=== PATIENT | male | born 1950 | race Caucasian/White ===

== ENCOUNTER 2020-09-09 21:34 | Emergency (ER) | payer MEDICARE, SELFPAY ==
[2020-09-09 21:37] VITALS: BP 144/74; BP 146/86; PULSE 88; PULSE 90; RESP 18; TEMP 36.4; O2SAT 95; O2SAT 96; BMI 39.5
[2020-09-09 22:00] VITALS: PULSE 88; RESP 18; O2SAT 95
--- NOTE | 2020-09-09 22:31 | XR_ITS ---
EXAMINATION: XR HIP, RIGHT. AP pelvis. CLINICAL INFORMATION: Right hip pain COMPARISON: None TECHNIQUE: Two views of the right hip. AP pelvis. FINDINGS: Mild bilateral hip osteoarthritis with osteophytes along the acetabular rim. Normal alignment with no fracture. Pelvic enthesopathy. No focal osseous lesion. XR/XR hip RT w PEL1V IMPRESSION: Mild osteoarthritis with no fracture.
[2020-09-09] MEDS: Lidocaine 4 % Patch ADH..PATCH 1 PATCH TRANSDERMA (23:12)
[2020-09-09] MEDS: Acetaminophen 325 MG TABLET 975 MG PO (23:14)
[2020-09-09] MEDS: Ketorolac Tromethamine 15 MG/ML VIAL IM (23:16)
[2020-09-10] VITALS: RESP 18
--- NOTE | 2020-09-10 00:39 | PC.NURSE ---
pt was able to amabulate with a steady gait to the bathroom.
--- NOTE | 2020-09-10 01:09 | ED.LOWEXIN ---
HPI - Extremity Injury (Lower) General Chief Complaint: Extremity Injury, Lower Stated Complaint: R LEG PAIN/WEAKNESS Time Seen by Provider: 09/09/20 22:31 Source: patient Mode of arrival: EMS Limitations: no limitations History of Present Illness HPI Narrative: This is a 69-year-old male who presents via EMS after he states his right leg gave out on him . He states he has known chronic back pain and denies any history of a sciatica. He states that when he his leg gave out he did not hit his head, did not lose consciousness, and did not fall injuring his knee. He denies any associated fevers, chills, nausea, vomiting, abdominal discomfort, diarrhea, urinary pain /burning / frequency, shortness of breath, chest pain or palpitations or dizziness. He denies any numbness in the genital area and denies any numbness or tingling to the right lower extremity. Related Data Home Medications Medication Instructions Recorded Confirmed allopurinol 1 tab PO DAILY 09/09/20 09/09/20 atorvastatin 1 tab PO DAILY 09/09/20 09/09/20 fludrocortisone 1 tab PO DAILY 09/09/20 09/09/20 gabapentin 1 cap PO TID 09/09/20 09/09/20 lisinopril 1 tab PO DAILY 09/09/20 09/09/20 metformin 1 tab PO BID 09/09/20 09/09/20 potassium citrate 1 tab PO BID 09/09/20 09/09/20 terazosin 1 cap PO BEDTIME 09/09/20 09/09/20 timolol maleate 1 drp 09/09/20 Allergies Allergy/AdvReac Type Severity Reaction Status Date / Time No Known Allergies Allergy Unverified 06/28/20 15:15 Review of Systems Review of Systems: Pertinent positives and negatives as stated in HPI 10 point review systems is otherwise negative. [facility] Past Medical History Source: nursing notes reviewed Medical History Diabetes mellitus, type 2 HTN (hypertension) Hypercholesteremia Social History Social History Smoking Status: Former smoker Use of substances other than those prescribed or required for medical reasons: No Advance Directives: No Advance Directives Information Provided: Yes Physical Exam Vital Signs: Vital Signs: Last Vital Signs Temp 97.6 F 09/09/20 21:37 Pulse 88 09/09/20 22:00 Resp 18 09/10/20 00:00 BP 144/74 H 09/09/20 21:37 Pulse Ox 95 09/09/20 22:00 Body Mass Index 39.5 VITAL SIGNS: Reviewed. GENERAL: Well developed, well nourished, in no acute distress. HEAD: Normocephalic/atraumatic, EYES: PERRLA, EOMI intact without pain, no nystagmus/pallor/icterus noted EARS: Ext canals without abnormality, TMs non-bulging and non-erythematous NOSE: Nares patent bilateral OROPHARYNX: no oral lesions noted, posterior pharynx clear and non-erythematous without noted tonsillar enlargement/erythema/exudates NECK: Supple, no adenopathy LUNGS: Normal breath sounds. No adventitious sounds or accessory muscle use. SpO2<95> CARDIOVASCULAR: Regular rate and rhythm without noted murmurs, no JVD or lower extremity edema. ABDOMEN: Soft, non-tender, non-distended with bowel sounds. No rigidity. No guarding. No palpable masses or hernias noted MUSCULOSKELETAL: No tenderness, deformities, or effusions noted on gross inspection. EXTREMITIES: No cyanosis, clubbing or edema. SKIN: Inspection of the skin reveals no rashes, ulcerations, jaundice, pallor, or petechiae. NEUROLOGIC: Alert and oriented x 4. Strength and sensation to light touch were grossly intact x 4. Course Course Course Narrative: This is a 69-year-old male with history and clinical exam most consistent with sciatica as there are no focal deficits noted, no saddle anesthesia. On review of imaging there are no acute pelvic or hip findings other than chronic osteoarthritis. Patient received a combination of analgesics as well as a lidocaine patch with improvement in symptoms and the ability to walk to the bathroom. All results and findings were discussed with the patient bedside he will be discharged to home with analgesia recommendations and instructed to follow-up with primary care provider 1st thing in the morning. Discharge Plan Discharge Clinical Impression: Sciatic leg pain Patient Disposition: Home, Self-Care Instructions: Sciatica (ED), Lower Back Exercises (ED) Additional Instructions: 1. Tylenol 1000 mg, orally, every 6 hours as needed for pain control. Do not exceed 4000 mg within 24 hours. 2. Ibuprofen 400 mg, orally with milk or food, every 6 hours as needed for pain control. 3. lidocaine patch, these are available [id number] at every [facility], you should apply this to the area of maximal tenderness on the right buttock as per directions on the outside packaging. 4. you should call the office of your primary care provider 1st thing in the morning for re-evaluation and possible management with a referral to physical therapy. The patient and/or family acknowledge understanding of results (as applicable), diagnosis, treatment plan, need for follow up, and symptoms that should prompt a return to the emergency room. Prescriptions: No Action terazosin 5 mg capsule 1 cap PO BEDTIME RF: 0 atorvastatin 10 mg tablet 1 tab PO DAILY RF: 0 allopurinol 100 mg tablet 1 tab PO DAILY RF: 0 potassium citrate 10 mEq (1,080 mg) tablet extended release 1 tab PO BID RF: 0 lisinopril 5 mg tablet 1 tab PO DAILY RF: 0 gabapentin 100 mg capsule 1 cap PO TID RF: 0 timolol maleate 0.5 % drops 1 drp RF: 0 metformin 500 mg tablet extended release 24 hr 1 tab PO BID RF: 0 fludrocortisone 0.1 mg tablet 1 tab PO DAILY RF: 0 Referrals: Dave Palacio MD [Primary Care Provider] - 2 days ( Please re-evaluate for diagnosis of sciatica. No evidence for cauda equina / hip/pelvis pathologies.)
== END 2020-09-10 01:34 | disposition home or self-care (01) ==
PROVIDERS: Emergency Provider Student in an Organized Health Care Education/Training Program; PCP Internal Medicine
DX: M79.604 Pain in right leg (principal); M54.41 Lumbago with sciatica, right side; R10.2 Pelvic and perineal pain; I10 Essential (primary) hypertension; Z79.899 Other long term (current) drug therapy; Z87.891 Personal history of nicotine dependence
CPT/HCPCS: 73502; 96372; 99284; J1885

== ENCOUNTER 2020-09-12 13:48 | Outpatient (REF) | payer MEDICARE, SELFPAY ==
--- NOTE | 2020-09-12 14:15 | XR_ITS ---
EXAMINATION: XR LUMBOSACRAL SPINE CLINICAL INFORMATION: Right leg pain. COMPARISON: None TECHNIQUE: Three views of the lumbosacral spine. FINDINGS: There is normal lumbar lordosis. There is loss of disc height virtually at every disc levels with mild ventral spondylosis lower dorsal and upper lumbar spine. No lytic or sclerotic process. There is bilateral L4-L5 facet joint arthropathy. The paravertebral soft tissues are normal. XR/XR lumbar spine 2-3V IMPRESSION: Degenerative disc changes. No visible acute fracture, dislocation or lytic process seen.
[2020-09-12 15:11] LABS: MANUAL DIFF FLAG NO
[2020-09-12 15:14] LABS: Basophils Absolute Auto 0.1 X10*3/uL (0.0-0.2); Eosinophils Absolute Auto 0.2 X10*3/uL (0.0-0.4); Eosinophils Percent Auto 2.4 % (0-4); Hemoglobin 13.9 g/dl (14.0-18.0); Imm Gran Abs Auto 0.02 X10*3/uL (0.00-0.03); Imm Gran Pct Auto 0.3 % (0.0-0.4); Lymphocytes Absolute Auto 1.2 X10*3/uL (1.2-4.9); Lymphocytes Percent Auto 16.7 % (20-40); Mean Corpuscular HGB Conc 33.1 g/dl (31.0-36.0); Mean Corpuscular Hemoglobin 31.2 pg (27.0-33.0); Mean Corpuscular Volume 94.2 fL (80-98); Mean Platelet Volume 9.6 fL (9.4-12.4); Monocytes Absolute Auto 0.6 X10*3/uL (0.1-1.2); Monocytes Percent Auto 8.9 % (2-11); Neutrophils Absolute Auto 5.1 X10*3/uL (2.0-8.3); Neutrophils Percent Auto 70.7 % (45-73); Platelet Count 272 X10*3/uL (160-400); Red Blood Count 4.46 X10*6/uL (4.60-5.80); Red Cell Distribution Width 13.3 % (11.0-16.0); White Blood Count 7.2 X10*3/uL (4.8-10.8)
[2020-09-12 15:17] LABS: Estimated Average Glucose 131 mg/dL; Hemoglobin A1c % 6.2 %
[2020-09-12 15:48] LABS: Alanine Aminotransferase 22 U/L (0-40); Albumin Level 4.3 g/dL (3.5-5.0); Alkaline Phosphatase 90 U/L (39-117); Anion Gap 15 (12-20); Aspartate Amino Transferase 25 U/L (5-37); Bilirubin Total 0.5 mg/dL (0.0-1.0); Blood Urea Nitrogen 22 mg/dL (9-16); C Reactive Protein 0.16 mg/dL (< or = 0.50); Carbon Dioxide 26 mmol/L (22-29); Chloride 106 mmol/L (96-108); Estimated Glomerular Filt Rate > 60; Glucose Random 80 mg/dL (60-115); Potassium 4.9 mmol/l (3.3-5.1); Sodium 142 mmol/L (135-145)
[2020-09-12 16:34] LABS: Glucose Urine UA 100 MG/DL (NEG); Leukocyte Esterase Urine NEG (NEG); Nitrite Urine NEG (NEG); PH 5.5 (5.0-8.0); Specific Gravity - Urine 1.025 (1.005-1.025); Urine Blood NEG (NEG); Urine Ketones NEG (NEG); Urine Protein NEG (NEG-TRACE)
[2020-09-12 16:35] LABS: Appearance Urine CLEAR; Color Urine YELLOW
== END 2020-09-12 13:49 | disposition home or self-care (01) ==
LOC: HO.LAB 13:48
PROVIDERS: PCP Internal Medicine; Visit Provider Internal Medicine
DX: M79.604 Pain in right leg (principal); E11.9 Type 2 diabetes mellitus without complications; I10 Essential (primary) hypertension; N20.0 Calculus of kidney; M54.9 Dorsalgia, unspecified
CPT/HCPCS: 36415; 72100; 80053; 81003; 82550; 83036; 85025; 86140

== ENCOUNTER 2020-09-19 11:27 | Outpatient (REF) | payer MEDICARE, SELFPAY ==
--- NOTE | 2020-09-19 11:30 | US_ITS ---
EXAMINATION: US ABDOMEN COMPLETE CLINICAL INFORMATION: Right lower quadrant pain. COMPARISON: Renal ultrasound dated 05/22/2020 and 11/23/2019. TECHNIQUE: Real-time imaging of the abdominal viscera. FINDINGS: PANCREAS: Normal. ABDOMINAL AORTA: The mid and distal abdominal aorta are normal caliber. The proximal abdominal aorta was not seen. INFERIOR VENA CAVA: Visualized portions are normal. LIVER: The liver is normal in size. The liver contour is normal. There is diffuse increased liver echogenicity. No focal hepatic lesion. There is no intrahepatic biliary duct dilatation seen. GALLBLADDER: Normal. The gallbladder is physiologically distended without evidence of stones, sludge, polyps, wall thickening or pericholecystic fluid. COMMON BILE DUCT: Normal in caliber measuring 0.35 cm in diameter. RIGHT KIDNEY: Normal. No hydronephrosis. No renal calculi or focal parenchymal lesions. The kidney measures 10.6 cm in maximum dimension. LEFT KIDNEY: Normal. No hydronephrosis. No renal calculi or focal parenchymal lesions. The kidney measures 10.8 cm in maximum dimension. SPLEEN: Normal. The spleen measures 10.4 cm in maximum dimension. FREE FLUID: None. US/US abdomen complete IMPRESSION: Mild hepatic steatosis without focal lesion. The rest of the abdominal ultrasound is unremarkable.
== END 2020-09-19 11:28 | disposition home or self-care (01) ==
LOC: HO.HMGCX 11:27
PROVIDERS: PCP Internal Medicine; Visit Provider Internal Medicine
DX: R10.31 Right lower quadrant pain (principal)
CPT/HCPCS: 76700

== ENCOUNTER 2021-01-23 10:46 | Outpatient (REF) | payer MEDICARE, SELFPAY ==
--- NOTE | ~2021-01-23 | XR_ITS ---
EXAMINATION: XR ANKLE, RIGHT CLINICAL INFORMATION: Right ankle pain. COMPARISON: None. TECHNIQUE: AP, lateral, and mortise views of the right ankle. FINDINGS: There is no soft tissue swelling. No visible fracture or dislocation or ankle capsular effusion. The malleoli are intact and the ankle mortise is symmetric. Talar dome shows no osteochondral lesion. Subtalar joint is unremarkable. There is some minor spurring from the distal dorsal talus. There are bulky posterior and plantar calcaneal spurs. The retrocalcaneal recess is preserved. XR/XR ankle RT 2V IMPRESSION: 1. No visible fracture, dislocation, or ankle capsular effusion. 2. Bulky posterior and plantar calcaneal spurs.
== END 2021-01-23 10:47 | disposition home or self-care (01) ==
LOC: HO.XRAY 10:46
PROVIDERS: PCP Internal Medicine; Visit Provider Internal Medicine
DX: M25.571 Pain in right ankle and joints of right foot (principal)
CPT/HCPCS: 73600

== ENCOUNTER 2021-02-27 11:40 | Day surgery (SDC) | payer MEDICARE, SELFPAY ==
[2021-02-21 11:17] VITALS: BMI 38.1
--- NOTE | 2021-02-25 13:11 | P.CONAN_ITS ---
Documented by User: Natasha Johnson 02/25/21 13:19 HPI - Anesthesia Eval Consult details Narrative: 70yo M for Colonoscopy h/o orthostatic hypotension PMFSH Past Medical History Medical History (Updated 02/27/21 @ 12:39 by Mimi Lees) Arthritis COVID-19 vaccine administered Diabetes mellitus, type 2 HTN (hypertension) Hx of glaucoma Hx of orthostatic hypotension Hx of renal calculi Hypercholesteremia Hyperuricemia Nocturia Surgical History Surgical History H/O colonoscopy Hx of lithotripsy Social History Social History Are you a primary professional healthcare representative to a significant other at home: No Do you presently have visiting nurse or other home services: No Smoking Status: Never smoker Use of substances other than those prescribed or required for medical reasons: No Have you been hit, kicked, punched, or otherwise hurt by someone within the past year? If so, by whom?: No Are you DNR?: No Advance Directives Information Provided: No Recently lost weight without trying: No Eating poorly because of decreased appetite: No Nutrition Risks: No Nutritional Risk Meds Allergies Allergy/AdvReac Type Severity Reaction Status Date / Time No Known Allergies Allergy Unverified 06/28/20 15:15 Home Medications Medication Instructions Recorded Confirmed Last Taken Type allopurinol 1 tab PO DAILY 09/09/20 02/21/21 Unknown History atorvastatin 1 tab PO DAILY 09/09/20 02/21/21 Unknown History gabapentin 1 cap PO TID 09/09/20 02/21/21 Unknown History lisinopril 5 mg PO DAILY 09/09/20 02/21/21 Unknown History metformin 500 mg PO BID 09/09/20 02/21/21 Unknown History potassium citrate 1 tab PO BID 09/09/20 02/21/21 Unknown History terazosin 1 cap PO BEDTIME 09/09/20 02/21/21 Unknown History timolol maleate 1 drp OPHTHALMIC (EYE) DAILY 09/09/20 02/21/21 Unknown History aspirin [Aspirin Low Dose] 81 mg PO DAILY 02/21/21 02/21/21 Unknown History Exam Exam Date and Time: February 25, 2021 1311 Height,Weight and Vital Signs: Height 5 ft 9.5 in Weight 118.841 kg Assessment and Plan Assessment Anesthesia Assessment: Chart Reviewed Documented by User: Mimi Lees 02/27/21 12:47 PMFSH Past Medical History Medical History (Updated 02/27/21 @ 12:39 by Mimi Lees) Arthritis COVID-19 vaccine administered Diabetes mellitus, type 2 HTN (hypertension) Hx of glaucoma Hx of orthostatic hypotension Hx of renal calculi Hypercholesteremia Hyperuricemia Nocturia Family History Family history of problems with anesthesia: No (Unknown) Surgical History Surgical History H/O colonoscopy Hx of lithotripsy History of Problems with Anesthesia: No Social History Social History Are you a primary professional healthcare representative to a significant other at home: No Do you presently have visiting nurse or other home services: No Smoking Status: Never smoker Use of substances other than those prescribed or required for medical reasons: No Have you been hit, kicked, punched, or otherwise hurt by someone within the past year? If so, by whom?: No Are you DNR?: No Advance Directives Information Provided: No Recently lost weight without trying: No Eating poorly because of decreased appetite: No Nutrition Risks: No Nutritional Risk Meds Allergies Allergy/AdvReac Type Severity Reaction Status Date / Time No Known Allergies Allergy Unverified 06/28/20 15:15 Home Medications Medication Instructions Recorded Confirmed Last Taken Type allopurinol 1 tab PO DAILY 09/09/20 02/21/21 Unknown History atorvastatin 1 tab PO DAILY 09/09/20 02/21/21 Unknown History gabapentin 1 cap PO TID 09/09/20 02/21/21 Unknown History lisinopril 5 mg PO DAILY 09/09/20 02/21/21 Unknown History metformin 500 mg PO BID 09/09/20 02/21/21 Unknown History potassium citrate 1 tab PO BID 09/09/20 02/21/21 Unknown History terazosin 1 cap PO BEDTIME 09/09/20 02/21/21 Unknown History timolol maleate 1 drp OPHTHALMIC (EYE) DAILY 09/09/20 02/21/21 Unknown History aspirin [Aspirin Low Dose] 81 mg PO DAILY 02/21/21 02/21/21 Unknown History Exam Height,Weight and Vital Signs: Vital Signs Temp Pulse Resp BP Pulse Ox 02/27/21 12:18 98.6 F 80 18 142/80 H 96 Pertinent Lab Results Pertinent Lab Results: Lab Results 02/27/21 Range/Units 12:06 POC Glucose 119 H (60-115) mg/dL Narrative Narrative: Patient does not know why he is here and not clear about his medical history. Patient denies any memory problems and no documented history of memory issues. States 'I just go for the appointments when they tell me to' Airway Mallampati Class: II TM Dist: >3cm Neck ROM: Full Heart: RRR Lungs: CTAB Assessment and Plan Assessment Anesthesia Assessment: Anesthesia Plan Discussed and Chart Reviewed Final Anesthetic Review NPO: Yes ASA Class: II Final Preanesthetic Review: No Changes in Pt Med Stat, Meds/Allgs Chart Reviewed, Consent Obtained/Reviewed and Anes Risks/Benef Reviewed Patient Risk: Low Procedure Risk: Low Assessment/Block/Sedation in SS: Assess/Block/Sedation-SS Anesthetic Plan Anesthetic Plan: MAC: Disposition: Standard PACU
[2021-02-27 12:13] LABS: Glucose, Whole Blood 119 mg/dL (60-115)
[2021-02-27 12:18] VITALS: BP 142/80; PULSE 80; RESP 18; TEMP 37; O2SAT 96
[2021-02-27] MEDS: Lactated Ringers 1,000 ML 100 ML IVCONT (12:23)
--- NOTE | 2021-02-27 13:04 | MHC.SHP ---
Pre-Procedural Eval Section B Chief Complaint: screening Details of Present Illness: screening Relevant Family History (Specify if Yes): No Relevant Social History: None Present Medications: see Short Stay Collaborative assessment Medical History: No relevant PMH History of Previous Operations: No relevant previous surgery Allergies: Allergies Allergy/AdvReac Type Severity Reaction Status Date / Time No Known Allergies Allergy Unverified 06/28/20 15:15 Review of Systems Sugical H&P ROS: Negative: Constitution, Cardiovascular, Respiratory, Neurological, Psychiatric, Hem-Onc, Allergic/Immunologic, Gastrointestinal, Genitourinary, Musculoskeletal, Integumentary, Endocrine and Eyes/Ears/Nose/Throat Exam Surgical H&P Exam: Normal: HEENT, Normal: Heart, Normal: Lungs, Normal: Extremities, Normal: Abdomen, Normal: Skin and Normal: Neurological Plan Diagnosis/Plan: Unchanged I have reviewed the history and physical and performed a pertinent physical examination on my patient. No changes have occurred unless specified.
--- NOTE | 2021-02-27 13:52 | P.BOP_ITS ---
Brief Operative Note Date of Service: 02/27/21 Pre-op diagnosis: screening Post-op diagnosis: same (diverticulosis) Procedure: colonoscopy Surgeon: Emigdio Mas Anesthesia: MAC Was an [employer] Consultant used for this Procedure?: No Estimated blood loss (mL): 0 Pathology: other (bxs icv) Condition: stable Disposition: PACU
[2021-02-27 13:56] VITALS: BP 109/62; PULSE 86; RESP 14; TEMP 36.4; O2SAT 94
[2021-02-27 14:12] VITALS: BP 114/69; PULSE 69; RESP 16; O2SAT 94
--- NOTE | 2021-02-27 22:13 | OP_ITS ---
SURGEON: Emigdio Mas MD INDICATIONS: Colon cancer screening. PREOPERATIVE DIAGNOSIS: POSTOPERATIVE DIAGNOSIS: PROCEDURE PERFORMED: Colonoscopy to the terminal ileum. ESTIMATED BLOOD LOSS: COMPLICATIONS: ANESTHESIA: ASSISTANTS: SPECIMENS: MEDICATIONS: Monitored anesthesia care. DESCRIPTION OF PROCEDURE: The history and physical was performed. The risks and benefits of the procedure were explained to the patient. Informed consent was obtained. The patient was placed in the left lateral decubitus position. A digital rectal exam was performed and was found to be normal. The Olympus pediatric video colonoscope was introduced into the rectum and advanced to the cecum. The cecum was identified by transillumination, palpation, and identification of ileocecal valve, examination was performed. Scope was removed. He tolerated the procedure well and was taken to recovery area in stable condition. FINDINGS: The terminal ileum was briefly examined and it appeared normal. The procedure was extended and difficult as the sigmoid contained liquid and formed stool which limited the sensitivity of the examination through this area as well as extensive diverticulosis, which also limited the examination. The visualized colonic mucosa showed no polyps. The liquid stool was washed and suctioned. Extensive sigmoid diverticulosis was noted with tortuous sigmoid. No polyps were identified. Retroflexed examination showed small internal hemorrhoids. There appeared to be lipomatous transformation of the ileocecal valve. Two biopsies were obtained from the mucosa. IMPRESSION: Diverticulosis. RECOMMENDATION: 1. Follow up with the biopsy results. 2. Repeat colonoscopy could be considered in 5 years, but will be optional based on the patient's age. MD MAGGI Man/DARBYL / [id number]
== END 2021-02-27 15:08 | disposition home or self-care (01) ==
PROVIDERS: PCP Internal Medicine; Visit Provider Internal Medicine Gastroenterology
PROC: 0DJD8ZZ Inspection of Lower Intestinal Tract, Via Natural or Artificial Opening Endoscopic (ICD-10-PCS; CPT 45378; principal; 2021-02-27 13:00)
DX: Z12.11 Encounter for screening for malignant neoplasm of colon (principal); Z86.010 Personal history of colon polyps; K57.30 Diverticulosis of large intestine without perforation or abscess without bleeding; K64.8 Other hemorrhoids; I10 Essential (primary) hypertension; E11.9 Type 2 diabetes mellitus without complications; Z79.82 Long term (current) use of aspirin; Z79.899 Other long term (current) drug therapy; Z79.84 Long term (current) use of oral hypoglycemic drugs
CPT/HCPCS: 45380; 82947; 88305

== ENCOUNTER 2021-03-07 13:17 | Outpatient (REF) | payer MEDICARE, SELFPAY ==
--- NOTE | ~2021-03-07 | XR_ITS ---
EXAMINATION: XR THORACIC SPINE XR CERVICAL SPINE CLINICAL INFORMATION: Spondylosis with myelopathy or radiculopathy. COMPARISON: None. TECHNIQUE: 2 views thoracic spine, 5 view cervical spine. FINDINGS: Thoracic Spine: There is normal thoracic kyphosis with minimal dextroscoliosis of the upper dorsal spine. There is calcification of the anterior longitudinal ligament. No visible acute fracture, dislocation or lytic process seen. The paravertebral soft tissues are normal. Cervical Spine: There is mild straightening of cervical lordosis. There is loss of C3-C4, C5-C6 disc heights with moderate bridging osteophyte at the C5-C6 disc level. There is moderate narrowing of bilateral C4-C5 and C5-C6 neural foramina from uncovertebral hypertrophic changes. The prevertebral and paravertebral soft tissues are normal. XR/XR cervical spine min 6V IMPRESSION: Anterior longitudinal calcification throughout the mid and lower dorsal spine suggestive of DISH. There is no visible acute fracture, dislocation or lytic process seen. Degenerative disc changes C3-C4 and C5-C6 disc levels with moderate ventral spondylosis. Bilateral neural foraminal narrowing at C5 and C5-C6 disc levels from uncovertebral hypertrophic changes.
--- NOTE | ~2021-03-07 | XR_ITS ---
EXAMINATION: XR THORACIC SPINE XR CERVICAL SPINE CLINICAL INFORMATION: Spondylosis with myelopathy or radiculopathy. COMPARISON: None. TECHNIQUE: 2 views thoracic spine, 5 view cervical spine. FINDINGS: Thoracic Spine: There is normal thoracic kyphosis with minimal dextroscoliosis of the upper dorsal spine. There is calcification of the anterior longitudinal ligament. No visible acute fracture, dislocation or lytic process seen. The paravertebral soft tissues are normal. Cervical Spine: There is mild straightening of cervical lordosis. There is loss of C3-C4, C5-C6 disc heights with moderate bridging osteophyte at the C5-C6 disc level. There is moderate narrowing of bilateral C4-C5 and C5-C6 neural foramina from uncovertebral hypertrophic changes. The prevertebral and paravertebral soft tissues are normal. XR/XR thoracic spine 3V IMPRESSION: Anterior longitudinal calcification throughout the mid and lower dorsal spine suggestive of DISH. There is no visible acute fracture, dislocation or lytic process seen. Degenerative disc changes C3-C4 and C5-C6 disc levels with moderate ventral spondylosis. Bilateral neural foraminal narrowing at C5 and C5-C6 disc levels from uncovertebral hypertrophic changes.
== END 2021-03-07 13:18 | disposition home or self-care (01) ==
LOC: HO.XRAY 13:17
PROVIDERS: Absent Provider Internal Medicine; PCP Internal Medicine; Visit Provider Nurse Practitioner Women's Health
DX: M47.814 Spondylosis without myelopathy or radiculopathy, thoracic region (principal); M47.812 Spondylosis without myelopathy or radiculopathy, cervical region
CPT/HCPCS: 72052; 72072

== ENCOUNTER 2021-03-18 14:15 | Outpatient (REF) | payer MEDICARE, SELFPAY ==
[2021-03-18 15:12] LABS: MANUAL DIFF FLAG NO
[2021-03-18 15:15] LABS: Basophils Absolute Auto 0.1 X10*3/uL (0.0-0.2); Basophils Percent Auto 0.8 % (0-2); Eosinophils Absolute Auto 0.2 X10*3/uL (0.0-0.4); Eosinophils Percent Auto 2.3 % (0-4); Hematocrit 41.6 % (42-52); Hemoglobin 13.6 g/dl (14.0-18.0); Imm Gran Abs Auto 0.04 X10*3/uL (0.00-0.03); Imm Gran Pct Auto 0.5 % (0.0-0.4); Lymphocytes Absolute Auto 1.3 X10*3/uL (1.2-4.9); Lymphocytes Percent Auto 16.1 % (20-40); Mean Corpuscular HGB Conc 32.7 g/dl (31.0-36.0); Mean Corpuscular Hemoglobin 30.9 pg (27.0-33.0); Mean Corpuscular Volume 94.5 fL (80-98); Mean Platelet Volume 9.5 fL (9.4-12.4); Monocytes Absolute Auto 0.6 X10*3/uL (0.1-1.2); Monocytes Percent Auto 7.6 % (2-11); Neutrophils Percent Auto 72.7 % (45-73); Platelet Count 252 X10*3/uL (160-400); Red Cell Distribution Width 13.7 % (11.0-16.0); White Blood Count 8.3 X10*3/uL (4.8-10.8)
[2021-03-18 15:22] LABS: Estimated Average Glucose 134 mg/dL; Hemoglobin A1c % 6.3 %
[2021-03-18 15:36] LABS: Anion Gap 12 (12-20); Blood Urea Nitrogen 21 mg/dL (9-16); Calcium 9.2 mg/dL (8.4-10.2); Carbon Dioxide 27 mmol/L (22-29); Chloride 110 mmol/L (96-108); Estimated Glomerular Filt Rate 53; Glucose Random 128 mg/dL (60-115); Potassium 4.7 mmol/L (3.3-5.1); Sodium 144 mmol/L (135-145)
== END 2021-03-18 14:16 | disposition home or self-care (01) ==
LOC: HO.LAB 14:15
PROVIDERS: PCP Internal Medicine; Visit Provider Internal Medicine
DX: E11.9 Type 2 diabetes mellitus without complications (principal); E78.00 Pure hypercholesterolemia, unspecified; D64.9 Anemia, unspecified
CPT/HCPCS: 36415; 80048; 83036; 85025

== ENCOUNTER 2021-05-29 00:22 | Emergency (ER) | payer MEDICARE, SELFPAY ==
--- NOTE | 2021-05-29 | ECG_ITS ---
Test Reason : CP Blood Pressure : / mmHG Vent. Rate : 070 BPM Atrial Rate : 070 BPM P-R Int : 188 ms QRS Dur : 084 ms QT Int : 384 ms P-R-T Axes : 039 002 023 degrees QTc Int : 414 ms Normal sinus rhythm Normal ECG When compared with ECG of 02-JUL-2019 16:03, No significant change was found Referred By: Ana Laura Yu Electronically Signed By:OBDULIO FULLER
[2021-05-29 00:32] VITALS: BP 122/64; BP 149/76; PULSE 71; RESP 20; TEMP 36.8; O2SAT 94; O2SAT 98; BMI 35.2
--- NOTE | 2021-05-29 01:03 | ED_ITS ---
HPI - Chest Pain General Chief Complaint: Chest Pain <MARY ANN Franco Last Filed: 05/29/21 02:32> Stated Complaint: chest pain <MARY ANN Franco Last Filed: 05/29/21 02:32> Time Seen by Provider: 05/29/21 01:02 <MARY ANN Franco Last Filed: 05/29/21 02:32> Source: patient <MARY ANN Franco Last Filed: 05/29/21 02:32> Mode of arrival: ambulatory <MARY ANN Franco Last Filed: 05/29/21 02:32> Limitations: no limitations <MARY ANN Franco Last Filed: 05/29/21 02:32> History of Present Illness HPI narrative: 70 y/o male with history of DM2, HTN, HLD, chronic back pain, obesity, who presents to the ER from home via EMS with c/o chest pain that started 2 hours prior. He the pain started before he went to bed and was across his lower chest, it was mild. He laid down to go to sleep and the pain moved to his central chest and got worse. He cannot describe the nature of the pain and states, it just hurts. It is constant and does not radiate from his central chest now. He has no SOB, diaphoresis, nausea, vomiting, abdominal pain, shoulder pain or jaw pain. He has no history of cardiac issues. No history of GERD. He called EMS and he was given aspirin en route. <MARY ANN Franco Last Filed: 05/29/21 02:32> MD complaint: chest pain <MARY ANN Franco Last Filed: 05/29/21 02:32> Onset (ago): hour(s) (2) <MARY ANN Franco Last Filed: 05/29/21 02:32> Prior episodes: No <MARY ANN Franco Last Filed: 05/29/21 02:32> Onset: during rest <MARY ANN Franco Last Filed: 05/29/21 02:32> Pain location: substernal <MARY ANN Franco Last Filed: 05/29/21 02:32> Pain radiation: none <MARY ANN Franco - Last Filed: 05/29/21 02:32> Severity: moderate <MARY ANN Franco - Last Filed: 05/29/21 02:32> Pain scale (0-10): 5 <MARY ANN Franco - Last Filed: 05/29/21 02:32> Relieving factors: nothing <MARY ANN Franco - Last Filed: 05/29/21 02:32> Exacerbating factors: nothing <MAR YANN Franco - Last Filed: 05/29/21 02:32> Treatment prior to arrival: aspirin <MARY ANN Franco - Last Filed: 05/29/21 02:32> Risk Factors Coronary artery disease risk factors: diabetes, hyperlipidemia and hypertension <MARY ANN Franco - Last Filed: 05/29/21 02:32> Thoracic aortic dissection risk factors: none <MARY ANN Franco - Last Filed: 05/29/21 02:32> Related Data Home Medications: Home Medications Medication Instructions Recorded Confirmed atorvastatin 10 mg tablet 1 tab PO DAILY 09/09/20 02/21/21 gabapentin 100 mg capsule 1 cap PO TID 09/09/20 02/21/21 lisinopril 5 mg tablet 5 mg PO DAILY 09/09/20 02/21/21 metformin 500 mg tablet,extended 500 mg PO BID 09/09/20 02/21/21 release 24 hr potassium citrate 10 mEq (1,080 1 tab PO BID 09/09/20 02/21/21 mg) tablet,extended release terazosin 5 mg capsule 1 cap PO BEDTIME 09/09/20 02/21/21 timolol maleate 0.5 % eye drops 1 drp OPHTHALMIC (EYE) DAILY 09/09/20 02/21/21 aspirin 81 mg tablet,delayed 81 mg PO DAILY 02/21/21 02/27/21 release (Aspirin Low Dose) Previous Rx's Medication Instructions Recorded fludrocortisone 0.1 mg tablet 0.1 mg PO DAILY #30 cap 11/27/20 allopurinol 100 mg tablet 100 mg PO DAILY 90 Days #90 tab 04/08/21 omeprazole 40 mg capsule,delayed 40 mg PO DAILY 30 Days #30 cap 05/29/21 release <MARY ANN Franco - Last Filed: 05/29/21 02:32> Allergies/Adverse Reactions: Allergies Allergy/AdvReac Type Severity Reaction Status Date / Time No Known Allergies Allergy Unverified 06/28/20 15:15 <MARY ANN Franco Last Filed: 05/29/21 02:32> Review of Systems Constitutional: Constitutional: Denies chills, Denies fever(s) and Denies headache(s) <MARY ANN Franco Last Filed: 05/29/21 02:32> Eyes: Eyes: Reports no additional eye complaints <MARY ANN Franco Last Filed: 05/29/21 02:32> ENT: Reports Normal hearing present, Denies dizziness, Denies headache(s) and Denies sore throat <MARY ANN Franco Last Filed: 05/29/21 02:32> Cardiovascular: Cardiovascular: Reports chest pain, Reports chest pain at rest, Denies Epigastric Pain, Denies syncope, Denies leg edema, Denies radiating jaw, neck or arm pain, Denies palpitations, Denies dyspnea, Denies orthopnea and Denies paroxysmal nocturnal dyspnea <MARY ANN Franco Last Filed: 05/29/21 02:32> Respiratory: Respiratory: Denies chest congestion, Denies cough, Denies dyspne a and Denies wheezing <MARY ANN Franco Last Filed: 05/29/21 02:32> Gastrointestinal: Gastrointestinal: Denies abdominal pain, Denies belching, Denies diarrhea, Denies nausea and Denies vomiting <MARY ANN Franco Last Filed: 05/29/21 02:32> Musculoskeletal: Musculoskeletal: Denies back pain <MARY ANN Franco Last Filed: 05/29/21 02:32> Integumentary/Breasts: Skin/Breast: Denies rash <MARY ANN Franco Last Filed: 05/29/21 02:32> Neurologic: Reports Normal hearing present, Denies dizziness, Denies syncope and Denies headache(s) <MARY ANN Franco Last Filed: 05/29/21 02:32> Endocrine: Endocrine: Denies palpitations <MARY ANN Franco Last Filed: 05/29/21 02:32> Allergic/Immunologic: Allergic/Immunologic: Denies wheezing <MARY ANN Franco - Last Filed: 05/29/21 02:32> [facility] Past Medical History Medical History: Medical History Arthritis COVID-19 vaccine administered Diabetes mellitus, type 2 HTN (hypertension) Hx of glaucoma Hx of orthostatic hypotension Hx of renal calculi Hypercholesteremia Hyperuricemia Nocturia <MARY ANN Franco - Last Filed: 05/29/21 02:32> Surgical History: Surgical History H/O colonoscopy Hx of lithotripsy <MARY ANN Franco - Last Filed: 05/29/21 02:32> Social History Social History: Social History Are you a primary director medicare sales to a significant other at home: No Do you presently have visiting nurse or other home services: No Alcohol intake: never Patient Tobacco Use Status: Never used Tobacco Use of substances other than those prescribed or required for medical reasons: No Advance Directives: No Advance Directives Information Provided: No <MARY ANN Franco - Last Filed: 05/29/21 02:32> Physical Exam Vital Signs: Vital Signs: Last Vital Signs Temp 98.3 F 05/29/21 00:32 Pulse 82 05/29/21 02:00 Resp 05/29/21 02:00 BP 130/70 05/29/21 02:00 Pulse Ox 97 05/29/21 02:00 Body Mass Index 35.2 <MARY ANN Franco - Last Filed: 05/29/21 02:32> Vital Signs: Last Vital Signs Temp 98.3 F 05/29/21 00:32 Pulse 82 05/29/21 02:00 Resp 05/29/21 02:00 BP 130/70 05/29/21 02:00 Pulse Ox 97 05/29/21 02:00 Body Mass Index 35.2 <Cayla Scherer MD - Last Filed: 05/29/21 04:34> Const: General: cooperative, comfortable, no acute distress, alert and awake <MARY ANN Franco Last Filed: 05/29/21 02:32> Nutritional Appearance: overweight <MARY ANN Franco Last Filed: 05/29/21 02:32> Orientation/consciousness: patient oriented x3 <MARY ANN Franco Last Filed: 05/29/21 02:32> Limitations: no limitations <MARY ANN Franco Last Filed: 05/29/21 02:32> HENMT: Head: Yes normal to inspection <MARY ANN Franco Last Filed: 05/29/21 02:32> Ears: hearing grossly normal bilaterally and external ears normal <MARY ANN Franco Last Filed: 05/29/21 02:32> General nose exam: Normal external nose present and Normal nares present <MARY ANN Franco Last Filed: 05/29/21 02:32> Face and sinus: Yes normal facial exam and Yes face symmetric <MARY ANN Franco Last Filed: 05/29/21 02:32> Mouth: Normal oral and palatal mucosa present, lip normal, tongue normal and moist mucous membranes <MARY ANN Franco Last Filed: 05/29/21 02:32> Teeth and gingiva: dentition normal and gingiva normal <MARY ANN Franco Last Filed: 05/29/21 02:32> Throat: Yes posterior oropharynx normal, Yes tonsils normal and Yes uvula midline <MARY ANN Franco Last Filed: 05/29/21 02:32> Eyes: General: appearance normal, both eyes and all related structures <MARY ANN Franco Last Filed: 05/29/21 02:32> Neck: Neck: Yes normal visual inspection and Yes supple <MARY ANN Franco Last Filed: 05/29/21 02:32> Chest: Chest palpation & inspection: normal inspection of the chest and normal palpation of entire chest wall <MARY ANN Franco Last Filed: 05/29/21 02:32> Resp: Effort & Inspection: normal respiratory effort and able to speak in complete sentences <MARY ANN Franco Last Filed: 05/29/21 02:32> Auscultation: clear to auscultation bilaterally <MARY ANN Franco Last Filed: 05/29/21 02:32> Cardio: Jugular venous distension: no JVD <MARY ANN Franco - Last Filed: 05/29/21 02:32> Rate: regular rate <MARY ANN Franco Last Filed: 05/29/21 02:32> Rhythm: regular rhythm <MARY ANN Franco Last Filed: 05/29/21 02:32> Heart sounds: S1 normal heart sound present and S2 normal heart sound present <MARY ANN Franco Last Filed: 05/29/21 02:32> GI: Inspection: Yes obesity <MARY ANN Franco Last Filed: 05/29/21 02:32> Palpation (GI): Soft to palpation, nontender and no guarding <MARY ANN Franco Last Filed: 05/29/21 02:32> Percussion: Yes normal to percussion <MARY ANN Franco Last Filed: 05/29/21 02:32> Auscultation: normal bowel sounds <MARY ANN Franco Last Filed: 05/29/21 02:32> Rectal Exam - Male: Yes deferred <MARY ANN Franco Last Filed: 05/29/21 02:32> Skin: General skin exam: no rashes or lesions noted <MARY ANN Franco Last Filed: 05/29/21 02:32> Neuro: General: patient oriented x3, tone normal and moves all extremities <MARY ANN Franco Last Filed: 05/29/21 02:32> Cranial nerves: Yes Normal hearing present <MARY ANN Franco Last Filed: 05/29/21 02:32> Cognition (Neuro): normal cognition <MARY ANN Franco Last Filed: 05/29/21 02:32> Extrem: General: Yes normal to inspection <MARY ANN Franco Last Filed: 05/29/21 02:32> Psych: Appearance: grossly normal and well kempt <MARY ANN Franco L ast Filed: 05/29/21 02:32> Mental Status: mental status grossly normal <MAYR ANN Franco - Last Filed: 05/29/21 02:32> Speech and movement: Normal speech and movement present <MARY ANN Franco - Last Filed: 05/29/21 02:32> Course Course Course Narrative: 70 y/o male with history of DM, HTN, HLD presenting with acute onset of chest pain that started 2 hours ago. Initial pain along lower chest and migrated to central chest after he laid down to go to sleep. Suspect gastric reflux however given his comorbidities will need to r/o ACS. He was given ASA by EMS. Vitals are stable and he appears well. EKG without STEMI. Will treat with PPI and Maalox. Will need troponin x2 to r/o ACS and basic labs. Will monitor closely and reassess after GI meds. <MARY ANN Franco - Last Filed: 05/29/21 02:32> Reevaluation(s) Reevaluation #1: Signed out to Dr. Scherer who will f/u labs and trop x2. <MARY ANN Franco - Last Filed: 05/29/21 02:32> Reevaluation #2: On review of all investigations serial troponins are lateral without changes on EKG and on re-evaluation patient reports complete resolution of initial symptoms. On review of all documentation and review of investigations this is likely attributable to GERD. Patient will be sent home with a prescription for PPI and instructed to follow-up with his primary care provider. <Cayla Scherer MD - Last Filed: 05/29/21 04:34> Time: 04:29 <Cayla Scherer MD - Last Filed: 05/29/21 04:34> MDM - Chest Pain Medical Records Data Attestation: I reviewed the patient's medical records. <MARY ANN Franco - Last Filed: 05/29/21 02:32> Lab Data Result diagrams: : 05/29/21 03:22 05/29/21 01:27 <MARY ANN Franco - Last Filed: 05/29/21 02:32> Labs: Lab Results 05/29/21 05/29/21 05/29/21 Range/Units 01:27 01:27 01:29 WBC (4.8-10.8) X10*3/uL RBC (4.60-5.80) X10*6/uL Hgb (14.0-18.0) g/dl Hct (42-52) % MCV (80-98) fL MCH (27.0-33.0) pg MCHC (31.0-36.0) g/dl RDW (11.0-16.0) % Plt Count (160-400) X10*3/uL MPV (9.4-12.4) fL Immature Gran % (Auto) (0.0-0.4) % Neut % (Auto) (45-73) % Lymph % (Auto) (20-40) % [place] % (Auto) (2-11) % Eos % (Auto) (0-4) % Baso % (Auto) (0-2) % Lymph # (Auto) (1.2-4.9) X10*3/uL [place] # (Auto) (0.1-1.2) X10*3/uL Eos # (Auto) (0.0-0.4) X10*3/uL Baso # (Auto) (0.0-0.2) X10*3/uL Abs Immat Gran (auto) (0.00-0.03) X10*3/uL Absolute Neuts (auto) (2.0-8.3) X10*3/uL Absolute Nucleated RBC (0.0-0.012) X10*3/uL Nucleated RBC % (auto) (0.0-0.2) /100WBC PT (9.9-13.0) SEC INR (0.9-1.1) APTT (24.1-38.0) SEC Sodium 141 (135-145) mmol/L Potassium 4.2 (3.3-5.1) mmol/L Chloride 108 (96-108) mmol/L Carbon Dioxide 24 (22-29) mmol/L Anion Gap 13 (12-20) BUN 17 H (9-16) mg/dL Creatinine 0.99 (0.5-1.4) mg/dL Estim Creat Clear Calc 86.6 Estimated GFR > 60 Random Glucose 123 H (60-115) mg/dL Calcium 8.5 D (8.4-10.2) mg/dL Magnesium 2.1 (1.6-2.6) mg/dL Total Bilirubin < 0.2 (0.0-1.0) mg/dL Direct Bilirubin < 0.2 (0.0-0.5) mg/dL AST 18 (5-37) U/L ALT 19 (0-40) U/L Alkaline Phosphatase 80 (39-117) U/L Troponin I High Sens 9.0 (<3.5-35.0) ng/L Total Protein 6.1 L (6.5-8.0) g/dL Albumin 3.7 (3.5-5.0) g/dL COVID-19 ([facility]) Negative (Negative) COVID-19 Clin Com See Note 05/29/21 05/29/21 05/29/21 Range/Units 03:22 03:22 03:22 WBC 6.5 (4.8-10.8) X10*3/uL RBC 4.05 L (4.60-5.80) X10*6/uL Hgb 12.7 L (14.0-18.0) g/dl Hct 38.1 L (42-52) % MCV 94.1 (80-98) fL MCH 31.4 (27.0-33.0) pg MCHC 33.3 (31.0-36.0) g/dl RDW 13.3 (11.0-16.0) % Plt Count 196 (160-400) X10*3/uL MPV 8.8 L (9.4-12.4) fL Immature Gran % (Auto) 0.5 H (0.0-0.4) % Neut % (Auto) 60.5 (45-73) % Lymph % (Auto) 25.0 (20-40) % [place] % (Auto) 9.4 (2-11) % Eos % (Auto) 3.7 (0-4) % Baso % (Auto) 0.9 (0-2) % Lymph # (Auto) 1.6 (1.2-4.9) X10*3/uL [place] # (Auto) 0.6 (0.1-1.2) X10*3/uL Eos # (Auto) 0.2 (0.0-0.4) X10*3/uL Baso # (Auto) 0.1 (0.0-0.2) X10*3/uL Abs Immat Gran (auto) 0.03 (0.00-0.03) X10*3/uL Absolute Neuts (auto) 4.0 (2.0-8.3) X10*3/uL Absolute Nucleated RBC 0.000 (0.0-0.012) X10*3/uL Nucleated RBC % (auto) 0.0 (0.0-0.2) /100WBC PT 11.1 (9.9-13.0) SEC INR 1.0 (0.9-1.1) APTT 39.2 H (24.1-38.0) SEC Sodium (135-145) mmol/L Potassium (3.3-5.1) mmol/L Chloride (96-108) mmol/L Carbon Dioxide (22-29) mmol/L Anion Gap (12-20) BUN (9-16) mg/dL Creatinine (0.5-1.4) mg/dL Estim Creat Clear Calc Estimated GFR Random Glucose (60-115) mg/dL Calcium (8.4-10.2) mg/dL Magnesium (1.6-2.6) mg/dL Total Bilirubin (0.0-1.0) mg/dL Direct Bilirubin (0.0-0.5) mg/dL AST (5-37) U/L ALT (0-40) U/L Alkaline Phosphatase (39-117) U/L Troponin I High Sens 9.1 (<3.5-35.0) ng/L Total Protein (6.5-8.0) g/dL Albumin (3.5-5.0) g/dL COVID-19 ([facility]) (Negative) COVID-19 Clin Com <MARY ANN Franco - Last Filed: 05/29/21 02:32> Lab Results 05/29/21 05/29/21 05/29/21 Range/Units 01:27 01:27 01:29 WBC (4.8-10.8) X10*3/uL RBC (4.60-5.80) X10*6/uL Hgb (14.0-18.0) g/dl Hct (42-52) % MCV (80-98) fL MCH (27.0-33.0) pg MCHC (31.0-36.0) g/dl RDW (11.0-16.0) % Plt Count (160-400) X10*3/uL MPV (9.4-12.4) fL Immature Gran % (Auto) (0.0-0.4) % Neut % (Auto) (45-73) % Lymph % (Auto) (20-40) % [place] % (Auto) (2-11) % Eos % (Auto) (0-4) % Baso % (Auto) (0-2) % Lymph # (Auto) (1.2-4.9) X10*3/uL [place] # (Auto) (0.1-1.2) X10*3/uL Eos # (Auto) (0.0-0.4) X10*3/uL Baso # (Auto) (0.0-0.2) X10*3/uL Abs Immat Gran (auto) (0.00-0.03) X10*3/uL Absolute Neuts (auto) (2.0-8.3) X10*3/uL Absolute Nucleated RBC (0.0-0.012) X10*3/uL Nucleated RBC % (auto) (0.0-0.2) /100WBC PT (9.9-13.0) SEC INR (0.9-1.1) APTT (24.1-38.0) SEC Sodium 141 (135-145) mmol/L Potassium 4.2 (3.3-5.1) mmol/L Chloride 108 (96-108) mmol/L Carbon Dioxide 24 (22-29) mmol/L Anion Gap 13 (12-20) BUN 17 H (9-16) mg/dL Creatinine 0.99 (0.5-1.4) mg/dL Estim Creat Clear Calc 86.6 Estimated GFR > 60 Random Glucose 123 H (60-115) mg/dL Calcium 8.5 D (8.4-10.2) mg/dL Magnesium 2.1 (1.6-2.6) mg/dL Total Bilirubin < 0.2 (0.0-1.0) mg/dL Direct Bilirubin < 0.2 (0.0-0.5) mg/dL AST 18 (5-37) U/L ALT 19 (0-40) U/L Alkaline Phosphatase 80 (39-117) U/L Troponin I High Sens 9.0 (<3.5-35.0) ng/L Total Protein 6.1 L (6.5-8.0) g/dL Albumin 3.7 (3.5-5.0) g/dL COVID-19 ([facility]ESSA) Negative (Negative) COVID-19 Clin Com See Note 05/29/21 05/29/21 05/29/21 Range/Units 03:22 03:22 03:22 WBC 6.5 (4.8-10.8) X10*3/uL RBC 4.05 L (4.60-5.80) X10*6/uL Hgb 12.7 L (14.0-18.0) g/dl Hct 38.1 L (42-52) % MCV 94.1 (80-98) fL MCH 31.4 (27.0-33.0) pg MCHC 33.3 (31.0-36.0) g/dl RDW 13.3 (11.0-16.0) % Plt Count 196 (160-400) X10*3/uL MPV 8.8 L (9.4-12.4) fL Immature Gran % (Auto) 0.5 H (0.0-0.4) % Neut % (Auto) 60.5 (45-73) % Lymph % (Auto) 25.0 (20-40) % [place] % (Auto) 9.4 (2-11) % Eos % (Auto) 3.7 (0-4) % Baso % (Auto) 0.9 (0-2) % Lymph # (Auto) 1.6 (1.2-4.9) X10*3/uL [place] # (Auto) 0.6 (0.1-1.2) X10*3/uL Eos # (Auto) 0.2 (0.0-0.4) X10*3/uL Baso # (Auto) 0.1 (0.0-0.2) X10*3/uL Abs Immat Gran (auto) 0.03 (0.00-0.03) X10*3/uL Absolute Neuts (auto) 4.0 (2.0-8.3) X10*3/uL Absolute Nucleated RBC 0.000 (0.0-0.012) X10*3/uL Nucleated RBC % (auto) 0.0 (0.0-0.2) /100WBC PT 11.1 (9.9-13.0) SEC INR 1.0 (0.9-1.1) APTT 39.2 H (24.1-38.0) SEC Sodium (135-145) mmol/L Potassium (3.3-5.1) mmol/L Chloride (96-108) mmol/L Carbon Dioxide (22-29) mmol/L Anion Gap (12-20) BUN (9-16) mg/dL Creatinine (0.5-1.4) mg/dL Estim Creat Clear Calc Estimated GFR Random Glucose (60-115) mg/dL Calcium (8.4-10.2) mg/dL Magnesium (1.6-2.6) mg/dL Total Bilirubin (0.0-1.0) mg/dL Direct Bilirubin (0.0-0.5) mg/dL AST (5-37) U/L ALT (0-40) U/L Alkaline Phosphatase (39-117) U/L Troponin I High Sens 9.1 (<3.5-35.0) ng/L Total Protein (6.5-8.0) g/dL Albumin (3.5-5.0) g/dL COVID-19 ([facility]) (Negative) COVID-19 Clin Com <Cayla Scherer MD - Last Filed: 05/29/21 04:34> ECG Data ECG #1: Attestation: I personally reviewed and interpreted this ECG as follows: <MARY ANN Franco - Last Filed: 05/29/21 02:32> ECG interpretation date: 05/29/21 <MARY ANN Franco - Last Filed: 05/29/21 02:32> ECG interpretation time: 01:13 <MARY ANN Franco - Last Filed: 05/29/21 02:32> Interpretation: normal sinus rhythm, HR 70 bpm, normal AL interval, isolated t-wave inversion in lead III, NO ST segment elevations or depressions. <MARY ANN Franco - Last Filed: 05/29/21 02:32> Discharge Plan Discharge Clinical Impression: Atypical chest pain, Gastroesophageal reflux disease <MARY ANN Franco - Last Filed: 05/29/21 02:32> Patient Disposition: Home, Self-Care <MARY ANN Franco - Last Filed: 05/29/21 02:32> Instructions: Chest Pain (ED), Diet for Stomach Ulcers and Gastritis (ED), Gastroesophageal Reflux Disease (ED) <MARY ANN Franco - Last Filed: 05/29/21 02:32> Additional Instructions: 1. Please resume all home medications as prescribed. 2. Please follow-up with your primary care provider in the next 2-3 days for re- evaluation. Return to the ER for acute worsening of symptoms. <MARY ANN Franco - Last Filed: 05/29/21 02:32> Prescriptions: New omeprazole 40 mg capsule,delayed release(DR/EC) 40 mg PO DAILY 30 Days Qty: 30 RF: 0 No Action fludrocortisone 0.1 mg tablet 0.1 mg PO DAILY Qty: 30 RF: 5 allopurinol 100 mg tablet 100 mg PO DAILY 90 Days Qty: 90 RF: 2 terazosin 5 mg capsule 1 cap PO BEDTIME RF: 0 atorvastatin 10 mg tablet 1 tab PO DAILY RF: 0 potassium citrate 10 mEq (1,080 mg) tablet extended release 1 tab PO BID RF: 0 lisinopril 5 mg tablet 5 mg PO DAILY RF: 0 gabapentin 100 mg capsule 1 cap PO TID RF: 0 timolol maleate 0.5 % drops 1 drp ophthalmic (eye) DAILY RF: 0 metformin 500 mg tablet extended release 24 hr 500 mg PO BID RF: 0 aspirin [Aspirin Low Dose] 81 mg Tablet,Delayed Release (Dr/Ec) 81 mg PO DAILY RF: 0 <MARY ANN Franco - Last Filed: 05/29/21 02:32> Referrals: Dave Palacio MD [Primary Care Provider] - 2 days <MARY ANN Franco - Last Filed: 05/29/21 02:32>
[2021-05-29] MEDS: Omeprazole 40 MG CAPSULE.DR PO (01:58)
[2021-05-29] MEDS: Magnesium Hydrox/Alum Hydrox 30 ML ORAL.SUSP PO (01:58)
[2021-05-29 01:59] VITALS: BP 134/74; PULSE 81; RESP 16; O2SAT 96
[2021-05-29 02:00] VITALS: BP 130/70; PULSE 82; RESP 17; O2SAT 97
[2021-05-29 02:11] LABS: Alanine Aminotransferase 19 U/L (0-40); Albumin Level 3.7 g/dL (3.5-5.0); Alkaline Phosphatase 80 U/L (39-117); Anion Gap 13 (12-20); Aspartate Amino Transferase 18 U/L (5-37); Bilirubin Direct < 0.2 mg/dL (0.0-0.5); Bilirubin Total < 0.2 mg/dL (0.0-1.0); Blood Urea Nitrogen 17 mg/dL (9-16); Calcium 8.5 mg/dL (8.4-10.2); Carbon Dioxide 24 mmol/L (22-29); Chloride 108 mmol/L (96-108); Creatinine Clr Calc Pharmacy 86.6; Estimated Glomerular Filt Rate > 60; Glucose Random 123 mg/dL (60-115); Magnesium 2.1 mg/dL (1.6-2.6); Potassium 4.2 mmol/L (3.3-5.1); Sodium 141 mmol/L (135-145); Total Protein 6.1 g/dL (6.5-8.0)
[2021-05-29 02:12] LABS: COVID-19 Test Negative (Negative)
[2021-05-29 03:29] LABS: Basophils Absolute Auto 0.1 X10*3/uL (0.0-0.2); Basophils Percent Auto 0.9 % (0-2); Eosinophils Absolute Auto 0.2 X10*3/uL (0.0-0.4); Eosinophils Percent Auto 3.7 % (0-4); Hematocrit 38.1 % (42-52); Hemoglobin 12.7 g/dl (14.0-18.0); Imm Gran Abs Auto 0.03 X10*3/uL (0.00-0.03); Imm Gran Pct Auto 0.5 % (0.0-0.4); Lymphocytes Absolute Auto 1.6 X10*3/uL (1.2-4.9); Mean Corpuscular HGB Conc 33.3 g/dl (31.0-36.0); Mean Corpuscular Hemoglobin 31.4 pg (27.0-33.0); Mean Corpuscular Volume 94.1 fL (80-98); Mean Platelet Volume 8.8 fL (9.4-12.4); Monocytes Absolute Auto 0.6 X10*3/uL (0.1-1.2); Monocytes Percent Auto 9.4 % (2-11); Neutrophils Percent Auto 60.5 % (45-73); Platelet Count 196 X10*3/uL (160-400); Red Blood Count 4.05 X10*6/uL (4.60-5.80); Red Cell Distribution Width 13.3 % (11.0-16.0); White Blood Count 6.5 X10*3/uL (4.8-10.8)
[2021-05-29 03:30] LABS: MANUAL DIFF FLAG NO
[2021-05-29 03:35] LABS: Prothrombin Time 11.1 SEC (9.9-13.0)
[2021-05-29 03:38] LABS: Partial Thromboplastin Time 39.2 SEC (24.1-38.0)
[2021-05-29 04:18] LABS: Troponin-I High Sensitivity 9.1 ng/L (<3.5-35.0)
[2021-05-29 04:49] VITALS: BP 138/78; PULSE 63; RESP 18; O2SAT 96
[2021-05-29 05:09] VITALS: BP 131/70; PULSE 74; RESP 16; O2SAT 97
--- NOTE | 2021-05-29 05:10 | PC.NURSE ---
pt remains pain free, vitals stable , hr wnl nsr. no s/s of resp distress.
== END 2021-05-29 05:16 | disposition home or self-care (01) ==
PROVIDERS: Physician Assistant; Emergency Provider Student in an Organized Health Care Education/Training Program; PCP Internal Medicine
DX: R07.89 Other chest pain (principal); K21.9 Gastro-esophageal reflux disease without esophagitis; Z20.822 Contact with and (suspected) exposure to COVID-19; E11.9 Type 2 diabetes mellitus without complications; I10 Essential (primary) hypertension; E78.5 Hyperlipidemia, unspecified; E66.9 Obesity, unspecified; Z79.02 Long term (current) use of antithrombotics/antiplatelets; Z79.899 Other long term (current) drug therapy; Z79.82 Long term (current) use of aspirin
CPT/HCPCS: 36415; 80048; 80076; 83735; 84484; 85025; 85610; 85730; 87635; 93005; 99283; 99284

== ENCOUNTER → 2021-06-06 13:56 | Outpatient (BNVA) | payer MEDICARE, SELFPAY | PROVIDERS: PCP Internal Medicine; Referring Provider Internal Medicine; Visit Provider Internal Medicine Cardiovascular Disease | DX: R07.89 Other chest pain (principal); R55 Syncope and collapse; R53.83 Other fatigue; I10 Essential (primary) hypertension; E11.9 Type 2 diabetes mellitus without complications; E78.00 Pure hypercholesterolemia, unspecified; Z79.84 Long term (current) use of oral hypoglycemic drugs; Z79.899 Other long term (current) drug therapy | CPT/HCPCS: 99212 ==

== ENCOUNTER → 2021-06-10 09:34 | Outpatient (REF) | payer MEDICARE, SELFPAY ==
--- NOTE | 2021-06-10 09:39 | CA_ITS ---
Acquisition Time: 2021-06-10 09:45:12 Total Exercise Time: 00:03:57 Test Indications: CP Medications: SEE CHART Protocol: MAYTE Max HR: 144 BPM 96% of Pred: 150 BPM Max BP: 150/080 mmHG Max Work Load: 5.3 METS Exercise stress test with exercise 3 min 57 sec of Mayte protocol ( stage 2 turned down to 2.2MPH), with moderate shortness of breath, no chest discomfort, without arrythmia, with normotensive response to exercise, without EKG changes meeting criteria for ischemia. Test reviewed with Dr Laguna. Referred By: Martin Laguna Overread By: ART GUADARRAMA
== END ==
LOC: HO.CARD 09:34
PROVIDERS: PCP Internal Medicine; Visit Provider Internal Medicine Cardiovascular Disease
DX: R07.89 Other chest pain (principal)
CPT/HCPCS: 93017

== ENCOUNTER 2021-06-12 14:16 | Outpatient (REF) | payer MEDICARE, SELFPAY ==
--- NOTE | ~2021-06-12 | US_ITS ---
EXAMINATION: US RETROPERITONEAL LIMITED (RENAL ONLY) CLINICAL INFORMATION: Calculus of kidney. COMPARISON: Ultrasound abdomen complete 09/19/2020 and ultrasound renals 05/22/2020. X-ray KUB 11/16/2019. CT abdomen pelvis 10/18/2019. TECHNIQUE: Real-time imaging of the kidneys. FINDINGS: RIGHT KIDNEY: 11.3 x 6.0 x 5.5 cm (SAG x AP x TRV). The kidney is normal in size, contour, and echogenicity. Renal cortical thickness is normal. No calculi or focal parenchymal lesions. No hydronephrosis. LEFT KIDNEY: 10.3 x 5.9 x 5.5 cm (SAG x AP x TRV). The kidney is normal in size, contour, and echogenicity. Renal cortical thickness is normal. No calculi or focal parenchymal lesions. No hydronephrosis. US/US renal BI IMPRESSION: No nephrolithiasis or hydronephrosis..
== END 2021-06-12 14:17 | disposition home or self-care (01) ==
LOC: HO.HMGCX 14:16
PROVIDERS: PCP Internal Medicine; Visit Provider Urology
DX: N20.0 Calculus of kidney (principal)
CPT/HCPCS: 76775

== ENCOUNTER → 2021-06-18 08:24 | Outpatient (BNVA) | payer MEDICARE, SELFPAY | PROVIDERS: PCP Internal Medicine; Visit Provider Urology | DX: N20.0 Calculus of kidney (principal) | CPT/HCPCS: 99212 ==

== ENCOUNTER 2021-08-30 14:40 | Outpatient (REF) | payer MEDICARE, SELFPAY ==
--- NOTE | ~2021-08-30 | XR_ITS ---
EXAMINATION: XR KNEE RT 4V, XR KNEE LT 4V CLINICAL INFORMATION: Reason for Exam OA COMPARISON: X-rays of the left knee dated 10/20/2016 TECHNIQUE: AP, lateral, notch and sunrise views of each knee FINDINGS: Right knee: No acute fracture or dislocation. Near full-thickness cartilage loss along the medial tibiofemoral compartment with accompanying subchondral sclerosis. Small tricompartmental marginal osteophytes are present. Quadriceps tendon enthesopathy. Trace knee joint effusion. Left knee: No acute fracture or dislocation. There is complete obliteration of the medial tibiofemoral compartment joint space associated with subchondral sclerosis and marginal osteophytosis. Tricompartmental marginal osteophytes are present. Quadriceps tendon enthesopathy. Trace joint effusion. XR/XR knee RT 4V IMPRESSION: No acute findings. Tricompartmental degenerative changes bilaterally, worse within the medial tibiofemoral compartments, where there is complete obliteration of the medial tibiofemoral compartment joint space thickness on the left, and near complete loss of joint space thickness on the right
--- NOTE | ~2021-08-30 | XR_ITS ---
EXAMINATION: XR KNEE RT 4V, XR KNEE LT 4V CLINICAL INFORMATION: Reason for Exam OA COMPARISON: X-rays of the left knee dated 10/20/2016 TECHNIQUE: AP, lateral, notch and sunrise views of each knee FINDINGS: Right knee: No acute fracture or dislocation. Near full-thickness cartilage loss along the medial tibiofemoral compartment with accompanying subchondral sclerosis. Small tricompartmental marginal osteophytes are present. Quadriceps tendon enthesopathy. Trace knee joint effusion. Left knee: No acute fracture or dislocation. There is complete obliteration of the medial tibiofemoral compartment joint space associated with subchondral sclerosis and marginal osteophytosis. Tricompartmental marginal osteophytes are present. Quadriceps tendon enthesopathy. Trace joint effusion. XR/XR knee LT 4V IMPRESSION: No acute findings. Tricompartmental degenerative changes bilaterally, worse within the medial tibiofemoral compartments, where there is complete obliteration of the medial tibiofemoral compartment joint space thickness on the left, and near complete loss of joint space thickness on the right
[2021-08-30 14:54] LABS: MANUAL DIFF FLAG NO
[2021-08-30 15:21] LABS: Basophils Absolute Auto 0.1 X10*3/uL (0.0-0.2); Basophils Percent Auto 0.8 % (0-2); Eosinophils Absolute Auto 0.3 X10*3/uL (0.0-0.4); Eosinophils Percent Auto 3.6 % (0-4); Hematocrit 42.2 % (42.0-52.0); Hemoglobin 14.3 g/dl (14.0-18.0); Imm Gran Abs Auto 0.03 X10*3/uL (0.00-0.03); Imm Gran Pct Auto 0.4 % (0.0-0.4); Lymphocytes Absolute Auto 1.5 X10*3/uL (1.2-4.9); Lymphocytes Percent Auto 20.2 % (20-40); Mean Corpuscular HGB Conc 33.9 g/dl (31.0-36.0); Mean Corpuscular Hemoglobin 31.6 pg (27.0-33.0); Mean Corpuscular Volume 93.2 fL (80.0-98.0); Mean Platelet Volume 9.5 fL (9.4-12.4); Monocytes Absolute Auto 0.7 X10*3/uL (0.1-1.2); Monocytes Percent Auto 9.3 % (2-11); Neutrophils Absolute Auto 4.9 x10*3/uL (2.0-8.3); Neutrophils Percent Auto 65.7 % (45-73); Platelet Count 277 X10*3/uL (160-400); Red Blood Count 4.53 X10*6/uL (4.60-5.80); Red Cell Distribution Width 13.3 % (11.0-16.0); White Blood Count 7.5 X10*3/uL (4.8-10.8)
[2021-08-30 15:30] LABS: Estimated Average Glucose 134 mg/dL; Hemoglobin A1c % 6.3 %
[2021-08-30 15:36] LABS: Alanine Aminotransferase 20 U/L (0-40); Albumin Level 4.2 g/dL (3.5-5.0); Alkaline Phosphatase 91 U/L (39-117); Anion Gap 14 (12-20); Aspartate Amino Transferase 24 U/L (5-37); Bilirubin Total 0.5 mg/dL (0.0-1.0); Blood Urea Nitrogen 17 mg/dL (9-16); Calcium 9.2 mg/dL (8.4-10.2); Carbon Dioxide 25 mmol/L (22-29); Chloride 106 mmol/L (96-108); Estimated Glomerular Filt Rate 58; Glucose Random 104 mg/dL (60-115); Iron 76 mcg/dL (45-160); Percent Iron Saturation 27 % (15-50); Potassium 5.1 mmol/L (3.3-5.1); Sodium 140 mmol/L (135-145); Total Iron Binding Capacity 285 mcg/dL (228-428); Total Protein 7.3 g/dL (6.5-8.0); Unsaturated Iron Binding 209 ug/dL; Uric Acid 5.5 mg/dL (3.4-7.0)
[2021-08-30 15:52] LABS: Creatinine Urine 182.26 mg/dL; Microalbum/Creatinine Ratio Ur 6.5 ug/mg cr
== END 2021-08-30 14:41 | disposition home or self-care (01) ==
LOC: HO.XRAY 14:40
PROVIDERS: PCP Internal Medicine; Visit Provider Internal Medicine
DX: E11.9 Type 2 diabetes mellitus without complications (principal); N40.0 Benign prostatic hyperplasia without lower urinary tract symptoms; I10 Essential (primary) hypertension; D64.9 Anemia, unspecified; M10.9 Gout, unspecified
CPT/HCPCS: 36415; 73564; 80053; 82043; 83036; 83540; 84550; 85025

== ENCOUNTER 2021-09-20 08:40 | Outpatient (REF) | payer MEDICARE, SELFPAY ==
--- NOTE | ~2021-09-20 | XR_ITS ---
EXAMINATION: XR knee standing BI, XR knee LT 2V CLINICAL INFORMATION: Reason for Exam M25.569 - Pain in unspecified knee COMPARISON: 08/30/2021 TECHNIQUE: Bilateral frontal standing, left lateral and patella sunrise view. FINDINGS: BONES: No fracture or dislocation is present. JOINTS: Narrowing of joint spaces and developed osteophytes from the edges of articular surfaces suggest degenerative osteoarthritis. 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
--- NOTE | ~2021-09-20 | XR_ITS ---
EXAMINATION: XR knee standing BI, XR knee LT 2V CLINICAL INFORMATION: Reason for Exam M25.569 - Pain in unspecified knee COMPARISON: 08/30/2021 TECHNIQUE: Bilateral frontal standing, left lateral and patella sunrise view. FINDINGS: BONES: No fracture or dislocation is present. JOINTS: Narrowing of joint spaces and developed osteophytes from the edges of articular surfaces suggest degenerative osteoarthritis. 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
== END 2021-09-20 08:41 | disposition home or self-care (01) ==
LOC: HO.HOSX 08:40
PROVIDERS: Visit Provider Orthopaedic Surgery
DX: M17.0 Bilateral primary osteoarthritis of knee (principal); E11.9 Type 2 diabetes mellitus without complications
CPT/HCPCS: 20610; 73560; 73565; 99202; J1100

== ENCOUNTER → 2022-01-06 12:13 | Outpatient (BNVA) | payer MEDICARE, SELFPAY | PROVIDERS: PCP Internal Medicine; Visit Provider Orthopaedic Surgery | DX: M17.0 Bilateral primary osteoarthritis of knee (principal) | CPT/HCPCS: 20610; 99212; J1100 ==

== ENCOUNTER 2022-02-15 08:34 | Outpatient (REF) | payer MEDICARE, SELFPAY ==
[2022-02-15 08:51] LABS: MANUAL DIFF FLAG NO
[2022-02-15 09:22] LABS: Basophils Absolute Auto 0.1 X10*3/uL (0.0-0.2); Basophils Percent Auto 1.3 % (0-2); Eosinophils Absolute Auto 0.2 X10*3/uL (0.0-0.4); Eosinophils Percent Auto 2.8 % (0-4); Hematocrit 43.2 % (42.0-52.0); Hemoglobin 14.3 g/dl (14.0-18.0); Imm Gran Abs Auto 0.02 X10*3/uL (0.00-0.03); Imm Gran Pct Auto 0.3 % (0.0-0.4); Lymphocytes Absolute Auto 1.5 X10*3/uL (1.2-4.9); Lymphocytes Percent Auto 22.7 % (20-40); Mean Corpuscular HGB Conc 33.1 g/dl (31.0-36.0); Mean Corpuscular Hemoglobin 31.1 pg (27.0-33.0); Mean Corpuscular Volume 93.9 fL (80.0-98.0); Mean Platelet Volume 9.3 fL (9.4-12.4); Monocytes Absolute Auto 0.6 X10*3/uL (0.1-1.2); Monocytes Percent Auto 8.8 % (2-11); Neutrophils Absolute Auto 4.1 x10*3/uL (2.0-8.3); Neutrophils Percent Auto 64.1 % (45-73); Platelet Count 239 X10*3/uL (160-400); Red Cell Distribution Width 13.2 % (11.0-16.0); White Blood Count 6.4 X10*3/uL (4.8-10.8)
[2022-02-15 09:37] LABS: Estimated Average Glucose 143 mg/dL; Hemoglobin A1c % 6.6 %
[2022-02-15 09:53] LABS: Alanine Aminotransferase 26 U/L (0-40); Albumin Level 4.1 g/dL (3.5-5.0); Alkaline Phosphatase 89 U/L (39-117); Anion Gap 13 (12-20); Aspartate Amino Transferase 22 U/L (5-37); Bilirubin Total 0.5 mg/dL (0.0-1.0); Blood Urea Nitrogen 19 mg/dL (9-16); Calcium 9.4 mg/dL (8.4-10.2); Carbon Dioxide 26 mmol/L (22-29); Chloride 107 mmol/L (96-108); Cholesterol 121 mg/dL; Estimated Glomerular Filt Rate 59; Glucose Fasting 158 mg/dL (60-99); HDL Cholesterol 27 mg/dL; LDL Cholesterol Calculated 77 mg/dl; Sodium 141 mmol/L (135-145); Triglycerides 87 mg/dL
[2022-02-15 09:55] LABS: Creatinine Urine 130.97 mg/dL; Microalbum/Creatinine Ratio Ur 9.1 ug/mg cr
[2022-02-15 10:15] LABS: Prostate Specific Antigen 0.26 ng/mL (<0.05-4.0)
== END 2022-02-15 08:35 | disposition home or self-care (01) ==
LOC: HO.LAB 08:34
PROVIDERS: PCP Internal Medicine; Visit Provider Internal Medicine
DX: Z12.5 Encounter for screening for malignant neoplasm of prostate (principal); I12.9 Hypertensive chronic kidney disease with stage 1 through stage 4 chronic kidney disease, or unspecified chronic kidney disease; N18.9 Chronic kidney disease, unspecified; E11.22 Type 2 diabetes mellitus with diabetic chronic kidney disease; E78.00 Pure hypercholesterolemia, unspecified; N40.0 Benign prostatic hyperplasia without lower urinary tract symptoms
CPT/HCPCS: 36415; 80053; 80061; 82043; 83036; 84153; 85025

== ENCOUNTER 2022-02-19 15:00 | Outpatient (REF) | payer MEDICARE, SELFPAY ==
--- NOTE | ~2022-02-19 | XR_ITS ---
EXAMINATION: XR CERVICAL SPINE CLINICAL INFORMATION: Neck injury. COMPARISON: 03/07/2021 TECHNIQUE: 7 views of the cervical spine. FINDINGS: No abnormal prevertebral soft tissue swelling is seen. No acute cervical spine fracture is noted. There is spurring seen throughout the cervical spine with what appears to be possible bony bridging/ankylosis at the C5-C6 level. There is disc space narrowing seen most significant at the C5-C6 level. There is degenerative facet disease seen C3 through C5 on the left and C5 through C7 on the right. Spurring of the joints of Luschka is seen to cause some anterior neural foraminal narrowing at the C5-C6 level on the left. No destructive bony lesions identified. XR/XR cervical spine 4V IMPRESSION: No acute cervical spine fracture. Multilevel degenerative change as described.
== END 2022-02-19 15:01 | disposition home or self-care (01) ==
LOC: HO.XRAY 15:00
PROVIDERS: PCP Internal Medicine; Visit Provider Internal Medicine
DX: M54.2 Cervicalgia (principal)
CPT/HCPCS: 72050

== ENCOUNTER → 2022-03-31 12:31 | Outpatient (BNVA) | payer MEDICARE, SELFPAY | PROVIDERS: PCP Internal Medicine; Visit Provider Orthopaedic Surgery | DX: M17.0 Bilateral primary osteoarthritis of knee (principal); E11.9 Type 2 diabetes mellitus without complications | CPT/HCPCS: 20605; 20610; 99212; J1100 ==

== ENCOUNTER 2022-04-24 15:05 | Outpatient (REF) | payer MEDICARE, SELFPAY ==
[2022-04-24 16:29] LABS: Appearance Urine HAZY; Color Urine YELLOW; Glucose Urine UA NEG (NEG); Leukocyte Esterase Urine 1+ (NEG); Nitrite Urine NEG (NEG); UACC Culture Trigger YES; Urine Blood 3+ (NEG); Urine Ketones NEG (NEG); Urine Protein 1+ MG/DL (NEG-TRACE)
[2022-04-24 16:50] LABS: Bacteria Urine 1+ /LPF; Squamous Epithelial Cell Urine 1+ /LPF
== END 2022-04-24 15:06 | disposition home or self-care (01) ==
LOC: HO.LAB 15:05
PROVIDERS: PCP Internal Medicine; Visit Provider Internal Medicine
DX: R31.9 Hematuria, unspecified (principal)
CPT/HCPCS: 81001; 87086; 87088; 87186

== ENCOUNTER 2022-04-25 15:02 | Outpatient (REF) | payer MEDICARE, SELFPAY | END 2022-04-25 15:03 | disposition home or self-care (01) | LOC: HO.LAB 15:02 | PROVIDERS: PCP Internal Medicine; Visit Provider Internal Medicine | DX: R31.9 Hematuria, unspecified (principal) | CPT/HCPCS: 88112 ==

== ENCOUNTER 2022-04-27 09:25 | Emergency (ER) | payer MEDICARE, SELFPAY ==
--- NOTE | 2022-04-27 | ECG_ITS ---
Test Reason : weakness Blood Pressure : / mmHG Vent. Rate : 093 BPM Atrial Rate : 093 BPM P-R Int : 162 ms QRS Dur : 084 ms QT Int : 346 ms P-R-T Axes : 019 -07 006 degrees QTc Int : 430 ms Normal sinus rhythm Normal ECG When compared with ECG of 29-MAY-2021 01:02, No significant change was found Referred By: Tanner Reyes Electronically Signed By:Jay Leach
--- NOTE | ~2022-04-27 | XR_ITS ---
EXAMINATION: XR CHEST CLINICAL INFORMATION: Weakness COMPARISON: Previous chest CT June 2019 TECHNIQUE: Frontal view of the chest was obtained. FINDINGS: The cardiac and mediastinal contours are stable. The lungs are clear. There is no pleural effusion or pneumothorax. There are degenerative changes of the spine and shoulders. XR/XR chest 1V IMPRESSION: Unremarkable examination.
[2022-04-27 09:54] VITALS: BP 112/50; BP 138/80; PULSE 93; RESP 24; TEMP 36.7; O2SAT 94; O2SAT 98; BMI 35.6
[2022-04-27 10:09] LABS: MANUAL DIFF FLAG NO
[2022-04-27 10:14] LABS: Basophils Percent Auto 0.3 % (0-2); Eosinophils Percent Auto 0.1 % (0-4); Hematocrit 37.5 % (42.0-52.0); Hemoglobin 12.7 g/dl (14.0-18.0); Imm Gran Abs Auto 0.03 X10*3/uL (0.00-0.03); Imm Gran Pct Auto 0.2 % (0.0-0.4); Lymphocytes Absolute Auto 0.8 X10*3/uL (1.2-4.9); Lymphocytes Percent Auto 6.2 % (20-40); Mean Corpuscular HGB Conc 33.9 g/dl (31.0-36.0); Mean Corpuscular Hemoglobin 31.4 pg (27.0-33.0); Mean Corpuscular Volume 92.6 fL (80.0-98.0); Mean Platelet Volume 9.5 fL (9.4-12.4); Monocytes Absolute Auto 1.3 X10*3/uL (0.1-1.2); Monocytes Percent Auto 9.6 % (2-11); Neutrophils Absolute Auto 10.9 x10*3/uL (2.0-8.3); Neutrophils Percent Auto 83.6 % (45-73); Platelet Count 192 X10*3/uL (160-400); Red Blood Count 4.05 X10*6/uL (4.60-5.80); Red Cell Distribution Width 13.6 % (11.0-16.0); White Blood Count 13.1 X10*3/uL (4.8-10.8)
--- NOTE | 2022-04-27 10:14 | ED.GENADULT ---
HPI - General Adult General Chief complaint: Weakness Stated complaint: NOT FEELING WELL Time Seen by Provider: 04/27/22 10:13 Source: patient and EMS Mode of arrival: EMS Limitations: no limitations History of Present Illness HPI narrative: 70-year-old male history of DM 2, HTN, HLD, chronic back pain, obesity came in for evaluation of episode of feeling generalized weakness with diaphoresis, patient was told that he passed out for few seconds while he was standing patient do not remember. Patient otherwise decline CP or SOB. In the ED patient feels back to his normal baseline not feeling generalized weakness, decline CP or SOB. Related Data Home Medications Medication Instructions Recorded Confirmed atorvastatin 10 mg tablet 1 tab PO DAILY 09/09/20 06/06/21 gabapentin 100 mg capsule 1 cap PO TID 09/09/20 06/06/21 lisinopril 5 mg tablet 5 mg PO DAILY 09/09/20 06/06/21 metformin 500 mg tablet,extended 500 mg PO BID 09/09/20 06/06/21 release 24 hr terazosin 5 mg capsule 1 cap PO BEDTIME 09/09/20 06/06/21 timolol maleate 0.5 % eye drops 1 drp ophthalmic (eye) DAILY 09/09/20 06/06/21 aspirin 81 mg tablet,delayed 81 mg PO DAILY 02/21/21 06/06/21 release (Shlomo Low Dose Aspirin) gabapentin 300 mg capsule 300 mg PO DAILY 06/18/21 [id number] 3.5 ml otic (ear) left 06/18/21 mg/mL-10,000 unit/mL-1 % ear solution Previous Rx's Medication Instructions Recorded omeprazole 40 mg capsule,delayed 40 mg PO DAILY 30 days #30 caps 05/29/21 release fludrocortisone 0.1 mg tablet 0.1 mg PO DAILY 30 days #30 caps 06/05/21 potassium citrate 10 mEq (1,080 10 meq PO BID 90 days #180 tabs 06/18/21 mg) tablet,extended release allopurinol 100 mg tablet 100 mg PO DAILY 90 days #90 tabs 01/20/22 Allergies Allergy/AdvReac Type Severity Reaction Status Date / Time No Known Allergies Allergy Verified 06/18/21 08:25 Review of Systems Review of Systems: All other systems are reviewed and are negative Constitutional: Reports as per HPI and Reports no additional constitutional complaints Eyes: Reports as per HPI and Reports no additional eye complaints Reports system reviewed and no additional complaints, except as documented Cardiovascular: Reports as per HPI and Reports no additional cardiovascular complaints Respiratory: Reports as per HPI and Reports no additional respiratory complaints Gastrointestinal: Reports as per HPI and Reports no additional gastrointestinal complaints Genitourinary: Reports no additional female genitourinary complaints Musculoskeletal: Reports no additional musculoskeletal complaints Skin/Breast: Reports system reviewed and no additional complaints, except as docu Psychiatric: Reports no additional psychiatric complaints Endocrine: Reports no additional endocrine complaints Hematologic/Lymphatic: Reports no additional hematologic/lymphatic complaints Allergic/Immunologic: Reports no additional allergic/immunologic complaints Reports system reviewed and no additional complaints, except as documented and Reports Abnormal speech present [facility] Past Medical History Medical History Arthritis COVID-19 vaccine administered Diabetes mellitus, type 2 HTN (hypertension) Hx of glaucoma Hx of orthostatic hypotension Hx of renal calculi Hypercholesteremia Hyperuricemia Nocturia Vasovagal syncope Surgical History H/O colonoscopy Hx of lithotripsy Social History Social History Are you a primary vision care associate to a significant other at home: No Do you presently have visiting nurse or other home services: No Alcohol intake: never Patient Tobacco Use Status: Never used Tobacco Advance Directives: No Advance Directives Information Provided: Yes Physical Exam ED Vital Signs: Vital Signs - 24 hr 04/27/22 09:54 04/27/22 12:33 Temperature 98.0 F Pulse Rate 93 92 Respiratory Rate 24 H 22 H Blood Pressure 112/50 L 122/72 Pulse Oximetry 94 94 Oxygen Delivery Method Room Air Room Air BMI result Body Mass Index 35.6 Vital signs have been reviewed as appeared to be correct. Blood pressure normal. Heart rate normal. Respiration rate normal. Temperature normal. Oxygen saturation normal. Appearance: Alert. Oriented X3. No acute distress. Head: Normal external exam. Normocephalic. Atraumatic. No Dietz signs noted. No raccoon eyes noted Eyes: PERRLA. EOMI. Conjunctiva and sclera normal. Eyelids normal. ENT: TM's Normal. Pharynx normal. Uvula midline. Moist mucous membranes. No trismus noted. No drooling noted. No muffled voice noted. Neck: Normal inspection. Neck supple. FROM. No adenopathy. Thyroid Normal. No meningeal signs. No neck mass noted. CVS: Normal heart rate and rhythm. Heart sound normal. No murmurs noted. Pulses normal throughout. Respiratory: No respiratory distress. Painless inspiration. Breath sounds normal. No wheezes/rales/rhonchi noted. Chest nontender. No accessory muscle usage noted or decreased air movement noted. Abdomen: Soft and nontender. Bowel sounds normal in all 4 quadrants. No distention noted. No organomegaly noted. No visible injury noted. Back: No CVA tenderness. Full range of motion noted. Skin: Skin warm and dry. Normal skin color. Normal skin turgor. No rashes/lesions/lacerations noted. Extremities: No lower extremity edema. Extremities exhibit normal range of motion. Extremities nontender. Neuro: Oriented X 3. Cranial nerve exam: II-XII are grossly intact No motor deficit. No sensory deficit. Reflexes normal. Course Course Course Narrative: 71 years old [place] [facility] after having a brief syncopal episode and diaphoresis likely vasovagal, patient was observed in the emergency department for 6 hours labs demonstrating leukocytosis with no evidence of infection, cardiac enzyme are unremarkable with unremarkable EKG, patient at his baseline normal now. Medical Decision Making Lab Data Lab results reviewed: Yes I reviewed the patient's lab results. Result diagrams: 04/27/22 10:06 04/27/22 11:18 Labs: Lab Results 04/27/22 04/27/22 04/27/22 Range/Units 10:06 10:06 10:08 WBC 13.1 H (4.8-10.8) X10*3/uL RBC 4.05 L (4.60-5.80) X10*6/uL Hgb 12.7 L (14.0-18.0) g/dl Hct 37.5 L (42.0-52.0) % MCV 92.6 (80.0-98.0) fL MCH 31.4 (27.0-33.0) pg MCHC 33.9 (31.0-36.0) g/dl RDW 13.6 (11.0-16.0) % Plt Count 192 (160-400) X10*3/uL MPV 9.5 (9.4-12.4) fL Immature Gran % (Auto) 0.2 (0.0-0.4) % Neut % (Auto) 83.6 H (45-73) % Lymph % (Auto) 6.2 L (20-40) % Sharkey % (Auto) 9.6 (2-11) % Eos % (Auto) 0.1 (0-4) % Baso % (Auto) 0.3 (0-2) % Lymph # (Auto) 0.8 L (1.2-4.9) X10*3/uL Sharkey # (Auto) 1.3 H (0.1-1.2) X10*3/uL Eos # (Auto) 0.0 (0.0-0.4) X10*3/uL Baso # (Auto) 0.0 (0.0-0.2) X10*3/uL Abs Immat Gran (auto) 0.03 (0.00-0.03) X10*3/uL Absolute Neuts (auto) 10.9 H (2.0-8.3) x10*3/uL Absolute Nucleated RBC 0.000 (0.0-0.012) X10*3/uL Nucleated RBC % (auto) 0.0 (0.0-0.2) /100WBC Sodium (135-145) mmol/L Potassium (3.3-5.1) mmol/L Chloride (96-108) mmol/L Carbon Dioxide (22-29) mmol/L Anion Gap (12-20) BUN (9-16) mg/dL Creatinine (0.5-1.4) mg/dL Estim Creat Clear Calc Estimated GFR Random Glucose (60-115) mg/dL Calcium (8.4-10.2) mg/dL Total Bilirubin (0.0-1.0) mg/dL Direct Bilirubin (0.0-0.5) mg/dL AST (5-37) U/L ALT (0-40) U/L Alkaline Phosphatase (39-117) U/L Troponin I High Sens 31.0 (<3.5-35.0) ng/L B-Natriuretic Peptide 159 H (<100) pg/mL Total Protein (6.5-8.0) g/dL Albumin (3.5-5.0) g/dL Lipase (8-78) U/L COVID-19 ([facility]ESSA) Negative (Negative) COVID-19 Clin Com See Note 04/27/22 04/27/22 04/27/22 Range/Units 11:18 11:41 14:42 WBC (4.8-10.8) X10*3/uL RBC (4.60-5.80) X10*6/uL Hgb (14.0-18.0) g/dl Hct (42.0-52.0) % MCV (80.0-98.0) fL MCH (27.0-33.0) pg MCHC (31.0-36.0) g/dl RDW (11.0-16.0) % Plt Count (160-400) X10*3/uL MPV (9.4-12.4) fL Immature Gran % (Auto) (0.0-0.4) % Neut % (Auto) (45-73) % Lymph % (Auto) (20-40) % Sharkey % (Auto) (2-11) % Eos % (Auto) (0-4) % Baso % (Auto) (0-2) % Lymph # (Auto) (1.2-4.9) X10*3/uL Sharkey # (Auto) (0.1-1.2) X10*3/uL Eos # (Auto) (0.0-0.4) X10*3/uL Baso # (Auto) (0.0-0.2) X10*3/uL Abs Immat Gran (auto) (0.00-0.03) X10*3/uL Absolute Neuts (auto) (2.0-8.3) x10*3/uL Absolute Nucleated RBC (0.0-0.012) X10*3/uL Nucleated RBC % (auto) (0.0-0.2) /100WBC Sodium 137 (135-145) mmol/L Potassium 4.3 (3.3-5.1) mmol/L Chloride 105 (96-108) mmol/L Carbon Dioxide 23 (22-29) mmol/L Anion Gap 13 (12-20) BUN 21 H (9-16) mg/dL Creatinine 1.34 (0.5-1.4) mg/dL Estim Creat Clear Calc 61.6 Estimated GFR 53 Random Glucose 152 H D (60-115) mg/dL Calcium 8.3 L D (8.4-10.2) mg/dL Total Bilirubin 1.1 H (0.0-1.0) mg/dL Direct Bilirubin 0.6 H (0.0-0.5) mg/dL AST 34 D (5-37) U/L ALT 23 (0-40) U/L Alkaline Phosphatase 69 D (39-117) U/L Troponin I High Sens 30.6 26.3 (<3.5-35.0) ng/L B-Natriuretic Peptide (<100) pg/mL Total Protein 6.4 L (6.5-8.0) g/dL Albumin 3.8 (3.5-5.0) g/dL Lipase 29 (8-78) U/L COVID-19 ([facility]ESSA) (Negative) COVID-19 Clin Com Imaging Data Chest x-ray: Attestation: I personally reviewed and interpreted this imaging study as follows: Radiologist's impression: Unremarkable examination. ECG Data Attestation: I personally reviewed and interpreted this ECG as follows: Interpretation: Normal sinus rhythm at 93 beats per minutes, left axis deviation, normal intervals, no ST-T changes, no EKG changes from May 29 2021. Discharge Plan Discharge Clinical Impression: Syncope, vasovagal Patient Disposition: Home, Self-Care Instructions: Syncope (ED) Prescriptions: No Action fludrocortisone 0.1 mg tablet 0.1 mg PO DAILY 30 Days Qty: 30 3RF Rx Instructions: Please call and schedule a cardiology appt allopurinol 100 mg tablet 100 mg PO DAILY 90 Days Qty: 90 2RF terazosin 5 mg capsule 1 cap PO BEDTIME atorvastatin 10 mg tablet 1 tab PO DAILY lisinopril 5 mg tablet 5 mg PO DAILY gabapentin 100 mg capsule 1 cap PO TID timolol maleate 0.5 % drops 1 drp ophthalmic (eye) DAILY metformin 500 mg tablet extended release 24 hr 500 mg PO BID aspirin [Shlomo Low Dose Aspirin] 81 mg Tablet,Delayed Release (Dr/Ec) 81 mg PO DAILY omeprazole 40 mg capsule,delayed release(DR/EC) 40 mg PO DAILY 30 Days Qty: 30 0RF gfhxtojq-wenqbadhb-UY 3.5-10,000-1 mg/mL-unit/mL-% solution otic (ear) left gabapentin 300 mg capsule 300 mg PO DAILY potassium citrate 10 mEq (1,080 mg) tablet extended release 10 meq PO BID 90 Days Qty: 180 3RF Referrals: Dave Palacio MD [Primary Care Provider] -
[2022-04-27 10:30] LABS: COVID-19 Test Negative (Negative); IDNOW Serial# 08D9AD1C
[2022-04-27 10:34] LABS: B Type Natriuretic Peptide 159 pg/mL (<100)
[2022-04-27 11:47] LABS: Alanine Aminotransferase 23 U/L (0-40); Albumin Level 3.8 g/dL (3.5-5.0); Alkaline Phosphatase 69 U/L (39-117); Anion Gap 13 (12-20); Aspartate Amino Transferase 34 U/L (5-37); Bilirubin Direct 0.6 mg/dL (0.0-0.5); Bilirubin Total 1.1 mg/dL (0.0-1.0); Blood Urea Nitrogen 21 mg/dL (9-16); Calcium 8.3 mg/dL (8.4-10.2); Carbon Dioxide 23 mmol/L (22-29); Chloride 105 mmol/L (96-108); Creatinine Clr Calc Pharmacy 61.6; Estimated Glomerular Filt Rate 53; Glucose Random 152 mg/dL (60-115); Lipase 29 U/L (8-78); Potassium 4.3 mmol/L (3.3-5.1); Sodium 137 mmol/L (135-145); Total Protein 6.4 g/dL (6.5-8.0)
[2022-04-27 12:04] LABS: Troponin-I High Sensitivity 30.6 ng/L (<3.5-35.0)
[2022-04-27] MEDS: 0.9 % Sodium Chloride 1,000 ML 999 ML IV (12:31)
[2022-04-27 12:33] VITALS: BP 122/72; PULSE 92; RESP 22; O2SAT 94
[2022-04-27 15:15] LABS: Troponin-I High Sensitivity 26.3 ng/L (<3.5-35.0)
== END 2022-04-27 16:01 | disposition home or self-care (01) ==
PROVIDERS: Emergency Provider Emergency Medicine; PCP Internal Medicine
DX: R55 Syncope and collapse (principal); R53.1 Weakness; I45.19 Other right bundle-branch block; R61 Generalized hyperhidrosis; I10 Essential (primary) hypertension; E11.9 Type 2 diabetes mellitus without complications; M54.50 Low back pain, unspecified; Z20.822 Contact with and (suspected) exposure to COVID-19; Z79.899 Other long term (current) drug therapy; Z79.84 Long term (current) use of oral hypoglycemic drugs; Z79.82 Long term (current) use of aspirin
CPT/HCPCS: 36415; 71045; 80048; 80076; 83690; 83880; 84484; 85025; 87635; 93005; 99284

== ENCOUNTER 2022-05-02 07:51 | Inpatient (IN) | payer MEDICARE, SELFPAY ==
[2022-05-02] VITALS (8 sets, daily range): BP systolic 99–167; BP diastolic 46–84; PULSE 82–112; RESP 16–29; TEMP 36.5–39.6; O2SAT 93–98; BMI 38.0
--- NOTE | ~2022-05-02 | XR_ITS ---
EXAMINATION: XR CHEST CLINICAL INFORMATION: Weakness COMPARISON: 04/27/2022 TECHNIQUE: 2 views of the chest were obtained. FINDINGS: Low lung volumes. Diffuse interstitial prominence. No focal consolidation. No definite pleural effusion. No pneumothorax. Cardiomediastinal silhouette unchanged. Degenerative changes of the shoulders. XR/XR chest 2V IMPRESSION: Low lung volumes with diffuse interstitial prominence. This could reflect bronchovascular crowding in the setting of low lung volumes, less likely pulmonary venous hypertension or interstitial pneumonitis.
--- NOTE | ~2022-05-02 | CT_ITS ---
EXAMINATION: CT HEAD WITHOUT CONTRAST CT CERVICAL SPINE WITHOUT CONTRAST CLINICAL INFORMATION: Fall. COMPARISON: CT head from 06/19/2012. TECHNIQUE: Contiguous axial imaging was performed from the skull base to vertex without intravenous administration of contrast. Contiguous axial imaging was performed from the upper chest through the skull base without intravenous administration of contrast. Coronal and sagittal reformats were obtained at the acquisition workstation. This CT examination was performed using dose optimization techniques as appropriate, variously including the following: *Automated exposure control. *Adjustment of mA and/or kV according to patient size (this includes techniques or standardized protocols for targeted exams where dose is matched to indication/reason for exam; i.e. extremities or head). *Use of iterative reconstruction technique. DLP: 1577 mGy-cm FINDINGS: Head: There is no evidence of acute intracranial hemorrhage or edematous territorial infarction. Scattered hypoattenuation in the periventricular and deep white matter are consistent with moderate microangiopathy. Villafana-white matter differentiation is preserved. Chronic asymmetric prominence of the right greater than left lateral ventricles. Otherwise, proportional prominence of the ventricles and sulcal spaces. No evidence for obstructive hydrocephalus. No abnormal mass effect or midline shift. No extra-axial fluid collections. No acute soft tissue or osseous abnormalities. Mild mucosal thickening of the paranasal sinuses. Moderate rightward nasal septal deviation. The mastoid air cells and middle ear cavities are clear. Cervical Spine: The atlantooccipital and atlantoaxial articulations remain well aligned. Straightening of the normal cervical lordosis. Otherwise, there is anatomic alignment of the vertebral bodies and posterior elements. No evidence of acute fracture or subluxation. The vertebral body heights are maintained. Advanced degenerative disc disease at C3-C4, C5-C6, and C6-C7. Moderate degenerative disc disease at all additional cervical levels. Associated disc-osteophyte complex formation. Facet and uncovertebral joint arthropathy leads osseous encroachment on the neural foramina from C3-T1. There is no prevertebral soft tissue swelling. The thyroid gland and remaining cervical soft tissues are normal in appearance. The lung apices demonstrate no abnormalities. CT/CT cervical spine wo con IMPRESSION: 1. No evidence of acute intracranial hemorrhage or edematous territorial infarction. 2. Moderate underlying microangiopathy and generalized cerebral volume loss. 3. No evidence of acute fracture or traumatic subluxation of the cervical spine. 4. Moderate multilevel degenerative spondyloarthropathy of the cervical spine.
--- NOTE | ~2022-05-02 | US_ITS ---
EXAMINATION: US RETROPERITONEAL LIMITED (RENAL ONLY) CLINICAL INFORMATION: Acute renal insufficiency. Prior nephrolithiasis. COMPARISON: Renal ultrasound from 06/12/2021. TECHNIQUE: Sonographic imaging of the kidneys performed using curved 5 MHz transducer. Examination partially limited by patient's lack of mobility. FINDINGS: RIGHT KIDNEY: 10.6 x 5.1 x 5 cm (SAG x AP x TRV). The kidney is normal in size, contour, and echogenicity. Renal cortical thickness is normal. No calculi or focal parenchymal lesions. No hydronephrosis. LEFT KIDNEY: 10.7 x 6.6 x 5.5 cm (SAG x AP x TRV). The kidney is normal in size, contour, and echogenicity. Renal cortical thickness is normal. No calculi or focal parenchymal lesions. No hydronephrosis. US/US renal BI IMPRESSION: The kidneys have a normal sonographic appearance. No evidence of nephrolithiasis or hydronephrosis.
--- NOTE | 2022-05-02 08:06 | ECG_ITS ---
Test Reason : dizziness Blood Pressure : / mmHG Vent. Rate : 107 BPM Atrial Rate : 107 BPM P-R Int : 148 ms QRS Dur : 074 ms QT Int : 324 ms P-R-T Axes : 026 003 021 degrees QTc Int : 432 ms Sinus tachycardia Otherwise normal ECG When compared with ECG of 27-APR-2022 11:48, No significant change was found Referred By: Shameka Dotson Electronically Signed By:Jay Leach
--- NOTE | 2022-05-02 08:14 | ED_ITS ---
HPI - Male Genitourinary General Chief complaint: Urogenital-Male Stated complaint: FEVER 100.7,WEAK W/FALL,FREQ URINATION/?BLOOD Time Seen by Provider: 05/02/22 08:06 Source: patient and EMS Mode of arrival: EMS Limitations: no limitations History of Present Illness HPI Narrative: 71-year-old male with a history of diabetes, high blood pressure, high cholesterol, chronic back pain presents with reports of increased urination, intermittent hematuria, tactile temps, generalized weakness over the last 2 days. Patient reports he was seen here in the emergency department on April 27 for a syncopal episode. The patient had labs, EKG and 2 troponins which were negative. His syncope was thought to be vasovagal and he was discharged home. Patient was at his primary care office today and noted to have a low-grade fever. He EMS was called and he was sent in for concern for possible UTI with fever. Patient received 450 mL of normal saline from EMS. Related Data Home Medications Medication Instructions Recorded Confirmed atorvastatin 10 mg tablet 1 tab PO DAILY 09/09/20 06/06/21 gabapentin 100 mg capsule 1 cap PO TID 09/09/20 06/06/21 lisinopril 5 mg tablet 5 mg PO DAILY 09/09/20 06/06/21 metformin 500 mg tablet,extended 500 mg PO BID 09/09/20 06/06/21 release 24 hr terazosin 5 mg capsule 1 cap PO BEDTIME 09/09/20 06/06/21 aspirin 81 mg tablet,delayed 81 mg PO DAILY 02/21/21 06/06/21 release (Shlomo Low Dose Aspirin) gabapentin 300 mg capsule 300 mg PO DAILY 06/18/21 Previous Rx's Medication Instructions Recorded omeprazole 40 mg capsule,delayed 40 mg PO DAILY 30 days #30 caps 05/29/21 release fludrocortisone 0.1 mg tablet 0.1 mg PO DAILY 30 days #30 caps 06/05/21 potassium citrate 10 mEq (1,080 10 meq PO BID 90 days #180 tabs 06/18/21 mg) tablet,extended release allopurinol 100 mg tablet 100 mg PO DAILY 90 days #90 tabs 01/20/22 Allergies Allergy/AdvReac Type Severity Reaction Status Date / Time No Known Allergies Allergy Verified 05/02/22 08:10 Review of Systems Review of Systems: Yes all other systems are reviewed and are negative Constitutional: Constitutional: Reports no additional constitutional complaints, Denies body ache(s), Denies chills, Reports fever(s), Denies headache(s) and Reports weakness Eyes: Eyes: Reports no additional eye complaints and Denies change in vision ENT: Reports system reviewed and no additional complaints, except as documented, Denies dizziness, Denies headache(s), Denies nasal congestion, Denies nasal discharge and Denies neck pain Cardiovascular: Cardiovascular: Reports no additional cardiovascular com plaints, Denies chest pain, Denies leg edema and Denies dyspnea Respiratory: Respiratory: Reports no additional respiratory complaints, Denies cough and Denies dyspnea Gastrointestinal: Gastrointestinal: Reports no additional gastrointestinal complaints, Denies abdominal pain, Denies diarrhea, Denies nausea and Denies vomiting Genitourinary: Genitourinary: Reports hematuria, Denies flank pain, Denies testicular pain and Reports urinary frequency Musculoskeletal: Musculoskeletal: Reports no additional musculoskeletal complaints, Denies back pain, Denies arthralgias, Denies joint swelling, Denies neck pain, Denies numbness and Denies tingling Integumentary/Breasts: Skin/Breast: Reports system reviewed and no additional complaints, except as docu and Denies rash Neurologic: Reports system reviewed and no additional complaints, except as documented, Denies Abnormal speech present, Denies dizziness, Denies headache(s), Denies numbness, Denies tingling and Reports weakness PMFSH Past Medical History Attestation statement: The following information was validated with the patient. Source: old records reviewed and nursing notes reviewed Medical History Arthritis COVID-19 vaccine administered Diabetes mellitus, type 2 HTN (hypertension) Hx of glaucoma Hx of orthostatic hypotension Hx of renal calculi Hypercholesteremia Hyperuricemia Nocturia Vasovagal syncope Surgical History H/O colonoscopy Hx of lithotripsy Social History Social History Are you a primary infant childcare provider to a significant other at home: No Do you presently have visiting nurse or other home services: No Alcohol intake: never Patient Tobacco Use Status: Never used Tobacco Advance Directives: Yes Advance Directives Information Provided: Yes Advance Directives on File: No Physical Exam Vital Signs: Vital Signs: Last Vital Signs Temp 99.8 F 05/02/22 09:40 Pulse 105 H 05/02/22 09:40 Resp 29 H 05/02/22 09:40 BP 116/60 05/02/22 10:36 Pulse Ox 93 05/02/22 09:40 O2 Del Method 05/02/22 08:10 BMI result Body Mass Index 38.0 Const: General: cooperative, healthy appearing, comfortable and no acute distress Orientation/consciousness: patient oriented x3 Limitations: no limitations HEENT: Other: Tacky mucous membranes Head: Yes normal to inspection Ears: hearing grossly normal bilaterally General nose exam: Normal external nose present Face and sinus: Yes normal facial exam Mouth: Normal oral and palatal mucosa present Throat: Yes posterior oropharynx normal Eyes: General: appearance normal, both eyes and all related structures Pupils: Equal, round and reactive pupils present Neck: Neck: Yes normal visual inspection, Yes full ROM, Yes no lymphadenopathy and Yes no meningeal signs Chest: Chest palpation & inspection: normal inspection of the chest Resp: Other: Mild tachypnea with a rate of 22 Auscultation: clear to auscultation bi laterally Cardio: Rate: tachycardic Rhythm: regular rhythm Peripheral pulses: Peripheral pulses 2+ throughout GI: Inspection: Yes normal to inspection Palpation (GI): Soft to palpation and nontender Auscultation: normal bowel sounds Back/Spine/Pelvis: Thoracic/Lumbar Spine: thoracic and lumbar spine normal to inspection Skin: General skin exam: no rashes or lesions noted Neuro: General: patient oriented x3, no meningeal signs, no focal motor deficits and normal sensation to monofilament Cranial nerves: Yes Equal, round and reactive pupils present Cognition (Neuro): normal cognition Speech: No Abnormal speech present Gait exam (Neuro): Normal gait present Motor exam (neuro): 5/5 motor strength present throughout Extrem: General: Yes normal to inspection Course Course Course Narrative: Labs show THAD. NS 500ml ordered. Indeterminate troponin. No chest pain or EKG changes noted. Will trend Reevaluation(s) Reevaluation #1: 1045-Patient had single blood pressure 99/42. Repeat is 116/60. This is likely from dehydration and not from infection. Patient will require admission for UTI, THAD, febrile illness. Call out to medicine to discuss. Reevaluation #2: 1100-D/w with Dr Knight who accepted admission of patient. MDM - Male Genitourinary MDM Narrative Medical decision making narrative: [id number]-old male who presents with generalized weakness, tactile temps, urinary symptoms the last few days. On arrival patient is febrile, tachycardic, tachypneic. He has no reports of abdominal pain or flank pain. At this time infection is suspected. Labs including blood cultures, lactic acid and urinalys is are ordered. Patient will also have EKG, chest x-ray and COVID screen. Antibiotics ordered. Will order antipyretics for fever. Patient received 450 mL of normal saline prior to arrival. Consider UTI, sepsis, dehydration Medical Records Attestation: I reviewed the patient's medical records. Lab Data Attestation: I reviewed the patient's lab results. Result diagrams: 05/02/22 08:19 05/02/22 08:19 Labs: Lab Results 05/02/22 05/02/22 05/02/22 Range/Units 08:19 08:19 08:19 WBC 10.5 (4.8-10.8) X10*3/uL RBC 4.04 L (4.60-5.80) X10*6/uL Hgb 12.4 L (14.0-18.0) g/dl Hct 37.4 L (42.0-52.0) % MCV 92.6 (80.0-98.0) fL MCH 30.7 (27.0-33.0) pg MCHC 33.2 (31.0-36.0) g/dl RDW 14.0 (11.0-16.0) % Plt Count 171 (160-400) X10*3/uL MPV 9.7 (9.4-12.4) fL Immature Gran % (Auto) 0.7 H (0.0-0.4) % Neut % (Auto) 78.5 H (45-73) % Lymph % (Auto) 11.7 L (20-40) % [place] % (Auto) 8.6 (2-11) % Eos % (Auto) 0.1 (0-4) % Baso % (Auto) 0.4 (0-2) % Lymph # (Auto) 1.2 (1.2-4.9) X10*3/uL [place] # (Auto) 0.9 (0.1-1.2) X10*3/uL Eos # (Auto) 0.0 (0.0-0.4) X10*3/uL Baso # (Auto) 0.0 (0.0-0.2) X10*3/uL Abs Immat Gran (auto) 0.07 H (0.00-0.03) X10*3/uL Absolute Neuts (auto) 8.3 (2.0-8.3) x10*3/uL Absolute Nucleated RBC 0.000 (0.0-0.012) X10*3/uL Nucleated RBC % (auto) 0.0 (0.0-0.2) /100WBC Smear Tech's Comments VERIFIED PT (10.0-13.1) SEC INR (0.9-1.1) Sodium 139 (135-145) mmol/L Potassium 4.4 (3.3-5.1) mmol/L Chloride 104 (96-108) mmol/L Carbon Dioxide 24 (22-29) mmol/L Anion Gap 15 (12-20) BUN 30 H (9-16) mg/dL Creatinine 1.61 H (0.5-1.4) mg/dL Estim Creat Clear Calc 57.9 Estimated GFR 43 Random Glucose 152 H (60-115) mg/dL Lactic Acid (0.5-2.0) mmol/L Calcium 7.9 L (8.4-10.2) mg/dL Magnesium 1.9 (1.6-2.6) mg/dL Total Bilirubin 1.3 H (0.0-1.0) mg/dL Direct Bilirubin 0.6 H (0.0-0.5) mg/dL AST 156 H (5-37) U/L ALT 83 H (0-40) U/L Alkaline Phosphatase 64 (39-117) U/L Troponin I High Sens 48.5 H D (<3.5-35.0) ng/L Total Protein 6.1 L (6.5-8.0) g/dL Albumin 3.4 L (3.5-5.0) g/dL Urine Color Urine Appearance Urine pH (5.0-8.0) Ur Specific [place] (1.005-1.025) Urine Protein (NEG-TRACE) MG/DL Urine Glucose (UA) (NEG) MG/DL Urine Ketones (NEG) MG/DL Urine Blood (NEG) Urine Nitrite (NEG) Ur Leukocyte Esterase (NEG) Urine RBC (0) /HPF Urine WBC (0-4) /HPF Ur Squamous Epith Cells /LPF Urine Bacteria /LPF COVID-19 ([facility]) (Negative) COVID-19 Clin Com 05/02/22 05/02/22 05/02/22 Range/Units 08:19 08:27 08:35 WBC (4.8-10.8) X10*3/uL RBC (4.60-5.80) X10*6/uL Hgb (14.0-18.0) g/dl Hct (42.0-52.0) % MCV (80.0-98.0) fL MCH (27.0-33.0) pg MCHC (31.0-36.0) g/dl RDW (11.0-16.0) % Plt Count (160-400) X10*3/uL MPV (9.4-12.4) fL Immature Gran % (Auto) (0.0-0.4) % Neut % (Auto) (45-73) % Lymph % (Auto) (20-40) % [place] % (Auto) (2-11) % Eos % (Auto) (0-4) % Baso % (Auto) (0-2) % Lymph # (Auto) (1.2-4.9) X10*3/uL [place] # (Auto) (0.1-1.2) X10*3/uL Eos # (Auto) (0.0-0.4) X10*3/uL Baso # (Auto) (0.0-0.2) X10*3/uL Abs Immat Gran (auto) (0.00-0.03) X10*3/uL Absolute Neuts (auto) (2.0-8.3) x10*3/uL Absolute Nucleated RBC (0.0-0.012) X10*3/uL Nucleated RBC % (auto) (0.0-0.2) /100WBC Smear Tech's Comments PT 15.6 H (10.0-13.1) SEC INR 1.3 H (0.9-1.1) Sodium (135-145) mmol/L Potassium (3.3-5.1) mmol/L Chloride (96-108) mmol/L Carbon Dioxide (22-29) mmol/L Anion Gap (12-20) BUN (9-16) mg/dL Creatinine (0.5-1.4) mg/dL Estim Creat Clear Calc Estimated GFR Random Glucose (60-115) mg/dL Lactic Acid 1.2 (0.5-2.0) mmol/L Calcium (8.4-10.2) mg/dL Magnesium (1.6-2.6) mg/dL Total Bilirubin (0.0-1.0) mg/dL Direct Bilirubin (0.0-0.5) mg/dL AST (5-37) U/L ALT (0-40) U/L Alkaline Phosphatase (39-117) U/L Troponin I High Sens (<3.5-35.0) ng/L Total Protein (6.5-8.0) g/dL Albumin (3.5-5.0) g/dL Urine Color Urine Appearance Urine pH (5.0-8.0) Ur Specific [place] (1.005-1.025) Urine Protein (NEG-TRACE) MG/DL Urine Glucose (UA) (NEG) MG/DL Urine Ketones (NEG) MG/DL Urine Blood (NEG) Urine Nitrite (NEG) Ur Leukocyte Esterase (NEG) Urine RBC (0) /HPF Urine WBC (0-4) /HPF Ur Squamous Epith Cells /LPF Urine Bacteria /LPF COVID-19 ([facility]ES[facility]) Negative (Negative) COVID-19 Clin Com See Note 05/02/22 Range/Units 09:59 WBC (4.8-10.8) X10*3/uL RBC (4.60-5.80) X10*6/uL Hgb (14.0-18.0) g/dl Hct (42.0-52.0) % MCV (80.0-98.0) fL MCH (27.0-33.0) pg MCHC (31.0-36.0) g/dl RDW (11.0-16.0) % Plt Count (160-400) X10*3/uL MPV (9.4-12.4) fL Immature Gran % (Auto) (0.0-0.4) % Neut % (Auto) (45-73) % Lymph % (Auto) (20-40) % [place] % (Auto) (2-11) % Eos % (Auto) (0-4) % Baso % (Auto) (0-2) % Lymph # (Auto) (1.2-4.9) X10*3/uL [place] # (Auto) (0.1-1.2) X10*3/uL Eos # (Auto) (0.0-0.4) X10*3/uL Baso # (Auto) (0.0-0.2) X10*3/uL Abs Immat Gran (auto) (0.00-0.03) X10*3/uL Absolute Neuts (auto) (2.0-8.3) x10*3/uL Absolute Nucleated RBC (0.0-0.012) X10*3/uL Nucleated RBC % (auto) (0.0-0.2) /100WBC Smear Tech's Comments PT (10.0-13.1) SEC INR (0.9-1.1) Sodium (135-145) mmol/L Potassium (3.3-5.1) mmol/L Chloride (96-108) mmol/L Carbon Dioxide (22-29) mmol/L Anion Gap (12-20) BUN (9-16) mg/dL Creatinine (0.5-1.4) mg/dL Estim Creat Clear Calc Estimated GFR Random Glucose (60-115) mg/dL Lactic Acid (0.5-2.0) mmol/L Calcium (8.4-10.2) mg/dL Magnesium (1.6-2.6) mg/dL Total Bilirubin (0.0-1.0) mg/dL Direct Bilirubin (0.0-0.5) mg/dL AST (5-37) U/L ALT (0-40) U/L Alkaline Phosphatase (39-117) U/L Troponin I High Sens (<3.5-35.0) ng/L Total Protein (6.5-8.0) g/dL Albumin (3.5-5.0) g/dL Urine Color YELLOW Urine Appearance CLOUDY Urine pH 6.0 (5.0-8.0) Ur Specific [place] 1.020 (1.005-1.025) Urine Protein 2+ H (NEG-TRACE) MG/DL Urine Glucose (UA) NEG (NEG) MG/DL Urine Ketones 15 (NEG) MG/DL Urine Blood 3+ H (NEG) Urine Nitrite POS H (NEG) Ur Leukocyte Esterase 3+ H (NEG) Urine RBC 10-14 H (0) /HPF Urine WBC TNTC H (0-4) /HPF Ur Squamous Epith Cells NONE /LPF Urine Bacteria 4+ /LPF COVID-19 ([facility]ESSA) (Negative) COVID-19 Clin Com Imaging Data Chest x-ray: Attestation: I personally reviewed and interpreted this imaging study as follows: Radiologist's impression: [address] [address] XRay Report Signed Patient: Alon Saha MR#: [id number] : 1950 Acct:[id number] Age/Sex: 71 / M ADM Date: 05/02/22 Loc: .ED Attending Dr: Ordering Physician: Shameka Dotson NP Date of Service: 05/02/22 Procedure(s): XR chest 2V Accession Number(s): [id number] cc: Shameka Dotson NP~ EXAMINATION: XR CHEST CLINICAL INFORMATION: Weakness COMPARISON: 04/27/2022 TECHNIQUE: 2 views of the chest were obtained. FINDINGS: Low lung volumes. Diffuse interstitial prominence. No focal consolidation. No definite pleural effusion. No pneumothorax. Cardiomediastinal silhouette unchanged. Degenerative changes of the shoulders. XR/XR chest 2V IMPRESSION: Low lung volumes with diffuse interstitial prominence. This could reflect bronchovascular crowding in the setting of low lung volumes, less likely pulmonary venous hypertension or interstitial pneumonitis. ECG Data Attestation: I personally reviewed and interpreted this ECG as follows: ECG interpretation date: 05/02/22 ECG interpretation time: 08:21 Interpretation: Sinus tachycardia with a rate of 107, normal AL, normal QRS, normal QT Discharge Plan Discharge Clinical Impression: Urinary tract infection, THAD (acute kidney injury) Patient Disposition: Admitted As Inpatient
[2022-05-02 08:27] LABS: Basophils Percent Auto 0.4 % (0-2); Eosinophils Percent Auto 0.1 % (0-4); Hematocrit 37.4 % (42.0-52.0); Hemoglobin 12.4 g/dl (14.0-18.0); Imm Gran Abs Auto 0.07 X10*3/uL (0.00-0.03); Imm Gran Pct Auto 0.7 % (0.0-0.4); Lymphocytes Absolute Auto 1.2 X10*3/uL (1.2-4.9); Lymphocytes Percent Auto 11.7 % (20-40); MANUAL DIFF FLAG SCAN; Mean Corpuscular HGB Conc 33.2 g/dl (31.0-36.0); Mean Corpuscular Hemoglobin 30.7 pg (27.0-33.0); Mean Corpuscular Volume 92.6 fL (80.0-98.0); Mean Platelet Volume 9.7 fL (9.4-12.4); Monocytes Absolute Auto 0.9 X10*3/uL (0.1-1.2); Monocytes Percent Auto 8.6 % (2-11); Neutrophils Absolute Auto 8.3 x10*3/uL (2.0-8.3); Neutrophils Percent Auto 78.5 % (45-73); Platelet Count 171 X10*3/uL (160-400); Red Blood Count 4.04 X10*6/uL (4.60-5.80); SCAN SMEAR FLAG 1; White Blood Count 10.5 X10*3/uL (4.8-10.8)
[2022-05-02 08:33] LABS: INTERNATIONAL NORM RATIO 1.3 (0.9-1.1); Prothrombin Time 15.6 SEC (10.0-13.1)
--- NOTE | 2022-05-02 08:33 | PC.NURSE ---
Pt comes in with complaints of hematuria and weakness, was here recently and DX'd w/UTI but states it's not improving. Pt is A&Ox4, lungs diminished, febrile, ST on monitor, +pulses, warm to touch with some diaphoresis at this time. IV established via EMS in [facility], Sepsis work up at this time. Awaiting further orders. Will continue to monitor.
[2022-05-02] MEDS: Acetaminophen 325 MG TABLET 975 MG PO (08:41)
[2022-05-02] MEDS: cefTRIAXone sodium 1 GM in 0.9 % Sodium Chloride 50 ML IV (08:42)
[2022-05-02 08:51] LABS: Troponin-I High Sensitivity 48.5 ng/L (<3.5-35.0)
[2022-05-02 08:53] LABS: Lactic Acid 1.2 mmol/L (0.5-2.0)
[2022-05-02 08:55] LABS: Alanine Aminotransferase 83 U/L (0-40); Albumin Level 3.4 g/dL (3.5-5.0); Alkaline Phosphatase 64 U/L (39-117); Anion Gap 15 (12-20); Aspartate Amino Transferase 156 U/L (5-37); Bilirubin Direct 0.6 mg/dL (0.0-0.5); Bilirubin Total 1.3 mg/dL (0.0-1.0); Blood Urea Nitrogen 30 mg/dL (9-16); Calcium 7.9 mg/dL (8.4-10.2); Carbon Dioxide 24 mmol/L (22-29); Chloride 104 mmol/L (96-108); Creatinine Clr Calc Pharmacy 57.9; Estimated Glomerular Filt Rate 43; Glucose Random 152 mg/dL (60-115); Magnesium 1.9 mg/dL (1.6-2.6); Potassium 4.4 mmol/L (3.3-5.1); Sodium 139 mmol/L (135-145); Total Protein 6.1 g/dL (6.5-8.0)
[2022-05-02 08:58] LABS: SLIDE REVIEW VERIFIED
[2022-05-02 09:05] LABS: COVID-19 Test Negative (Negative)
[2022-05-02] MEDS: 0.9 % Sodium Chloride 500 ML 999 ML IV (09:38)
[2022-05-02 10:14] LABS: Appearance Urine CLOUDY; Color Urine YELLOW; Glucose Urine UA NEG (NEG); Leukocyte Esterase Urine 3+ (NEG); Nitrite Urine POS (NEG); UACC Culture Trigger YES; Urine Blood 3+ (NEG); Urine Ketones 15 MG/DL (NEG); Urine Protein 2+ MG/DL (NEG-TRACE)
[2022-05-02 10:58] LABS: WBC Urine TNTC /HPF (0-4)
[2022-05-02 11:00] LABS: Bacteria Urine 4+ /LPF
--- NOTE | 2022-05-02 11:54 | P.HPHOSP_ITS ---
History of Present Illness Date of Service: 05/02/22 Chief Complaint: weakness, falls This is a 71 year old male with a PMH as outlined below who presents to the hospital with weakness and falls. The patient is a vague historian and hence the history is obtained from the patient as well as his brother in law Virgilio Sparks @ [phone]. Apparently Maged patient found the patient on the ground today and hence he called the paramedics. The patient reports that he has been feeling weak and tired over the last 1-2 weeks. He reports no loss of consciousness and states he fell due to weakness. He denies any chest pain or shortness of breath. He denies any nausea/vomiting/diarrhea. He reports urinary symptoms of hematuria but denies any freuquency or urgent. He reports being drenched in sweat at times this week. He denies chills or a measured fever. He denies any focal weakness, headache, neck pain. Work up on the ED reveal a fever of 100.4, tachypnea and tachycardia. UA is suggestive of UTI. His LFTs are abnormal but he denies EtOH use. He has been given tylenol, IVF and IV rocephin. Admission is requested for treatment of sepsis secondary to UTI. Review of Systems Review of Systems: negative except HPI [facility] Medical History Arthritis COVID-19 vaccine administered Diabetes mellitus, type 2 HTN (hypertension) Hx of glaucoma Hx of orthostatic hypotension Hx of renal calculi Hypercholesteremia Hyperuricemia Nocturia Vasovagal syncope Pertinent family history: He states + family history for medical problems, but he is unsure of the rozina gnosis Surgical History H/O colonoscopy Hx of lithotripsy Social History Are you a primary health care coordinator to a significant other at home: No Do you presently have visiting nurse or other home services: No Alcohol intake: never Patient Tobacco Use Status: Never used Tobacco Advance Directives: Yes Advance Directives Information Provided: Yes Advance Directives on File: No Meds Allergies Allergy/AdvReac Type Severity Reaction Status Date / Time No Known Allergies Allergy Verified 05/02/22 08:10 Active Medications: Current Medications Acetaminophen (Acetaminophen 325 Mg Tablet) 650 mg PO Q6H PRN PRN Reason: Pain, Mild (Pain Scale 1-3) Heparin Sodium (Porcine) (Heparin Sodium,Porcine 5,000 Unit/Ml Vial) 5,000 unit SUBCUT Q12H [facility] Ceftriaxone Sodium 1 gm/ (Sodium Chloride) 50 mls @ 100 mls/hr IV Q24H [facility] Lactated Ringer's (Lr) 1,000 mls @ 100 mls/hr IVCONT .Q10H [facility] Stop: 05/03/22 07:59 Insulin Human Lispro (Insulin Lispro 100 Unit/Ml 3 Ml Vial) 0 unit SUBCUT QIDACHS [facility]; Protocol Ondansetron HCl (Ondansetron Hcl 4 Mg/2 Ml Vial) 4 mg IVPUSH Q8H PRN PRN Reason: Nausea and Vomiting Pharmacy Consult (Consult Rx Perform Med Rec) 1 each MISCELLANE ONCE PRN PRN Reason: Consult order Sodium Chloride (0.9 % Sodium Chloride Flush 3 Ml Syringe) 3 ml IVFLUSH QSHIFT [facility] Home Medications Medication Instructions Recorded Confirmed Last Taken Type atorvastatin 10 mg tablet 1 tab PO DAILY 09/09/20 05/02/22 05/01/22 History gabapentin 100 mg capsule 1 cap PO TID 09/09/20 05/02/22 05/01/22 History lisinopril 5 mg tablet 5 mg PO DAILY 09/09/20 05/02/22 05/01/22 History metformin 500 mg tablet,extended 500 mg PO BID 09/09/20 05/02/22 05/01/22 History release 24 hr aspirin 81 mg tablet,delayed 81 mg PO DAILY 02/21/21 05/02/22 05/01/22 History release (Shlomo Low Dose Aspirin) gabapentin 300 mg capsule 300 mg PO DAILY 06/18/21 05/02/22 05/01/22 History timolol maleate 0.5 % eye drops 1 drp ophthalmic (eye) DAILY 05/02/22 05/02/22 05/01/22 History Physical Exam Vital Signs and Narrative: Vital Signs: Last Vital Signs Temp 99.8 F 05/02/22 09:40 Pulse 105 H 05/02/22 09:40 Resp 29 H 05/02/22 09:40 BP 116/60 05/02/22 10:36 Pulse Ox 93 05/02/22 09:40 O2 Del Method 05/02/22 08:10 BMI result Body Mass Index 38.0 Const: Other: Constitutional - Awake and Alert, No apparent distress Eyes - PERRLA, EOMI Cardiovascular - S1S2, RRR, No edema Respiratory - Normal lung expansion, Normal respiratory effort, No respiratory distress, CTA bilaterally Gastrointestinal - NT / ND; +BS; No rebound or guarding - No CVA tenderness Extremities - no calf tenderness bilaterally, no swelling Musculoskeletal - Normal inspection, normal ROM Skin - Warm/Dry Neurological - Alert & oriented x3 but vague overall; no focal deficits; CN 2- 12 intact; strength and sensation wnl in all 4 limbs Psychological - Appropriate affect Results Labs CBC and Chem 7: 05/02/22 08:19 05/02/22 08:19 Labs: Laboratory Results - last 24 hr 05/02/22 05/02/22 05/02/22 08:19 08:19 08:19 MCV 92.6 MCH 30.7 MCHC 33.2 RDW 14.0 Plt Count 171 MPV 9.7 Immature Gran % (Auto) 0.7 H Neut % (Auto) 78.5 H Lymph % (Auto) 11.7 L [place] % (Auto) 8.6 Eos % (Auto) 0.1 Baso % (Auto) 0.4 Lymph # (Auto) 1.2 [place] # (Auto) 0.9 Eos # (Auto) 0.0 Baso # (Auto) 0.0 Abs Immat Gran (auto) 0.07 H Absolute Neuts (auto) 8.3 Absolute Nucleated RBC 0.000 Nucleated RBC % (auto) 0.0 Smear Tech's Comments VERIFIED PT INR Anion Gap 15 Estim Creat Clear Calc 57.9 Estimated GFR 43 Random Glucose 152 H Lactic Acid Calcium 7.9 L Magnesium 1.9 Total Bilirubin 1.3 H Direct Bilirubin 0.6 H AST 156 H ALT 83 H Alkaline Phosphatase 64 Troponin I High Sens 48.5 H D Total Protein 6.1 L Albumin 3.4 L Urine Color Urine Appearance Urine pH Ur Specific [place] Urine Protein Urine Glucose (UA) Urine Ketones Urine Blood Urine Nitrite Ur Leukocyte Esterase Urine RBC Urine WBC Ur Squamous Epith Cells Urine Bacteria COVID-19 ([facility]) COVID-19 Clin Com 05/02/22 05/02/22 05/02/22 08:19 08:27 08:35 MCV MCH MCHC RDW Plt Count MPV Immature Gran % (Auto) Neut % (Auto) Lymph % (Auto) [place] % (Auto) Eos % (Auto) Baso % (Auto) Lymph # (Auto) [place] # (Auto) Eos # (Auto) Baso # (Auto) Abs Immat Gran (auto) Absolute Neuts (auto) Absolute Nucleated RBC Nucleated RBC % (auto) Smear Tech's Comments PT 15.6 H INR 1.3 H Anion Gap Estim Creat Clear Calc Estimated GFR Random Glucose Lactic Acid 1.2 Calcium Magnesium Total Bilirubin Direct Bilirubin AST ALT Alkaline Phosphatase Troponin I High Sens Total Protein Albumin Urine Color Urine Appearance Urine pH Ur Specific [place] Urine Protein Urine Glucose (UA) Urine Ketones Urine Blood Urine Nitrite Ur Leukocyte Esterase Urine RBC Urine WBC Ur Squamous Epith Cells Urine Bacteria COVID-19 ([facility]ES[facility]) Negative COVID-19 Clin Com See Note 05/02/22 09:59 MCV MCH MCHC RDW Plt Count MPV Immature Gran % (Auto) Neut % (Auto) Lymph % (Auto) [place] % (Auto) Eos % (Auto) Baso % (Auto) Lymph # (Auto) [place] # (Auto) Eos # (Auto) Baso # (Auto) Abs Immat Gran (auto) Absolute Neuts (auto) Absolute Nucleated RBC Nucleated RBC % (auto) Smear Tech's Comments PT INR Anion Gap Estim Creat Clear Calc Estimated GFR Random Glucose Lactic Acid Calcium Magnesium Total Bilirubin Direct Bilirubin AST ALT Alkaline Phosphatase Troponin I High Sens Total Protein Albumin Urine Color YELLOW Urine Appearance CLOUDY Urine pH 6.0 Ur Specific [place] 1.020 Urine Protein 2+ H Urine Glucose (UA) NEG Urine Ketones 15 Urine Blood 3+ H Urine Nitrite POS H Ur Leukocyte Esterase 3+ H Urine RBC 10-14 H Urine WBC TNTC H Ur Squamous Epith Cells NONE Urine Bacteria 4+ COVID-19 ([facility]) COVID-19 Clin Com Imaging Radiologist's Impressions: Impressions Chest X-Ray 05/02/22 09:21 IMPRESSION: Low lung volumes with diffuse interstitial prominence. This could reflect bronchovascular crowding in the setting of low lung volumes, less likely pulmonary venous hypertension or interstitial pneumonitis. Assessment and Plan (1) THAD (acute kidney injury): Status: Acute (2) Urinary tract infection: Status: Acute Plan This is a 71 yo M with a PMH DM, HTN, Glaucoma, nephrolithiasis, vasovagal syncope who presents to the ED after being found on the ground by family. He reports generalized weakness and hematuria. Urine culture from 04/24/22 shows pansitive E. Coli for which he has not been treated. He meets sepsis criteria and will now be admitted for further care. 1. Sepsis due to UTI Meets CMS sepsis criteria with tachypnea and tachycardia; meets SOFA score of 2 with elevated bilirubin and creatnine. Continue IVF @ 100 cc/hr x 2L IV rocephin f/u blood cultures 2. Unwitnessed fall pt denies LOC Check CT head/c-spine -- clinically no deficits 3. THAD due to sepsis trend 4. Elevated HS trop-I flat due to demand ischemia from sepsis EKG without acute findings monitor on tele given unwitnessed fall 5. Hyperbiliubinemia / transaminitis Pt denies EtOH and confirmed by family due to sepsis, trend hold lipitor today 6. DM hold orals use sliding scale Full Code DVT pptx, subcut heparin In light of the patients sepsis and unwitnessed fall, I anticipate a medically necessary inpatient hospitalization which is likely to span at least 2 midnights for treatment and monitoring response. This cannot be completed in a less acute setting. Quality Stroke Does the patient have a stroke diagnosis?: No VTE Prior VTE?: No VTE Risk Level:: Medical - moderate - high VTE Device Contraindication: Treatment Not Indicated VTE Drug Contraindication: N/A - Med Ordered
--- NOTE | 2022-05-02 11:55 | PHA.MEDREC ---
Pharmacy Consult ? Medication Reconciliation Pharmacy has completed the medication reconciliation. Patient does not know what he takes, but handles his own medications. Called Eric Cruz to verify fills
[2022-05-02 12:04] LABS: Troponin-I High Sensitivity 46.9 ng/L (<3.5-35.0)
[2022-05-02] MEDS: Heparin Sodium,Porcine 5,000 UNIT/ML VIAL 5000 UNIT SUBCUT (12:46)
[2022-05-02] MEDS: Lactated Ringers 1,000 ML 100 ML IVCONT (12:46)
[2022-05-02] MEDS: allopurinoL 100 MG TABLET PO (15:46)
[2022-05-02 16:55] LABS: Glucose, Whole Blood 143 mg/dL (60-115)
--- NOTE | 2022-05-02 17:28 | PC.NURSE ---
patient got change into hospital attire .
--- NOTE | 2022-05-02 17:31 | PC.NURSE ---
Pt placed in hospital bed at this time. No complaints of pain, call neal within reach. NSR on monitor. urinating into urinal at this time. Will continue to monitor.
--- NOTE | 2022-05-02 19:18 | PC.NURSE ---
PATIENT WAS GIVEN A BED BATH BY THIS PCT ,AND [place] CATH PLACED
[2022-05-02 21:01] LABS: Glucose, Whole Blood 159 mg/dL (60-115)
[2022-05-02] MEDS: Insulin Lispro 100 UNIT/ML 3 ML VIAL SUBCUT (21:39)
[2022-05-02] MEDS: Gabapentin 100 MG CAPSULE PO (21:40)
--- NOTE | 2022-05-02 21:49 | PC.NURSE ---
assumed care of pt at 1900; humalog 2 units and 100mg tab gabapentin administered per MAR at around 0
[2022-05-03] MEDS: Acetaminophen 325 MG TABLET 650 MG PO (00:20)
--- NOTE | 2022-05-03 00:21 | PC.NURSE ---
administered 650 mg tylenol to pt for fever
--- NOTE | 2022-05-03 00:35 | PC.NURSE ---
PATIENT WAS INCONTINENT OF LARGE AMOUNT OF STOOL ,CARE GIVEN AND BEDDING CHANGE .
--- NOTE | 2022-05-03 00:46 | PC.NURSE ---
Gave report to Sheri DUKES from [facility]
[2022-05-03] MEDS: Heparin Sodium,Porcine 5,000 UNIT/ML VIAL 5000 UNIT SUBCUT ×3 (01:55→23:32)
[2022-05-03] MEDS: 0.9 % Sodium Chloride Flush 3 ML SYRINGE IVFLUSH ×2 (01:56→07:45)
[2022-05-03] MEDS: Lactated Ringers 1,000 ML 100 ML IVCONT (02:49)
[2022-05-03 03:18] VITALS: BP 142/69; PULSE 96; RESP 17; TEMP 37; O2SAT 94
[2022-05-03] MEDS: Omeprazole 40 MG CAPSULE.DR PO (04:53)
[2022-05-03 06:46] LABS: Hematocrit 35.5 % (42.0-52.0); Hemoglobin 11.6 g/dl (14.0-18.0); Mean Corpuscular HGB Conc 32.7 g/dl (31.0-36.0); Mean Corpuscular Hemoglobin 30.9 pg (27.0-33.0); Mean Corpuscular Volume 94.7 fL (80.0-98.0); Mean Platelet Volume 11.1 fL (9.4-12.4); Platelet Count 144 X10*3/uL (160-400); Red Blood Count 3.75 X10*6/uL (4.60-5.80); Red Cell Distribution Width 14.5 % (11.0-16.0)
[2022-05-03 07:34] LABS: Anion Gap 14 (12-20); Blood Urea Nitrogen 26 mg/dL (9-16); Calcium 7.6 mg/dL (8.4-10.2); Carbon Dioxide 20 mmol/L (22-29); Chloride 109 mmol/L (96-108); Creatinine Clr Calc Pharmacy 82.5; Estimated Glomerular Filt Rate > 60; Glucose Random 130 mg/dL (60-115); Potassium 4.2 mmol/L (3.3-5.1); Sodium 139 mmol/L (135-145)
[2022-05-03] MEDS: allopurinoL 100 MG TABLET PO (07:45)
[2022-05-03] MEDS: cefTRIAXone sodium 1 GM in 0.9 % Sodium Chloride 50 ML IV (07:45)
[2022-05-03] MEDS: Gabapentin 100 MG CAPSULE PO ×3 (07:45→20:03)
[2022-05-03] MEDS: Gabapentin 300 MG CAPSULE PO (07:45)
[2022-05-03] MEDS: Aspirin Enteric Coated 81 MG TABLET.DR PO (07:45)
[2022-05-03 08:00] VITALS: BP 146/73; PULSE 97; RESP 16; TEMP 36.7; O2SAT 95
[2022-05-03 08:09] LABS: Glucose, Whole Blood 105 mg/dL (60-115)
[2022-05-03 08:15] LABS: Alanine Aminotransferase 80 U/L (0-40); Albumin Level 2.9 g/dL (3.5-5.0); Alkaline Phosphatase 61 U/L (39-117); Aspartate Amino Transferase 119 U/L (5-37); Bilirubin Direct 0.3 mg/dL (0.0-0.5); Bilirubin Total 0.5 mg/dL (0.0-1.0); Total Protein 5.6 g/dL (6.5-8.0)
--- NOTE | 2022-05-03 10:48 | HO.PM.IMPN ---
Subjective Subjective Date of Service: 05/03/22 Review of Systems Follow up UTI Feeling better sitting up in bed Physical Exam Vital Signs: Vital Signs: Last Vital Signs Temp 98.1 F 05/03/22 08:00 Pulse 97 05/03/22 08:00 Resp 16 05/03/22 08:00 BP 146/73 H 05/03/22 08:00 Pulse Ox 95 05/03/22 08:00 O2 Del Method 05/03/22 08:00 BMI result Body Mass Index 38.0 Appearing in no acute distress lung sounds are clear to auscultation heart regular rate rhythm, clear S1, S2 positive bowel sounds, abdomen is soft, nontender neuro patient is alert x3, no focal deficits Objective Data Active Medications Acetaminophen (Acetaminophen 325 Mg Tablet) 650 mg PO Q6H PRN PRN Reason: Pain, Mild (Pain Scale 1-3) Last Admin: 05/03/22 00:20 Dose: 650 mg Documented By: JCARLOS Allopurinol (Allopurinol 100 Mg Tablet) 100 mg PO DAILY [facility] Last Admin: 05/03/22 07:45 Dose: 100 mg Documented By: BARBIE Aspirin (Aspirin Enteric Coated 81 Mg Tablet.) 81 mg PO DAILY [facility] Last Admin: 05/03/22 07:45 Dose: 81 mg Documented By: BARBIE Gabapentin (Gabapentin 100 Mg Capsule) 100 mg PO TID [facility] Last Admin: 05/03/22 07:45 Dose: 100 mg Documented By: BARBIE Gabapentin (Gabapentin 300 Mg Capsule) 300 mg PO DAILY [facility] Last Admin: 05/03/22 07:45 Dose: 300 mg Documented By: BARBIE Heparin Sodium (Porcine) (Heparin Sodium,Porcine 5,000 Unit/Ml Vial) 5,000 unit SUBCUT Q12H [facility] Last Admin: 05/03/22 01:55 Dose: 5,000 unit Documented By: MARY Ceftriaxone Sodium 1 gm/ (Sodium Chloride) 50 mls @ 100 mls/hr IV Q24H [facility] Last Infusion: 05/03/22 10:12 Dose: 0 mls/hr Documented By: BARBIE Insulin Human Lispro (Insulin Lispro 100 Unit/Ml 3 Ml Vial) 0 unit SUBCUT QIDACHS [facility]; Protocol Last Admin: 05/03/22 08:06 Dose: Not Given Documented By: BARBIE Non-Admin Reason: No Insulin Coverage Omeprazole (Omeprazole 40 Mg Capsule.Dr) 40 mg PO DAILY@0630 [facility] Last Admin: 05/03/22 04:53 Dose: 40 mg Documented By: MARY Ondansetron HCl (Ondansetron Hcl 4 Mg/2 Ml Vial) 4 mg IVPUSH Q8H PRN PRN Reason: Nausea and Vomiting Pharmacy Consult (Consult Rx Perform Med Rec) 1 each MISCELLANE ONCE PRN PRN Reason: Consult order Sodium Chloride (0.9 % Sodium Chloride Flush 3 Ml Syringe) 3 ml IVFLUSH QSHIFT [facility] Last Admin: 05/03/22 07:45 Dose: 3 ml Documented By: BARBIE Timolol Maleate (Timolol Maleate 0.5 % Oph Trini 5 Ml Drbtl) 1 drop EYE-BOTH DAILY [facility] Last Admin: 05/03/22 07:46 Dose: Not Given Documented By: BARBIE Non-Admin Reason: Med Not Available Labs CBC & Chem 7: 05/03/22 05:44 05/03/22 05:44 Labs: Laboratory Results - last 24 hr 05/02/22 05/02/22 05/02/22 09:59 11:39 16:50 MCV MCH MCHC RDW Plt Count MPV Absolute Nucleated RBC Nucleated RBC % (auto) Anion Gap Estim Creat Clear Calc Estimated GFR POC Glucose 143 H Random Glucose Calcium Total Bilirubin Direct Bilirubin AST ALT Alkaline Phosphatase Troponin I High Sens 46.9 H Total Protein Albumin Urine RBC 10-14 H Urine WBC TNTC H Ur Squamous Epith Cells NONE Urine Bacteria 4+ 05/02/22 05/03/22 05/03/22 20:57 05:44 05:44 MCV 94.7 MCH 30.9 MCHC 32.7 RDW 14.5 Plt Count 144 L MPV 11.1 Absolute Nucleated RBC 0.000 Nucleated RBC % (auto) 0.0 Anion Gap Estim Creat Clear Calc Estimated GFR POC Glucose 159 H Random Glucose Calcium Total Bilirubin 0.5 Direct Bilirubin 0.3 AST 119 H ALT 80 H Alkaline Phosphatase 61 Troponin I High Sens Total Protein 5.6 L Albumin 2.9 L Urine RBC Urine WBC Ur Squamous Epith Cells Urine Bacteria 05/03/22 05/03/22 05:44 08:03 MCV MCH MCHC RDW Plt Count MPV Absolute Nucleated RBC Nucleated RBC % (auto) Anion Gap 14 Estim Creat Clear Calc 82.5 Estimated GFR > 60 POC Glucose 105 Random Glucose 130 H Calcium 7.6 L Total Bilirubin Direct Bilirubin AST ALT Alkaline Phosphatase Troponin I High Sens Total Protein Albumin Urine RBC Urine WBC Ur Squamous Epith Cells Urine Bacteria Microbiology Microbiology Results: Microbiology 05/02/22 08:35 Blood Culture - Preliminary Blood - Venous No growth after 24 hours. 05/02/22 08:19 Blood Culture - Preliminary Blood - Venous Prelim: GNR Gram Stain only Assessment and Plan (1) Bacteremia: Status: Acute Plan This is a 71 yo M with a PMH DM, HTN, Glaucoma, nephrolithiasis, vasovagal syncope who presents to the ED after being found on the ground by family. He reports generalized weakness and hematuria. Urine culture from 04/24/22 shows pansitive E. Coli for which he has not been treated. He meets sepsis criteria and will now be admitted for further care. Sepsis due to UTI with GNR bacteremia sepsis resolved IVF stopped IV rocephin f/u final blood cultures Unwitnessed fall pt denies LOC Check CT head/c-spine>neg THAD due to sepsis trend Elevated HS trop-I flat due to demand ischemia from sepsis EKG without acute findings monitor on tele given unwitnessed fall Hyperbiliubinemia / transaminitis Pt denies EtOH and confirmed by family due to sepsis, trend hold lipitor today DM hold orals use sliding scale Full Code DVT pptx, subcut heparin attending Dr. Higgins In light of the patients sepsis and unwitnessed fall as wellas bacteremia, patient requires continued hospitalization for IV antibiotics and final cx Quality Stroke Does the patient have a stroke diagnosis?: No VTE Prior VTE?: No VTE Risk Level:: Medical - moderate - high VTE Device Contraindication: Treatment Not Indicated VTE Drug Contraindication: N/A - Med Ordered
[2022-05-03 11:22] LABS: Glucose, Whole Blood 146 mg/dL (60-115)
[2022-05-03 11:36] VITALS: BP 113/62; PULSE 92; RESP 18; TEMP 36.7; O2SAT 96
[2022-05-03 15:10] VITALS: BP 122/58; PULSE 88; RESP 18; TEMP 36.1; O2SAT 95
[2022-05-03 16:05] LABS: Glucose, Whole Blood 136 mg/dL (60-115)
[2022-05-03 19:07] VITALS: BP 117/66; PULSE 86; RESP 18; TEMP 36.9; O2SAT 94
[2022-05-03 19:42] LABS: Glucose, Whole Blood 159 mg/dL (60-115)
[2022-05-03] MEDS: Insulin Lispro 100 UNIT/ML 3 ML VIAL SUBCUT (20:02)
[2022-05-03 23:04] VITALS: BP 152/72; PULSE 90; RESP 18; TEMP 36.3; O2SAT 94
[2022-05-04] MEDS: 0.9 % Sodium Chloride Flush 3 ML SYRINGE IVFLUSH ×4 (01:11→20:12)
[2022-05-04 04:00] VITALS: BP 141/73; PULSE 75; RESP 17; TEMP 36.3; O2SAT 96
[2022-05-04] MEDS: Omeprazole 40 MG CAPSULE.DR PO (05:46)
[2022-05-04 07:26] LABS: Glucose, Whole Blood 111 mg/dL (60-115)
[2022-05-04] MEDS: cefTRIAXone sodium 1 GM in 0.9 % Sodium Chloride 50 ML IV (07:36)
[2022-05-04] MEDS: Aspirin Enteric Coated 81 MG TABLET.DR PO (07:37)
[2022-05-04] MEDS: Gabapentin 300 MG CAPSULE PO (07:37)
[2022-05-04] MEDS: allopurinoL 100 MG TABLET PO (07:37)
[2022-05-04] MEDS: Gabapentin 100 MG CAPSULE PO ×3 (07:37→20:12)
[2022-05-04 08:00] VITALS: BP 133/74; PULSE 86; RESP 14; TEMP 36.1; O2SAT 95
--- NOTE | 2022-05-04 10:29 | HO.PM.IMPN ---
Subjective Subjective Date of Service: 05/04/22 Review of Systems Follow up UTI Feeling better sitting up in bed Physical Exam Vital Signs: Vital Signs: Last Vital Signs Temp 96.9 F 05/04/22 08:00 Pulse 86 05/04/22 08:00 Resp 14 05/04/22 08:00 BP 133/74 05/04/22 08:00 Pulse Ox 95 05/04/22 08:00 O2 Del Method 05/04/22 08:00 BMI result Body Mass Index 38.0 Appearing in no acute distress lung sounds are clear to auscultation heart regular rate rhythm, clear S1, S2 positive bowel sounds, abdomen is soft, nontender neuro patient is alert x3, no focal deficits Objective Data Active Medications Acetaminophen (Acetaminophen 325 Mg Tablet) 650 mg PO Q6H PRN PRN Reason: Pain, Mild (Pain Scale 1-3) Last Admin: 05/03/22 00:20 Dose: 650 mg Documented By: JCARLOS Allopurinol (Allopurinol 100 Mg Tablet) 100 mg PO DAILY [facility] Last Admin: 05/04/22 07:37 Dose: 100 mg Documented By: BARBIE Aspirin (Aspirin Enteric Coated 81 Mg Tablet.) 81 mg PO DAILY [facility] Last Admin: 05/04/22 07:37 Dose: 81 mg Documented By: BARBIE Gabapentin (Gabapentin 100 Mg Capsule) 100 mg PO TID [facility] Last Admin: 05/04/22 07:37 Dose: 100 mg Documented By: BARBIE Gabapentin (Gabapentin 300 Mg Capsule) 300 mg PO DAILY [facility] Last Admin: 05/04/22 07:37 Dose: 300 mg Documented By: BARBIE Heparin Sodium (Porcine) (Heparin Sodium,Porcine 5,000 Unit/Ml Vial) 5,000 unit SUBCUT Q12H [facility] Last Admin: 05/03/22 23:32 Dose: 5,000 unit Documented By: MARY Ceftriaxone Sodium 1 gm/ (Sodium Chloride) 50 mls @ 100 mls/hr IV Q24H [facility] Last Admin: 05/04/22 07:36 Dose: 100 mls/hr Documented By: BARBIE Insulin Human Lispro (Insulin Lispro 100 Unit/Ml 3 Ml Vial) 0 unit SUBCUT QIDACHS [facility]; Protocol Last Admin: 05/04/22 07:27 Dose: Not Given Documented By: BARBIE Non-Admin Reason: No Insulin Coverage Omeprazole (Omeprazole 40 Mg Capsule.Dr) 40 mg PO DAILY@0630 [facility] Last Admin: 05/04/22 05:46 Dose: 40 mg Documented By: MARY Ondansetron HCl (Ondansetron Hcl 4 Mg/2 Ml Vial) 4 mg IVPUSH Q8H PRN PRN Reason: Nausea and Vomiting Pharmacy Consult (Consult Rx Perform Med Rec) 1 each MISCELLANE ONCE PRN PRN Reason: Consult order Sodium Chloride (0.9 % Sodium Chloride Flush 3 Ml Syringe) 3 ml IVFLUSH QSHIFT [facility] Last Admin: 05/04/22 07:38 Dose: 3 ml Documented By: BARBIE Timolol Maleate (Timolol Maleate 0.5 % Oph Triin 5 Ml Drbtl) 1 drop EYE-BOTH DAILY [facility] Last Admin: 05/03/22 07:46 Dose: Not Given Documented By: BARBIE Non-Admin Reason: Med Not Available Labs CBC & Chem 7: 05/03/22 05:44 05/03/22 05:44 Labs: Laboratory Results - last 24 hr 05/03/22 05/03/22 05/03/22 11:06 16:00 19:39 POC Glucose 146 H 136 H 159 H 05/04/22 07:21 POC Glucose 111 Microbiology Microbiology Results: Microbiology 05/02/22 08:19 Blood Culture - Preliminary Blood - Venous Gram negative freda 05/02/22 Unknown Urine Culture - Final Urine clean catch - Urine rodriguez top Escherichia coli 05/02/22 08:35 Blood Culture - Preliminary Blood - Venous No growth after 24 hours. Assessment and Plan (1) Bacteremia: Status: Acute Plan This is a 71 yo M with a PMH DM, HTN, Glaucoma, nephrolithiasis, vasovagal syncope who presents to the ED after being found on the ground by family. He reports generalized weakness and hematuria. Urine culture from 04/24/22 shows pansitive E. Coli for which he has not been treated. He meets sepsis criteria and will now be admitted for further care. Sepsis due to UTI with GNR bacteremia sepsis resolved IVF stopped IV rocephin f/u final blood cultures Unwitnessed fall pt denies LOC Check CT head/c-spine>neg THAD. Resolved due to sepsis trend Elevated HS trop-I flat due to demand ischemia from sepsis EKG without acute findings monitor on tele given unwitnessed fall Hyperbiliubinemia / transaminitis Pt denies EtOH and confirmed by family due to sepsis, trend hold lipitor today DM hold orals use sliding scale Full Code DVT pptx, subcut heparin attending Dr. Higgins In light of the patients sepsis and unwitnessed fall as well as bacteremia, patient requires continued hospitalization for IV antibiotics and final cx Quality Stroke Does the patient have a stroke diagnosis?: No VTE Prior VTE?: No VTE Risk Level:: Medical - moderate - high VTE Device Contraindication: Treatment Not Indicated VTE Drug Contraindication: N/A - Med Ordered
[2022-05-04 11:08] LABS: Glucose, Whole Blood 150 mg/dL (60-115)
[2022-05-04 11:29] VITALS: BP 120/73; PULSE 82; RESP 17; TEMP 35.8; O2SAT 96
[2022-05-04] MEDS: Heparin Sodium,Porcine 5,000 UNIT/ML VIAL 5000 UNIT SUBCUT ×2 (12:21→23:41)
[2022-05-04] MEDS: timoloL maleate 0.5 % Oph Sol 5 ML DRBTL 1 DROP EYE-BOTH (12:21)
[2022-05-04 15:46] VITALS: BP 139/78; PULSE 88; RESP 14; TEMP 36.6; O2SAT 95
[2022-05-04 16:41] LABS: Glucose, Whole Blood 127 mg/dL (60-115)
[2022-05-04 19:36] VITALS: BP 121/66; PULSE 82; RESP 14; TEMP 36.5; O2SAT 96
[2022-05-04 20:06] LABS: Glucose, Whole Blood 127 mg/dL (60-115)
[2022-05-05] VITALS: BP 143/68; PULSE 85; RESP 18; TEMP 36.6; O2SAT 95
--- NOTE | 2022-05-05 03:45 | PC.NURSE ---
lab sent a critical blood culture result of gram positive freda, Dr. Gannon was made aware.
[2022-05-05 04:00] VITALS: BP 141/68; PULSE 74; RESP 18; TEMP 36.6; O2SAT 95
[2022-05-05] MEDS: Omeprazole 40 MG CAPSULE.DR PO (05:23)
[2022-05-05 07:28] VITALS: BP 143/71; PULSE 74; RESP 19; TEMP 36.9; O2SAT 95
[2022-05-05 07:39] LABS: Glucose, Whole Blood 111 mg/dL (60-115)
[2022-05-05] MEDS: Gabapentin 100 MG CAPSULE PO ×2 (07:44→16:33)
[2022-05-05] MEDS: Aspirin Enteric Coated 81 MG TABLET.DR PO (07:44)
[2022-05-05] MEDS: allopurinoL 100 MG TABLET PO (07:44)
[2022-05-05] MEDS: Gabapentin 300 MG CAPSULE PO (07:44)
[2022-05-05] MEDS: 0.9 % Sodium Chloride Flush 3 ML SYRINGE IVFLUSH ×2 (07:44→16:33)
[2022-05-05] MEDS: cefTRIAXone sodium 1 GM in 0.9 % Sodium Chloride 50 ML IV (07:45)
[2022-05-05] MEDS: timoloL maleate 0.5 % Oph Sol 5 ML DRBTL 1 DROP EYE-BOTH (07:51)
[2022-05-05 08:33] VITALS: BP 143/71; PULSE 74; O2SAT 95
--- NOTE | 2022-05-05 09:04 | MHC.CM.PN ---
PATIENT LIVES ALONE. HCP ON FILE AND VERIFIED. NO DME OR VNA IN THE HOME. COVID VAX X 4. UNABLE TO RECALL THE DATES OR BRAND. HE IS AGREEABLE TO STR AND ASKS FOR LOCAL REFERRALS THAT ACCEPT HIS INSURANCE. CASE MANAGEMENT FOLLOWING FOR DC. IMM 05/05 IN CHART
--- NOTE | 2022-05-05 10:09 | MHC.CM.PN ---
COVID VACCINE INFORMATION RECEIVED FROM [facility] IN [place] ([phone]) 11/19/20 12/17/20 08/13/21 04/08/22
[2022-05-05 11:33] LABS: Glucose, Whole Blood 122 mg/dL (60-115)
[2022-05-05] MEDS: Heparin Sodium,Porcine 5,000 UNIT/ML VIAL 5000 UNIT SUBCUT (12:45)
[2022-05-05 15:17] VITALS: BP 113/62; PULSE 75; RESP 18; TEMP 36.7; O2SAT 95
--- NOTE | 2022-05-05 15:30 | PM.DS ---
DS: Providers Provider Date of Service: 05/05/22 Date of admission: 05/02/22 11:51 Primary care physician: Dave Palacio MD Consults: 05/04/22 10:31 Consult to Infectious Diseases Routine Consulting Provider: Nora Parson Reason for consultation: bacteremia Has provider been notified: No Attending physician on discharge: Jose Knight Discharging clinician: Erendira Hogue DS: Diagnosis Discharge Diagnosis (1) Bacteremia: Status: Acute DS: Summary Hospital Course Hospital Course: HP as per admitting provider This is a 71 year old male with a PMH as outlined below who presents to the hospital with weakness and falls. The patient is a vague historian and hence the history is obtained from the patient as well as his brother in law Virgilio Sparks @ [phone]. Apparently Maged patient found the patient on the ground today and hence he called the paramedics. The patient reports that he has been feeling weak and tired over the last 1-2 weeks. He reports no loss of consciousness and states he fell due to weakness. He denies any chest pain or shortness of breath. He denies any nausea/vomiting/diarrhea. He reports urinary symptoms of hematuria but denies any freuquency or urgent. He reports being drenched in sweat at times this week. He denies chills or a measured fever. He denies any focal weakness, headache, neck pain. Work up on the ED reveal a fever of 100.4, tachypnea and tachycardia. UA is suggestive of UTI. His LFTs are abnormal but he denies EtOH use. He has been given tylenol, IVF and IV rocephin. Admission is requested for treatment of sepsis secondary to UTI . Sepsis due to UTI with E coli bacteremia sepsis resolved Treated with IV fluids and IV Rocephin Blood culture showed E coli bacteremia 14 days of antibiotics, 11 more days of Ceftin Unwitnessed fall pt denies LOC Check CT head/c-spine>neg 1-2 assist, physical therapy recommended short-term rehab THAD. Resolved due to sepsis Elevated HS trop-I flat due to demand ischemia from sepsis EKG without acute findings Hyperbiliubinemia / transaminitis Pt denies EtOH and confirmed by family due to sepsis, trend hold lipitor while inpatient, may continue DM Continue home medications Time Spent with Patient Time attestation: Total time spent providing and/or coordinating discharge services: Discharge coordination time: Greater than 30 minutes Quality: Safe Use of Opioids Does Pt have an Active Cancer Diagnosis on the Problem List?: No Quality: Stroke Does the patient have a stroke diagnosis?: No Physical Exam Vital Signs: Vital Signs: Last Vital Signs Temp 98.1 F 05/05/22 15:17 Pulse 75 05/05/22 15:17 Resp 18 05/05/22 15:17 BP 113/62 05/05/22 15:17 Pulse Ox 95 05/05/22 15:17 O2 Del Method 05/05/22 15:17 BMI result Body Mass Index 38.0 Appearing in no acute distress head is normocephalic atraumatic eyes pupils are PERRLA sclera is anicteric mouth throat mucous membranes are intact and moist neck is supple no lymphadenopathy, no JVD noted lung sounds are clear to auscultation heart regular rate rhythm, clear S1, S2 positive bowel sounds, abdomen is soft, nontender neuro patient is alert x3, no focal deficits DS: Data Data Completed and Pending Labs on day of discharge: Laboratory Results - last 24 hr 05/04/22 05/04/22 05/05/22 16:30 20:00 07:35 POC Glucose 127 H 127 H 111 05/05/22 11:29 POC Glucose 122 H Preliminary micro results at discharge 05/02/22 08:35 Blood Culture - Preliminary Blood - Venous Gram negative freda Discharge Plan Discharge Anticipated Discharge Date/Time: 05/05/22 15:23 Patient Disposition: Xfer Inpatient Rehab Fac Discharge Diagnosis: Sepsis due to UTI with ecoli bacteremia Unwitnessed fall THAD Referrals: Dave Palacio MD [Primary Care Provider] - 1 Week Discharge Medications: New cefuroxime axetil 500 mg tablet 500 mg PO BID 11 Days Qty: 22 0RF Continued allopurinol 100 mg tablet 100 mg PO DAILY 90 Days Qty: 90 2RF atorvastatin 10 mg tablet 1 tab PO DAILY lisinopril 5 mg tablet 5 mg PO DAILY gabapentin 100 mg capsule 1 cap PO TID metformin 500 mg tablet extended release 24 hr 500 mg PO BID aspirin [Shlomo Low Dose Aspirin] 81 mg Tablet,Delayed Release (Dr/Ec) 81 mg PO DAILY omeprazole 40 mg capsule,delayed release(DR/EC) 40 mg PO DAILY 30 Days Qty: 30 0RF timolol maleate 0.5 % drops 1 drp ophthalmic (eye) DAILY gabapentin 300 mg capsule 300 mg PO DAILY potassium citrate 10 mEq (1,080 mg) tablet extended release 10 meq PO BID 90 Days Qty: 180 3RF Discharge Orders: Discharge Order (Routine); Ordered 05/05/22 Ordered By: Erendira Hogue Diet: Advance to usual diet Activity on Discharge: As tolerated Stand Alone Forms: Patient Portal Discharge page Care Plan Goals: Resolution of symptoms Health Concerns: Sepsis due to UTI with Ecoli bacteremia Unwitnessed fall THAD Plan of Treatment: Follow-up with primary care provider as needed Take all medications as prescribed Assessment: See discharge summary
--- NOTE | 2022-05-05 15:38 | MHC.CM.PN ---
Addendum entered by Vee Mueller 05/05/22 16:00: [facility] UNABLE TO PROVIDE A TIMELY TRANSPORT [facility] GAVE T/W RUN # [id number] TO [facility]. Original Note: PATIENT TO TRANSFER TO [facility]IA [facility] FOR 1800 REQUEST. RN AWARE OF PLAN.
[2022-05-05 15:47] LABS: COVID-19 Test Negative (Negative)
[2022-05-05 16:31] LABS: Glucose, Whole Blood 120 mg/dL (60-115)
== END 2022-05-05 21:15 | DRG 872 ==
LOC: HO.ED 10:41 → HO.EDOVER 12:06 → HO.S3 05-03 00:08
PROVIDERS: Nurse Practitioner Family; Admitting Provider Family Medicine; Emergency Provider Emergency Medicine Emergency Medical Services; PCP Internal Medicine; Visit Provider Nurse Practitioner Acute Care
DX: A41.51 Sepsis due to Escherichia coli [E. coli] (principal); N17.9 Acute kidney failure, unspecified; I24.8 Other forms of acute ischemic heart disease; N39.0 Urinary tract infection, site not specified; E11.9 Type 2 diabetes mellitus without complications; G89.29 Other chronic pain; R31.9 Hematuria, unspecified; Z20.822 Contact with and (suspected) exposure to COVID-19; Z87.442 Personal history of urinary calculi; Z79.82 Long term (current) use of aspirin; Z79.899 Other long term (current) drug therapy
CPT/HCPCS: 36415; 70450; 71046; 72125; 76775; 80048; 80076; 81001; 82947; 83605; 83735; 84484; 85025; 85027; 85610; 87040; 87077; 87086; 87088; 87186; 87205; 87635; 93005; 96365; 97162; 99285; J0696

== ENCOUNTER 2022-05-22 08:40 | Outpatient (REF) | payer MEDICARE, SELFPAY ==
--- NOTE | ~2022-05-22 | US_ITS ---
EXAMINATION: US RETROPERITONEAL LIMITED (RENAL ONLY) CLINICAL INFORMATION: Calculus of kidney. COMPARISON: Renal ultrasound 05/02/2022 and 06/12/2021. X-ray KUB 11/16/2019 [address] 07/28/2019. CT abdomen and pelvis 10/18/2019. TECHNIQUE: Real-time imaging of the kidneys. FINDINGS: RIGHT KIDNEY: 11.9 x 5.1 x 5.2 cm (SAG x AP x TRV). The kidney is normal in size, contour, and echogenicity. Renal cortical thickness is normal. No focal parenchymal lesions or hydronephrosis. Echogenic stone upper pole measuring 0.3 x 0.1 x 0.3 cm. LEFT KIDNEY: 11.3 x 5.0 x 4.7 cm (SAG x AP x TRV). The kidney is normal in size, contour, and echogenicity. Renal cortical thickness is normal. No renal calculi or hydronephrosis. There is cyst upper pole medially measuring 1.4 x 1.0 x 1.1 cm. No additional lesions seen. US/US renal BI IMPRESSION: Nonobstructive echogenic renal calculi upper pole right kidney. Anechoic cyst upper pole medially left kidney. The above findings are new since the last exam 05/03/2022. There is no hydronephrosis.
== END 2022-05-22 08:41 | disposition home or self-care (01) ==
LOC: HO.US 08:40
PROVIDERS: PCP Internal Medicine; Visit Provider Urology
DX: N20.0 Calculus of kidney (principal)
CPT/HCPCS: 76775

== ENCOUNTER 2022-05-26 14:49 | Outpatient (REF) | payer MEDICARE, SELFPAY ==
[2022-05-26 15:07] LABS: MANUAL DIFF FLAG NO
[2022-05-26 15:19] LABS: Basophils Absolute Auto 0.1 X10*3/uL (0.0-0.2); Basophils Percent Auto 0.8 % (0-2); Eosinophils Absolute Auto 0.3 X10*3/uL (0.0-0.4); Eosinophils Percent Auto 4.5 % (0-4); Hematocrit 36.8 % (42.0-52.0); Hemoglobin 12.4 g/dl (14.0-18.0); Imm Gran Abs Auto 0.02 X10*3/uL (0.00-0.03); Imm Gran Pct Auto 0.3 % (0.0-0.4); Lymphocytes Absolute Auto 1.3 X10*3/uL (1.2-4.9); Lymphocytes Percent Auto 18.2 % (20-40); Mean Corpuscular HGB Conc 33.7 g/dl (31.0-36.0); Mean Corpuscular Hemoglobin 31.7 pg (27.0-33.0); Mean Corpuscular Volume 94.1 fL (80.0-98.0); Mean Platelet Volume 9.3 fL (9.4-12.4); Monocytes Absolute Auto 0.9 X10*3/uL (0.1-1.2); Monocytes Percent Auto 12.1 % (2-11); Neutrophils Absolute Auto 4.7 x10*3/uL (2.0-8.3); Neutrophils Percent Auto 64.1 % (45-73); Platelet Count 190 X10*3/uL (160-400); Red Blood Count 3.91 X10*6/uL (4.60-5.80); Red Cell Distribution Width 13.9 % (11.0-16.0); White Blood Count 7.3 X10*3/uL (4.8-10.8)
[2022-05-26 15:30] LABS: Estimated Average Glucose 140 mg/dL; Hemoglobin A1C 150.2936 umol/L; Hemoglobin A1c % 6.5 %
[2022-05-26 15:42] LABS: Alanine Aminotransferase 28 U/L (0-40); Alkaline Phosphatase 80 U/L (39-117); Anion Gap 17 (12-20); Aspartate Amino Transferase 22 U/L (5-37); Bilirubin Total 0.5 mg/dL (0.0-1.0); Blood Urea Nitrogen 23 mg/dL (9-16); Calcium 8.5 mg/dL (8.4-10.2); Carbon Dioxide 23 mmol/L (22-29); Chloride 106 mmol/L (96-108); Estimated Glomerular Filt Rate 47; Glucose Random 119 mg/dL (60-115); Potassium 4.8 mmol/L (3.3-5.1); Sodium 141 mmol/L (135-145); Total Protein 6.9 g/dL (6.5-8.0)
[2022-05-26 15:43] LABS: Appearance Urine CLOUDY; Color Urine YELLOW; Glucose Urine UA Negative (NEG); Leukocyte Esterase Urine Moderate (2+) (Negative); Nitrite Urine NEG (NEG); PH 5.5 (5.0-8.0); Specific Gravity - Urine 1.025 (1.005-1.025); UACC Culture Trigger NO; Urine Blood Small (1+) (NEG); Urine Ketones 5 MG/DL (NEG)
[2022-05-26 15:47] LABS: Urine Protein 30 (1+) MG/DL (NEG-TRACE)
[2022-05-26 16:07] LABS: UACC CULT YES
[2022-05-26 16:08] LABS: Bacteria Urine 4+ /LPF
== END 2022-05-26 14:50 | disposition home or self-care (01) ==
LOC: HO.LAB 14:49
PROVIDERS: PCP Internal Medicine; Visit Provider Internal Medicine
DX: R30.0 Dysuria (principal); N40.0 Benign prostatic hyperplasia without lower urinary tract symptoms; M19.90 Unspecified osteoarthritis, unspecified site; I10 Essential (primary) hypertension; E11.9 Type 2 diabetes mellitus without complications
CPT/HCPCS: 36415; 80053; 81001; 83036; 85025; 87086; 87088; 87186

== ENCOUNTER → 2022-06-09 13:50 | Outpatient (BNVA) | payer MEDICARE, SELFPAY | PROVIDERS: PCP Internal Medicine; Referring Provider Internal Medicine; Visit Provider Internal Medicine Cardiovascular Disease | DX: R55 Syncope and collapse (principal); E11.9 Type 2 diabetes mellitus without complications; Z79.899 Other long term (current) drug therapy | CPT/HCPCS: 93005; 99212 ==

== ENCOUNTER → 2022-06-17 08:29 | Outpatient (BNVA) | payer MEDICARE, SELFPAY | PROVIDERS: PCP Internal Medicine; Visit Provider Urology | DX: N40.1 Benign prostatic hyperplasia with lower urinary tract symptoms (principal); N13.8 Other obstructive and reflux uropathy; R35.1 Nocturia; R35.0 Frequency of micturition; N20.0 Calculus of kidney | CPT/HCPCS: Q3014 ==

== ENCOUNTER 2022-06-18 11:30 | Emergency (ER) | payer MEDICARE, SELFPAY ==
[2022-06-18] VITALS (9 sets, daily range): BP systolic 95–110; BP diastolic 47–69; PULSE 62–100; RESP 16–18; TEMP 36.4–36.7; O2SAT 97–99; BMI 40.6
--- NOTE | 2022-06-18 11:44 | ED_ITS ---
HPI - General Adult General Chief complaint: General Medical Stated complaint: SUDDEN LETHARGY,DIAPHORETIC PER EMS Time Seen by Provider: 06/18/22 11:38 Source: patient and EMS Mode of arrival: EMS Limitations: no limitations History of Present Illness HPI narrative: Patient comes to the emergency room from the [facility] by ambulance. Patient states that he was sitting down, watching his friends play cards. Patient had sudden onset of diaphoresis. Patient states the next thing that he knows EMS had arrived to pick him up. Staff at the [facility] reports that the patient remain sitting down, no falls, no head strikes. Patient states he has mild abdominal discomfort, no vomiting, no diarrhea. Patient states that overall he feels better than earlier today. Per EMS, blood sugars within normal limits, blood pressure in the mid 90s. Patient denies chest pain or shortness of breath, no lower extremity pain. Patient states that his urine smells very strong, denies dysuria or hematuria. Denies fever or chills. Not as bad as a month ago. Patient was hospitalized approximately 1 month ago for UTI sepsis. Related Data Home Medications Medication Instructions Recorded Confirmed lisinopril 5 mg tablet 5 mg PO DAILY 09/09/20 06/09/22 metformin 500 mg tablet,extended 500 mg PO BID 09/09/20 06/09/22 release 24 hr aspirin 81 mg tablet,delayed 81 mg PO DAILY 02/21/21 06/09/22 release (Shlomo Low Dose Aspirin) timolol maleate 0.5 % eye drops 1 drp ophthalmic (eye) DAILY 05/02/22 06/09/22 atorvastatin 10 mg tablet 10 mg PO DAILY 06/09/22 06/09/22 gabapentin 100 mg capsule 100 mg PO BID 06/09/22 06/09/22 cefuroxime axetil 250 mg tablet 250 mg PO BID 06/17/22 chlorhexidine gluconate 0.12 % ml PO 06/17/22 mouthwash Previous Rx's Medication Instructions Recorded omeprazole 40 mg capsule,delayed 40 mg PO DAILY 30 days #30 caps 05/29/21 release potassium citrate 10 mEq (1,080 10 meq PO BID 90 days #180 tabs 06/18/21 mg) tablet,extended release allopurinol 100 mg tablet 100 mg PO DAILY 90 days #90 tabs 01/20/22 terazosin 5 mg capsule 5 mg PO BEDTIME 30 days #30 caps 06/17/22 terazosin 2 mg capsule 2 mg PO BEDTIME #30 caps 06/18/22 Allergies Allergy/AdvReac Type Severity Reaction Status Date / Time No Known Allergies Allergy Verified 06/17/22 08:18 Review of Systems Review of Systems: Constitutional : No Weight loss, No Fever, No Chills, No Night Sweats, No Fatigue, No Malaise, episode of diaphoresis this morning ENT/Mouth : No Hearing loss, No Ear Pain, No Nasal Congestion, No Sinus Pain, No Hoarseness, No sore throat, No Rhinorrhea, No Swallowing Difficulty Eyes: No Eye Pain, No Swelling, No Redness, No Foreign Body, No Discharge, No Vision Changes Cardiovascular : No Chest Pain, No SOB, No Dyspnea on Exertion, No Orthopnea, No Edema, No Palpitations Respiratory : No Cough, No Sputum, No Wheezing, No Smoke Exposure, No Dyspnea Gastrointestinal : No Nausea, No Vomiting, No Diarrhea, No Constipation, No a bdominal Pain, No Hematochezia, No Melena Genitourinary : Complaining of foul-smelling urine, No Dysuria, No Urinary Frequency, No Hematuria, No Urinary Incontinence, No Urgency, No Flank Pain, No Urinary Flow Changes, No Hesitancy Musculoskeletal : No joint pain, No Myalgias, No Joint Swelling Skin : No Skin Lesions, No rash Neuro : No Weakness, No Numbness, No Paresthesias, seems like patient had an episode of syncope, No Dizziness, No Headache Psych : No Anxiety/Panic, No Depression, No SI/HI/AH/VH, No Social Issues, Heme/Lymph: No Bruising, No Bleeding,No Lymphadenopathy Endocrine : No Polyuria, No Polydipsia, No Temperature Intolerance [facility] Past Medical History Medical History Arthritis Bacteremia COVID-19 vaccine administered Diabetes mellitus, type 2 HTN (hypertension) Hx of glaucoma Hx of orthostatic hypotension Hx of renal calculi Hypercholesteremia Hyperuricemia Nocturia Vasovagal syncope Surgical History H/O colonoscopy Hx of lithotripsy Social History Social History Household Members: None Housing: House Are you a primary child care provider to a significant other at home: No Do you presently have visiting nurse or other home services: No Alcohol intake: never Patient Tobacco Use Status: Never used Tobacco Advance Directives: No Advance Directives Information Provided: No Advance Directives Date on File: 05/03/22 service: No Current occupational status: retired Physical Exam ED Vital Signs: Vital Signs - 24 hr 06/18/22 12:07 06/18/22 14:05 06/18/22 14:06 Temperature 97.6 F Pulse Rate 65 Respiratory Rate 16 Blood Pressure 110/62 109/60 Pulse Oximetry 97 Oxygen Delivery Method Room Air 06/18/22 14:10 06/18/22 16:21 06/18/22 16:30 Temperature 98.0 F Pulse Rate 81 85 Respiratory Rate 18 Blood Pressure 99/54 L 106/54 L 105/55 L Pulse Oximetry 99 Oxygen Delivery Method Room Air 06/18/22 16:24 06/18/22 16:27 Temperature Pulse Rate 87 100 Respiratory Rate Blood Pressure 105/55 L 95/47 L Pulse Oximetry Oxygen Delivery Method BMI result Body Mass Index 40.6 Const Other: Appearance: Alert. Oriented X3. No acute distress. Eyes: Pupils equal, round and reactive to light. ENT: Pharynx normal. Neck: Normal inspection. Neck supple. No lymph nodes noted. No crepitus CVS: Normal heart rate and rhythm. Pulses normal. Normal S1 and S2 Respiratory: No respiratory distress. Breath sounds normal. No Wheezing. No rales Abdomen: Soft and nontender. No rigidity. No distention. Skin: Skin warm and dry. Normal skin color. Normal skin turgor. Extremities: No lower extremity edema. No Lacerations. No Rash Neuro: Oriented X 3. No motor deficit. No sensory deficit. Moving all ex tremities. No slurred speech. CN 2 through 12 grossly intact Psych: calm, cooperative, normal affect Course Course Course Narrative: At this time, patient states that he feels much better. States that he has diffuse abdominal cramping, no significant pain, no vomiting or diarrhea. All of patient's labs, EKG pending. Patient has history of vasovagal syncope. 14:03, patient's lactic acid is 2.6, white blood cell count is normal, no fever, blood pressure stable. Sepsis is not suspected. Urinalysis is still pending. 14:10, the urinalysis is still resolving, but so far it seems that patient does have a UTI. Patient will be given 1 dose of IV ceftriaxone. Reviewing patient's sensitivities, patient has no resistance to any of the antibiotics. Patient's troponin x2 flat, patient does not have any chest pain, no dizziness, orthostatic vitals after IV fluids within normal limits, patient asymptomatic. Lactic acid improved to 1.8. Patient states that he recently started a new medication prescribed by Urology. From his list of medication, it seems that he was prescribed terazosin 5 mg. I discussed with the patient that it is possible that this medication may have dropped his blood pressure causing his previous symptoms. Patient instructed to decrease the dose to 2 mg until he sees Dr. Drake and checks for recurrent symptoms. Time, patient is asymptomatic Medical Decision Making Lab Data Result diagrams: 06/18/22 12:53 06/18/22 12:53 Labs: Lab Results 06/18/22 06/18/22 06/18/22 Range/Units 12:53 12:53 12:53 WBC 8.2 (4.8-10.8) X10*3/uL RBC 3.90 L (4.60-5.80) X10*6/uL Hgb 12.4 L (14.0-18.0) g/dl Hct 36.6 L (42.0-52.0) % MCV 93.8 (80.0-98.0) fL MCH 31.8 (27.0-33.0) pg MCHC 33.9 (31.0-36.0) g/dl RDW 14.4 (11.0-16.0) % Plt Count 231 (160-400) X10*3/uL MPV 8.9 L (9.4-12.4) fL Immature Gran % (Auto) 0.2 (0.0-0.4) % Neut % (Auto) 80.9 H (45-73) % Lymph % (Auto) 10.6 L (20-40) % [place] % (Auto) 6.3 (2-11) % Eos % (Auto) 1.3 (0-4) % Baso % (Auto) 0.7 (0-2) % Lymph # (Auto) 0.9 L (1.2-4.9) X10*3/uL [place] # (Auto) 0.5 (0.1-1.2) X10*3/uL Eos # (Auto) 0.1 (0.0-0.4) X10*3/uL Baso # (Auto) 0.1 (0.0-0.2) X10*3/uL Abs Immat Gran (auto) 0.02 (0.00-0.03) X10*3/uL Absolute Neuts (auto) 6.6 (2.0-8.3) x10*3/uL Absolute Nucleated RBC 0.000 (0.0-0.012) X10*3/uL Nucleated RBC % (auto) 0.0 (0.0-0.2) /100WBC PT 11.4 (10.0-13.1) SEC INR 1.0 (0.9-1.1) Sodium 139 (135-145) mmol/L Potassium 4.9 (3.3-5.1) mmol/L Chloride 105 (96-108) mmol/L Carbon Dioxide 23 (22-29) mmol/L Anion Gap 16 (12-20) BUN 23 H (9-16) mg/dL Creatinine 1.34 (0.5-1.4) mg/dL Estim Creat Clear Calc 66.0 Estimated GFR 53 Random Glucose 148 H (60-115) mg/dL Lactic Acid (0.5-2.0) mmol/L Lactic Acid F/U @ 2Hr (0.5-2.0) mmol/L Calcium 9.0 (8.4-10.2) mg/dL Total Bilirubin 0.5 (0.0-1.0) mg/dL Direct Bilirubin 0.2 (0.0-0.5) mg/dL AST 31 D (5-37) U/L ALT 26 (0-40) U/L Alkaline Phosphatase 85 (39-117) U/L Troponin I High Sens (<3.5-35.0) ng/L Total Protein 7.2 (6.5-8.0) g/dL Albumin 4.0 (3.5-5.0) g/dL Urine Color Urine Appearance Urine pH (5.0-9.0) Ur Specific [place] (1.005-1.025) Urine Protein (Neg-Trace) mg/dL Urine Glucose (UA) (Negative) mg/dL Urine Ketones (Negative) mg/dL Urine Blood (Negative) Urine Nitrite (Negative) Ur Leukocyte Esterase (Negative) Urine RBC (0-2) /HPF Urine WBC (0-5) /HPF Ur Squamous Epith Cells (0-2) /HPF Urine Bacteria (None Seen) Hyaline Casts (0-2) /LPF COVID-19 (ODESSA) (Negative) COVID-19 Clin Com 06/18/22 06/18/22 06/18/22 Range/Units 12:53 12:53 13:01 WBC (4.8-10.8) X10*3/uL RBC (4.60-5.80) X10*6/uL Hgb (14.0-18.0) g/dl Hct (42.0-52.0) % MCV (80.0-98.0) fL MCH (27.0-33.0) pg MCHC (31.0-36.0) g/dl RDW (11.0-16.0) % Plt Count (160-400) X10*3/uL MPV (9.4-12.4) fL Immature Gran % (Auto) (0.0-0.4) % Neut % (Auto) (45-73) % Lymph % (Auto) (20-40) % [place] % (Auto) (2-11) % Eos % (Auto) (0-4) % Baso % (Auto) (0-2) % Lymph # (Auto) (1.2-4.9) X10*3/uL [place] # (Auto) (0.1-1.2) X10*3/uL Eos # (Auto) (0.0-0.4) X10*3/uL Baso # (Auto) (0.0-0.2) X10*3/uL Abs Immat Gran (auto) (0.00-0.03) X10*3/uL Absolute Neuts (auto) (2.0-8.3) x10*3/uL Absolute Nucleated RBC (0.0-0.012) X10*3/uL Nucleated RBC % (auto) (0.0-0.2) /100WBC PT (10.0-13.1) SEC INR (0.9-1.1) Sodium (135-145) mmol/L Potassium (3.3-5.1) mmol/L Chloride (96-108) mmol/L Carbon Dioxide (22-29) mmol/L Anion Gap (12-20) BUN (9-16) mg/dL Creatinine (0.5-1.4) mg/dL Estim Creat Clear Calc Estimated GFR Random Glucose (60-115) mg/dL Lactic Acid 2.6 H* (0.5-2.0) mmol/L Lactic Acid F/U @ 2Hr (0.5-2.0) mmol/L Calcium (8.4-10.2) mg/dL Total Bilirubin (0.0-1.0) mg/dL Direct Bilirubin (0.0-0.5) mg/dL AST (5-37) U/L ALT (0-40) U/L Alkaline Phosphatase (39-117) U/L Troponin I High Sens 8.1 D (<3.5-35.0) ng/L Total Protein (6.5-8.0) g/dL Albumin (3.5-5.0) g/dL Urine Color Urine Appearance Urine pH (5.0-9.0) Ur Specific [place] (1.005-1.025) Urine Protein (Neg-Trace) mg/dL Urine Glucose (UA) (Negative) mg/dL Urine Ketones (Negative) mg/dL Urine Blood (Negative) Urine Nitrite (Negative) Ur Leukocyte Esterase (Negative) Urine RBC (0-2) /HPF Urine WBC (0-5) /HPF Ur Squamous Epith Cells (0-2) /HPF Urine Bacteria (None Seen) Hyaline Casts (0-2) /LPF COVID-19 (ODESSA) Negative (Negative) COVID-19 Clin Com See Note 06/18/22 06/18/22 06/18/22 Range/Units 13:19 16:16 16:17 WBC (4.8-10.8) X10*3/uL RBC (4.60-5.80) X10*6/uL Hgb (14.0-18.0) g/dl Hct (42.0-52.0) % MCV (80.0-98.0) fL MCH (27.0-33.0) pg MCHC (31.0-36.0) g/dl RDW (11.0-16.0) % Plt Count (160-400) X10*3/uL MPV (9.4-12.4) fL Immature Gran % (Auto) (0.0-0.4) % Neut % (Auto) (45-73) % Lymph % (Auto) (20-40) % [place] % (Auto) (2-11) % Eos % (Auto) (0-4) % Baso % (Auto) (0-2) % Lymph # (Auto) (1.2-4.9) X10*3/uL [place] # (Auto) (0.1-1.2) X10*3/uL Eos # (Auto) (0.0-0.4) X10*3/uL Baso # (Auto) (0.0-0.2) X10*3/uL Abs Immat Gran (auto) (0.00-0.03) X10*3/uL Absolute Neuts (auto) (2.0-8.3) x10*3/uL Absolute Nucleated RBC (0.0-0.012) X10*3/uL Nucleated RBC % (auto) (0.0-0.2) /100WBC PT (10.0-13.1) SEC INR (0.9-1.1) Sodium (135-145) mmol/L Potassium (3.3-5.1) mmol/L Chloride (96-108) mmol/L Carbon Dioxide (22-29) mmol/L Anion Gap (12-20) BUN (9-16) mg/dL Creatinine (0.5-1.4) mg/dL Estim Creat Clear Calc Estimated GFR Random Glucose (60-115) mg/dL Lactic Acid (0.5-2.0) mmol/L Lactic Acid F/U @ 2Hr 1.8 (0.5-2.0) mmol/L Calcium (8.4-10.2) mg/dL Total Bilirubin (0.0-1.0) mg/dL Direct Bilirubin (0.0-0.5) mg/dL AST (5-37) U/L ALT (0-40) U/L Alkaline Phosphatase (39-117) U/L Troponin I High Sens 7.4 (<3.5-35.0) ng/L Total Protein (6.5-8.0) g/dL Albumin (3.5-5.0) g/dL Urine Color Yellow Urine Appearance Cloudy Urine pH 7.0 (5.0-9.0) Ur Specific [place] 1.015 (1.005-1.025) Urine Protein 30 (1+) H (Neg-Trace) mg/dL Urine Glucose (UA) Negative (Negative) mg/dL Urine Ketones Trace (Negative) mg/dL Urine Blood Small (1+) H (Negative) Urine Nitrite Negative (Negative) Ur Leukocyte Esterase Large (3+) H (Negative) Urine RBC 11-20 H (0-2) /HPF Urine WBC >50 H (0-5) /HPF Ur Squamous Epith Cells 0-2 (0-2) /HPF Urine Bacteria 4+ (None Seen) Hyaline Casts 6-10 (0-2) /LPF COVID-19 ([facility]SA) (Negative) COVID-19 Clin Com Discharge Plan Discharge Clinical Impression: Acute UTI, Orthostatic hypotension Patient Disposition: Home, Self-Care Instructions: Hypotension (ED), Urinary Tract Infection in Older Adults (ED) Additional Instructions: Please follow-up with your primary care physician tomorrow. If you have any worsening or new symptoms, please return to the emergency room or call 911 Prescriptions: New terazosin 2 mg capsule 2 mg PO BEDTIME Qty: 30 0RF No Action allopurinol 100 mg tablet 100 mg PO DAILY 90 Days Qty: 90 2RF lisinopril 5 mg tablet 5 mg PO DAILY metformin 500 mg tablet extended release 24 hr 500 mg PO BID atorvastatin 10 mg tablet 10 mg PO DAILY gabapentin 100 mg capsule 100 mg PO BID aspirin [Shlomo Low Dose Aspirin] 81 mg Tablet,Delayed Release (Dr/Ec) 81 mg PO DAILY omeprazole 40 mg capsule,delayed release(DR/EC) 40 mg PO DAILY 30 Days Qty: 30 0RF timolol maleate 0.5 % drops 1 drp ophthalmic (eye) DAILY potassium citrate 10 mEq (1,080 mg) tablet extended release 10 meq PO BID 90 Days Qty: 180 3RF cefuroxime axetil 250 mg tablet 250 mg PO BID chlorhexidine gluconate 0.12 % mouthwash PO terazosin 5 mg capsule 5 mg PO BEDTIME 30 Days Qty: 30 1RF Referrals: Fracisco Drake MD [Physician] - 2 days
--- NOTE | 2022-06-18 11:51 | ECG_ITS ---
Test Reason : LETHARGY Blood Pressure : / mmHG Vent. Rate : 077 BPM Atrial Rate : 077 BPM P-R Int : 208 ms QRS Dur : 082 ms QT Int : 390 ms P-R-T Axes : 031 004 025 degrees QTc Int : 441 ms Normal sinus rhythm Low voltage QRS Borderline ECG When compared with ECG of 02-MAY-2022 08:21, Heart rate has decreased Referred By: Elo Price Electronically Signed By:OBDULIO FULLER
[2022-06-18 13:02] LABS: MANUAL DIFF FLAG NO
[2022-06-18 13:03] LABS: Basophils Absolute Auto 0.1 X10*3/uL (0.0-0.2); Basophils Percent Auto 0.7 % (0-2); Eosinophils Absolute Auto 0.1 X10*3/uL (0.0-0.4); Eosinophils Percent Auto 1.3 % (0-4); Hematocrit 36.6 % (42.0-52.0); Hemoglobin 12.4 g/dl (14.0-18.0); Imm Gran Abs Auto 0.02 X10*3/uL (0.00-0.03); Imm Gran Pct Auto 0.2 % (0.0-0.4); Lymphocytes Absolute Auto 0.9 X10*3/uL (1.2-4.9); Lymphocytes Percent Auto 10.6 % (20-40); Mean Corpuscular HGB Conc 33.9 g/dl (31.0-36.0); Mean Corpuscular Hemoglobin 31.8 pg (27.0-33.0); Mean Corpuscular Volume 93.8 fL (80.0-98.0); Mean Platelet Volume 8.9 fL (9.4-12.4); Monocytes Absolute Auto 0.5 X10*3/uL (0.1-1.2); Monocytes Percent Auto 6.3 % (2-11); Neutrophils Absolute Auto 6.6 x10*3/uL (2.0-8.3); Neutrophils Percent Auto 80.9 % (45-73); Platelet Count 231 X10*3/uL (160-400); Red Cell Distribution Width 14.4 % (11.0-16.0); White Blood Count 8.2 X10*3/uL (4.8-10.8)
[2022-06-18 13:09] LABS: Prothrombin Time 11.4 SEC (10.0-13.1)
[2022-06-18 13:21] LABS: Lactic Acid 2.6 mmol/L (0.5-2.0)
[2022-06-18 13:23] LABS: Alanine Aminotransferase 26 U/L (0-40); Alkaline Phosphatase 85 U/L (39-117); Anion Gap 16 (12-20); Aspartate Amino Transferase 31 U/L (5-37); Blood Urea Nitrogen 23 mg/dL (9-16); Carbon Dioxide 23 mmol/L (22-29); Chloride 105 mmol/L (96-108); Estimated Glomerular Filt Rate 53; Glucose Random 148 mg/dL (60-115); Potassium 4.9 mmol/L (3.3-5.1); Sodium 139 mmol/L (135-145); Total Protein 7.2 g/dL (6.5-8.0)
[2022-06-18 13:26] LABS: Troponin-I High Sensitivity 8.1 ng/L (<3.5-35.0)
[2022-06-18 13:31] LABS: COVID-19 Test Negative (Negative); IDNOW Serial# 9DB6401D
[2022-06-18 13:46] LABS: Bilirubin Direct 0.2 mg/dL (0.0-0.5); Bilirubin Total 0.5 mg/dL (0.0-1.0)
[2022-06-18 14:00] LABS: Appearance Urine Cloudy; Color Urine Yellow; Glucose Urine UA Negative (Negative); Leukocyte Esterase Urine Large (3+) (Negative); Nitrite Urine Negative (Negative); Specific Gravity - Urine 1.015 (1.005-1.025); Urine Blood Small (1+) (Negative); Urine Ketones Trace mg/dL (Negative); Urine Protein 30 (1+) mg/dL (Neg-Trace)
[2022-06-18 14:01] LABS: UACC Culture Trigger YES
[2022-06-18] MEDS: 0.9 % Sodium Chloride 1,000 ML 999 ML IVCONT (14:03)
[2022-06-18 14:10] LABS: Bacteria Urine 4+ (None Seen); Squamous Epithelial Cell Urine 0-2 /HPF (0-2); WBC Urine >50 /HPF (0-5)
[2022-06-18 15:01] LABS: Reflex Lactate? Lactic Acid Added
[2022-06-18] MEDS: cefTRIAXone sodium 1 GM in 0.9 % Sodium Chloride 50 ML IV (15:37)
[2022-06-18 16:33] LABS: ~Lactic Acid-LAB USE ONLY 1.8 mmol/L (0.5-2.0)
[2022-06-18 16:43] LABS: Troponin-I High Sensitivity 7.4 ng/L (<3.5-35.0)
== END 2022-06-18 17:52 | disposition home or self-care (01) ==
PROVIDERS: Emergency Provider Emergency Medicine; PCP Internal Medicine
DX: N39.0 Urinary tract infection, site not specified (principal); B96.20 Unspecified Escherichia coli [E. coli] as the cause of diseases classified elsewhere; I95.1 Orthostatic hypotension; R53.83 Other fatigue; Z20.822 Contact with and (suspected) exposure to COVID-19; E11.9 Type 2 diabetes mellitus without complications; I10 Essential (primary) hypertension; E78.00 Pure hypercholesterolemia, unspecified; Z79.899 Other long term (current) drug therapy; Z79.82 Long term (current) use of aspirin; Z79.02 Long term (current) use of antithrombotics/antiplatelets
CPT/HCPCS: 36415; 80048; 80076; 81001; 81003; 83605; 84484; 85025; 85610; 87040; 87086; 87088; 87186; 87635; 93005; 96361; 96374; 99284; 99285; J0696

== ENCOUNTER → 2022-06-30 12:33 | Outpatient (BNVA) | payer MEDICARE, SELFPAY | PROVIDERS: PCP Internal Medicine; Visit Provider Orthopaedic Surgery | DX: M17.0 Bilateral primary osteoarthritis of knee (principal); E11.9 Type 2 diabetes mellitus without complications; Z79.84 Long term (current) use of oral hypoglycemic drugs | CPT/HCPCS: 20610; 99212; J1100 ==

== ENCOUNTER 2022-07-16 14:24 | Outpatient (REF) | payer MEDICARE, SELFPAY ==
[2022-07-16 14:38] LABS: MANUAL DIFF FLAG NO
[2022-07-16 15:13] LABS: Appearance Urine Clear; Color Urine Yellow; Glucose Urine UA Negative (Negative); Leukocyte Esterase Urine Moderate (2+) (Negative); Nitrite Urine Negative (Negative); UMIC TRIGGER UACC YES; Urine Blood Negative (Negative); Urine Ketones Trace mg/dL (Negative); Urine Protein Negative (Neg-Trace)
[2022-07-16 15:14] LABS: Basophils Absolute Auto 0.1 X10*3/uL (0.0-0.2); Basophils Percent Auto 0.9 % (0-2); Eosinophils Absolute Auto 0.3 X10*3/uL (0.0-0.4); Eosinophils Percent Auto 3.3 % (0-4); Hematocrit 39.9 % (42.0-52.0); Hemoglobin 13.3 g/dl (14.0-18.0); Imm Gran Abs Auto 0.03 X10*3/uL (0.00-0.03); Imm Gran Pct Auto 0.4 % (0.0-0.4); Lymphocytes Absolute Auto 1.6 X10*3/uL (1.2-4.9); Lymphocytes Percent Auto 19.3 % (20-40); Mean Corpuscular HGB Conc 33.3 g/dl (31.0-36.0); Monocytes Absolute Auto 0.7 X10*3/uL (0.1-1.2); Monocytes Percent Auto 8.9 % (2-11); Neutrophils Absolute Auto 5.5 x10*3/uL (2.0-8.3); Neutrophils Percent Auto 67.2 % (45-73); Platelet Count 300 X10*3/uL (160-400); Red Blood Count 4.29 X10*6/uL (4.60-5.80); Red Cell Distribution Width 14.1 % (11.0-16.0); White Blood Count 8.1 X10*3/uL (4.8-10.8)
[2022-07-16 15:19] LABS: Estimated Average Glucose 131 mg/dL; Hemoglobin A1c % 6.2 %
[2022-07-16 15:29] LABS: Bacteria Urine None Seen (None Seen); Hyaline Casts Urine 0-2 /LPF (0-2); Squamous Epithelial Cell Urine 0-2 /HPF (0-2); UACC Culture Trigger YES; WBC Urine 21-50 /HPF (0-5)
[2022-07-16 15:32] LABS: Alanine Aminotransferase 39 U/L (0-40); Albumin Level 4.3 g/dL (3.5-5.0); Alkaline Phosphatase 94 U/L (39-117); Anion Gap 15 (12-20); Aspartate Amino Transferase 29 U/L (5-37); Bilirubin Total 0.5 mg/dL (0.0-1.0); Blood Urea Nitrogen 20 mg/dL (9-16); C Reactive Protein 0.16 mg/dL (< or = 0.50); Calcium 9.2 mg/dL (8.4-10.2); Carbon Dioxide 26 mmol/L (22-29); Chloride 103 mmol/L (96-108); Estimated Glomerular Filt Rate 51; Glucose Random 110 mg/dL (60-115); Potassium 5.1 mmol/L (3.3-5.1); Sodium 139 mmol/L (135-145); Total Protein 7.2 g/dL (6.5-8.0)
== END 2022-07-16 14:25 | disposition home or self-care (01) ==
LOC: HO.LAB 14:24
PROVIDERS: PCP Internal Medicine; Visit Provider Internal Medicine
DX: E11.9 Type 2 diabetes mellitus without complications (principal); I10 Essential (primary) hypertension; R55 Syncope and collapse; R61 Generalized hyperhidrosis; N40.0 Benign prostatic hyperplasia without lower urinary tract symptoms
CPT/HCPCS: 36415; 80053; 81001; 83036; 85025; 86140; 87086

== ENCOUNTER → 2022-09-02 08:28 | Outpatient (BNVA) | payer MEDICARE, SELFPAY | PROVIDERS: PCP Internal Medicine; Visit Provider Urology | DX: N32.0 Bladder-neck obstruction (principal) | CPT/HCPCS: 51798; 99212 ==

== ENCOUNTER → 2022-09-29 12:37 | Outpatient (BNVA) | payer MEDICARE, SELFPAY | PROVIDERS: PCP Internal Medicine; Visit Provider Orthopaedic Surgery | DX: M17.0 Bilateral primary osteoarthritis of knee (principal); E11.9 Type 2 diabetes mellitus without complications | CPT/HCPCS: 99212; J1100 ==

== ENCOUNTER 2022-12-25 09:45 | Outpatient (REF) | payer MEDICARE, SELFPAY ==
[2022-12-25 10:17] LABS: MANUAL DIFF FLAG NO
[2022-12-25 10:49] LABS: Basophils Absolute Auto 0.1 X10*3/uL (0.0-0.2); Eosinophils Absolute Auto 0.1 X10*3/uL (0.0-0.4); Eosinophils Percent Auto 2.2 % (0-4); Hematocrit 39.9 % (42.0-52.0); Hemoglobin 13.4 g/dl (14.0-18.0); Imm Gran Abs Auto 0.02 X10*3/uL (0.00-0.03); Imm Gran Pct Auto 0.3 % (0.0-0.4); Lymphocytes Absolute Auto 1.1 X10*3/uL (1.2-4.9); Lymphocytes Percent Auto 17.9 % (20-40); Mean Corpuscular HGB Conc 33.6 g/dl (31.0-36.0); Mean Corpuscular Hemoglobin 31.1 pg (27.0-33.0); Mean Corpuscular Volume 92.6 fL (80.0-98.0); Mean Platelet Volume 9.6 fL (9.4-12.4); Monocytes Absolute Auto 0.5 X10*3/uL (0.1-1.2); Monocytes Percent Auto 7.9 % (2-11); Neutrophils Absolute Auto 4.4 x10*3/uL (2.0-8.3); Neutrophils Percent Auto 70.7 % (45-73); Platelet Count 226 X10*3/uL (160-400); Red Blood Count 4.31 X10*6/uL (4.60-5.80); Red Cell Distribution Width 13.2 % (11.0-16.0); White Blood Count 6.2 X10*3/uL (4.8-10.8)
[2022-12-25 11:09] LABS: Estimated Average Glucose 131 mg/dL; Hemoglobin A1c % 6.2 %
[2022-12-25 11:11] LABS: Appearance Urine Clear; Color Urine Yellow; Glucose Urine UA Negative (Negative); Leukocyte Esterase Urine Negative (Negative); Nitrite Urine Negative (Negative); Urine Blood Negative (Negative); Urine Ketones Negative (Negative); Urine Protein Negative (Neg-Trace)
[2022-12-25 11:22] LABS: Alanine Aminotransferase 20 U/L (0-40); Albumin Level 4.1 g/dL (3.5-5.0); Alkaline Phosphatase 77 U/L (39-117); Anion Gap 15 (12-20); Aspartate Amino Transferase 20 U/L (5-37); Bilirubin Total 0.7 mg/dL (0.0-1.0); Blood Urea Nitrogen 21 mg/dL (9-16); Calcium 8.4 mg/dL (8.4-10.2); Carbon Dioxide 24 mmol/L (22-29); Chloride 106 mmol/L (96-108); Cholesterol 123 mg/dL; Estimated Glomerular Filt Rate 55; Glucose Fasting 122 mg/dL (60-99); HDL Cholesterol 25 mg/dL; LDL Cholesterol Calculated 76 mg/dl; Potassium 4.9 mmol/L (3.3-5.1); Sodium 140 mmol/L (135-145); Total Protein 6.6 g/dL (6.5-8.0); Triglycerides 112 mg/dL
[2022-12-25 12:08] LABS: Creatinine Urine 173.94 mg/dL; Microalbum/Creatinine Ratio Ur 5.1 ug/mg cr
== END 2022-12-25 09:46 | disposition home or self-care (01) ==
LOC: HO.LAB 09:45
PROVIDERS: PCP Internal Medicine; Visit Provider Internal Medicine
DX: Z00.00 Encounter for general adult medical examination without abnormal findings (principal); E11.9 Type 2 diabetes mellitus without complications
CPT/HCPCS: 36415; 80053; 80061; 81003; 82043; 83036; 85025

== ENCOUNTER → 2023-01-02 10:50 | Outpatient (BNVA) | payer MEDICARE, SELFPAY | PROVIDERS: PCP Internal Medicine; Visit Provider Orthopaedic Surgery | DX: M17.0 Bilateral primary osteoarthritis of knee (principal); E11.9 Type 2 diabetes mellitus without complications | CPT/HCPCS: 20610; 99212; J1100 ==

== ENCOUNTER → 2023-03-11 11:17 | Outpatient (BNVA) | payer MEDICARE, SELFPAY | PROVIDERS: PCP Internal Medicine; Visit Provider Urology | DX: R35.1 Nocturia (principal); N32.0 Bladder-neck obstruction; N20.0 Calculus of kidney | CPT/HCPCS: 51798; 99212 ==

== ENCOUNTER → 2023-03-19 09:39 | Outpatient (BNVA) | payer MEDICARE, SELFPAY | PROVIDERS: PCP Internal Medicine; Visit Provider Orthopaedic Surgery | DX: M17.0 Bilateral primary osteoarthritis of knee (principal); E11.9 Type 2 diabetes mellitus without complications | CPT/HCPCS: 99212 ==

== ENCOUNTER 2023-04-24 08:58 | Outpatient (AMB) | payer MEDICARE, SELFPAY ==
--- NOTE | 2023-04-24 09:02 | MHC.OFFVIS ---
Intake Intake Visit Reasons: cysto Intake Note: Patient is present for Cystoscopy Urology Med: Tadalafil, Terazosin Antibiotic Allergy:None Blood Thinner: Aspirin Disposable Cystoscope LOT: [id number] EXP: 03/28/2025 Patient was unable to provide urine sample. Patient denies any painful urination. Per Dr Drake Ok to Proceed with Procedure. Allergies No Known Allergies Allergy (Verified 03/19/23 09:44) Medication List - Last Reconciled 04/24/23 by Fracisco Drake MD aspirin (Shlomo Low Dose Aspirin) 81 mg PO DAILY atorvastatin 10 mg PO DAILY cefuroxime axetil 250 mg PO BID chlorhexidine gluconate 0.12% mL PO gabapentin 100 mg PO BID lisinopril 5 mg PO DAILY metformin ER 500 mg PO BID omeprazole 40 mg PO DAILY 30 days oxybutynin chloride ER 5 mg PO DAILY 30 days potassium citrate ER 10 mEq PO BID 90 days tadalafil 5 mg PO DAILY 90 days terazosin 2 mg PO BEDTIME 90 days timolol maleate 0.5% 1 drp ophthalmic (eye) DAILY HPI HPI Comments History of Present Illness Details Alon RAI is a very pleasant male. . He is a patient of Dr Palacio. He is seen for the following urologic conditions. 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 They are here for?discussed imaging results ?- continue good response to Urocit-K ? Urolithiasis was diagnosed?05/28 [facility] ER with left-sided flank pain. Imaging suggested stone has passed..? The patient previously had kidney stones whose composition w?unknown.? Laboratory investigations include?07/28 , Normocalcemia (9.0), Normal PTH, Hyperuricemia.? 24 Hour urine evaluation?07/28 , Low Urine volume < 2.0 liters, Low calcium < 200, High oxalate > 30mg, Low citrate < 400, Low urine pH < 5.5 ?- advised to increase fluid, watch nuts and potates, add tums before main meal for binding. ? Prior treatment(s) include?07/29 medical management, with potassium citrate.? Prior imaging includes?05/28 , a CT (computed tomography) scan of the abdomen/pelvis (stone protocol) multiple 1-2 mm stones left kidney ?01/27 , a renal ultrasound L 3x4mm stones ?07/29 , a renal ultrasound, decreased left side stones ?01/28 , a renal ultrasound, left 5mm x 2 stones ?07/30 , a renal ultrasound, showing no evidence of stones ?10/31 CT with 4mm stones ?12/01 , a renal ultrasound, small left 2mm stone ?05/31 , a renal ultrasound, showing no evidence of stones.?, 06/01 renal US small right stone, left cyst - 06/02 ultrasound 3 mm stone right, 1.5 cm cyst left ? Current therapeutic plan will be?to continue with imaging surveillance and medical therapy. PFSH Medical History Arthritis Bacteremia COVID-19 vaccine administered Diabetes mellitus, type 2 HTN (hypertension) Hx of glaucoma Hx of orthostatic hypotension Hx of renal calculi Hypercholesteremia Hyperuricemia Nocturia Vasovagal syncope Surgical History H/O colonoscopy Hx of lithotripsy Social History Household Members: None Housing: House Are you a primary caregivers homecare to a significant other at home: No Do you presently have visiting nurse or other home services: No Alcohol intake: never Patient Tobacco Use Status: Never used Tobacco Advance Directives Date on File: 05/03/22 service: No Current occupational status: retired Review of Systems Const Denies chills and Denies fever(s) Card Reports no additional complaints and Denies syncope Resp Denies cough GI Denies abdominal pain and Denies heartburn Reports as per HPI and Denies change in libido Neuro Denies syncope Psych Denies change in libido Endo Denies change in libido Physical Exam Const General: cooperative, healthy appearing, comfortable and no acute distress Orientation/consciousness: patient oriented x3 HEENT Face and sinus: Yes normal facial exam Mouth: moist mucous membranes Neck Neck: Yes normal visual inspection, Yes full ROM and Yes trachea midline Chest Chest palpation & inspection: normal inspection of the chest Resp Effort & Inspection: normal respiratory effort, able to speak in complete sentences and no respiratory distress GI Inspection: Yes normal to inspection Back/Spine/Pelvis Cervical Spine: normal cervical lordosis Thoracic/Lumbar Spine: thoracic and lumbar spine normal to inspection Skin General skin exam: no rashes or lesions noted Neuro General: patient oriented x3, gait normal, tone normal and moves all extremities Extrem General: Yes normal to inspection and Yes capillary refill normal Office Procedures Cystoscopy Consent Discussed risk and benefit or proposed procedure with the patient. Information consent for procedure given to the patient. Discussed technical aspects, risks, benefits and alternatives in full. Addressed all of the patient's questions and concerns regarding the procedure. The patient demonstrated knowledge and understanding. They wish to proceed with this procedure. Preparation The patient was prepped in the usual manner. A electrician crane maintenance was present and in the room. Genitalia was prepped with betadine solution in a sterile manner. Lidocaine Jelly 2% was placed into the urethra and 16Fr flexible Olympus cystoscope was inserted into the meatus after adequate lubrication. Procedure Meatus circumcised Urethra anterior posterior normal Prostatic Urethra unremarkable Bladder examination with retroflexion of cystoscope Bladder Orifices normal shape and position Bladder Capacity medium Trabeculations mild Cellule Formation - Diverticulum Formation - Mucosal Erythema - Bladder Tumor - 06303-[id number] Procedure code (CPT) selection complete Office Meds lidocaine HCl Performing Provider: Fracisco Drake MD Administered by: Cristy Nixon RN on 04/24/23 09:18 Dose Route Admin Location Lot Number Expiration Date NDC Matt[employer]isher 10 mL intra-urethral nitrofurantoin monohyd/m-cryst 100 mg Performing Provider: Fracisco Drake MD Administered by: Cristy Nixon RN on 04/24/23 09:18 Dose Route Admin Location Lot Number Expiration Date NDC [employer] 100 mg PO Assessment & Plan Assessment & Plan (1) Urinary urgency: Code(s): R39.15 - Urgency of urination Plan Trial oxybutynin Orders: Orders AMB Cystoscopy Today 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 No major barriers to patient understanding were identified. An opportunity to ask questions regarding the treatment plan was provided. All questions were answered. The patient expressed understanding and agreement with the above treatment plan. The patient is aware they should contact our office by phone for worsening of their current condition or the appearance of new urologic symptoms. Compliance is encouraged with any medications and followup testing that is ordered. It is a privilege to participate in the urologic care of your patient. If you have any questions or concerns regarding treatment for the above conditions, or other urologic issues, please do not hesitate to contact me. The office telephone contact is [phone]. This note is constructed using voice recognition software. While every effort has been made to ensure accuracy display card writer errors may have been included. Yours sincerely, Dr Fracisco Drake MD, [facility] - Urology Providers of Expert, Compassionate Care for the Genitourinary System Coding Level of Care Code Est Pt Level 4 (94011) Diagnoses Urinary urgency R39.15 CPT Codes Cystoscopy - CPT: 87321-[id number] ([id number])
== END 2023-04-24 09:29 | disposition home or self-care (01) ==
PROVIDERS: Visit Provider Urology
DX: N32.0 Bladder-neck obstruction (principal); R35.0 Frequency of micturition; R35.1 Nocturia
CPT/HCPCS: 52000

== ENCOUNTER → 2023-04-24 08:58 | Outpatient (BNVA) | payer MEDICARE, SELFPAY | PROVIDERS: Visit Provider Urology | DX: R39.15 Urgency of urination (principal) | CPT/HCPCS: 52000 ==

== ENCOUNTER 2023-05-01 10:25 | Outpatient (AMB) | payer MEDICARE, SELFPAY ==
--- NOTE | 2023-05-01 10:36 | MHC.OFFVIS ---
Intake Intake Visit Reasons: OV - Bilateral Knee Euflexxa? Intake Note: Alon is a 72 year old male who presents today for bilateral knee Euflexxa Injections #1 Allergies No Known Allergies Allergy (Verified 03/19/23 09:44) HPI OV - Bilateral Knee Euflexxa? HPI Details Alon is a 72 year old man with bilateral knee OA, who presents for his first bilateral Euflexxa injections. He denies any changes in his symptoms or medical history PFSH Medical History Arthritis Bacteremia COVID-19 vaccine administered Diabetes mellitus, type 2 HTN (hypertension) Hx of glaucoma Hx of orthostatic hypotension Hx of renal calculi Hypercholesteremia Hyperuricemia Nocturia Vasovagal syncope Surgical History H/O colonoscopy Hx of lithotripsy Social History Household Members: None Housing: House Are you a primary career professional to a significant other at home: No Do you presently have visiting nurse or other home services: No Alcohol intake: never Patient Tobacco Use Status: Never used Tobacco Advance Directives Date on File: 05/03/22 service: No Current occupational status: retired Review of Systems Const All systems reviewed & are unremarkable except as noted in HPI and below Physical Exam Const General: no acute distress and alert Orientation/consciousness: patient oriented x3 Neuro General: patient oriented x3 Extrem Other: Bilateral Knees: Severe bilateral Varus alignment Antalgic gait TTP medial compartment Skin C/D/I No effusion Psych Appearance: grossly normal Affect: normal affect Attitude: cooperative Office Procedures Joint Injection/Drain Joint Injection/Drain Details: Injected Euflexxa. Site was prepped using aseptic technique. Patient tolerated the procedure well. Primary Site: right knee Secondary Site: left knee Coding - Large joint - Glenohumeral/Tronchanteric Bursa/Intraarticular Procedure code (CPT) selection complete Results Reviewed Results Reviewed: 05/01/23 10:34 Hyaluronate Sodium [Euflexxa] 20 mg INTRAARTIC .[facility] Assessment & Plan Assessment & Plan (1) Bilateral primary osteoarthritis of knee: Code(s): M17.0 - Bilateral primary osteoarthritis of knee Plan: Alon is a 71 year old man with severe bilateral varus knee OA. He has a Hx of steroid injections, with his most recent being on 01/02/23, and he says these last injections gave him mild relief. He continues to have pain with daily activity and difficulty with ambulation. I injected his bilateral knees today with his first Euflexxa injection, which he tolerated well. He will follow up in 1 week for his second Euflexxa injections. Plan Scribed for Juan Daniel Palma MD by Armand Stallings, emergency medical service manager, on 05/01/23 at 11:00 AM, EST. Coding Level of Care Code Est Pt Level 2 (95405) Diagnoses Bilateral primary osteoarthritis of knee M17.0 CPT Codes Coding - 38753 Large joint: 35576 - Large joint ([id number]) Coding - Joint 7: 72318 - Glenohumeral/Tronchanteric Bursa/Intraarticular ([id number])
== END 2023-05-01 11:09 | disposition home or self-care (01) ==
PROVIDERS: PCP Internal Medicine; Visit Provider Orthopaedic Surgery
DX: M17.0 Bilateral primary osteoarthritis of knee (principal)
CPT/HCPCS: 20610; 99213

== ENCOUNTER → 2023-05-01 10:25 | Outpatient (BNVA) | payer MEDICARE, SELFPAY | PROVIDERS: PCP Internal Medicine; Visit Provider Orthopaedic Surgery | DX: M17.0 Bilateral primary osteoarthritis of knee (principal) | CPT/HCPCS: 20610; J7323 ==

== ENCOUNTER 2023-05-07 12:34 | Outpatient (AMB) | payer MEDICARE, SELFPAY ==
--- NOTE | 2023-05-07 12:53 | MHC.OFFVIS ---
Intake Intake Visit Reasons: OV-Bilateral Knee Euflexxa #2 Intake Note: Alon is a 72 year old male who presents today for Euflexxa #2 Allergies No Known Allergies Allergy (Verified 05/15/23 11:13) HPI OV-Bilateral Knee Euflexxa #2 HPI Details Alon is a 72 year old man with bilateral knee OA, who presents for his second bilateral Euflexxa injections. He denies any changes in his symptoms or medical history? PFSH Medical History Arthritis Bacteremia COVID-19 vaccine administered Diabetes mellitus, type 2 HTN (hypertension) Hx of glaucoma Hx of orthostatic hypotension Hx of renal calculi Hypercholesteremia Hyperuricemia Nocturia Vasovagal syncope Surgical History H/O colonoscopy Hx of lithotripsy Social History Household Members: None Housing: House Are you a primary child daycare worker to a significant other at home: No Do you presently have visiting nurse or other home services: No Alcohol intake: never Patient Tobacco Use Status: Never used Tobacco Advance Directives Date on File: 05/03/22 service: No Current occupational status: retired Review of Systems Const All systems reviewed & are unremarkable except as noted in HPI and below Physical Exam Const General: no acute distress and alert Orientation/consciousness: patient oriented x3 Neuro General: patient oriented x3 Extrem Other: Bilateral Knees: Severe bilateral Varus alignment Antalgic gait TTP medial compartment Skin C/D/I No effusion Psych Appearance: grossly normal Affect: normal affect Attitude: cooperative Office Procedures Joint Injection/Drain Joint Injection/Drain Details: Injected Euflexxa. Site was prepped using aseptic technique. Patient tolerated the procedure well. Primary Site: right knee Secondary Site: left knee Coding - Large joint - Glenohumeral/Tronchanteric Bursa/Intraarticular Procedure code (CPT) selection complete Results Reviewed Results Reviewed: 05/07/23 12:53 Hyaluronate Sodium [Euflexxa] 20 mg INTRAARTIC .[facility] Assessment & Plan Assessment & Plan (1) Bilateral primary osteoarthritis of knee: Code(s): M17.0 - Bilateral primary osteoarthritis of knee Plan: Alon is a 71 year old man with severe bilateral varus knee OA. He continues to have pain with daily activity and difficulty with ambulation. I injected his bilateral knees today with his second Euflexxa injection, which he tolerated well. He will follow up in 1 week for his final Euflexxa injections. Plan Scribed for Juan Daniel Palma MD by Armand Stallings, medical assistant per diem, on 05/07/23 at 1:08 PM, EST. Coding Level of Care Code Est Pt Level 2 (44282) Diagnoses Bilateral primary osteoarthritis of knee M17.0 CPT Codes Coding - 96444 Large joint: 51893 - Large joint ([id number]) Coding - Joint 7: 81137 - Glenohumeral/Tronchanteric Bursa/Intraarticular ([id number])
== END 2023-05-07 13:13 | disposition home or self-care (01) ==
PROVIDERS: PCP Internal Medicine; Visit Provider Orthopaedic Surgery
DX: M17.0 Bilateral primary osteoarthritis of knee (principal)
CPT/HCPCS: 20610

== ENCOUNTER → 2023-05-07 12:34 | Outpatient (BNVA) | payer MEDICARE, SELFPAY | PROVIDERS: PCP Internal Medicine; Visit Provider Orthopaedic Surgery | DX: M17.0 Bilateral primary osteoarthritis of knee (principal) | CPT/HCPCS: 20610; J7323 ==

== ENCOUNTER 2023-05-15 10:51 | Outpatient (AMB) | payer MEDICARE, SELFPAY ==
--- NOTE | 2023-05-15 11:12 | MHC.OFFVIS ---
Intake Vital Signs 05/15/23 11:12 Height 5 ft 9 in Intake Visit Reasons: OV-Bilateral Knee Euflexxa #3 Intake Note: Alon is a 72 year old male who presents today for bilateral Euflexxa #3 Allergies No Known Allergies Allergy (Verified 05/15/23 11:13) HPI OV-Bilateral Knee Euflexxa #3 HPI Details Alon is a 72 year old man with bilateral knee OA, who presents for his final bilateral Euflexxa injections. He denies any changes in his symptoms or medical history? ? PFSH Medical History Arthritis Bacteremia COVID-19 vaccine administered Diabetes mellitus, type 2 HTN (hypertension) Hx of glaucoma Hx of orthostatic hypotension Hx of renal calculi Hypercholesteremia Hyperuricemia Nocturia Vasovagal syncope Surgical History H/O colonoscopy Hx of lithotripsy Social History Household Members: None Housing: House Are you a primary resident care aide to a significant other at home: No Do you presently have visiting nurse or other home services: No Alcohol intake: never Patient Tobacco Use Status: Never used Tobacco Advance Directives Date on File: 05/03/22 service: No Current occupational status: retired Review of Systems Const All systems reviewed & are unremarkable except as noted in HPI and below Physical Exam Const General: no acute distress and alert Orientation/consciousness: patient oriented x3 Neuro General: patient oriented x3 Extrem Other: Bilateral Knees: Severe bilateral Varus alignment Antalgic gait TTP medial compartment Skin C/D/I No effusion Psych Appearance: grossly normal Affect: normal affect Attitude: cooperative Office Procedures Joint Injection/Drain Joint Injection/Drain Details: Injected Euflexxa. Site was prepped using aseptic technique. Patient tolerated the procedure well. Primary Site: right knee Secondary Site: left knee Approach Used: anterolateral Coding - Large joint - Glenohumeral/Tronchanteric Bursa/Intraarticular Procedure code (CPT) selection complete Results Reviewed Results Reviewed: 05/15/23 10:49 Hyaluronate Sodium [Euflexxa] 20 mg INTRAARTIC .[facility] Assessment & Plan Assessment & Plan (1) Bilateral primary osteoarthritis of knee: Code(s): M17.0 - Bilateral primary osteoarthritis of knee Plan: Alon is a 71 year old man with severe bilateral varus knee OA. He continues to have pain with daily activity and difficulty with ambulation. I injected his bilateral knees today with his final Euflexxa injection, which he tolerated well. He will follow up in 3 months. Plan Scribed for Juan Daniel Palma MD by Armand Stallings, medical billing and coding instructor, on 05/15/23 at 11:15 AM, EST. Coding Level of Care Code Est Pt Level 2 (67029) Diagnoses Bilateral primary osteoarthritis of knee M17.0 CPT Codes Coding - 89946 Large joint: 88299 - Large joint ([id number]) Coding - Joint 7: 63848 - Glenohumeral/Tronchanteric Bursa/Intraarticular ([id number])
== END 2023-05-15 11:18 | disposition home or self-care (01) ==
PROVIDERS: PCP Internal Medicine; Visit Provider Orthopaedic Surgery
DX: M17.0 Bilateral primary osteoarthritis of knee (principal)
CPT/HCPCS: 20610

== ENCOUNTER → 2023-05-15 10:51 | Outpatient (BNVA) | payer MEDICARE, SELFPAY | PROVIDERS: PCP Internal Medicine; Visit Provider Orthopaedic Surgery | DX: M17.0 Bilateral primary osteoarthritis of knee (principal) | CPT/HCPCS: 20610; J7323 ==

== ENCOUNTER 2023-07-01 13:45 | Outpatient (REF) | payer MEDICARE, SELFPAY ==
--- NOTE | ~2023-07-01 | XR_ITS ---
EXAMINATION: XR CHEST CLINICAL INFORMATION: Hypertension cough COMPARISON: Chest radiograph from 05/02/2022 TECHNIQUE: 2 views of the chest were obtained. FINDINGS: Bilateral low lung volumes. Stable interstitial prominence. No pneumothorax. Trachea is midline. Cardiomediastinal silhouette is not enlarged. No large pleural effusion. Degenerative changes of the thoracolumbar spine with anterior flowing osteophytes. Soft tissues are unremarkable. XR/XR chest 2V IMPRESSION: 1. Bilateral low lung volumes. 2. Stable interstitial prominence.
[2023-07-01 14:07] LABS: MANUAL DIFF FLAG NO
[2023-07-01 14:38] LABS: Basophils Absolute Auto 0.1 X10*3/uL (0.0-0.2); Basophils Percent Auto 0.8 % (0-2); Eosinophils Absolute Auto 0.2 X10*3/uL (0.0-0.4); Eosinophils Percent Auto 2.6 % (0-4); Hematocrit 39.8 % (42.0-52.0); Hemoglobin 13.4 g/dl (14.0-18.0); Imm Gran Abs Auto 0.03 X10*3/uL (0.00-0.03); Imm Gran Pct Auto 0.4 % (0.0-0.4); Lymphocytes Absolute Auto 1.4 X10*3/uL (1.2-4.9); Lymphocytes Percent Auto 19.5 % (20-40); Mean Corpuscular HGB Conc 33.7 g/dl (31.0-36.0); Mean Corpuscular Hemoglobin 31.4 pg (27.0-33.0); Mean Corpuscular Volume 93.2 fL (80.0-98.0); Mean Platelet Volume 9.4 fL (9.4-12.4); Monocytes Absolute Auto 0.6 X10*3/uL (0.1-1.2); Monocytes Percent Auto 8.2 % (2-11); Neutrophils Absolute Auto 4.9 x10*3/uL (2.0-8.3); Neutrophils Percent Auto 68.5 % (45-73); Platelet Count 237 X10*3/uL (160-400); Red Blood Count 4.27 X10*6/uL (4.60-5.80); Red Cell Distribution Width 13.3 % (11.0-16.0); White Blood Count 7.2 X10*3/uL (4.8-10.8)
[2023-07-01 14:47] LABS: Estimated Average Glucose 128 mg/dL; Hemoglobin A1c % 6.1 % (<6.0)
[2023-07-01 15:07] LABS: Alanine Aminotransferase 18 U/L (0-40); Albumin Level 4.2 g/dL (3.5-5.0); Alkaline Phosphatase 87 U/L (39-117); Anion Gap 11 (12-20); Aspartate Amino Transferase 20 U/L (5-37); Bilirubin Total 0.3 mg/dL (0.0-1.0); Blood Urea Nitrogen 20 mg/dL (9-16); Calcium 9.4 mg/dL (8.4-10.2); Carbon Dioxide 25 mmol/L (22-29); Chloride 109 mmol/L (96-108); Estimated Glomerular Filt Rate > 60; Glucose Random 130 mg/dL (60-115); Sodium 140 mmol/L (135-145); Total Protein 7.1 g/dL (6.5-8.0)
== END 2023-07-01 13:46 | disposition home or self-care (01) ==
LOC: HO.XRAY 13:45
PROVIDERS: PCP Internal Medicine; Visit Provider Internal Medicine
DX: I12.9 Hypertensive chronic kidney disease with stage 1 through stage 4 chronic kidney disease, or unspecified chronic kidney disease (principal); E11.22 Type 2 diabetes mellitus with diabetic chronic kidney disease; N18.9 Chronic kidney disease, unspecified; R05.9 Cough, unspecified; M19.90 Unspecified osteoarthritis, unspecified site
CPT/HCPCS: 36415; 71046; 80053; 83036; 85025

== ENCOUNTER 2023-07-03 10:50 | Outpatient (AMB) | payer MEDICARE, SELFPAY ==
--- NOTE | 2023-07-03 11:19 | A.OFFVIS_ITS ---
Intake Intake Visit Reasons: 2m follow up (pt refused tele appt) Intake Note: pt here for 2 month followup meds - tamsulosin, terazosin, finasteride, tadalafil pharm - big [facility]! Allergies - NKA PVR - 37 mL Allergies No Known Allergies Allergy (Verified 07/03/23 11:25) Medication List - Last Reconciled 07/03/23 by Fracisco Drake MD aspirin (Shlomo Low Dose Aspirin) 81 mg PO DAILY atorvastatin 10 mg PO DAILY cefuroxime axetil 250 mg PO BID chlorhexidine gluconate 0.12% mL PO gabapentin 100 mg PO BID lisinopril 5 mg PO DAILY metformin ER 500 mg PO BID omeprazole 40 mg PO DAILY 30 days oxybutynin chloride ER 5 mg PO DAILY 30 days potassium citrate ER 10 mEq PO BID 90 days tadalafil 5 mg PO DAILY 90 days terazosin 2 mg PO BEDTIME 90 days timolol maleate 0.5% 1 drp ophthalmic (eye) DAILY HPI HPI Comments History of Present Illness Details Alon RAI is a very pleasant male. . He is a patient of Dr Palacio. He is seen for the following urologic conditions. - nephrolithiasis - lower urinary tract symptoms Nocturia x3 to 4 Failed combination oxybutynin with tadalafil Trial Toviaz Cystoscopy with relatively open bladder neck Trial oxybutynin Lower Urinary tract symptoms Had episode of urinary tract infection 04/18/2022 E coli pansensitive with recurrence May 2022 PSA 05/02 0.25 Background of diabetes at last HbA1c May 2022 6.5%, Describes nocturia x2, weak stream, dribbling Cystoscopy - open bladder neck Prior therapy includes oxybutynin, tadalafil Nephrolithiasis/Urolithiasis:? They are here for?discussed imaging results ?- continue good response to Urocit-K ? Urolithiasis was diagnosed?05/28 [facility] [place] ER with left-sided flank pain. Imaging suggested stone has passed..? The patient previously had kidney stones whose composition w?unknown.? Laboratory investigations include?07/28 , Normocalcemia (9.0), Normal PTH, Hyperuricemia.? 24 Hour urine evaluation?10/17 , Low Urine volume < 2.0 liters, Low calcium < 200, High oxalate > 30mg, Low citrate < 400, Low urine pH < 5.5 ?- advised to increase fluid, watch nuts and potates, add tums before main meal for binding. ? Prior treatment(s) include?07/29 medical management, with potassium citrate.? Prior imaging includes?05/28 , a CT (computed tomography) scan of the abdomen/pelvis (stone protocol) multiple 1-2 mm stones left kidney ?01/27 , a renal ultrasound L 3x4mm stones ?07/29 , a renal ultrasound, decreased left side stones ?01/28 , a renal ultrasound, left 5mm x 2 stones ?07/30 , a renal ultrasound, showing no evidence of stones ?10/31 CT with 4mm stones ?12/01 , a renal ultrasound, small left 2mm stone ?05/31 , a renal ultrasound, showing no evidence of stones.?, 06/01 renal US small right stone, left cyst - 06/02 ultrasound 3 mm stone right, 1.5 cm cyst left ? Current therapeutic plan will be?to continue with imaging surveillance and medical therapy. PFSH Medical History Arthritis Bacteremia COVID-19 vaccine administered Diabetes mellitus, type 2 HTN (hypertension) Hx of glaucoma Hx of orthostatic hypotension Hx of renal calculi Hypercholesteremia Hyperuricemia Nocturia Vasovagal syncope Surgical History H/O colonoscopy Hx of lithotripsy Social History Household Members: None Housing: House Are you a primary respiratory care program director to a significant other at home: No Do you presently have visiting nurse or other home services: No Alcohol intake: never Patient Tobacco Use Status: Never used Tobacco Advance Directives Date on File: 05/03/22 service: No Current occupational status: retired Review of Systems Const Denies chills and Denies fever(s) Card Reports no additional complaints and Denies syncope Resp Denies cough GI Denies abdominal pain and Denies heartburn Reports as per HPI and Denies change in libido Neuro Denies syncope Psych Denies change in libido Endo Denies change in libido Physical Exam Const General: cooperative, healthy appearing, comfortable and no acute distress Orientation/consciousness: patient oriented x3 HEENT Face and sinus: Yes normal facial exam Mouth: moist mucous membranes Neck Neck: Yes normal visual inspection, Yes full ROM and Yes trachea midline Chest Chest palpation & inspection: normal inspection of the chest Resp Effort & Inspection: normal respiratory effort, able to speak in complete sentences and no respiratory distress GI Inspection: Yes normal to inspection Back/Spine/Pelvis Cervical Spine: normal cervical lordosis Thoracic/Lumbar Spine: thoracic and lumbar spine normal to inspection Skin General skin exam: no rashes or lesions noted Neuro General: patient oriented x3, gait normal, tone normal and moves all extremities Extrem General: Yes normal to inspection and Yes capillary refill normal Office Procedures Post Void Residual Post Residual Void Post Void Residual (PVR): 37 [id number] Void Residual by ultrasound Results AMB Urinalysis, Automated UA Leukoctes 0 Sarah/uL Last Edit by MARK ANTHONY Chaudhry on 07/03/23 11:28 UA Nitrite Negative Last Edit by MARK ANTHONY Chaudhry on 07/03/23 11:28 UA Urobilinogen 0.2 mg/dL Last Edit by MARK ANTHONY Chaudhry on 07/03/23 11:2 8 UA Protein 15 mg/dL Last Edit by MARK ANTHONY Chaudhry on 07/03/23 11:28 UA pH 6.0 Last Edit by MARK ANTHONY Chaudhry on 07/03/23 11:28 UA Blood 0 Bruno/uL Last Edit by MARK ANTHONY Chaudhry on 07/03/23 11:28 UA Specific [place] 1.020 Last Edit by MARK ANTHONY Chaudhry on 07/03/23 11: 28 UA Ketone Negative Last Edit by MARK ANTHONY Chaudhry on 07/03/23 11:28 UA Bilirubin 0 mg/dL Last Edit by MARK ANTHONY Chaudhry on 07/03/23 11:28 UA Glucose 0 mg/dL Last Edit by MARK ANTHONY Chaudhry on 07/03/23 11:28 Assessment & Plan Assessment & Plan (1) Urinary urgency: Code(s): R39.15 - Urgency of urination (2) Bladder outlet obstruction: Code(s): N32.0 - Bladder-neck obstruction (3) Nephrolithiasis: Code(s): N20.0 - Calculus of kidney Plan Trial tOVIAZ Orders: Orders AMB Post Void Residual by ultrasound Today N39.8 - Other specified disorders of urinary system AMB Urinalysis Automated Today Z13.9 - Encounter for screening, unspecified Medications: New fesoterodine ER 8 mg PO DAILY 30 tabs 1RF 30 days R39.15 - Urgency of urination Discontinued tadalafil Discontinued Reason: Doctor's Order 5 mg PO DAILY 90 days 90 tabs 1RF sexual activity N32.0 - Bladder-neck obstruction, N52.01 - Erectile dysfunction due to arterial insufficiency oxybutynin chloride ER Discontinued Reason: Doctor's Order 5 mg PO DAILY 30 days 30 tabs 1RF R39.15 - Urgency of urination Patient Instructions: Imaging studies, laboratory and physical exam results were discussed and reviewed in detail. No major barriers to patient understanding were identified. An opportunity to ask questions regarding the treatment plan was provided. All questions were answered. The patient expressed understanding and agreement with the above treatment plan. The patient is aware they should contact our office by phone for worsening of their current condition or the appearance of new urologic symptoms. Compliance is encouraged with any medications and followup testing that is ordered. It is a privilege to participate in the urologic care of your patient. If you have any questions or concerns regarding treatment for the above conditions, or other urologic issues, please do not hesitate to contact me. The office telephone contact is [phone]. This note is constructed using voice recognition software. While every effort has been made to ensure accuracy science technician errors may have been included. Yours sincerely, Dr Fracisco Drake MD, [facility] - Urology Providers of Expert, Compassionate Care for the Genitourinary System Coding Level of Care Code Est Pt Level 4 (76569) Diagnoses Urinary urgency R39.15 Bladder outlet obstruction N32.0 Nephrolithiasis N20.0 CPT Codes Post Residual Void - PVR CPT Code: 20833-Uhnn Void Residual by ultrasound ([id number])
== END 2023-07-03 11:35 | disposition home or self-care (01) ==
PROVIDERS: PCP Internal Medicine; Visit Provider Urology
DX: R39.15 Urgency of urination (principal); N32.0 Bladder-neck obstruction; N20.0 Calculus of kidney; Z13.9 Encounter for screening, unspecified
CPT/HCPCS: 99214

== ENCOUNTER → 2023-07-03 10:50 | Outpatient (BNVA) | payer MEDICARE, SELFPAY | PROVIDERS: PCP Internal Medicine; Visit Provider Urology | DX: N20.0 Calculus of kidney (principal); N32.0 Bladder-neck obstruction; R39.15 Urgency of urination | CPT/HCPCS: 51798; 81003; 99212 ==

== ENCOUNTER 2023-08-17 09:58 | Outpatient (AMB) | payer MEDICARE, SELFPAY ==
--- NOTE | 2023-08-17 10:10 | A.OFFVIS_ITS ---
Intake Vital Signs 08/17/23 10:10 Height 5 ft 9 in Intake Visit Reasons: OV-Bilateral Knee Pain Intake Note: Alon is a 72 year old male who presents today for a follow up of his bilateral knee OA s/p Euflexxa Injections 05/01/23-06/04/23. Patient reports that the gel has provided some mild relief but he explains that he has significant pain ans stiffness with damp weather. Allergies No Known Allergies Allergy (Verified 08/17/23 10:10) HPI OV-Bilateral Knee Pain HPI Details Alon is a 72 year old man with bilateral knee OA. He is ~3 months S/P bilateral Euflexxa injections. He says these injections were helpful and his pain has improved. He would like to know when he can repeat these injections. He says he still has some pain with daily activity, but his work requires him to stand for prolonged periods which he says is difficult. [facility] Medical History Bacteremia Vasovagal syncope Nocturia Hyperuricemia COVID-19 vaccine administered Hx of orthostatic hypotension Hx of glaucoma Arthritis Hx of renal calculi HTN (hypertension) Hypercholesteremia Diabetes mellitus, type 2 Surgical History Hx of lithotripsy H/O colonoscopy Social History Household Members: None Housing: House Are you a primary hospice spiritual care coordinator to a significant other at home: No Do you presently have visiting nurse or other home services: No Alcohol intake: never Patient Tobacco Use Status: Never used Tobacco Advance Directives Date on File: 05/03/22 service: No Current occupational status: retired Physical Exam Const General: no acute distress and alert Orientation/consciousness: patient oriented x3 Neuro General: patient oriented x3 Extrem Other: Bilateral Knees: Varus alignment bilaterally Mild medial compartment TTP 5-120 degrees ROM Left 10-120 degrees ROM Right Psych Appearance: grossly normal Affect: normal affect Attitude: cooperative Assessment & Plan Assessment & Plan (1) Bilateral primary osteoarthritis of knee: Code(s): M17.0 - Bilateral primary osteoarthritis of knee Plan: Alon is a 72 year old man with severe bilateral varus knee OA. Viscosupplementation 3 months ago he feels was helpful. He has mild complaints today but overall is doing fairly well. I would like to see him back in 3 months. Coding Level of Care Code Est Pt Level 3 (05927) Diagnoses Bilateral primary osteoarthritis of knee M17.0
== END 2023-08-17 10:27 | disposition home or self-care (01) ==
PROVIDERS: PCP Internal Medicine; Visit Provider Orthopaedic Surgery
DX: M17.0 Bilateral primary osteoarthritis of knee (principal)
CPT/HCPCS: 99213

== ENCOUNTER → 2023-08-17 09:58 | Outpatient (BNVA) | payer MEDICARE, SELFPAY | PROVIDERS: PCP Internal Medicine; Visit Provider Orthopaedic Surgery | DX: M17.0 Bilateral primary osteoarthritis of knee (principal) | CPT/HCPCS: 99212 ==

== ENCOUNTER 2023-09-07 15:54 | Outpatient (REF) | payer MEDICARE, SELFPAY ==
--- NOTE | ~2023-09-07 | US_ITS ---
EXAMINATION: US VENOUS ULTRASOUND WITH DOPPLER LOWER EXTREMITY, LEFT CLINICAL INFORMATION: Left lower extremity pain COMPARISON: None available. TECHNIQUE: Ultrasound of the deep veins is performed from the hip to the calf with compression sonography and color and pulse Doppler assessment. Spectral analysis with color-flow imaging is performed. FINDINGS: There is normal venous compression and respiratory variation and augmented flow. The visualized common femoral vein, superficial femoral vein, profunda femoral vein, popliteal vein, and the trifurcation region shows no evidence of deep venous thrombosis. There is no significant popliteal fossa cyst. If the patient's symptoms persist, followup ultrasound in 5 days 7 days might be of value to exclude proximal propagation from a non-visualized calf vein. US/US venous duplex LE IMPRESSION: No DVT demonstrated in the left lower extremity.
== END 2023-09-07 15:55 | disposition home or self-care (01) ==
LOC: HO.US 15:54
PROVIDERS: PCP Internal Medicine; Visit Provider Internal Medicine
DX: M79.605 Pain in left leg (principal)
CPT/HCPCS: 93971

== ENCOUNTER 2023-09-30 14:15 | Outpatient (REF) | payer MEDICARE, SELFPAY ==
--- NOTE | ~2023-09-30 | XR_ITS ---
EXAMINATION: XR LUMBOSACRAL SPINE CLINICAL INFORMATION: Low back pain with left-sided sciatica COMPARISON: Lumbar spine 09/12/2020 TECHNIQUE: Three views of the lumbosacral spine. FINDINGS: Again seen are degenerative changes throughout the visualized lower thoracic and lumbosacral spine with disc space narrowing at most levels most marked at L5-S1. No fractures or subluxations. No bony destructive lesions. XR/XR lumbar spine 2-3V IMPRESSION: Unchanged degenerative changes in the spine. No acute finding.
== END 2023-09-30 14:16 | disposition home or self-care (01) ==
LOC: HO.XRAY 14:15
PROVIDERS: PCP Internal Medicine; Visit Provider Internal Medicine
DX: M54.50 Low back pain, unspecified (principal)
CPT/HCPCS: 72100

== ENCOUNTER 2023-10-14 11:17 | Outpatient (AMB) | payer MEDICARE, SELFPAY ==
--- NOTE | 2023-10-14 11:22 | MHC.OFFVIS ---
Intake Intake Visit Reasons: 3M PVR/Med Review(Toviaz) Intake Note: Patient is Present for Follow Up [facility] Med[facility]: Fesoterodine, Terazosin Antibiotic Allergies: None Blood Thinners: Aspirin Tadalafil and Oxybutynin was discontinued at previous follow up PVR: 14 Allergies No Known Allergies Allergy (Verified 08/17/23 10:10) Medication List - Last Reconciled 10/14/23 by Fracisco Drake MD aspirin (Shlomo Low Dose Aspirin) 81 mg PO DAILY atorvastatin 10 mg PO DAILY cefuroxime axetil 250 mg PO BID chlorhexidine gluconate 0.12% mL PO fesoterodine ER 8 mg PO DAILY 30 days gabapentin 100 mg PO BID lisinopril 5 mg PO DAILY metformin ER 500 mg PO BID omeprazole 40 mg PO DAILY 30 days potassium citrate ER 10 mEq PO BID 90 days terazosin 2 mg PO BEDTIME 90 days timolol maleate 0.5% 1 drp ophthalmic (eye) DAILY HPI HPI Comments History of Present Illness Details Alon RAI is a very pleasant male. . He is a patient of Dr Palacio. He is seen for the following urologic conditions. - nephrolithiasis - lower urinary tract symptoms PVR of 14 cc Nocturia x3 to 4 Has better control during down combination Toviaz and terazosin Will continue Three month follow-up Failed combination oxybutynin with tadalafil Trial Toviaz Cystoscopy with relatively open bladder neck Failed oxybutynin Lower Urinary tract symptoms Had episode of urinary tract infection 04/18/2022 E coli pansensitive with recurrence May 2022 PSA 05/02 0.25 Background of diabetes at last HbA1c May 2022 6.5%, 07/04 6.1% Describes nocturia x2, weak stream, dribbling Cystoscopy - open bladder neck Prior therapy includes oxybutynin, tadalafil Has post UTI type syndrome Nephrolithiasis/Urolithiasis:? They are here for?discussed imaging results ?- continue good response to Urocit-K ? Urolithiasis was diagnosed?05/28 [facility] with left-sided flank pain. Imaging suggested stone has passed..? The patient previously had kidney stones whose composition w?unknown.? Laboratory investigations include?07/28 , Normocalcemia (9.0), Normal PTH, Hyperuricemia.? 24 Hour urine evaluation?07/28 , Low Urine volume < 2.0 liters, Low calcium < 200, High oxalate > 30mg, Low citrate < 400, Low urine pH < 5.5 ?- advised to increase fluid, watch nuts and potates, add tums before main meal for binding. ? Prior treatment(s) include?07/29 medical management, with potassium citrate.? Prior imaging includes?05/28 , a CT (computed tomography) scan of the abdomen/pelvis (stone protocol) multiple 1-2 mm stones left kidney ?01/27 , a renal ultrasound L 3x4mm stones ?07/29 , a renal ultrasound, decreased left side stones ?01/28 , a renal ultrasound, left 5mm x 2 stones ?07/30 , a renal ultrasound, showing no evidence of stones ?10/31 CT with 4mm stones ?12/01 , a renal ultrasound, small left 2mm stone ?05/31 , a renal ultrasound, showing no evidence of stones.?, 06/01 renal US small right stone, left cyst - 06/02 ultrasound 3 mm stone right, 1.5 cm cyst left ? Current therapeutic plan will be?to continue with imaging surveillance and medical therapy. PFSH Medical History Bacteremia Vasovagal syncope Nocturia Hyperuricemia COVID-19 vaccine administered Hx of orthostatic hypotension Hx of glaucoma Arthritis Hx of renal calculi HTN (hypertension) Hypercholesteremia Diabetes mellitus, type 2 Surgical History Hx of lithotripsy H/O colonoscopy Social History Household Members: None Housing: House Are you a primary urgent care physician assistant to a significant other at home: No Do you presently have visiting nurse or other home services: No Alcohol intake: never Patient Tobacco Use Status: Never used Tobacco Advance Directives Date on File: 05/03/22 service: No Current occupational status: retired Review of Systems Const Denies chills and Denies fever(s) Card Reports no additional complaints and Denies syncope Resp Denies cough GI Denies abdominal pain and Denies heartburn Reports as per HPI and Denies change in libido Neuro Denies syncope Psych Denies change in libido Endo Denies change in libido Physical Exam Const General: cooperative, healthy appearing, comfortable and no acute distress Orientation/consciousness: patient oriented x3 HEENT Face and sinus: Yes normal facial exam Mouth: moist mucous membranes Neck Neck: Yes normal visual inspection, Yes full ROM and Yes trachea midline Chest Chest palpation & inspection: normal inspection of the chest Resp Effort & Inspection: normal respiratory effort, able to speak in complete sentences and no respiratory distress GI Inspection: Yes normal to inspection Back/Spine/Pelvis Cervical Spine: normal cervical lordosis Thoracic/Lumbar Spine: thoracic and lumbar spine normal to inspection Skin General skin exam: no rashes or lesions noted Neuro General: patient oriented x3, gait normal, tone normal and moves all extremities Extrem General: Yes normal to inspection and Yes capillary refill normal Office Procedures Post Void Residual Post Residual Void Post Void Residual (PVR): 14 [id number] Void Residual by ultrasound Assessment & Plan Assessment & Plan (1) Bladder outlet obstruction: Code(s): N32.0 - Bladder-neck obstruction (2) Urinary urgency: Code(s): R39.15 - Urgency of urination (3) Nocturia more than twice per night: Code(s): R35.1 - Nocturia Plan Three month follow-up tele Orders: Orders AMB Post Void Residual by ultrasound Today R39.15 - Urgency of urination Medications: Refilled fesoterodine ER 8 mg PO DAILY 30 tabs 2RF 30 days R39.15 - Urgency of urination Patient Instructions: Imaging studies, laboratory and physical exam results were discussed and reviewed in detail. No major barriers to patient understanding were identified. An opportunity to ask questions regarding the treatment plan was provided. All questions were answered. The patient expressed understanding and agreement with the above treatment plan. The patient is aware they should contact our office by phone for worsening of their current condition or the appearance of new urologic symptoms. Compliance is encouraged with any medications and followup testing that is ordered. It is a privilege to participate in the urologic care of your patient. If you have any questions or concerns regarding treatment for the above conditions, or other urologic issues, please do not hesitate to contact me. The office telephone contact is [phone]. This note is constructed using voice recognition software. While every effort has been made to ensure accuracy semiconductor testing group leader errors may have been included. Yours sincerely, Dr Fracisco Drake MD, [facility] - Urology Providers of Expert, Compassionate Care for the Genitourinary System Coding Level of Care Code Est Pt Level 3 (76249) Diagnoses Bladder outlet obstruction N32.0 Urinary urgency R39.15 Nocturia more than twice per night R35.1 CPT Codes Post Residual Void - PVR CPT Code: 22725-Kews Void Residual by ultrasound ([id number])
== END 2023-10-14 11:44 | disposition home or self-care (01) ==
PROVIDERS: PCP Internal Medicine; Visit Provider Urology
DX: N32.0 Bladder-neck obstruction (principal); R39.15 Urgency of urination; R35.1 Nocturia
CPT/HCPCS: 99213

== ENCOUNTER → 2023-10-14 11:17 | Outpatient (BNVA) | payer MEDICARE, SELFPAY | PROVIDERS: PCP Internal Medicine; Visit Provider Urology | DX: N32.0 Bladder-neck obstruction (principal); R39.15 Urgency of urination; R35.1 Nocturia | CPT/HCPCS: 51798; 99212 ==

== ENCOUNTER 2023-11-08 10:27 | Emergency (ER) | payer MEDICARE, SELFPAY ==
[2023-11-08] VITALS (7 sets, daily range): BP systolic 107–134; BP diastolic 43–64; PULSE 72–94; RESP 12–18; TEMP 35.5–36.8; O2SAT 92–95; BMI 25.1
--- NOTE | 2023-11-08 | ECG_ITS ---
Test Reason : DIZZINESS Blood Pressure : / mmHG Vent. Rate : 075 BPM Atrial Rate : 075 BPM P-R Int : 188 ms QRS Dur : 088 ms QT Int : 404 ms P-R-T Axes : 020 -07 009 degrees QTc Int : 451 ms Normal sinus rhythm Normal ECG When compared with ECG of 18-JUN-2022 13:43, No significant change was found Referred By: Generic ED Physician Electronically Signed By:FAVIO GILLIS MD
--- NOTE | ~2023-11-08 | XR_ITS ---
EXAMINATION: XR CHEST CLINICAL INFORMATION: Weakness. COMPARISON: Chest radiograph 07/01/2023. TECHNIQUE: AP view of the chest was obtained. FINDINGS: New focal airspace opacities in the left lower lobe with a small left-sided pleural effusion. Stable cardiomediastinal silhouette. No acute osseous findings. Visualized upper abdomen within normal limits. XR/XR chest 1V IMPRESSION: New focal airspace opacities in the left lower lobe with a small left-sided pleural effusion. Findings are concerning for pneumonia. Recommend follow-up examination to ensure appropriate resolution.
--- OUTSIDE RECORDS SUMMARY | 2023-11-08 11:16 | XMS_ITS | Patient Health Record ---
Author Name Unknown Organization [facility] Address [address] [place] [address] Care Team Providers Care Community Product Specialist Name Role Phone Dave Palacio MD Primary Care Provider Unavaila Emigdio Lomeli Jr Unavailable REASON FOR REFERRAL No Information MEDICATIONS Medication SIG (Take, Route, Frequency, Duration) Notes Start Date End Date Status Aspirin 81 MG 1 tablet Orally Once a day Active Lisinopril 5 MG 1 tablet Orally Once a day Active MiraLax (colon prep) 8.3 ounce ((238) grams mixed with Gatorade or Crystal Light orally begin at 5:00 p.m. the day before the procedure for 1 day 01/24/2021 Active Potassium Citrate 10 meq Active Atorvastatin Calcium 10 MG 1 tablet Oral ly Once a day Active metFORMIN HCl 500 MG 1/2 tablet with candice ls Orally Once a day Active Timolol Hemihydrate 0.25 % 1 drop into a ffected eye Ophthalmic Once a day Active IMMUNIZATIONS Vaccine Route Administration Date Status Comme nts Influenza Unknown 06/12/2020 Administered SOCIAL HISTORY Sex Assigned At : Social History Observation Description Sex Assigned At Unknown PROBLEMS Problem Type ICD Code Onset Dates Problem Status W/U Status Risk SNOMED Code Notes Problem Colon cancer screening (Z12.11) Active confirmed 841516911 Problem Personal history of colonic polyps (Z86.010) Active confirmed 666559392 Problem Diverticulosis of large intestine without hemorrhage (K57.30) Active confirmed 066988169 Problem Colitis (K52.9) Active confirmed 781965 004 Problem Long-term use of aspirin therapy (Z79.82) Active confirmed [id number] PLAN OF TREATMENT Pending Test Test Name Order Date COLONOSCOPY WITH BIOPSY 07/04/2011 Future Test Test Name Order Date COLONOSCOPY 09/19/2015 COLONOSCOPY 01/24/2021 Insurance Providers Payer Name Payer Address Payer Phone Subscriber Number Group Number Insured Name Patient Relationship to Insured Coverage Start Date Coverage End Date [facility] [address] [facility] [place] [phone] [id number] ELEAZAR RAI Self - patient is the insured MEDICAL (GENERAL) HISTORY Medical History History ICD Code Colonoscopy 12/12/15, history of tubular a denomas, five-year followup 12/30 Glaucoma Arthritis elevated cholesterol hypertension diabetes Surgical History Surgery Date(Month/Year)
--- OUTSIDE RECORDS SUMMARY | 2023-11-08 11:16 | XMS_ITS | Patient Health Record ---
Author Name Unknown [facility] Address [address] [place] [address] Care Team Providers Care Shrink Pit Supervisor Name Role Phone Dave Palacio MD Primary Care Provider [place] Unavailable [phone] ALLERGIES Allergen (clinical drug ingredient) Drug/Non Drug Allergy documented on EMR Reaction Allergy Type Onset Date Status Equine derived substance (FN) Horses (uncoded) sneeze,eyes water Allergy Active REASON FOR REFERRAL No Information MEDICATIONS Medication SIG (Take, Route, Frequency, Duration) Notes Start Date End Date Status Aspir-81 Active Allopurinol 100 MG 1 tablet Oral Once a day Active Fludrocortisone Acetate 0.1 MG 1 tablet Oral once a day Active Gabapentin 300 MG 1 tablet Oral Once a day Active Vitamin D Active Vitamin B6 Active Lisinopril 5 MG 1 tablet Oral Once a day Active metFORMIN HCl ER 500 MG 1 tablet with ev ening meal Oral Once a day Active Potassium Citrate ER 10 MEQ (1080 MG) 1 tablet with meals Oral Twice a day Active Terazosin HCl 5 MG 1 capsule at bedtime Oral Once a day Active IMMUNIZATIONS Vaccine Route Administration Date Status Comme nts COVID-19 Moderna Vaccine Unknown 12/17/2020 Administere d 1# 11/19/2020 SOCIAL HISTORY Tobacco Use: Social History Observation Description Date Details (start date - stop date) Never Smoker NA - NA Sex Assigned At : Social History Observation Description Sex Assigned At Unknown Tobacco Use/Smoking Question Answer Notes Are you a: nonsmoker Alcohol Screen Question Answer Notes Did you have a drink containing alcohol in the p ast year? No Points 0 Interpretation Negative Tobacco use other than smoking: Question Answer Notes Are you an other tobacco user? 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
[2023-11-08 11:32] LABS: Glucose, Whole Blood 183 mg/dL (60-115)
--- NOTE | 2023-11-08 11:43 | ED_ITS ---
HPI - Syncope General Chief Complaint: Syncope Stated Complaint: Near syncope/Sweating weakness Time Seen by Provider: 11/08/23 11:20 Source: patient, family and old records reviewed Mode of arrival: ambulatory Limitations: no limitations History of Present Illness HPI narrative: 73 yo male with PMH of DM, BPH, HTN, syncope in past, HLD didn't eat breakfast this AM like normal before [employer]ec[employer]ism started to feel cold and sweaty. He did have a donut. He has been otherwise okay had normal day yesterday has not had any CP/SOB or GIB symptoms. He came here as he was pale, sweaty and cold for almost entire [employer] service. MD complaint: other (weakness) Onset (ago): minute(s) (prior to arrival ) Duration of episode: 60 -: minutes(s) Description of event: other (sweaty and cold) Prodromal symptoms: none Witnessed: Yes - by Bystander Context: at rest Injuries sustained associated with event: none Current symptoms: back to baseline History: previous syncopal episode Treatments prior to arrival: none Related Data Home Medications Medication Instructions Recorded Confirmed lisinopril 5 mg tablet 5 mg PO DAILY 09/09/20 10/14/23 metformin 500 mg tablet,extended 500 mg PO BID 09/09/20 10/14/23 release 24 hr aspirin 81 mg tablet,delayed 81 mg PO DAILY 02/21/21 10/14/23 release (Shlomo Low Dose Aspirin) timolol maleate 0.5 % eye drops 1 drp ophthalmic (eye) DAILY 05/02/22 10/14/23 atorvastatin 10 mg tablet 10 mg PO DAILY 06/09/22 10/14/23 gabapentin 100 mg capsule 100 mg PO BID 06/09/22 10/14/23 cefuroxime axetil 250 mg tablet 250 mg PO BID 06/17/22 10/14/23 chlorhexidine gluconate 0.12 % ml PO 06/17/22 10/14/23 mouthwash Previous Rx's Medication Instructions Recorded omeprazole 40 mg capsule,delayed 40 mg PO DAILY 30 days #30 caps 05/29/21 release terazosin 2 mg capsule 2 mg PO BEDTIME 90 days #90 caps 07/30/23 potassium citrate 10 mEq (1,080 10 meq PO BID 90 days #180 tabs 09/07/23 mg) tablet,extended release fesoterodine 8 mg tablet,extended 8 mg PO DAILY 30 days #30 tabs 10/14/23 release 24 hr cefuroxime axetil 500 mg tablet 500 mg PO BID 7 days #14 tabs 11/08/23 doxycycline hyclate 100 mg capsule 100 mg PO BID 7 days #14 caps 11/08/23 Allergies Allergy/AdvReac Type Severity Reaction Status Date / Time No Known Allergies Allergy Verified 11/08/23 10:37 Review of Systems 2 Review of Systems: Constitutional : No Fever, No Chills, No Fatigue ENT/Mouth : No sore throat, No Rhinorrhea Eyes: No Eye Pain, No Swelling, No Redness Cardiovascular : No Chest Pain, No SOB, No Dyspnea on Exertion Respiratory : No Cough, No Sputum Gastrointestinal : No Nausea, No Vomiting, No Diarrhea, No abdominal Pain Genitourinary : No Dysuria, No Urinary Frequency, No Hematuria, Musculoskeletal : No joint pain, No Myalgias, No Joint Swelling Skin : No Skin Lesions, No rash Neuro : pos Weakness, No Numbness, No Dizziness, no Headache Psych : No Anxiety/Panic, No Depression Heme/Lymph: No Bruising, No Bleeding,No Lymphadenopathy Endocrine : No Polyuria, No Polydipsia All other systems reviewed and are negative PMFSH Past Medical History Attestation statement: The following information was validated with the patient. Source: old records reviewed Medical History Bacteremia Vasovagal syncope Nocturia Hyperuricemia COVID-19 vaccine administered Hx of orthostatic hypotension Hx of glaucoma Arthritis Hx of renal calculi HTN (hypertension) Hypercholesteremia Diabetes mellitus, type 2 Surgical History Hx of lithotripsy H/O colonoscopy Social History Social History Household Members: None Housing: House Are you a primary child care supervisor to a significant other at home: No Do you presently have visiting nurse or other home services: No Alcohol intake: never Patient Tobacco Use Status: Never used Tobacco Smoked in Last 30 Days: No Use of substances other than those prescribed or required for medical reasons: No Advance Directives: No Advance Directives Information Provided: No Advance Directives Date on File: 05/03/22 service: No Current occupational status: retired Physical Exam 2 Vital Signs: Vital Signs: Last Vital Signs Temp 98.0 F 11/08/23 14:41 Pulse 80 11/08/23 14:41 Resp 17 11/08/23 14:41 BP 124/61 11/08/23 14:41 Pulse Ox 95 11/08/23 14:41 O2 Del Method Room Air 11/08/23 14:41 BMI result Body Mass Index 25.1 Appearance: Alert. Oriented X3. No acute distress. Eyes: Pupils equal, round and reactive to light. ENT: Pharynx normal. Neck: Normal inspection. Neck supple. CVS: Normal heart rate and rhythm. Pulses normal. Respiratory: No respiratory distress. Breath sounds normal. Abdomen: Soft and nontender. Skin: Skin warm and dry. Normal skin color. Normal skin turgor. Extremities: No lower extremity edema. No calf ttp Neuro: Oriented X 3. No motor deficit. No sensory deficit. Course Course Course Narrative: lactic acidosis mild due to metformin Reevaluation(s) Reevaluation #1: PSI INDEX III clinically can be managed as outpatient Medications Administered Generic Name Dose Route Start Last Admin Trade Name Freq PRN Reason Stop Dose Admin Sodium Chloride 500 mls @ 500 mls/hr 11/08/23 14:15 11/08/23 14:50 Ns IV 11/08/23 15:14 500 mls/hr .Q1H DB Administration Discontinued Medications Generic Name Dose Route Start Last Admin Trade Name Freq PRN Reason Stop Dose Admin Ceftriaxone Sodium 1 gm/ 50 mls @ 100 mls/hr 11/08/23 12:48 11/08/23 14:02 Sodium Chloride IV 11/08/23 13:17 Infused ONCE ONE Infusion Medical Decision Making Medical Decision Making [facility] Narrative: 73 yo male with PMH of DM, BPH, HTN, syncope in past, HLD here without syncope but was cold sweaty and tired at [employer]ec[employer]ism today denies fevers being sick yesterday or having a cough or dysuria at this time ortho VS negative, EKG nonischemic no CP/SOB denies GIB will obtain labs, UA, CXR, swabs and monitor. Differential Diagnosis Differential Diagnoses: The differential diagnosis associated with the presentation includes near syncope, viral syndrome, dehydration, anemia Admission/Observation Consideration of admission/observation: Escalation of care including admission/observation considered ortho negative back to baseline, no hypoxia trop flat VS stable, no signs of sepsis can be managed as outpatient lactic acid up due to metformin Lab Data MDM Lab Attestation statement: I reviewed the patient's lab results. 11/08/23 12:07 11/08/23 13:19 Labs: Lab Results 11/08/23 11/08/23 11/08/23 Range/Units 11:28 12:07 12:38 WBC 9.8 (4.8-10.8) X10*3/uL RBC 4.34 L (4.60-5.80) X10*6/uL Hgb 13.9 L (14.0-18.0) g/dl Hct 40.7 L (42.0-52.0) % MCV 93.8 (80.0-98.0) fL MCH 32.0 (27.0-33.0) pg MCHC 34.2 (31.0-36.0) g/dl RDW 13.7 (11.0-16.0) % Plt Count 215 (160-400) X10*3/uL MPV 9.4 (9.4-12.4) fL Immature Gran % (Auto) 0.5 H (0.0-0.4) % Neut % (Auto) 81.5 H (45-73) % Lymph % (Auto) 9.9 L (20-40) % [place] % (Auto) 6.3 (2-11) % Eos % (Auto) 1.2 (0-4) % Baso % (Auto) 0.6 (0-2) % Lymph # (Auto) 1.0 L (1.2-4.9) X10*3/uL [place] # (Auto) 0.6 (0.1-1.2) X10*3/uL Eos # (Auto) 0.1 (0.0-0.4) X10*3/uL Baso # (Auto) 0.1 (0.0-0.2) X10*3/uL Abs Immat Gran (auto) 0.05 H (0.00-0.03) X10*3/uL Absolute Neuts (auto) 8.0 (2.0-8.3) x10*3/uL Absolute Nucleated RBC 0.000 (0.0-0.012) X10*3/uL Nucleated RBC % (auto) 0.0 (0.0-0.2) /100WBC PT 11.4 (11.1-13.3) SEC INR 0.9 (0.9-1.1) Sodium (135-145) mmol/L Potassium (3.3-5.1) mmol/L Chloride (96-108) mmol/L Carbon Dioxide (22-29) mmol/L Anion Gap (12-20) BUN (9-16) mg/dL Creatinine (0.5-1.4) mg/dL Estim Creat Clear Calc Estimated GFR POC Glucose 183 H (60-115) mg/dL Random Glucose (60-115) mg/dL Lactic Acid (0.5-2.0) mmol/L Calcium (8.4-10.2) mg/dL Total Bilirubin (0.0-1.0) mg/dL AST (5-37) U/L ALT (0-40) U/L Alkaline Phosphatase (39-117) U/L Troponin I High Sens 11.0 (<3.5-35.0) ng/L Total Protein (6.5-8.0) g/dL Albumin (3.5-5.0) g/dL COVID-19 (ODESSA) Negative (Negative) COVID-19 Clin Com See Note Influenza Type A (VINCE) Negative (Negative) Influenza Type B (VINCE) Negative (Negative) Influenza A & B Note See Note 11/08/23 Range/Units 13:19 WBC (4.8-10.8) X10*3/uL RBC (4.60-5.80) X10*6/uL Hgb (14.0-18.0) g/dl Hct (42.0-52.0) % MCV (80.0-98.0) fL MCH (27.0-33.0) pg MCHC (31.0-36.0) g/dl RDW (11.0-16.0) % Plt Count (160-400) X10*3/uL MPV (9.4-12.4) fL Immature Gran % (Auto) (0.0-0.4) % Neut % (Auto) (45-73) % Lymph % (Auto) (20-40) % [place] % (Auto) (2-11) % Eos % (Auto) (0-4) % Baso % (Auto) (0-2) % Lymph # (Auto) (1.2-4.9) X10*3/uL [place] # (Auto) (0.1-1.2) X10*3/uL Eos # (Auto) (0.0-0.4) X10*3/uL Baso # (Auto) (0.0-0.2) X10*3/uL Abs Immat Gran (auto) (0.00-0.03) X10*3/uL Absolute Neuts (auto) (2.0-8.3) x10*3/uL Absolute Nucleated RBC (0.0-0.012) X10*3/uL Nucleated RBC % (auto) (0.0-0.2) /100WBC PT (11.1-13.3) SEC INR (0.9-1.1) Sodium 140 (135-145) mmol/L Potassium 4.7 (3.3-5.1) mmol/L Chloride 109 H (96-108) mmol/L Carbon Dioxide 22 (22-29) mmol/L Anion Gap 14 (12-20) BUN 25 H (9-16) mg/dL Creatinine 1.29 (0.5-1.4) mg/dL Estim Creat Clear Calc 72.5 Estimated GFR 55 POC Glucose (60-115) mg/dL Random Glucose 131 H (60-115) mg/dL Lactic Acid 2.1 H* (0.5-2.0) mmol/L Calcium 9.1 (8.4-10.2) mg/dL Total Bilirubin 0.5 (0.0-1.0) mg/dL AST 25 (5-37) U/L ALT 19 (0-40) U/L Alkaline Phosphatase 70 (39-117) U/L Troponin I High Sens 10.8 (<3.5-35.0) ng/L Total Protein 6.7 (6.5-8.0) g/dL Albumin 3.8 (3.5-5.0) g/dL COVID-19 (ODESSA) (Negative) COVID-19 Clin Com Influenza Type A (VINCE) (Negative) Influenza Type B (VINCE) (Negative) Influenza A & B Note Independent Interpretation I performed an independent interpretation of an: EKG and Plain X-Ray (L sided pneumonia) Interpretation: Rate: 75 Rhythm: NSR [place]: normal Normal P waves. Normal DARNELL. Normal QRS complex. ST T wave : no VELIA inverted t wave III qTC: 451 prior studies: no acute ischemia The study has been interpreted contemporaneously by me. . Radiology Impression Discussion of test interpretation with radiology: I have reviewed the radiologist's reading. Independent Historian Clinical information obtained from an independent historian. History obtained from or confirmed by: Other External Record Review External record reviewed: Inpatient record Prescription Management I considered prescription management with: Antibiotic Discharge Plan Discharge Clinical Impression: Weakness Pneumonia Qualifiers: Pneumonia type: due to unspecified organism Laterality: left Lung location: l ower lobe of lung Qualified Code(s): J18.9 - Pneumonia, unspecified organism Patient Disposition: Home, Self-Care Instructions: Weakness (ED), Pneumonia (ED) Additional Instructions: return for vomiting, confusion, difficulty breathing, inability to eat or drink or any other concerns. take all antibiotics START CEFUROXIME TOMORROW MORNING AND START DOXYCYCLINE TONIGHT On a cephalosporin?antibiotic, softer bowel movements are to be expected. Call your provider if you move your bowels more than 4 times a day, your bowel movements are almost all liquid, or you get a rash.?? On doxycycline, do not take pills immediately before going to bed and swallow pills with plenty of water. Avoid direct sunlight, iron, antacids, and Pepto Bismol. Call your provider if you develop new ringing in your ears, new problems hearing, dizziness, difficulty swallowing, rash, abdominal discomfort, nausea, or diarrhea.? Prescriptions: New doxycycline hyclate 100 mg capsule 100 mg PO BID 7 Days Qty: 14 0RF cefuroxime axetil 500 mg tablet 500 mg PO BID 7 Days Qty: 14 0RF No Action terazosin 2 mg capsule 2 mg PO BEDTIME 90 Days Qty: 90 1RF potassium citrate 10 mEq (1,080 mg) tablet extended release 10 meq PO BID 90 Days Qty: 180 3RF lisinopril 5 mg tablet 5 mg PO DAILY metformin 500 mg tablet extended release 24 hr 500 mg PO BID atorvastatin 10 mg tablet 10 mg PO DAILY gabapentin 100 mg capsule 100 mg PO BID aspirin [Shlomo Low Dose Aspirin] 81 mg Tablet,Delayed Release (Dr/Ec) 81 mg PO DAILY omeprazole 40 mg capsule,delayed release(DR/EC) 40 mg PO DAILY 30 Days Qty: 30 0RF timolol maleate 0.5 % drops 1 drp ophthalmic (eye) DAILY cefuroxime axetil 250 mg tablet 250 mg PO BID chlorhexidine gluconate 0.12 % mouthwash PO fesoterodine 8 mg tablet extended release 24 hr 8 mg PO DAILY 30 Days Qty: 30 2RF
--- NOTE | 2023-11-08 12:00 | PC.NURSE ---
pt alert and oriented x3, he denies pain at this time. pt reports that he was in worship this morning and all of a sudden he started sweating then passed out. he says the next thing he remembers is being wheeled here in a wheelchair by worship members. he goes to worship across the street from here. 22g iv inserted R hand. labs drawn. vss.
[2023-11-08 12:15] LABS: MANUAL DIFF FLAG NO
[2023-11-08 12:17] LABS: Basophils Absolute Auto 0.1 X10*3/uL (0.0-0.2); Basophils Percent Auto 0.6 % (0-2); Eosinophils Absolute Auto 0.1 X10*3/uL (0.0-0.4); Eosinophils Percent Auto 1.2 % (0-4); Hematocrit 40.7 % (42.0-52.0); Hemoglobin 13.9 g/dl (14.0-18.0); Imm Gran Abs Auto 0.05 X10*3/uL (0.00-0.03); Imm Gran Pct Auto 0.5 % (0.0-0.4); Lymphocytes Percent Auto 9.9 % (20-40); Mean Corpuscular HGB Conc 34.2 g/dl (31.0-36.0); Mean Corpuscular Volume 93.8 fL (80.0-98.0); Mean Platelet Volume 9.4 fL (9.4-12.4); Monocytes Absolute Auto 0.6 X10*3/uL (0.1-1.2); Monocytes Percent Auto 6.3 % (2-11); Neutrophils Percent Auto 81.5 % (45-73); Platelet Count 215 X10*3/uL (160-400); Red Blood Count 4.34 X10*6/uL (4.60-5.80); Red Cell Distribution Width 13.7 % (11.0-16.0); White Blood Count 9.8 X10*3/uL (4.8-10.8)
[2023-11-08 12:26] LABS: INTERNATIONAL NORM RATIO 0.9 (0.9-1.1); Prothrombin Time 11.4 SEC (11.1-13.3)
[2023-11-08 13:01] LABS: COVID-19 Test Negative (Negative); IDNOW Serial# 152EDE1D; IDNOW Serial# 9DB6401D; Influenza A Negative (Negative); Influenza B2 Negative (Negative)
[2023-11-08] MEDS: cefTRIAXone sodium 1 GM in 0.9 % Sodium Chloride 50 ML IV (13:33)
[2023-11-08 13:54] LABS: Anion Gap 14 (12-20)
[2023-11-08 13:59] LABS: Alanine Aminotransferase 19 U/L (0-40); Albumin Level 3.8 g/dL (3.5-5.0); Alkaline Phosphatase 70 U/L (39-117); Aspartate Amino Transferase 25 U/L (5-37); Bilirubin Total 0.5 mg/dL (0.0-1.0); Blood Urea Nitrogen 25 mg/dL (9-16); Calcium 9.1 mg/dL (8.4-10.2); Carbon Dioxide 22 mmol/L (22-29); Chloride 109 mmol/L (96-108); Creatinine Clr Calc Pharmacy 72.5; Estimated Glomerular Filt Rate 55; Glucose Random 131 mg/dL (60-115); Potassium 4.7 mmol/L (3.3-5.1); Sodium 140 mmol/L (135-145); Total Protein 6.7 g/dL (6.5-8.0)
[2023-11-08 14:05] LABS: Troponin-I High Sensitivity 10.8 ng/L (<3.5-35.0)
[2023-11-08 14:11] LABS: Lactic Acid 2.1 mmol/L (0.5-2.0)
[2023-11-08] MEDS: 0.9 % Sodium Chloride 500 ML IV (14:50)
[2023-11-08 15:22] LABS: Reflex Lactate? Lactic Acid Added
== END 2023-11-08 17:31 | disposition home or self-care (01) ==
PROVIDERS: Emergency Provider Emergency Medicine; PCP Internal Medicine
DX: J18.9 Pneumonia, unspecified organism (principal); R55 Syncope and collapse; R53.1 Weakness; Z79.899 Other long term (current) drug therapy; Z11.52 Encounter for screening for COVID-19
CPT/HCPCS: 36415; 71045; 80053; 82947; 83605; 84484; 85025; 85610; 87040; 87502; 87635; 93005; 96361; 96365; 99285; J0696

== ENCOUNTER → 2023-11-08 11:01 | Outpatient (BNV) | payer MEDICARE, SELFPAY | PROVIDERS: Emergency Provider Emergency Medicine; PCP Internal Medicine; Visit Provider Internal Medicine Cardiovascular Disease | DX: R42 Dizziness and giddiness (principal) | CPT/HCPCS: 93010 ==

== ENCOUNTER → 2023-11-11 13:18 | Outpatient (BNVA) | payer MEDICARE, SELFPAY | PROVIDERS: PCP Internal Medicine; Visit Provider Physician Assistant | DX: M54.16 Radiculopathy, lumbar region (principal); M48.061 Spinal stenosis, lumbar region without neurogenic claudication | CPT/HCPCS: 99202 ==

== ENCOUNTER 2023-11-11 13:20 | Outpatient (AMB) | payer MEDICARE, SELFPAY ==
--- NOTE | 2023-11-11 13:45 | A.OFFVIS_ITS ---
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: No Allergies No Known Allergies Allergy (Verified 11/08/23 10:37) PFSH Medical History Bacteremia Vasovagal syncope Nocturia Hyperuricemia COVID-19 vaccine administered Hx of orthostatic hypotension Hx of glaucoma Arthritis Hx of renal calculi HTN (hypertension) Hypercholesteremia Diabetes mellitus, type 2 Surgical History Hx of lithotripsy H/O colonoscopy Social History Household Members: None Housing: House Are you a primary family day care worker to a significant other at home: No Do you presently have visiting nurse or other home services: No Alcohol intake: never Patient Tobacco Use Status: Never used Tobacco Advance Directives Date on File: 05/03/22 service: No Current occupational status: retired Assessment & Plan Assessment & Plan (1) Lumbar radiculopathy: Code(s): M54.16 - Radiculopathy, lumbar region Plan Dear Dr. Palacio, Thank you for referring Alon to our office today. He is a pleasant 73-year-old male who comes in today with a chief complaint of some numbness/tingling/pain in his left buttock shooting into his left posterior knee. He states this was ongoing for multiple weeks, until one of his friends recommended that he no longer keep his wallet in his back pocket on the left side. He reports that shortly after removing his wallet from this side of his pants, his pain went away and has not returned since. He reports no other neurological symptoms. He reports no difficulty with ambulation, and no weakness. PMH: High blood pressure, hyperlipidemia, type 2 diabetes, glaucoma, BPH, GERD. Social hx: Patient does not smoke, reports no substance use. Medications: Daily aspirin, atorvastatin, gabapentin, lisinopril, metformin, omeprazole, terazosin, timolol. Allergies: NKDA. Physical exam: The patient has 5/5 strength in his upper and lower extremities. No sensational deficits reported. Reflexes are 2+ intact in his upper and lower extremities. (-) Silverio's, (-) clonus. The patient is able to ambulate well, rises from seated position with minimal difficulty but attributes it to his bilateral knee issues. Imaging review: MRI of the lumbar spine completed at [facility] shows diffuse spondylosis of the lumbar spine, with moderate central canal stenosis at L2-3, L3-4, and L4-5. No acute osseous abnormalities. Impression: Alon is a pleasant 73-year-old male who comes in today with a chief complaint of some intermittent numbness/tingling/pain in his left buttocks which shot into his left posterior knee. He states that after his referral was placed his friend recommended that he remove his wallet from his back pocket as this caused him similar issues in the past. The patient reports complete resolution of his symptoms upon doing this. He attended his appointment today just to make sure there were no other issues after getting his MRI. I do not believe that his moderate stenosis without any significant symptomology warrants a surgical intervention at this time. He does not have a story that is classic for spinal stenosis. If for any reason he has difficulty with ambulation for prolonged periods of time in the future he was encouraged to reach out to us. Thank you for allowing us to care for your patient. The total time spent with this visit with this patient was 35 minutes reviewing history, physical exam, MRI imaging review, and implementation of treatment plan or further diagnostic testing Toro Durán MD,PhD [facility] Coding Level of Care Code New Pt Level 3 (61117) Diagnoses Lumbar radiculopathy M54.16
== END 2023-11-11 14:20 | disposition home or self-care (01) ==
PROVIDERS: PCP Internal Medicine; Referring Provider Internal Medicine; Visit Provider Physician Assistant
DX: M54.16 Radiculopathy, lumbar region (principal)
CPT/HCPCS: 99203

== ENCOUNTER 2023-11-19 10:13 | Outpatient (AMB) | payer MEDICARE, SELFPAY ==
--- NOTE | 2023-11-19 10:20 | A.OFFVIS_ITS ---
Intake Intake Visit Reasons: OV-Bilateral Knee Pain-last Euflexxa 08/17/23 Intake Note: Alon is a 72 year old male who presents today for a follow up of his bilateral knee OA s/p Euflexxa Injections 05/01/23-06/04/23. Allergies No Known Allergies Allergy (Verified 11/19/23 10:22) HPI OV-Bilateral Knee Pain-last Euflexxa 08/17/23 HPI Details Alon is a 72 year old man with bilateral knee OA. He is ~6 months S/P bilateral Euflexxa injections. He found good relief from these injections and would like to repeat when possible He reports pain with daily activity, worse with prolonged standing or using stairs. This is difficult as his work involves long standing periods. [facility] Medical History Bacteremia Vasovagal syncope Nocturia Hyperuricemia COVID-19 vaccine administered Hx of orthostatic hypotension Hx of glaucoma Arthritis Hx of renal calculi HTN (hypertension) Hypercholesteremia Diabetes mellitus, type 2 Surgical History Hx of lithotripsy H/O colonoscopy Social History Household Members: None Housing: House Are you a primary coronary care unit nurse to a significant other at home: No Do you presently have visiting nurse or other home services: No Alcohol intake: never Patient Tobacco Use Status: Never used Tobacco Advance Directives Date on File: 05/03/22 service: No Current occupational status: retired Review of Systems Const All systems reviewed & are unremarkable except as noted in HPI and below Physical Exam Const General: no acute distress, alert and awake Orientation/consciousness: patient oriented x3 HEENT Head: Yes normocephalic and Yes atraumatic Eyes EOM: EOMs intact bilaterally Resp Effort & Inspection: normal respiratory effort and able to speak in complete sentences Cardio Jugular venous distension: no JVD Skin General skin exam: turgor normal Rashes: no rashes Neuro General: patient oriented x3 Extrem Other: TTP medial comaprtment bilateral knees. Psych Appearance: grossly normal Affect: normal affect Attitude: cooperative Office Procedures Joint Injection/Drain Joint Injection/Drain Details: Injected 1 mL of Decadron and 3 mL 1% lidocaine and 3 mL of 0.25% Marcaine. Site was prepped using aseptic technique. Patient tolerated the procedure well. Primary Site: right knee Secondary Site: left knee Approach Used: anterolateral Coding 96001 - Large joint 17369 - Glenohumeral/Tronchanteric Bursa/Intraarticular Procedure code (CPT) selection complete Assessment & Plan Assessment & Plan (1) Bilateral primary osteoarthritis of knee: Code(s): M17.0 - Bilateral primary osteoarthritis of knee Plan: Bilateral knee OA Injected knees with steroids as gel not helpful Plan Prepared for Juan Daniel Palma MD by Armand Stallings, director medical economics, on 11/19/23 at 10:23 AM, EST. Coding Level of Care Code Est Pt Level 3 (77380) Diagnoses Bilateral primary osteoarthritis of knee M17.0 CPT Codes Coding - 45866 Large joint: 09544 - Large joint ([id number]) Coding - Joint 7: 41759 - Glenohumeral/Tronchanteric Bursa/Intraarticular ([id number])
== END 2023-11-19 10:59 | disposition home or self-care (01) ==
PROVIDERS: PCP Internal Medicine; Visit Provider Orthopaedic Surgery
DX: M17.0 Bilateral primary osteoarthritis of knee (principal)
CPT/HCPCS: 20610; 99213

== ENCOUNTER → 2023-11-19 10:13 | Outpatient (BNVA) | payer MEDICARE, SELFPAY | PROVIDERS: PCP Internal Medicine; Visit Provider Orthopaedic Surgery | DX: M17.0 Bilateral primary osteoarthritis of knee (principal) | CPT/HCPCS: 20610; 99212; J0665; J1100 ==

== ENCOUNTER 2023-12-31 14:52 | Outpatient (REF) | payer MEDICARE, SELFPAY ==
[2023-12-31 15:14] LABS: MANUAL DIFF FLAG NO
[2023-12-31 15:35] LABS: Basophils Absolute Auto 0.1 X10*3/uL (0.0-0.2); Eosinophils Absolute Auto 0.3 X10*3/uL (0.0-0.4); Eosinophils Percent Auto 3.8 % (0-4); Hematocrit 40.2 % (42.0-52.0); Hemoglobin 13.8 g/dl (14.0-18.0); Imm Gran Abs Auto 0.02 X10*3/uL (0.00-0.03); Imm Gran Pct Auto 0.3 % (0.0-0.4); Lymphocytes Absolute Auto 1.4 X10*3/uL (1.2-4.9); Mean Corpuscular HGB Conc 34.3 g/dl (31.0-36.0); Mean Corpuscular Hemoglobin 31.8 pg (27.0-33.0); Mean Corpuscular Volume 92.6 fL (80.0-98.0); Mean Platelet Volume 9.1 fL (9.4-12.4); Monocytes Absolute Auto 0.6 X10*3/uL (0.1-1.2); Neutrophils Absolute Auto 4.6 x10*3/uL (2.0-8.3); Neutrophils Percent Auto 66.9 % (45-73); Platelet Count 248 X10*3/uL (160-400); Red Blood Count 4.34 X10*6/uL (4.60-5.80); Red Cell Distribution Width 13.3 % (11.0-16.0); White Blood Count 6.9 X10*3/uL (4.8-10.8)
[2023-12-31 15:41] LABS: Estimated Average Glucose 117 mg/dL; Hemoglobin A1c % 5.7 % (<6.0)
[2023-12-31 16:03] LABS: Alanine Aminotransferase 27 U/L (0-40); Albumin Level 4.2 g/dL (3.5-5.0); Alkaline Phosphatase 92 U/L (39-117); Anion Gap 16 (12-20); Aspartate Amino Transferase 25 U/L (5-37); Bilirubin Total 0.4 mg/dL (0.0-1.0); Blood Urea Nitrogen 21 mg/dL (9-16); Calcium 9.2 mg/dL (8.4-10.2); Carbon Dioxide 22 mmol/L (22-29); Chloride 107 mmol/L (96-108); Estimated Glomerular Filt Rate 56; Glucose Random 122 mg/dL (60-115); Iron 85 mcg/dL (45-160); Percent Iron Saturation 34 % (15-50); Potassium 5.3 mmol/L (3.3-5.1); Sodium 140 mmol/L (135-145); Total Iron Binding Capacity 251 mcg/dL (228-428); Total Protein 7.2 g/dL (6.5-8.0); Unsaturated Iron Binding 166 ug/dL
== END 2023-12-31 14:53 | disposition home or self-care (01) ==
LOC: HO.LAB 14:52
PROVIDERS: PCP Internal Medicine; Visit Provider Internal Medicine
DX: I21.9 Acute myocardial infarction, unspecified (principal); E11.22 Type 2 diabetes mellitus with diabetic chronic kidney disease; N18.9 Chronic kidney disease, unspecified; M19.90 Unspecified osteoarthritis, unspecified site
CPT/HCPCS: 36415; 80053; 83036; 83540; 85025

== ENCOUNTER 2024-01-12 12:45 | Outpatient (AMB) | payer MEDICARE, SELFPAY ==
--- NOTE | 2024-01-12 12:46 | MHC.OFFVIS ---
Intake Intake Visit Reasons: 3m follow up Intake Note: Patient is Present for Telephone Follow Up Urology Med: Fesoterodine, Terazosin Antibiotic Allergy: None Blood Thinner: Aspirin Allergies No Known Allergies Allergy (Verified 01/12/24 12:47) Medication List - Last Reconciled 01/12/24 by Fracisco Drake MD aspirin (Shlomo Low Dose Aspirin) 81 mg PO DAILY atorvastatin 10 mg PO DAILY cefuroxime axetil 500 mg PO BID 7 days cefuroxime axetil 250 mg PO BID chlorhexidine gluconate 0.12% mL PO gabapentin 100 mg PO BID lisinopril 5 mg PO DAILY metformin ER 500 mg PO BID mirabegron ER 25 mg PO DAILY 30 days omeprazole 40 mg PO DAILY 30 days potassium citrate ER 10 mEq PO BID 90 days terazosin 2 mg PO BEDTIME 90 days timolol maleate 0.5% 1 drp ophthalmic (eye) DAILY HPI HPI Comments History of Present Illness Details Alon RAI is a very pleasant male. . He is a patient of Dr Palacio. He is seen for the following urologic conditions. - nephrolithiasis - lower urinary tract symptoms Telemedicine Evaluation 15 min Consultation [address] Luis Armando Video attempted Nocturia times 3-4 Will switch from Toviaz to Myrbetriq May benefit from Advil p.m. Prior PVR 14 cc Has better control during combination Toviaz and terazosin Cystoscopy with relatively open bladder neck Failed oxybutynin, tadalafil Lower Urinary tract symptoms Had episode of urinary tract infection 04/18/2022 E coli pansensitive with recurrence May 2022 PSA 05/02 0.25 Background of diabetes at last HbA1c May 2022 6.5%, 07/04 6.1% Describes nocturia x2, weak stream, dribbling Cystoscopy - open bladder neck Prior therapy includes oxybutynin, tadalafil Has post UTI type syndrome Nephrolithiasis/Urolithiasis:? They are here for?discussed imaging results ?- continue good response to Urocit-K ? Urolithiasis was diagnosed?05/28 [facility] [place] with left-sided flank pain. Imaging suggested stone has passed..? The patient previously had kidney stones whose composition w?unknown.? Laboratory investigations include?07/28 , Normocalcemia (9.0), Normal PTH, Hyperuricemia.? 24 Hour urine evaluation?07/28 , Low Urine volume < 2.0 liters, Low calcium < 200, High oxalate > 30mg, Low citrate < 400, Low urine pH < 5.5 ?- advised to increase fluid, watch nuts and potates, add tums before main meal for binding. ? Prior treatment(s) include?07/29 medical management, with potassium citrate.? Prior imaging includes?05/28 , a CT (computed tomography) scan of the abdomen/pelvis (stone protocol) multiple 1-2 mm stones left kidney ?01/27 , a renal ultrasound L 3x4mm stones ?07/29 , a renal ultrasound, decreased left side stones ?01/28 , a renal ultrasound, left 5mm x 2 stones ?07/30 , a renal ultrasound, showing no evidence of stones ?10/31 CT with 4mm stones ?12/01 , a renal ultrasound, small left 2mm stone ?05/31 , a renal ultrasound, showing no evidence of stones.?, 06/01 renal US small right stone, left cyst - 06/02 ultrasound 3 mm stone right, 1.5 cm cyst left ? Current therapeutic plan will be?to continue with imaging surveillance and medical therapy. PFSH Medical History Bacteremia Vasovagal syncope Nocturia Hyperuricemia COVID-19 vaccine administered Hx of orthostatic hypotension Hx of glaucoma Arthritis Hx of renal calculi HTN (hypertension) Hypercholesteremia Diabetes mellitus, type 2 Surgical History Hx of lithotripsy H/O colonoscopy Social History Household Members: None Housing: House Are you a primary assistant child care teacher to a significant other at home: No Do you presently have visiting nurse or other home services: No Alcohol intake: never Patient Tobacco Use Status: Never used Tobacco Advance Directives Date on File: 05/03/22 service: No Current occupational status: retired Review of Systems Const All systems reviewed & are unremarkable except as noted in HPI and below Reports no additional complaints Resp Reports no additional complaints GI Reports no additional complaints Reports as per HPI Musc Reports no additional complaints Physical Exam Telemedicine evaluation Appropriate responses Regular breathing rate and rhythm HEENT Head: Yes normal to inspection Ears: hearing grossly normal bilaterally Eyes General: appearance normal, both eyes and all related structures Neck Neck: Yes normal visual inspection Chest Chest palpation & inspection: normal inspection of the chest Resp Effort & Inspection: normal respiratory effort and able to speak in complete sentences Assessment & Plan Assessment & Plan (1) Bladder instability: Code(s): N32.89 - Other specified disorders of bladder Plan 2 month follow-up office Medications: New mirabegron ER 25 mg PO DAILY 30 days 30 tabs 1RF N32.81 - Overactive bladder, N32.89 - Other specified disorders of bladder Discontinued doxycycline hyclate Discontinued Reason: Patient Completed Course 100 mg PO BID 7 days 14 caps 0RF fesoterodine ER Discontinued Reason: Patient Completed Course 8 mg PO DAILY 30 days 30 tabs 2RF R39.15 - Urgency of urination Patient Instructions: Imaging studies, laboratory and physical exam results were discussed and reviewed in detail. No major barriers to patient understanding were identified. An opportunity to ask questions regarding the treatment plan was provided. All questions were answered. The patient expressed understanding and agreement with the above treatment plan. The patient is aware they should contact our office by phone for worsening of their current condition or the appearance of new urologic symptoms. Compliance is encouraged with any medications and followup testing that is ordered. It is a privilege to participate in the urologic care of your patient. If you have any questions or concerns regarding treatment for the above conditions, or other urologic issues, please do not hesitate to contact me. The office telephone contact is [phone]. This note is constructed using voice recognition software. While every effort has been made to ensure accuracy circular saw filer errors may have been included. Yours sincerely, Dr Fracisco Drake MD, [facility] - Urology Providers of Expert, Compassionate Care for the Genitourinary System Telehealth Telehealth Location of provider rendering services: practice address Location of patient: address on file Patient Identification confirmed using: Name, : Yes Telehealth method: video Patient verbally consented to treatment: Yes Patient verbally consented to billing insurance company: Yes Patient informed of any privacy concerns related to visit: Yes Coding Level of Care Code Tele Est Pt Level 3 (23324) Diagnoses Bladder instability N32.89
== END 2024-01-12 13:34 | disposition home or self-care (01) ==
LOC: HO.HUSH 12:46
PROVIDERS: PCP Internal Medicine; Visit Provider Urology
DX: N32.89 Other specified disorders of bladder (principal)
CPT/HCPCS: 99213

== ENCOUNTER → 2024-01-12 12:45 | Outpatient (BNVA) | payer MEDICARE, SELFPAY | PROVIDERS: PCP Internal Medicine; Visit Provider Urology ==

== ENCOUNTER 2024-02-18 09:39 | Outpatient (AMB) | payer MEDICARE, SELFPAY ==
--- NOTE | 2024-02-18 09:40 | A.OFFVIS_ITS ---
Vital Signs 02/18/24 09:41 Height 5 ft 9 in Weight 240 lb BMI 35.4 Intake Visit Reasons: OV-Bilateral Knee Pain- 08/17/23- follow up Intake Note: Alon is a 72 year old male who presents today for a follow up of his bilateral knee OA s/p Euflexxa Injections 05/01/23-06/04/23. Bilateral knees were injected on 11/19/23 with cortisone as the Euflexxa was not helpful. He would like to repeat injections today Allergies No Known Allergies Allergy (Verified 01/12/24 12:47) HPI HPI OV-Bilateral Knee Pain- 08/17/23- follow up: Details: Alon is a 72 year old male who presents today for a follow up of his bilateral knee OA s/p Euflexxa Injections 05/01/23-06/04/23. Bilateral knees were injected on 11/19/23 with cortisone as the Euflexxa was not helpful. He would like to repeat injections today PFSH Medical History Bacteremia Vasovagal syncope Nocturia Hyperuricemia COVID-19 vaccine administered Hx of orthostatic hypotension Hx of glaucoma Arthritis Hx of renal calculi HTN (hypertension) Hypercholesteremia Diabetes mellitus, type 2 Surgical History Hx of lithotripsy H/O colonoscopy Social History Household Members: None Housing: House Are you a primary respiratory care program director to a significant other at home: No Do you presently have visiting nurse or other home services: No Alcohol intake: never Patient Tobacco Use Status: Never used Tobacco Advance Directives Date on File: 05/03/22 service: No Current occupational status: retired Physical Exam Vital Signs: BMI result Body Mass Index 35.4 Const General: no acute distress, alert and awake Orientation/consciousness: patient oriented x3 HEENT Head: Yes normocephalic and Yes atraumatic Eyes EOM: EOMs intact bilaterally Resp Effort & Inspection: normal respiratory effort and able to speak in complete sentences Cardio Jugular venous distension: no JVD Skin General skin exam: turgor normal Rashes: no rashes Neuro General: patient oriented x3 Extrem Other: TTP medial comaprtment bilateral knees. Psych Appearance: grossly normal Affect: normal affect Attitude: cooperative Office Procedures Joint Injection/Drain Joint Injection/Drain Details: Injected 1 mL of Decadron and 3 mL 1% lidocaine and 3 mL of 0.25% Marcaine. Site was prepped using aseptic technique. Patient tolerated the procedure well. Primary Site: right knee Secondary Site: left knee Approach Used: anterolateral Coding - Large joint - Glenohumeral/Tronchanteric Bursa/Intraarticular Procedure code (CPT) selection complete Assessment & Plan Assessment & Plan (1) Bilateral primary osteoarthritis of knee: Code(s): M17.0 - Bilateral primary osteoarthritis of knee Category: Medical Plan: Bilateral knee OA Injected knees with steroids. Discussed TKA but he is functional and can walk 20-30 minutes. (2) Diabetes mellitus, type 2: Comment: taking metformin Code(s): E11.9 - Type 2 diabetes mellitus without complications Category: Medical Plan: Informed of the hyperglycemic effects of steroids Plan I injected his bilateral knees today, return no sooner than 3 months for repeat injections. Coding Level of Care Code Est Pt Level 4 (50632) Diagnoses Bilateral primary osteoarthritis of knee M17.0 Diabetes mellitus, type 2 E11.9 CPT Codes Coding - Large joint: 40764 - Large joint ([id number]) Coding - Joint 7: - Glenohumeral/Tronchanteric Bursa/Intraarticular ([id number])
[2024-02-18 09:41] VITALS: BMI 35.4
== END 2024-02-18 10:02 | disposition home or self-care (01) ==
PROVIDERS: PCP Internal Medicine; Visit Provider Orthopaedic Surgery
DX: M17.0 Bilateral primary osteoarthritis of knee (principal); E11.9 Type 2 diabetes mellitus without complications
CPT/HCPCS: 20610; 99214

== ENCOUNTER → 2024-02-18 09:39 | Outpatient (BNVA) | payer MEDICARE, SELFPAY | PROVIDERS: PCP Internal Medicine; Visit Provider Orthopaedic Surgery | DX: M17.0 Bilateral primary osteoarthritis of knee (principal); E11.9 Type 2 diabetes mellitus without complications | CPT/HCPCS: 20610; 99212; J0665; J1100 ==

== ENCOUNTER 2024-03-16 13:08 | Outpatient (AMB) | payer MEDICARE, SELFPAY ==
--- NOTE | 2024-03-16 13:09 | A.OFFVIS_ITS ---
Intake Visit Reasons: 2m follow up Intake Note: Patient is Present for Telephone Follow Up Urology Med: Fesoterodine, Terazosin Antibiotic Allergy: None Blood Thinner: Aspirin Hair Worker Required: No Accompanied by: Self / Same As Patient Allergies No Known Allergies Allergy (Verified 05/20/24 08:28) HPI Comments Details: Alon RAI is a very pleasant male. . He is a patient of Dr Palacio. He is seen for the following urologic conditions. - nephrolithiasis - lower urinary tract symptoms Telemedicine Evaluation 15 min Consultation [employer] Luis Armando Video attempted Nocturia times 3-4 Will switch from Toviaz to Myrbetriq May benefit from Advil p.m. Prior PVR 14 cc Has better control during combination Toviaz and terazosin Cystoscopy with relatively open bladder neck Failed oxybutynin, tadalafil Lower Urinary tract symptoms Had episode of urinary tract infection 04/18/2022 E coli pansensitive with recurrence May 2022 PSA 05/02 0.25 Background of diabetes at last HbA1c May 2022 6.5%, 07/04 6.1% Describes nocturia x2, weak stream, dribbling Cystoscopy - open bladder neck Prior therapy includes oxybutynin, tadalafil Has post UTI type syndrome Nephrolithiasis/Urolithiasis:? They are here for?discussed imaging results ?- continue good response to Urocit-K ? Urolithiasis was diagnosed?05/28 [facility] [place] left-sided flank pain. Imaging suggested stone has passed..? The patient previously had kidney stones whose composition w?unknown.? Laboratory investigations include?07/28 , Normocalcemia (9.0), Normal PTH, Hyperuricemia.? 24 Hour urine evaluation?07/28 , Low Urine volume < 2.0 liters, Low calcium < 200, High oxalate > 30mg, Low citrate < 400, Low urine pH < 5.5 ?- advised to increase fluid, watch nuts and potates, add tums before main meal for binding. ? Prior treatment(s) include?07/29 medical management, with potassium citrate.? Prior imaging includes?05/28 , a CT (computed tomography) scan of the abdomen/pelvis (stone protocol) multiple 1-2 mm stones left kidney ?01/27 , a renal ultrasound L 3x4mm stones ?07/29 , a renal ultrasound, decreased left side stones ?01/28 , a renal ultrasound, left 5mm x 2 stones ?07/30 , a renal ultrasound, showing no evidence of stones ?10/31 CT with 4mm stones ?12/01 , a renal ultrasound, small left 2mm stone ?05/31 , a renal ultrasound, showing no evidence of stones.?, 06/01 renal US small right stone, left cyst - 06/02 ultrasound 3 mm stone right, 1.5 cm cyst left ? Current therapeutic plan will be?to continue with imaging surveillance and medical therapy. PFSH Medical History Bacteremia Vasovagal syncope Nocturia Hyperuricemia COVID-19 vaccine administered Hx of orthostatic hypotension Hx of glaucoma Arthritis Hx of renal calculi HTN (hypertension) Hypercholesteremia Diabetes mellitus, type 2 Surgical History Hx of lithotripsy H/O colonoscopy Social History Household Members: None Housing: House Are you a primary director of career resources to a significant other at home: No Do you presently have visiting nurse or other home services: No Alcohol intake: never Patient Tobacco Use Status: Never used Tobacco Advance Directives Date on File: 05/03/22 service: No Current occupational status: retired Review of Systems Const All systems reviewed & are unremarkable except as noted in HPI and below Reports no additional complaints Resp Reports no additional complaints GI Reports no additional complaints Reports as per HPI Musc Reports no additional complaints Physical Exam Telemedicine evaluation Appropriate responses Regular breathing rate and rhythm HEENT Head: Yes normal to inspection Ears: hearing grossly normal bilaterally Eyes General: appearance normal, both eyes and all related structures Neck Neck: Yes normal visual inspection Chest Chest palpation & inspection: normal inspection of the chest Resp Effort & Inspection: normal respiratory effort and able to speak in complete sentences Telehealth Telehealth Telehealth Platform: [employer] Location of provider rendering services: practice address Location of patient: address on file Patient Identification confirmed using: Name, : Yes Telehealth method: video Patient verbally consented to treatment: Yes Patient verbally consented to billing insurance company: Yes Patient informed of any privacy concerns related to visit: Yes Minutes spent on Phone/Video with Pt.: 15 Assessment & Plan Assessment & Plan (1) Urinary urgency: Code(s): R39.15 - Urgency of urination Category: Medical (2) Bladder instability: Code(s): N32.89 - Other specified disorders of bladder Category: Medical Plan 6m f/u Patient Instructions: Imaging studies, laboratory and physical exam results were discussed and reviewed in detail. No major barriers to patient understanding were identified. An opportunity to ask questions regarding the treatment plan was provided. All questions were answered. The patient expressed understanding and agreement with the above treatment plan. The patient is aware they should contact our office by phone for worsening of their current condition or the appearance of new urologic symptoms. Compliance is encouraged with any medications and followup testing that is ordered. It is a privilege to participate in the urologic care of your patient. If you have any questions or concerns regarding treatment for the above conditions, or other urologic issues, please do not hesitate to contact me. The office telephone contact is [phone]. This note is constructed using voice recognition software. While every effort has been made to ensure accuracy materials engineer errors may have been included. Yours sincerely, Dr Fracisco Drake MD, [facility] - Urology Providers of Expert, Compassionate Care for the Genitourinary System Coding Level of Care Code Tele Est Pt Level 3 (51942) Diagnoses Urinary urgency R39.15 Bladder instability N32.89
--- OUTSIDE RECORDS SUMMARY | 2024-03-18 10:34 | XMS_ITS | Continuity of Care Document ---
Author Organization [facility] Address [address] [place] [address]- Care Team Providers Care Company Accountant Name Role Phone Not on Staff, PCP Primary Care Physician Unavail able Encounter [facility] [place] Date(s): 05/14/22 - 06/13/[address] [address]- Attending Physician: Not on Staff, Attending MD Admitting Physician: Not on Staff, Admitting MD Referring Physician: Not on Staff, Referring MD Care Team Personnel Name: Not on Staff, PCP
--- OUTSIDE RECORDS SUMMARY | 2024-03-18 10:34 | XMS_ITS | Patient Health Record ---
Author Organization [facility] Address [address] [place] [address] Care Team Providers Care Box Machine Operator Name Role Phone Dave Palacio MD Primary Care Provider Emigdio Schaefer Jr Unavailable REASON FOR REFERRAL No Information [...] Problem Colon cancer screening (Z12.11) Active confirmed 992312552 Problem Personal history of colonic polyps (Z86.010) Active confirmed 380004576 Problem Diverticulosis of large intestine without hemorrhage (K57.30) Active confirmed 694429717 Problem Colitis (K52.9) Active confirmed 242479 004 Problem Long-term use of aspirin therapy (Z79.82) Active confirmed 122722573 PLAN OF TREATMENT Pending Test Test Name Order Date COLONOSCOPY WITH BIOPSY 07/04/2011 Future Test Test Name Order Date COLONOSCOPY 09/19/2015 COLONOSCOPY 01/24/2021 Insurance Providers Payer Name Payer Address Payer Phone Subscriber Number Group Number Insured Name Patient Relationship to Insured Coverage Start Date Coverage End Date [facility] [address] [place] [phone] [id number] ELEAZAR RAI Self - patient is the insured MEDICAL (GENERAL) HISTORY Medical History History ICD Code Colonoscopy 12/12/15, history of tubular a denomas, five-year followup 12/30 Glaucoma Arthritis elevated cholesterol hypertension diabetes Surgical History Surgery Date(Month/Year)
--- OUTSIDE RECORDS SUMMARY | 2024-03-18 10:34 | XMS_ITS | Patient Health Record ---
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
== END 2024-03-16 16:30 | disposition home or self-care (01) ==
LOC: HO.HUSH 13:09
PROVIDERS: PCP Internal Medicine; Visit Provider Urology
DX: R39.15 Urgency of urination (principal); N32.89 Other specified disorders of bladder
CPT/HCPCS: 99213

== ENCOUNTER → 2024-03-16 13:08 | Outpatient (BNVA) | payer MEDICARE, SELFPAY | PROVIDERS: PCP Internal Medicine; Visit Provider Urology ==

== ENCOUNTER 2024-04-08 13:42 | Outpatient (AMB) | payer MEDICARE, SELFPAY ==
--- NOTE | 2024-04-08 13:43 | A.OFFVIS_ITS ---
Intake Visit Reasons: 2m/Follow up Intake Note: Patient is Present for Telephone Follow Up Urology Med: Myrbetriq Antibiotic Allergy:None Blood Thinner: Aspirin Allergies No Known Allergies Allergy (Verified 04/08/24 13:44) Medication List - Last Reconciled 04/08/24 by Fracisco Drake MD aspirin (Shlomo Low Dose Aspirin) 81 mg PO DAILY atorvastatin 10 mg PO DAILY cefuroxime axetil 500 mg PO BID 7 days cefuroxime axetil 250 mg PO BID chlorhexidine gluconate 0.12% mL PO gabapentin 100 mg PO BID lisinopril 5 mg PO DAILY metformin ER 500 mg PO BID mirabegron ER 25 mg PO DAILY 90 days omeprazole 40 mg PO DAILY 30 days potassium citrate ER 10 mEq PO BID 90 days timolol maleate 0.5% 1 drp ophthalmic (eye) DAILY HPI Comments Details: Alon RAI is a very pleasant male. . He is a patient of Dr Palacio. He is seen for the following urologic conditions. - nephrolithiasis - lower urinary tract symptoms Telemedicine Evaluation 15 min Consultation [facility] Luis Armando Video attempted Noticed significant improvement with Myrbetriq Did offer higher dose Would like to stay with what he has Prior PVR 14 cc Has better control during combination terazosin Cystoscopy with relatively open bladder neck Failed oxybutynin, tadalafil, terazosin Lower Urinary tract symptoms Had episode of urinary tract infection 04/18/2022 E coli pansensitive with recurrence May 2022 PSA 05/02 0.25 Background of diabetes at last HbA1c May 2022 6.5%, 07/04 6.1%, 01/02 5.7 Describes nocturia x2, weak stream, dribbling Cystoscopy - open bladder neck Prior therapy includes oxybutynin, tadalafil Has post UTI type syndrome Nephrolithiasis/Urolithiasis:? They are here for?discussed imaging results ?- continue good response to Urocit-K ? Urolithiasis was diagnosed?05/28 [facility] ER with left-sided flank pain. Imaging suggested stone has passed..? The patient previously had kidney stones whose composition w?unknown.? Laboratory investigations include?07/28 , Normocalcemia (9.0), Normal PTH, Hyperuricemia.? 24 Hour urine evaluation?07/28 , Low Urine volume < 2.0 liters, Low calcium < 200, High oxalate > 30mg, Low citrate < 400, Low urine pH < 5.5 ?- advised to increase fluid, watch nuts and potates, add tums before main meal for binding. ? Prior treatment(s) include?07/29 medical management, with potassium citrate.? Prior imaging includes?05/28 , a CT (computed tomography) scan of the abdomen/pelvis (stone protocol) multiple 1-2 mm stones left kidney ?01/27 , a renal ultrasound L 3x4mm stones ?07/29 , a renal ultrasound, decreased left side stones ?01/28 , a renal ultrasound, left 5mm x 2 stones ?07/30 , a renal ultrasound, showing no evidence of stones ?10/31 CT with 4mm stones ?12/01 , a renal ultrasound, small left 2mm stone ?05/31 , a renal ultrasound, showing no evidence of stones.?, 06/01 renal US small right stone, left cyst - 06/02 ultrasound 3 mm stone right, 1.5 cm cyst left ? Current therapeutic plan will be?to continue with imaging surveillance and medical therapy. PFSH Medical History Bacteremia Vasovagal syncope Nocturia Hyperuricemia COVID-19 vaccine administered Hx of orthostatic hypotension Hx of glaucoma Arthritis Hx of renal calculi HTN (hypertension) Hypercholesteremia Diabetes mellitus, type 2 Surgical History Hx of lithotripsy H/O colonoscopy Social History Household Members: None Housing: House Are you a primary career services representative to a significant other at home: No Do you presently have visiting nurse or other home services: No Alcohol intake: never Patient Tobacco Use Status: Never used Tobacco Advance Directives Date on File: 05/03/22 service: No Current occupational status: retired Review of Systems Const All systems reviewed & are unremarkable except as noted in HPI and below Reports no additional complaints Resp Reports no additional complaints GI Reports no additional complaints Reports as per HPI Musc Reports no additional complaints Physical Exam Telemedicine evaluation Appropriate responses Regular breathing rate and rhythm HEENT Head: Yes normal to inspection Ears: hearing grossly normal bilaterally Eyes General: appearance normal, both eyes and all related structures Neck Neck: Yes normal visual inspection Chest Chest palpation & inspection: normal inspection of the chest Resp Effort & Inspection: normal respiratory effort and able to speak in complete sentences Telehealth Telehealth Location of provider rendering services: practice address Location of patient: address on file Patient Identification confirmed using: Name, : Yes Telehealth method: video Patient verbally consented to treatment: Yes Patient verbally consented to billing insurance company: Yes Patient informed of any privacy concerns related to visit: Yes Assessment & Plan Assessment & Plan (1) Bladder instability: Code(s): N32.89 - Other specified disorders of bladder Category: Medical (2) Bladder outlet obstruction: Code(s): N32.0 - Bladder-neck obstruction Category: Medical Plan Six-month follow-up office Medications: Changed From mirabegron ER 25 mg PO DAILY 30 days 30 tabs 1RF N32.81 - Overactive bladder, N32.89 - Other specified disorders of bladder To mirabegron ER 25 mg PO DAILY 90 days 90 tabs 1RF N32.81 - Overactive bladder, N32.89 - Other specified disorders of bladder Patient Instructions: Imaging studies, laboratory and physical exam results were discussed and reviewed in detail. No major barriers to patient understanding were identified. An opportunity to ask questions regarding the treatment plan was provided. All questions were answered. The patient expressed understanding and agreement with the above treatment plan. The patient is aware they should contact our office by phone for worsening of their current condition or the appearance of new urologic symptoms. Compliance is encouraged with any medications and followup testing that is ordered. It is a privilege to participate in the urologic care of your patient. If you have any questions or concerns regarding treatment for the above conditions, or other urologic issues, please do not hesitate to contact me. The office telephone contact is [phone]. This note is constructed using voice recognition software. While every effort has been made to ensure accuracy waste salvager errors may have been included. Yours sincerely, Dr Fracisco Drake MD, [facility] - Urology Providers of Expert, Compassionate Care for the Genitourinary System Coding Level of Care Code Tele Est Pt Level 3 (02651) Diagnoses Bladder instability N32.89 Bladder outlet obstruction N32.0
== END 2024-04-08 14:14 | disposition home or self-care (01) ==
LOC: HO.HUSH 13:42
PROVIDERS: PCP Internal Medicine; Visit Provider Urology
DX: N32.89 Other specified disorders of bladder (principal); N32.0 Bladder-neck obstruction
CPT/HCPCS: 99213

== ENCOUNTER → 2024-04-08 13:42 | Outpatient (BNVA) | payer MEDICARE, SELFPAY | PROVIDERS: PCP Internal Medicine; Visit Provider Urology ==

== ENCOUNTER 2024-04-11 13:44 | Outpatient (REF) | payer MEDICARE, SELFPAY ==
[2024-04-11 14:50] VITALS: BP 132/63; PULSE 98; RESP 16; TEMP 36.3; O2SAT 95; BMI 28.7
== END 2024-04-11 13:45 | disposition home or self-care (01) ==
LOC: HO.MS 13:44
PROVIDERS: PCP Internal Medicine; Visit Provider Ophthalmology
PROC: (CPT 67840; principal; 2024-04-11 15:30)
DX: D23.112 Other benign neoplasm of skin of right lower eyelid, including canthus (principal)
CPT/HCPCS: 67840; 88304; 88305

== ENCOUNTER 2024-05-20 09:17 | Outpatient (AMB) | payer MEDICARE, SELFPAY ==
[2024-05-20 08:27] VITALS: BMI 28.7
--- NOTE | 2024-05-20 08:27 | MHC.OFFVIS ---
Vital Signs 05/20/24 08:27 Height 5 ft 10 in Weight 200 lb BMI 28.7 Intake Visit Reasons: OV-B/L knee injection-last injection 02/18/24 Intake Note: Alon is a 72 year old male who presents today for a follow up of his bilateral knee OA s/p Euflexxa Injections 05/01/23-06/04/23 & Cortisone injected on 02/18/24. Patient reports that the cortisone was not helpful but he would like to repeat injections today. Allergies No Known Allergies Allergy (Verified 05/20/24 08:28) HPI HPI OV-B/L knee injection-last injection 02/18/24: Details: Alon is a 72 year old male who presents today for a follow up of his bilateral knee OA s/p Euflexxa Injections 05/01/23-06/04/23 & Cortisone injected on 02/18/24. Patient reports that the cortisone was not helpful but he would like to repeat injections today. [facility] Medical History Bacteremia Vasovagal syncope Nocturia Hyperuricemia COVID-19 vaccine administered Hx of orthostatic hypotension Hx of glaucoma Arthritis Hx of renal calculi HTN (hypertension) Hypercholesteremia Diabetes mellitus, type 2 Surgical History Hx of lithotripsy H/O colonoscopy Social History Household Members: None Housing: House Are you a primary team primary care physician to a significant other at home: No Do you presently have visiting nurse or other home services: No Alcohol intake: never Patient Tobacco Use Status: Never used Tobacco Advance Directives Date on File: 05/03/22 service: No Current occupational status: retired Physical Exam Vital Signs: BMI result Body Mass Index 28.7 Const General: no acute distress, alert and awake Orientation/consciousness: patient oriented x3 HEENT Head: Yes normocephalic and Yes atraumatic Eyes EOM: EOMs intact bilaterally Resp Effort & Inspection: normal respiratory effort and able to speak in complete sentences Cardio Jugular venous distension: no JVD Skin General skin exam: turgor normal Rashes: no rashes Neuro General: patient oriented x3 Extrem Other: TTP medial comaprtment bilateral knees. Psych Appearance: grossly normal Affect: normal affect Attitude: cooperative Office Procedures Joint Injection/Aspiration Joint Injection/Aspiration Details: Injected 1 mL of Decadron and 3 mL 1% lidocaine and 3 mL of 0.25% Marcaine. Site was prepped using aseptic technique. Patient tolerated the procedure well. Primary Site: right knee Secondary Site: left knee Approach Used: anterolateral Coding - Large joint - Glenohumeral/Tronchanteric Bursa/Intraarticular Procedure code (CPT) selection complete Assessment & Plan Assessment & Plan (1) Bilateral primary osteoarthritis of knee: Code(s): M17.0 - Bilateral primary osteoarthritis of knee Category: Medical Plan: I injected bilateral knees. Alon is a candidate for arthroplasty but he is functional and injections are adequate for now. He will follow up in 3 months. (2) Diabetes mellitus, type 2: Comment: taking metformin Code(s): E11.9 - Type 2 diabetes mellitus without complications Category: Medical Plan: I informed him of the hyperglycemic effects of steroids. He expressed understanding. Coding Level of Care Code Est Pt Level 4 (97927) Diagnoses Bilateral primary osteoarthritis of knee M17.0 Diabetes mellitus, type 2 E11.9 CPT Codes Coding - Large joint: 78720 - Large joint ([id number]) Coding - Joint 7: 65840 - Glenohumeral/Tronchanteric Bursa/Intraarticular ([id number])
== END 2024-05-20 09:45 | disposition home or self-care (01) ==
PROVIDERS: PCP Internal Medicine; Visit Provider Orthopaedic Surgery
DX: M17.0 Bilateral primary osteoarthritis of knee (principal); E11.9 Type 2 diabetes mellitus without complications
CPT/HCPCS: 20610; 99214

== ENCOUNTER → 2024-05-20 09:17 | Outpatient (BNVA) | payer MEDICARE, SELFPAY | PROVIDERS: PCP Internal Medicine; Visit Provider Orthopaedic Surgery | DX: M17.0 Bilateral primary osteoarthritis of knee (principal); E11.9 Type 2 diabetes mellitus without complications | CPT/HCPCS: 20610; 99212; J0665; J1100 ==

== ENCOUNTER 2024-07-01 08:52 | Outpatient (REF) | payer MEDICARE, SELFPAY ==
[2024-07-01 09:10] LABS: MANUAL DIFF FLAG NO
[2024-07-01 09:43] LABS: Appearance Urine Clear; Color Urine Yellow; Glucose Urine UA Negative (Negative); Leukocyte Esterase Urine Negative (Negative); Nitrite Urine Negative (Negative); Specific Gravity - Urine 1.015 (1.005-1.025); Urine Blood Negative (Negative); Urine Ketones Negative (Negative); Urine Protein Negative (Neg-Trace)
[2024-07-01 09:44] LABS: Basophils Absolute Auto 0.1 X10*3/uL (0.0-0.2); Basophils Percent Auto 1.3 % (0-2); Eosinophils Absolute Auto 0.5 X10*3/uL (0.0-0.4); Hematocrit 39.3 % (42.0-52.0); Hemoglobin 13.1 g/dl (14.0-18.0); Imm Gran Abs Auto 0.02 X10*3/uL (0.00-0.03); Imm Gran Pct Auto 0.3 % (0.0-0.4); Lymphocytes Absolute Auto 0.8 X10*3/uL (1.2-4.9); Lymphocytes Percent Auto 12.7 % (20-40); Mean Corpuscular HGB Conc 33.3 g/dl (31.0-36.0); Mean Corpuscular Hemoglobin 30.9 pg (27.0-33.0); Mean Corpuscular Volume 92.7 fL (80.0-98.0); Mean Platelet Volume 9.5 fL (9.4-12.4); Monocytes Absolute Auto 0.6 X10*3/uL (0.1-1.2); Monocytes Percent Auto 10.5 % (2-11); Neutrophils Percent Auto 67.2 % (45-73); Platelet Count 195 X10*3/uL (160-400); Red Blood Count 4.24 X10*6/uL (4.60-5.80); Red Cell Distribution Width 13.3 % (11.0-16.0)
[2024-07-01 10:13] LABS: Creatinine Urine 132.79 mg/dL; Microalbum/Creatinine Ratio Ur 10.5 ug/mg cr (<30)
[2024-07-01 10:16] LABS: Alanine Aminotransferase 19 U/L (0-40); Alkaline Phosphatase 91 U/L (39-117); Anion Gap 11 (12-20); Aspartate Amino Transferase 25 U/L (5-37); Bilirubin Total 0.6 mg/dL (0.0-1.0); Blood Urea Nitrogen 14 mg/dL (9-16); Carbon Dioxide 24 mmol/L (22-29); Chloride 109 mmol/L (96-108); Cholesterol 122 mg/dL (<200); Estimated Glomerular Filt Rate > 60; Glucose Fasting 119 mg/dL (60-99); HDL Cholesterol 30 mg/dL (>40); LDL Cholesterol Calculated 67 mg/dL (<100); Potassium 4.7 mmol/L (3.3-5.1); Sodium 139 mmol/L (135-145); Triglycerides 125 mg/dL (<150)
[2024-07-01 10:57] LABS: Estimated Average Glucose 131 mg/dL; Hemoglobin A1c % 6.2 % (<6.0)
== END 2024-07-01 08:53 | disposition home or self-care (01) ==
LOC: HO.LAB 08:52
PROVIDERS: PCP Internal Medicine; Visit Provider Internal Medicine
DX: I10 Essential (primary) hypertension (principal); Z12.5 Encounter for screening for malignant neoplasm of prostate; E78.00 Pure hypercholesterolemia, unspecified; E11.9 Type 2 diabetes mellitus without complications; N18.9 Chronic kidney disease, unspecified; N40.1 Benign prostatic hyperplasia with lower urinary tract symptoms
CPT/HCPCS: 36415; 80053; 80061; 81003; 82043; 82570; 83036; 84153; 85025

== ENCOUNTER 2024-08-22 09:37 | Outpatient (AMB) | payer MEDICARE, SELFPAY ==
--- NOTE | 2024-08-22 09:40 | A.OFFVIS_ITS ---
Intake Visit Reasons: Inj-B/L knee injection-last injection 05/20/24 Intake Note: Alon is a 73 year old male who presents today for bilateral knee injections. His knees were last injected on 05/20/2024. Patient reports that the injections have not been helpful, he is frustrated and continues to have pain. He wants his knees Fixed and declines injections. Hx of Euflexxa Injections 05/01/23-06/04/23 Allergies No Known Allergies Allergy (Verified 08/22/24 09:40) HPI HPI Inj-B/L knee injection-last injection 05/20/24: Details: Alon is a 73 year old male who presents today for bilateral knee injections. His knees were last injected on 05/20/2024. Patient reports that the injections have not been helpful, he is frustrated and continues to have pain. Hx of Euflexxa Injections 05/01/23-06/04/23. He has not benefitted from either steroids or Euflexxa. I have discussed arthroplasty with him as he does have severe knee osteoarthritis. He has expressed hesitation and I have also been concerned given that he lives alone and he seems ambivalent about surgery. Today however he is adamant that the injections are not working and he does not want to live like this. [facility] Medical History Bacteremia Vasovagal syncope Nocturia Hyperuricemia COVID-19 vaccine administered Hx of orthostatic hypotension Hx of glaucoma Arthritis Hx of renal calculi HTN (hypertension) Hypercholesteremia Diabetes mellitus, type 2 Surgical History Hx of lithotripsy H/O colonoscopy Social History Household Members: None Housing: House Are you a primary nurse wound care to a significant other at home: No Do you presently have visiting nurse or other home services: No Alcohol intake: never Patient Tobacco Use Status: Never used Tobacco Advance Directives Date on File: 05/03/22 service: No Current occupational status: retired Physical Exam Const General: no acute distress, alert and awake Orientation/consciousness: patient oriented x3 HEENT Head: Yes normocephalic and Yes atraumatic Eyes EOM: EOMs intact bilaterally Resp Effort & Inspection: normal respiratory effort and able to speak in complete sen tences Cardio Jugular venous distension: no JVD Skin General skin exam: turgor normal Rashes: no rashes Neuro General: patient oriented x3 Extrem Other: TTP medial comaprtment bilateral knees. Psych Appearance: grossly normal Affect: normal affect Attitude: cooperative Office Procedures Joint Inj/Aspir; Non-Pain Clin Joint Injection/Drain Details: Injected 1 mL of Decadron and 3 mL 1% lidocaine and 3 mL of 0.25% Marcaine. Site was prepped using aseptic technique. Patient tolerated the procedure well. Approach Used: anterolateral Shoulders, Hips, Knees, Knee Large Joint Injection : Bilateral Knee Coding Procedure code (CPT) selection complete Assessment & Plan Assessment & Plan (1) Bilateral primary osteoarthritis of knee: Code(s): M17.0 - Bilateral primary osteoarthritis of knee Category: Medical Plan: This is a very pleasant 73-year-old gentleman with severe osteoarthritis bilateral knees. I injected both knees with steroid today. He feels like this will likely not last and I agree with him but he wanted them anyway. I did inform him that arthroplasty needs to wait at least 5 months after injections. He expressed understanding and I will have our nurse navigator contact him and begin the preoperative process for arthroplasty. I would like him to speak with his primary care physician, Dr. Palacio, as well to make sure that he understands the surgery and is comfortable with the postoperative requirements. I have explained this to him multiple times as well. I discussed the risks, benefits and alternatives to arthroplasty including, but not limited to, infection, stiffness, pain, medical complications associated with surgery. He expressed understanding and we will proceed forward accordingly. Coding Level of Care Code Est Pt Level 4 (01755) Diagnoses Bilateral primary osteoarthritis of knee M17.0 CPT Codes Shoulders, Hips, Knees, - Knee Large Joint Injection : Bilateral Knee ([id number])
== END 2024-08-22 10:17 | disposition home or self-care (01) ==
PROVIDERS: PCP Internal Medicine; Visit Provider Orthopaedic Surgery
DX: M17.0 Bilateral primary osteoarthritis of knee (principal)
CPT/HCPCS: 20610; 99214

== ENCOUNTER → 2024-08-22 09:37 | Outpatient (BNVA) | payer MEDICARE, SELFPAY | PROVIDERS: PCP Internal Medicine; Visit Provider Orthopaedic Surgery | DX: M17.0 Bilateral primary osteoarthritis of knee (principal) | CPT/HCPCS: 20610; 99212; J0665; J1100; J2003 ==

== ENCOUNTER 2024-09-21 14:33 | Outpatient (AMB) | payer MEDICARE, SELFPAY ==
--- NOTE | 2024-09-21 14:35 | A.OFFVIS_ITS ---
Intake Visit Reasons: 6m follow up Intake Note: Patient is present for 6M F/U Urology Medication:POTASSIUM,MIRABEGRON Antibiotic Allergy:NONE Blood Thinner:ASPIRIN TODAY'S PVR: 11ML'S On Air Director Required: No Allergies No Known Allergies Allergy (Verified 09/21/24 14:37) HPI Comments Details: Alon RAI is a very pleasant male. . He is a patient of Dr Palacio. He is seen for the following urologic conditions. - nephrolithiasis - lower urinary tract symptoms - primarily bladder instability PVR 0 cc Has had leakage at night in particular Myrbetriq is 125 dollars for three-month Trial Toviaz 8 mg Prior PVR 14 cc Has better control during combination terazosin Cystoscopy with relatively open bladder neck Failed oxybutynin, tadalafil, terazosin Lower Urinary tract symptoms Had episode of urinary tract infection 04/18/2022 E coli pansensitive with recurrence May 2022 PSA 05/02 0.25 Background of diabetes at last HbA1c May 2022 6.5%, 07/04 6.1%, 01/02 5.7 Describes nocturia x2, weak stream, dribbling Cystoscopy - open bladder neck Prior therapy includes oxybutynin, tadalafil Has post UTI type syndrome Nephrolithiasis/Urolithiasis:? They are here for?discussed imaging results ?- continue good response to Urocit-K ? Urolithiasis was diagnosed?05/28 [facility] ER with left-sided flank pain. Imaging suggested stone has passed..? The patient previously had kidney stones whose composition w?unknown.? Laboratory investigations include?07/28 , Normocalcemia (9.0), Normal PTH, Hyperuricemia.? 24 Hour urine evaluation?07/28 , Low Urine volume < 2.0 liters, Low calcium < 200, High oxalate > 30mg, Low citrate < 400, Low urine pH < 5.5 ?- advised to increase fluid, watch nuts and potates, add tums before main meal for binding. ? Prior treatment(s) include?07/29 medical management, with potassium citrate.? Prior imaging includes?05/28 , a CT (computed tomography) scan of the abdomen/pelvis (stone protocol) multiple 1-2 mm stones left kidney ?01/27 , a renal ultrasound L 3x4mm stones ?07/29 , a renal ultrasound, decreased left side stones ?01/28 , a renal ultrasound, left 5mm x 2 stones ?07/30 , a renal ultrasound, showing no evidence of stones ?10/31 CT with 4mm stones ?12/01 , a renal ultrasound, small left 2mm stone ?05/31 , a renal ultrasound, showing no evidence of stones.?, 06/01 renal US small right stone, left cyst - 06/02 ultrasound 3 mm stone right, 1.5 cm cyst left ? Current therapeutic plan will be?to continue with imaging surveillance and medical therapy. [facility] Medical History Bacteremia Vasovagal syncope Nocturia Hyperuricemia COVID-19 vaccine administered Hx of orthostatic hypotension Hx of glaucoma Arthritis Hx of renal calculi HTN (hypertension) Hypercholesteremia Diabetes mellitus, type 2 Surgical History Hx of lithotripsy H/O colonoscopy Social History Household Members: None Housing: House Are you a primary health careers instructor to a significant other at home: No Do you presently have visiting nurse or other home services: No Alcohol intake: never Patient Tobacco Use Status: Never used Tobacco Advance Directives Date on File: 05/03/22 service: No Current occupational status: retired Review of Systems Const Denies chills and Denies fever(s) Card Reports no additional complaints and Denies syncope Resp Denies cough GI Denies abdominal pain and Denies heartburn Reports as per HPI and Denies change in libido Neuro Denies syncope Psych Denies change in libido Endo Denies change in libido Physical Exam Const General: cooperative, healthy appearing, comfortable and no acute distress Orientation/consciousness: patient oriented x3 HEENT Face and sinus: Yes normal facial exam Mouth: moist mucous membranes Neck Neck: Yes normal visual inspection, Yes full ROM and Yes trachea midline Chest Chest palpation & inspection: normal inspection of the chest Resp Effort & Inspection: normal respiratory effort, able to speak in complete sentences and no respiratory distress GI Inspection: Yes normal to inspection Back/Spine/Pelvis Cervical Spine: normal cervical lordosis Thoracic/Lumbar Spine: thoracic and lumbar spine normal to inspection Skin General skin exam: no rashes or lesions noted Neuro General: patient oriented x3, gait normal, tone normal and moves all extremities Extrem General: Yes normal to inspection and Yes capillary refill normal Office Procedures Post Void Residual Post Residual Void Post Void Residual (PVR): 11 66239-Rhug Void Residual by ultrasound Assessment & Plan Assessment & Plan (1) Nocturia more than twice per night: Code(s): R35.1 - Nocturia Category: Medical Plan Two month follow-up tele Medications: New fesoterodine ER 8 mg PO DAILY 30 days 30 tabs 1RF N40.0 - Benign prostatic hyperplasia without lower urinary tract symptoms, R39.15 - Urgency of urination Discontinued mirabegron ER Discontinued Reason: Doctor's Order 25 mg PO DAILY 90 days 90 tabs 1RF N32.81 - Overactive bladder, N32.89 - Other specified disorders of bladder Patient Instructions: Imaging studies, laboratory and physical exam results were discussed and reviewe d in detail. No major barriers to patient understanding were identified. An opportunity to ask questions regarding the treatment plan was provided. All questions were answered. The patient expressed understanding and agreement with the above treatment plan. The patient is aware they should contact our office by phone for worsening of their current condition or the appearance of new urologic symptoms. Compliance is encouraged with any medications and followup testing that is ordered. It is a privilege to participate in the urologic care of your patient. If you have any questions or concerns regarding treatment for the above conditions, or other urologic issues, please do not hesitate to contact me. The office telephone contact is [phone]. This note is constructed using voice recognition software. While every effort has been made to ensure accuracy patient observation assistant errors may have been included. Yours sincerely, Dr Fracisco Drake MD, [facility] - Urology Providers of Expert, Compassionate Care for the Genitourinary System Coding Level of Care Code Est Pt Level 4 (48259) Diagnoses Nocturia more than twice per night R35.1 CPT Codes Post Residual Void - PVR CPT Code: 19701-Dzqt Void Residual by ultrasound ([id number])
--- OUTSIDE RECORDS SUMMARY | 2024-09-22 02:52 | XMS_ITS | Patient Health Record ---
Author Organization [facility] Address [address] [place] [address] Care Team Providers Care Salad Counter Attendant Name Role Phone Dave Palacio MD Primary Care Provider Stan Louise Unavailable [phone] Allergies Allergen (clinical drug ingredient) Drug/Non Drug Allergy documented on EMR Reaction Allergy Type Onset Date Status Equine derived substance (FN) Horses (uncoded) sneeze,eyes water Allergy Active Reason For Referral No Information Medications Medication SIG (Take, Route, Frequency, Duration) Notes [...] at bedtime Oral Once a day Active Immunizations Vaccine Route Administration Date Status Comme nts COVID-19 Moderna Vaccine Unknown 12/17/2020 Administere d 1# 11/19/2020 Social History Tobacco Use: Social History Observation Description Date Details (start date - stop date) Never Smoker NA - NA Tobacco Use/Smoking Question Answer Notes Are you a: nonsmoker Alcohol Screen Question Answer Notes Did you have a drink containing alcohol in the p ast year? No Points 0 Interpretation Negative Tobacco use other than smoking: Question Answer Notes Are you an other tobacco user? No Problems Problem Type SNOMED Code ICD Code Onset Dates Problem Status W/U Status Risk Notes Problem Localized, primary osteoarthritis of the ankle and/or foot (684169493) Primary osteoarthritis, right ankle and foot (M19.071) Active confirmed Problem Polyneuropathy due to type 2 diabetes mellitus (950778766) Type 2 diabetes mellitus with diabetic polyneuropathy (E11.42) Active confirmed Problem Primary gout (49373821) Idiopathic gout, right ankle and foot (M10.071) Active confirmed Plan Of Treatment No Information Insurance Providers Payer Name Payer Address Payer Phone Subscriber Number Group Number Insured Name Patient Relationship to Insured Coverage Start Date Coverage End Date [facility] [address] [place] [address] [id number] Alon Saha Self - patient is the insured Medical (General) History Medical History History ICD Code osteoarthritis Back,Hip,and Knee pain CAD (Cholesterol) diabetes Surgical History Surgery Date(Month/Year) colonoscopy 02/27/2021
--- OUTSIDE RECORDS SUMMARY | 2024-09-22 02:52 | XMS_ITS | Patient Health Record ---
Author Organization [facility] Address [address] [place] [address] Care Team Providers Care Assistant Case Manager Name Role Phone Dave Palacio MD Primary [...] Problem Colon cancer screening (Z12.11) Active confirmed 586211719 Problem Personal history of colonic polyps (Z86.010) Active confirmed 680103220 Problem Diverticulosis of large intestine without hemorrhage (K57.30) Active confirmed 470675328 Problem Colitis (K52.9) Active confirmed 041020 004 Problem Long-term use of aspirin therapy (Z79.82) Active confirmed [id number] PLAN OF TREATMENT Pending Test Test Name Order Date COLONOSCOPY WITH BIOPSY 07/04/2011 Future Test Test Name Order Date COLONOSCOPY 09/19/2015 COLONOSCOPY 01/24/2021 Insurance Providers Payer Name Payer Address Payer Phone Subscriber Number Group Number Insured Name Patient Relationship to Insured Coverage Start Date Coverage End Date [facility] [address] [place] [phone] [id number] ELEAZAR RAI Self - patient is the insured MEDICAL (GENERAL) HISTORY Medical History History ICD Code Colonoscopy 12/12/15, history of tubular a denomas, five-year followup 12/30 Glaucoma Arthritis elevated cholesterol hypertension diabetes Surgical History Surgery Date(Month/Year)
== END 2024-09-21 15:21 | disposition home or self-care (01) ==
PROVIDERS: PCP Internal Medicine; Visit Provider Urology
DX: R35.1 Nocturia (principal)
CPT/HCPCS: 99214

== ENCOUNTER → 2024-09-21 14:33 | Outpatient (BNVA) | payer MEDICARE, SELFPAY | PROVIDERS: PCP Internal Medicine; Visit Provider Urology | DX: N40.1 Benign prostatic hyperplasia with lower urinary tract symptoms (principal); R35.1 Nocturia; R39.15 Urgency of urination; N32.81 Overactive bladder; N32.89 Other specified disorders of bladder | CPT/HCPCS: 51798; 99212 ==

== ENCOUNTER 2024-11-02 14:51 | Outpatient (REF) | payer MEDICARE, SELFPAY ==
--- NOTE | ~2024-11-02 | XR_ITS ---
EXAMINATION: XR TOES, RIGHT CLINICAL INFORMATION: right great toe pain COMPARISON: None available. TECHNIQUE: 3 views of the right toes were obtained. FINDINGS: No fracture, dislocation, or suspicious bone lesion. Normal alignment. Mild to moderate arthritis of the first MTP joint, and interphalangeal joint of the hallux. No periarticular osteopenia or erosions. No discrete soft tissue abnormalities. XR/XR toe RT min 2V IMPRESSION: 1. No acute bony or soft tissue findings. 2. Degenerative appearing arthritis of the first MTP joint and interphalangeal joint of the hallux. Electronically signed by: Chidi Sanchez MD 11/02/2024 03:23 PM TAD
--- OUTSIDE RECORDS SUMMARY | 2024-11-02 17:22 | XMS_ITS | Clinical Summary ---
Author Organization [employer] Address [address] [facility] 7 [place] [address] Care Team Providers Care Account Director Name Role Phone Unavailable Primary Care Provider Unavailabl e Immunizations Name Administration Dates Next Due Influenza, IIV3, injectable 06/12/2020 Influenza, seasonal, injectable, preservative fr ee 06/29/2024 Pfizer Covid-19 Vaccine 12+ 06/29/2024, Pneumococcal Conjugate PCV 13 07/19/2019 Social History Tobacco Use Types Packs/Day Years Used Date Smoking Tobacco: Never Assessed Sex and Gender Information Value Date Recorded Sex Assigned at Male 12/24/2023 3:47 PM EDT Legal Sex Male 11:24 AM EDT Gender Identity Male 12/24/2023 3:47 PM EDT Sexual Orientation Straight 12/24/2023 3: 47 PM EDT Plan of Treatment Health Maintenance Due Date Last Done Comments CT Colonography 1950 Colonoscopy 1950 Colorectal Cancer Screening 1950 Depression Screening 1950 FIT DNA/Cologuard 1950 FIT 1950 FOBT 1950 Lipid Panel 1950 SDOH Screening 1950 Sigmoidoscopy 1950 Alcohol/Substance Use Screening 1962 Tobacco Screening 1962 Hepatitis C Screening 1968 DTaP/Tdap/Td Vaccines (1 - Tdap) 1969 Zoster Vaccines (1 of 2) 2000 Pneumococcal Vaccine: 65+ Years (2 of 2 - PPSV23 or PCV20) 07/19/2020 07/19/2019 RSV Patients and Patients Aged 60 years or older (1 - 1-dose 75+ series) 2025 COVID-19 Vaccine Completed 06/29/2024, , 07/13/2023, Additional history exists Influenza Vaccine Completed 06/29/2024, 06/12/2020 HIB Vaccines Aged Out No longer eligi ble based on patient's age to complete this topic HPV Vaccines Aged Out No longer eligi ble based on patient's age to complete this topic Hepatitis A Vaccines Aged Out No long er eligible based on patient's age to complete this topic Hepatitis B Vaccines Aged Out No long er eligible based on patient's age to complete this topic IPV Vaccines Aged Out No longer eligi ble based on patient's age to complete this topic Meningococcal Vaccine Aged Out No jessa alex eligible based on patient's age to complete this topic RSV under 20 months Aged Out No longe r eligible based on patient's age to complete this topic Rotavirus Vaccines Aged Out No longer eligible based on patient's age to complete this topic Insurance [employer]
== END 2024-11-02 14:52 | disposition home or self-care (01) ==
LOC: HO.XRAY 14:51
PROVIDERS: PCP Internal Medicine; Visit Provider Internal Medicine
DX: M79.674 Pain in right toe(s) (principal); E11.9 Type 2 diabetes mellitus without complications
CPT/HCPCS: 73660

== ENCOUNTER → 2024-11-02 15:10 | Outpatient (BNV) | payer MEDICARE, SELFPAY | PROVIDERS: PCP Internal Medicine; Visit Provider Radiology Diagnostic Radiology | DX: M79.674 Pain in right toe(s) (principal) | CPT/HCPCS: 73660 ==

== ENCOUNTER 2024-11-25 13:50 | Outpatient (AMB) | payer MEDICARE, SELFPAY ==
--- OUTSIDE RECORDS SUMMARY | 2024-11-25 13:53 | XMS_ITS ---
Author Organization [facility] Address Unknown Problems Problem Status Start Date End Date URINARY TRACT INFECTION, SIT E NOT SPECIFIED (Primary) (N39.0 - ICD-10-CM) ACTIVE 05/05/2022 SYNCOPE AND COLLAPSE (R55 - ICD-10-CM) ACTIVE OTHER ABNORMALITIES OF GAIT AND MOBILITY (R26.89 - ICD-10-CM) ACTIVE 05/05/2022 TYPE 2 DIABETES MELLITUS WIT HOUT COMPLICATIONS (E11.9 - ICD-10-CM) ACTIVE 05/05/2022 UNSPECIFIED GLAUCOMA (H40.9 - ICD-10-CM) ACTIVE 05/05/2022 MUSCLE WEAKNESS (GENERALIZED) (M62.81 - ICD-10-CM) ACT JAIDA 05/05/2022 UNSTEADINESS ON FEET (R26.81 - ICD-10-CM) ACTIVE 05/05/2022 CALCULUS OF KIDNEY (N20.0 - ICD-10-CM) ACTIVE SEPSIS, UNSPECIFIED ORGANISM (A41.9 - ICD-10-CM) ACTIV E 05/05/2022 ESSENTIAL (PRIMARY) HYPERTENSION (I10 - ICD-10-CM) ACT JAIDA 05/05/2022 SEPSIS DUE TO ESCHERICHIA CO LI [E. COLI] (A41.51 - ICD-10-CM) ACTIVE 05/05/2022 Encounters Encounter Performer Performer Role Encounter Diagnoses Location Date Discharge - Discharged to home or self care - HOME - [facility] 2 09:30 pm EDT - 2 11:00 am EDT Social History
--- OUTSIDE RECORDS SUMMARY | 2024-11-25 13:53 | XMS_ITS | Patient Health Record ---
Author Organization [facility] Address [address] [place] [address] Care Team Providers Care Merchandise Distributor Name Role Phone Dave Palacio MD Primary Care Provider Stan Louise Unavailable [phone] Allergies Allergen (clinical drug ingredient) Drug/Non Drug [...] primary osteoarthritis of the ankle and/or foot (266497356) Primary osteoarthritis, right ankle and foot (M19.071) Active confirmed Problem Polyneuropathy due to type 2 diabetes mellitus (399110377) Type 2 diabetes mellitus with diabetic polyneuropathy (E11.42) Active confirmed Problem Primary gout (32896967) Idiopathic gout, right ankle and foot (M10.071) Active confirmed Plan Of Treatment No Information Insurance Providers Payer Name Payer Address Payer Phone Subscriber Number Group Number Insured Name Patient Relationship to Insured Coverage Start Date Coverage End Date [facility] [address] [place] [address] [id number] Alon Saha Self - patient is the insured Medical (General) History Medical History History ICD Code osteoarthritis Back,Hip,and Knee pain CAD (Cholesterol) diabetes Surgical History Surgery Date(Month/Year) colonoscopy 02/27/2021
--- OUTSIDE RECORDS SUMMARY | 2024-11-25 13:53 | XMS_ITS | Clinical Summary ---
Author Organization [employer] Address [address] [facility] 7 [place] [address] Care Team Providers Care Gas Plant Operator Name Role Phone Unavailable Primary Care Provider [...] Vaccines (1 of 2) 2000 Pneumococcal Vaccine: 50+ Years (2 of 2 - PPSV23) 07/19/2020 07/19/2019 RSV Patients and Patients Aged [...]
--- NOTE | 2024-11-25 13:58 | MHC.OFFVIS ---
Intake Visit Reasons: 2M Med Review/PVR(fesoterodine) Intake Note: Patient is present for 2M MED REVIEW/PVR (FESOTERODINE) Urology Medication:POTASSIUM,FESOTERODINE Antibiotic Allergy:NONE Blood Thinner:ASPIRIN Merchandising Internship Required: No Allergies No Known Allergies Allergy (Verified 11/25/24 14:01) HPI Comments Details: Alon RAI is a very pleasant male. . He is a patient of Dr Palacio. He is seen for the following urologic conditions. - nephrolithiasis - lower urinary tract symptoms - primarily bladder instability Two month follow-up Toviaz 8 mg trial PVR 0 cc Has had leakage at night in particular Myrbetriq is 125 dollars for three-month Prior PVR 14 cc Has better control during combination terazosin Cystoscopy with relatively open bladder neck Failed oxybutynin, tadalafil, terazosin Lower Urinary tract symptoms Had episode of urinary tract infection 04/18/2022 E coli pansensitive with recurrence May 2022 PSA 05/02 0.25 Background of diabetes at last HbA1c May 2022 6.5%, 07/04 6.1%, 01/02 5.7 Describes nocturia x2, weak stream, dribbling Cystoscopy - open bladder neck Prior therapy includes oxybutynin, tadalafil Has post UTI type syndrome Nephrolithiasis/Urolithiasis:? They are here for?discussed imaging results ?- continue good response to Urocit-K ? Urolithiasis was diagnosed?05/28 [facility] [place] ER with left-sided flank pain. Imaging suggested stone has passed..? The patient previously had kidney stones whose composition w?unknown.? Laboratory investigations include?07/28 , Normocalcemia (9.0), Normal PTH, Hyperuricemia.? 24 Hour urine evaluation?07/28 , Low Urine volume < 2.0 liters, Low calcium < 200, High oxalate > 30mg, Low citrate < 400, Low urine pH < 5.5 ?- advised to increase fluid, watch nuts and potates, add tums before main meal for binding. ? Prior treatment(s) include?07/29 medical management, with potassium citrate.? Prior imaging includes?05/28 , a CT (computed tomography) scan of the abdomen/pelvis (stone protocol) multiple 1-2 mm stones left kidney ?01/27 , a renal ultrasound L 3x4mm stones ?07/29 , a renal ultrasound, decreased left side stones ?01/28 , a renal ultrasound, left 5mm x 2 stones ?07/30 , a renal ultrasound, showing no evidence of stones ?10/31 CT with 4mm stones ?12/01 , a renal ultrasound, small left 2mm stone ?05/31 , a renal ultrasound, showing no evidence of stones.?, 06/01 renal US small right stone, left cyst - 06/02 ultrasound 3 mm stone right, 1.5 cm cyst left ? Current therapeutic plan will be?to continue with imaging surveillance and medical therapy. PFSH Medical History Bacteremia Vasovagal syncope Nocturia Hyperuricemia COVID-19 vaccine administered Hx of orthostatic hypotension Hx of glaucoma Arthritis Hx of renal calculi HTN (hypertension) Hypercholesteremia Diabetes mellitus, type 2 Surgical History Hx of lithotripsy H/O colonoscopy Social History Household Members: None Housing: House Are you a primary student career development specialist to a significant other at home: No Do you presently have visiting nurse or other home services: No Alcohol intake: never Patient Tobacco Use Status: Never used Tobacco Advance Directives Date on File: 05/03/22 service: No Current occupational status: retired Results AMB Urinalysis, Automated UA Leukoctes 0 Sarah/uL Last Edit by ALLIE Connelly on 11/25/24 14:31 UA Nitrite Negative Last Edit by ALLIE Connelly on 11/25/24 14:31 UA Urobilinogen 3.5 mg/dL Last Edit by ALLIE Connelly on 11/25/24 14:31 UA Protein 15 mg/dL Last Edit by Franco Kidd, [facility] on 11/25/24 14:31 UA pH 6.0 Last Edit by Franco Kidd, [facility] on 11/25/24 14:31 UA Blood 0 Bruno/uL Last Edit by Franco Kidd, [facility] on 11/25/24 14:31 UA Specific [place] 1.015 Last Edit by Franco Kidd, [facility] on 11/25/24 14:31 UA Ketone Negative Last Edit by Franco Kidd, [facility] on 11/25/24 14:31 UA Bilirubin 0 mg/dL Last Edit by Franco Kidd, [facility] on 11/25/24 14:31 UA Glucose 0 mg/dL Last Edit by Franco Kidd, [facility] on 11/25/24 14:31 AMB Urinalysis, Automated UA Leukoctes 0 Sarah/uL Last Edit by Franco Kidd, [facility] on 11/25/24 16:13 UA Nitrite Negative Last Edit by Franco Kidd, [facility] on 11/25/24 16:13 UA Urobilinogen 3.5 mg/dL Last Edit by Franco Kidd, [facility] on 11/25/24 16:13 UA Protein 15 mg/dL Last Edit by Franco Kidd, [facility] on 11/25/24 16:13 UA pH 6.0 Last Edit by Franco Kidd, [facility] on 11/25/24 16:13 UA Blood 0 Bruno/uL Last Edit by Franco Kidd, [facility] on 11/25/24 16:13 UA Specific [place] 1.020 Last Edit by Franco Kidd, [facility] on 11/25/24 16:13 UA Ketone Negative Last Edit by Franco Kidd, [facility] on 11/25/24 16:13 UA Bilirubin 0 mg/dL Last Edit by Franco Kidd, [facility] on 11/25/24 16:13 UA Glucose 0 mg/dL Last Edit by Franco Kidd, [facility] on 11/25/24 16:13 Results Reviewed Results Reviewed: Laboratory Last Values Urine pH (Auto) 6.0 11/25/24 14:29 Specific [place] (Auto) 1.015 11/25/24 14:29 Urine Protein (Auto) 15 mg/dL 11/25/24 14:29 Glucose (UA)(Auto) 0 mg/dL 11/25/24 14:29 Urine Ketones (Auto) Negative 11/25/24 14:29 Urine Blood (Auto) 0 Bruno/uL 11/25/24 14:29 Urine Nitrite (Auto) Negative 11/25/24 14:29 Urine Bilirubin (Auto) 0 mg/dL 11/25/24 14:29 Urine Urobilinogen (Auto) 3.5 mg/dL 11/25/24 14:29 Leukocyte Esterase (Auto) 0 Sarah/uL 11/25/24 14:29 Assessment & Plan Assessment & Plan Orders: Orders AMB Urinalysis Automated Today Z13.9 - Encounter for screening, unspecified Medications: Changed From fesoterodine ER 8 mg PO DAILY 30 days 30 tabs 1RF N40.0 - Benign prostatic hyperplasia without lower urinary tract symptoms, R39.15 - Urgency of urination To fesoterodine ER 8 mg PO DAILY 90 days 90 tabs 1RF N40.0 - Benign prostatic hyperplasia without lower urinary tract symptoms, R39.15 - Urgency of urination Coding
== END 2024-11-25 14:50 | disposition home or self-care (01) ==
LOC: HO.HUSH 13:50
PROVIDERS: PCP Internal Medicine; Visit Provider Urology
DX: Z13.9 Encounter for screening, unspecified (principal)

== ENCOUNTER → 2024-11-25 13:50 | Outpatient (BNVA) | payer MEDICARE, SELFPAY | PROVIDERS: PCP Internal Medicine; Visit Provider Urology | DX: N40.1 Benign prostatic hyperplasia with lower urinary tract symptoms (principal); R39.15 Urgency of urination | CPT/HCPCS: 81003 ==

== ENCOUNTER 2024-12-05 17:22 | Emergency (ER) | payer MEDICARE, SELFPAY ==
--- NOTE | 2024-12-05 | ECG_ITS ---
Test Reason : CP Blood Pressure : */* mmHG Vent. Rate : 82 BPM Atrial Rate : 82 BPM P-R Int : 180 ms QRS Dur : 76 ms QT Int : 362 ms P-R-T Axes : 18 -14 5 degrees QTcB Int : 422 ms Normal sinus rhythm Normal ECG When compared with ECG of 08-Nov-2023 11:01, No significant change was found Referred By: Tanner Reyes Electronically Signed By: MANISHA MARTINEZ
--- NOTE | ~2024-12-05 | XR_ITS ---
CLINICAL HISTORY: cp 2 view chest x-ray Comparison: CR/VT/SR - XR CHEST 1V - 11/08/23 12:23 EST Findings: No consolidation or effusion. Heart size is normal. No acute fracture. IMPRESSION: 1. No acute findings. This document has been electronically signed by: Giles Green MD on 12/05/2024 19:03:24
[2024-12-05 17:23] VITALS: BP 149/86; PULSE 98; O2SAT 96
[2024-12-05 17:34] VITALS: BP 125/65; PULSE 91; RESP 16; TEMP 36; O2SAT 96; BMI 32.5
--- NOTE | 2024-12-05 17:56 | ED_ITS ---
HPI - Chest Pain General Chief Complaint: Chest Pain Stated Complaint: chest pain , rates 6/10 pain Time Seen by Provider: 12/05/24 17:34 Source: patient and EMS Mode of arrival: EMS Limitations: no limitations History of Present Illness ED Provider: DR. Reyes HPI narrative: 74-year-old male brought in by EMS for evaluation of chest pain that started about hour ago pain is in mid chest radiates to bilateral chest wall sides, lasted for about 10 minutes, called 911 case pain was improved before EMS arrival however was given aspirin and nitro by EMS. Currently patient feels better no chest pain declined any chest trauma, no recent travel, no lower extremity swelling or tenderness, no fever, chills, no SOB, no coughing. Related Data Home Medications ?Medication ?Instructions ?Recorded ?Confirmed lisinopril 5 mg tablet 5 mg PO DAILY 09/09/20 04/08/24 metformin 500 mg tablet,extended 500 mg PO BID 09/09/20 04/08/24 release 24 hr aspirin 81 mg tablet,delayed 81 mg PO DAILY 02/21/21 04/08/24 release (Shlomo Low Dose Aspirin) timolol maleate 0.5 % eye drops 1 drp ophthalmic (eye) DAILY 05/02/22 04/08/24 atorvastatin 10 mg tablet 10 mg PO DAILY 06/09/22 04/08/24 gabapentin 100 mg capsule 100 mg PO BID 06/09/22 04/08/24 cefuroxime axetil 250 mg tablet 250 mg PO BID 06/17/22 04/08/24 chlorhexidine gluconate 0.12 % ml PO 06/17/22 04/08/24 mouthwash Previous Rx's ?Medication ?Instructions ?Recorded omeprazole 40 mg capsule,delayed 40 mg PO DAILY 30 days #30 caps 05/29/21 release cefuroxime axetil 500 mg tablet 500 mg PO BID 7 days #14 tabs 11/08/23 potassium citrate 10 mEq (1,080 10 meq PO BID 90 days #180 tabs 08/19/24 mg) tablet,extended release fesoterodine 8 mg tablet,extended 8 mg PO DAILY 90 days #90 tabs 11/25/24 release 24 hr walker #1 ea 12/04/24 Allergies Allergy/AdvReac Type Severity Reaction Status Date / Time No Known Allergies Allergy Verified 12/05/24 17:36 Review of Systems Review of Systems: All other systems are reviewed and are negative Constitutional: Reports as per HPI and Reports no additional constitutional complaints Eyes: Reports as per HPI and Reports no additional eye complaints Reports system reviewed and no additional complaints, except as documented Cardiovascular: Reports as per HPI and Reports no additional cardiovascular complaints Respiratory: Reports as per HPI and Reports no additional respiratory complaints Gastrointestinal: Reports as per HPI and Reports no additional gastrointestinal complaints Genitourinary: Reports no additional female genitourinary complaints Musculoskeletal: Reports no additional musculoskeletal complaints Skin/Breast: Reports system reviewed and no additional complaints, except as docu Psychiatric: Reports no additional psychiatric complaints Endocrine: Reports no additional endocrine complaints Hematologic/Lymphatic: Reports no additional hematologic/lymphatic complaints Allergic/Immunologic: Reports no additional allergic/immunologic complaints Reports system reviewed and no additional complaints, except as documented and Reports Abnormal speech present [facility] Past Medical History Medical History Bacteremia Vasovagal syncope Nocturia Hyperuricemia COVID-19 vaccine administered Hx of orthostatic hypotension Hx of glaucoma Arthritis Hx of renal calculi HTN (hypertension) Hypercholesteremia Diabetes mellitus, type 2 Surgical History Hx of lithotripsy H/O colonoscopy Social History Social History Household Members: None Housing: House Are you a primary before and after school daycare worker to a significant other at home: No Do you presently have visiting nurse or other home services: No Alcohol intake: never Patient Tobacco Use Status: Never used Tobacco Advance Directives: No Advance Directives Information Provided: Yes Advance Directives Date on File: 05/03/22 service: No Current occupational status: retired Physical Exam Vital Signs: Vital Signs: Last Vital Signs Temp 96.8 F 12/05/24 17:34 Pulse 91 12/05/24 17:34 Resp 16 12/05/24 17:34 BP 125/65 12/05/24 17:34 Pulse Ox 96 12/05/24 17:34 O2 Del Method Room Air 12/05/24 17:34 BMI result Body Mass Index 32.5 Vital signs have been reviewed and appear to be correct. Blood pressure elevated. Heart rate normal. Respiratory rate normal. Temperature normal. Oxygen saturation normal. Appearance: Alert. Oriented X3. No acute distress. Head: Normal external exam. Normocephalic. Atraumatic. No Dietz signs noted. No raccoon eyes noted Eyes: PERRLA. EOMI. Conjunctiva and sclera normal. Eyelids normal. ENT: TM's Normal. Pharynx normal. Uvula midline. Moist mucous membranes. No trismus noted. No drooling noted. No muffled voice noted. Neck: Normal inspection. Neck supple. FROM. No adenopathy. Thyroid Normal. No meningeal signs. No neck mass noted. CVS: Normal heart rate and rhythm. Heart sound normal. No murmurs noted. Pulses normal throughout. Respiratory: No respiratory distress. Painless inspiration. Breath sounds normal. No wheezes/rales/rhonchi noted. Chest nontender. No accessory muscle usage noted or decreased air movement noted. Abdomen: Soft and nontender. Bowel sounds normal in all 4 quadrants. No distention noted. No organomegaly noted. No visible injury noted. Back: No CVA tenderness. Full range of motion noted. Skin: Skin warm and dry. Normal skin color. Normal skin turgor. No rashes/lesions/lacerations noted. Extremities: No lower extremity edema. Extremities exhibit normal range of motion. Extremities nontender. Neuro: Oriented X 3. Cranial nerve exam: II-XII are grossly intact No motor deficit. No sensory deficit. Reflexes normal. Course Reevaluation(s) Reevaluation #1: 74-year-old male came in for evaluation of chest pain, negative HS troponin x2 with unremarkable EKG and chest x-ray, patient at low risk for pulmonary embolism with negative D-dimer. Will reassure and discharge. Time: 21:00 Medical Decision Making Differential Diagnosis Differential Diagnoses: The differential diagnosis associated with the presentation includes (Pneumonia, pneumothorax, pleural effusion, ACS, pulmonary embolism, chest wall pain, electrolyte derangement, severe anemia.) Admission/Observation Consideration of admission/observation: Escalation of care including admission/observation considered Lab Data MDM Lab Attestation statement: I reviewed the patient's lab results. Independent Interpretation I performed an independent interpretation of an: Plain X-Ray (Chest: No acute intrathoracic pathology.) Radiology Impression Discussion of test interpretation with radiology: I have reviewed the radiologist's reading. Discharge Plan Discharge Clinical Impression: Atypical chest pain Patient Disposition: Still a Patient Instructions: Chest Pain (ED) Prescriptions: No Action potassium citrate 10 mEq (1,080 mg) tablet extended release 10 meq PO BID 90 Days Qty: 180 3RF (DME) walker [facility] See Rx Instructions .MEDSUPPLY Qty: 1 0RF Rx Instructions: Folding Front wheeled walker duration 99 days lisinopril 5 mg tablet 5 mg PO DAILY metformin 500 mg tablet extended release 24 hr 500 mg PO BID atorvastatin 10 mg tablet 10 mg PO DAILY gabapentin 100 mg capsule 100 mg PO BID aspirin [Shlomo Low Dose Aspirin] 81 mg Tablet,Delayed Release (Dr/Ec) 81 mg PO DAILY omeprazole 40 mg capsule,delayed release(DR/EC) 40 mg PO DAILY 30 Days Qty: 30 0RF timolol maleate 0.5 % drops 1 drp ophthalmic (eye) DAILY cefuroxime axetil 500 mg tablet 500 mg PO BID 7 Days Qty: 14 0RF cefuroxime axetil 250 mg tablet 250 mg PO BID chlorhexidine gluconate 0.12 % mouthwash PO fesoterodine 8 mg tablet extended release 24 hr 8 mg PO DAILY 90 Days Qty: 90 1RF Referrals: Dave Palacio MD [Primary Care Provider] - Print Language: Nigerien
[2024-12-05 17:58] LABS: MANUAL DIFF FLAG NO
[2024-12-05 18:01] LABS: Basophils Absolute Auto 0.1 X10*3/uL (0.0-0.2); Basophils Percent Auto 1.2 % (0-2); Eosinophils Absolute Auto 0.3 X10*3/uL (0.0-0.4); Eosinophils Percent Auto 3.3 % (0-4); Hemoglobin 13.2 g/dl (14.0-18.0); Imm Gran Abs Auto 0.02 X10*3/uL (0.00-0.03); Imm Gran Pct Auto 0.3 % (0.0-0.4); Lymphocytes Absolute Auto 1.6 X10*3/uL (1.2-4.9); Lymphocytes Percent Auto 21.4 % (20-40); Mean Corpuscular HGB Conc 33.8 g/dl (31.0-36.0); Mean Corpuscular Hemoglobin 31.6 pg (27.0-33.0); Mean Corpuscular Volume 93.3 fL (80.0-98.0); Monocytes Absolute Auto 0.6 X10*3/uL (0.1-1.2); Monocytes Percent Auto 8.3 % (2-11); Neutrophils Percent Auto 65.5 % (45-73); Platelet Count 228 X10*3/uL (160-400); Red Blood Count 4.18 X10*6/uL (4.60-5.80); Red Cell Distribution Width 13.3 % (11.0-16.0); White Blood Count 7.6 X10*3/uL (4.8-10.8)
[2024-12-05 18:12] LABS: D Dimer High Sensitivity 228 NG/ML
[2024-12-05 18:23] LABS: Alanine Aminotransferase 23 U/L (0-40); Albumin Level 3.9 g/dL (3.5-5.0); Anion Gap 13 (12-20); Aspartate Amino Transferase 28 U/L (5-37); Bilirubin Total 0.3 mg/dL (0.0-1.0); Blood Urea Nitrogen 24 mg/dL (9-16); Calcium 8.9 mg/dL (8.4-10.2); Carbon Dioxide 22 mmol/L (22-29); Chloride 111 mmol/L (96-108); Creatinine Clr Calc Pharmacy 69.9; Estimated Glomerular Filt Rate > 60; Glucose Random 111 mg/dL (60-115); Potassium 4.5 mmol/L (3.3-5.1); Sodium 141 mmol/L (135-145); Total Protein 6.9 g/dL (6.5-8.0)
[2024-12-05 18:24] LABS: Troponin-I High Sensitivity 16.7 ng/L (<3.5-35.0)
[2024-12-05 18:30] LABS: Alkaline Phosphatase 98 U/L (39-117)
--- OUTSIDE RECORDS SUMMARY | 2024-12-05 18:45 | XMS_ITS | Clinical Summary ---
Author Organization [employer] Address [address] [facility] [address] [place] [address] Care Team Providers Care Disposal Plant Operator Name Role Phone Unavailable Primary [...]
--- OUTSIDE RECORDS SUMMARY | 2024-12-05 18:45 | XMS_ITS | Patient Health Record ---
Author Organization [facility] Address [address] [place] [address] Care Team Providers Care Supervisor Mold [employer] Name Role Phone Dave Palacio MD Primary [...] Problem Colon cancer screening (Z12.11) Active confirmed 897740146 Problem Personal history of colonic polyps (Z86.010) Active confirmed 749397830 Problem Diverticulosis of large intestine without hemorrhage (K57.30) Active confirmed 258226762 Problem Colitis (K52.9) Active confirmed 865915 004 Problem Long-term use of aspirin therapy (Z79.82) Active confirmed 097550914 PLAN OF TREATMENT Pending Test Test Name Order Date COLONOSCOPY WITH BIOPSY 07/04/2011 Future Test Test Name Order Date COLONOSCOPY 09/19/2015 COLONOSCOPY 01/24/2021 Insurance Providers Payer Name Payer Address Payer Phone Subscriber Number Group Number Insured Name Patient Relationship to Insured Coverage Start Date Coverage End Date [facility] [address] [place] [phone] [id number] ELEAZAR RAI Self - patient is the insured MEDICAL (GENERAL) HISTORY Medical History History ICD Code Colonoscopy 12/12/15, history of tubular a denomas, five-year followup 12/30 Glaucoma Arthritis elevated cholesterol hypertension diabetes Surgical History Surgery Date(Month/Year)
--- OUTSIDE RECORDS SUMMARY | 2024-12-05 18:45 | XMS_ITS | Patient Health Record ---
Author Organization [facility] Address [address] [place] [address] Care Team Providers Care Form Coverer Name Role Phone Dave Palacio MD Primary Care Provider Stan Louise Unavailable [phone] Allergies Allergen (clinical drug ingredient) Drug/Non Drug [...] primary osteoarthritis of the ankle and/or foot (792937020) Primary osteoarthritis, right ankle and foot (M19.071) Active confirmed Problem Polyneuropathy due to type 2 diabetes mellitus (876880593) Type 2 diabetes mellitus with diabetic polyneuropathy (E11.42) Active confirmed Problem Primary gout (69393291) Idiopathic gout, 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
[2024-12-05 19:14] LABS: Influenza A PCR NEGATIVE (Negative); Influenza B PCR NEGATIVE (Negative); Resp Syncy Virus RNA Qual PCR NEGATIVE (Negative); SARS COV2 PCR INHOUSE NEGATIVE (Negative)
[2024-12-05 19:53] VITALS: BP 120/73; PULSE 74; RESP 20; TEMP 36.7; O2SAT 96
[2024-12-05 20:28] LABS: Troponin-I High Sensitivity 17.1 ng/L (<3.5-35.0)
[2024-12-05 21:13] VITALS: BP 120/73; PULSE 74; RESP 20; TEMP 36.7; O2SAT 96
[2024-12-05 21:14] VITALS: PULSE 66
== END 2024-12-05 21:22 | disposition home or self-care (01) ==
PROVIDERS: Emergency Provider Emergency Medicine; PCP Internal Medicine
DX: R07.89 Other chest pain (principal); Z79.899 Other long term (current) drug therapy; Z03.818 Encounter for observation for suspected exposure to other biological agents ruled out
CPT/HCPCS: 0241U; 36415; 71046; 80053; 84484; 85025; 85379; 93005; 99283; 99285

== ENCOUNTER → 2024-12-05 17:43 | Outpatient (BNV) | payer MEDICARE, SELFPAY | PROVIDERS: Emergency Provider Emergency Medicine; PCP Internal Medicine; Visit Provider Internal Medicine | DX: R07.9 Chest pain, unspecified (principal) | CPT/HCPCS: 93010 ==

== ENCOUNTER → 2024-12-05 18:20 | Outpatient (BNV) | payer MEDICARE, SELFPAY | PROVIDERS: Emergency Provider Emergency Medicine; PCP Internal Medicine; Visit Provider Radiology Diagnostic Radiology | DX: R07.9 Chest pain, unspecified (principal) | CPT/HCPCS: 71046 ==

== ENCOUNTER 2025-02-27 10:17 | Outpatient (AMB) | payer MEDICARE, SELFPAY ==
[2025-02-27 09:49] VITALS: BP 128/80; PULSE 101; TEMP 36.4; O2SAT 97; BMI 32.8
--- NOTE | 2025-02-27 09:49 | A.OFFPC_ITS ---
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 Required: No Accompanied by: Self / Same As Patient Allergies No Known Allergies Allergy (Verified 02/27/25 10:56) Medication List - Last Reconciled 02/27/25 by Jorge Boucher MD aspirin (Shlomo Low Dose Aspirin) 81 mg PO DAILY aspirin 81 mg PO DAILY atorvastatin 10 mg PO DAILY cholecalciferol (vitamin D3) 50 mcg PO DAILY fesoterodine ER 8 mg PO DAILY 90 days gabapentin 100 mg PO BID lisinopril 5 mg PO DAILY metformin ER 500 mg PO BID omeprazole 40 mg PO DAILY potassium citrate ER 10 mEq PO BID 90 days pyridoxine (vitamin B6) 100 mg PO DAILY timolol maleate 0.5% 1 drp ophthalmic (eye) DAILY walker Folding Front wheeled walker duration 99 days Tobacco use date assessed: 02/27/25 Fall risk assessment: No Falls in past year Last assessed Fall Risk: 02/27/25 Dental Screening Dental Screen Date: 02/27/25 Did you have a dental visit in the last 12 months?: Yes Did you have a dental problem in the last 6 months where you did not have access to dental care?: No PFSH Medical History Bacteremia Vasovagal syncope Nocturia Hyperuricemia COVID-19 vaccine administered Hx of orthostatic hypotension Hx of glaucoma Arthritis Hx of renal calculi HTN (hypertension) Hypercholesteremia Diabetes mellitus, type 2 Surgical History Hx of lithotripsy H/O colonoscopy (~02/27/21) Family History Mother No problems noted. Father No problems noted. Social History Household Members: None Housing: House Are you a primary companion caregiver to a significant other at home: No Do you presently have visiting nurse or other home services: No Alcohol intake: never Patient Tobacco Use Status: Never used Tobacco e-Cigarette/Vaping Use: Never Used Advance Directives Date on File: 05/03/22 service: No Current occupational status: retired Cognitive needs: No Hearing needs: No Vision needs: Yes (reading glasses) Questionnaire PHQ-9 Over the last 2 weeks, how often have you been bothered by any of the following problems? 1. Little interest or pleasure in doing things: not at all 2. Feeling down, depressed, or hopeless: not at all 3. Trouble falling or staying asleep, or sleeping too much: not at all 4. Feeling tired or having little energy: not at all 5. Poor appetite or overeating: not at all 6. Feeling bad about yourself - or that you are a failure or have let yourself or your family down: not at all 7. Trouble concentrating on things, such as reading the newspaper or watching television: not at all 8. Moving or speaking so slowly that other people could have noticed. Or the opposite - being so fidgety or restless that you have been moving around a lot more than usual: not at all 9. Thoughts that you would be better off or of hurting yourself in some way: not at all Total score: 0 Depression Screening Interpretation: Negative Depression Screening Done: Yes Source: Developed by Drs. Irvin Ag, Tennille Rico, Inder Crawford and colleagues, with an educational thomas from [employer]. Thrive Questionnaire Date Thrive assessed: 02/27/25 I am a: Patient Within the past 12 months, did the food you bought not last and you didn't have the money to get more?: Never true Within the past 12 months, did you worry whether your food would run out before you got money to buy more?: Never true Do you have trouble paying for medicines?: No Do you have trouble getting transportation to medical appointments?: No Do you have trouble paying your heating and electricity bill?: No Do you have trouble taking care of your child, family member or friend?: No Do you have trouble with day-to-day activities such as bathing, preparing meals, shopping, managing finances, etc.?: No Are you currently unemployed and looking for a job?: No Are you interested in more education?: No Currently or been in a relationship where the following occur: No concerns reported THRIVE Score: 0 AUDIT C Alcohol Use Questionnaire (AUDIT-C) 1. How often do you have a drink containing alcohol?: Never 3. How often do you have six or more drinks on one occasion?: Never Total Score: 0 SIL-7 AMB Questionnaire SIL-7 Date SIL - 7 assessed: 02/27/25 Feeling nervous, anxious, or on edge: 0 = Not at all Not being able to stop or control worryin = Not at all Worrying too much about different things: 0 = Not at all Trouble relaxin = Not at all Being so restless that it is hard to sit still: 0 = Not at all Becoming easily annoyed or irritable: 0 = Not at all Feeling afraid as if something awful might happen: 0 = Not at all Total SIL-7 score (0-4 normal; 5-9 mild; 10-14 moderate; 15-21 severe): 0 Source: Developed by Drs. Irvin Ag, Tennille Rico, Inder Crawford and colleagues, with an educational thomas from [employer]. Physical exam (Primary Care) Vital Signs: Last Vital Signs Temp 97.6 F 02/27/25 09:49 Pulse 101 H 02/27/25 09:49 BP 128/80 02/27/25 09:49 Pulse Ox 97 02/27/25 09:49 Oxygen Delivery Method Room Air 02/27/25 09:49 Care Plan Goal for BP management: BP is in range BMI result Body Mass Index 32.8 BMI Assessment/Plan discussion: High BMI High, discussed plan: lifestyle, weight reduction and dietary Tobacco/Smoking Status: Tobacco use Status Tobacco use date assessed 02/27/25 02/27/25 09:50 Patient Tobacco Use Status Never used Tobacco 02/27/25 09:50 e-Cigarette/Vaping Use Never Used 02/27/25 09:50 PHQ-9: PHQ-9 Score PHQ-9: Total score 0 02/27/25 10:35 Depression Screening Interpretation: Negative Thrive Assessment: Date of Thrive Assessment Date Thrive assessed 02/27/25 02/27/25 09:50 Currently or been in a relationship where the following occur: No concerns reported Advance Care Planning discussion: Exists, not on file Date of discussion: 02/27/25 Who was present: Patient Forms completed: Health Care Proxy Actual minutes spent: 5 Coding Level of Care Code New Pt Level 4 (14184) Complex EM visit Add On G2211 Diagnoses Diabetes mellitus, type 2 E11.9 Urinary urgency R39.15 Additional Codes Vital Signs *Quality* - Advance Care Planning discussion: Exists, not on file ([id number]) Assessment & Plan Assessment & Plan (1) Diabetes mellitus, type 2: Comment: taking metformin Code(s): E11.9 - Type 2 diabetes mellitus without complications Category: Medical Plan: A1c is in range. Continue meds at same dosage (2) Urinary urgency: Code(s): R39.15 - Urgency of urination Category: Medical Plan: Patient has a scheduled appt with the urolgist. Plan History of Present Illness The patient is a 74-year-old male presenting for a wellness visit with a history of diabetes mellitus and current concerns of urinary frequency. Recent laborator y results showed elevated A1c levels indicative of diabetes. The patient is unsure of his current medication regimen for diabetes management. The patient reports nocturia every hour to half an hour after 2:00 AM without associated pain. He is scheduled to follow up with a urologist to further evaluate these urinary symptoms. He conducts grocery shopping with an electric car due to fatigue and soreness experienced during extensive walking. Additionally, the patient participates in chair yoga sessions bi-weekly and performs light yard work. Social History - The patient lives alone and is self-sufficient in performing activities of daily living. - He drives himself but avoids nocturnal driving when possible. 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 - Engages in light physical activities at home and attends chair yoga twice weekly at a senior center. Review of Systems - General: Denies fatigue beyond mild tiredness and soreness with extensive activity. - Endocrine: Reports slight elevation in blood sugar levels as indicated by recent A1c. - Genitourinary: Reports increased nocturia beginning after 2:00 AM. Physical Exam General: Cooperative and healthy appearing Nutritional Appearance: Well nourished Orientation/consciousness: Patient oriented x3 Limitations: No limitations Head: Normal to inspection General: Appearance normal, both eyes and all related structures Neck: Normal visual inspection Chest: Normal palpation of entire chest wall Respiratory: Patient experiences soreness and fatigue when walking, uses an electric cart for grocery shopping. ormal respiratory effort Neurology: Patient oriented x3. Results - Labs: A1c levels elevated as of November. Plan 1. Diabetes Mellitus - Monitoring blood sugar levels. - Plan to review the necessity of medication adjustments. 2. Urinary Frequency - Scheduled follow-up with urologist for further evaluation. Discussion Notes I discussed with the patient the slightly elevated A1c levels, indicative of diabetes mellitus, and reviewed the importance of monitoring these levels closely, even though he is unsure of his current medication regimen. We addressed his urinary frequency, with plans for a follow-up appointment with the urologist to further evaluate this issue. We discussed his ability to maintain independent living, activity level, and the utilization of an electric cart for grocery shopping to manage soreness and fatigue. I will see the patient in six months for a return visit. Patient Instructions - Monitor blood sugar levels as directed by your healthcare provider. - Keep your appointment with the urologist next week. - Continue participation in chair yoga for physical activity. - Follow a diet that supports managing your blood sugar levels.
--- OUTSIDE RECORDS SUMMARY | 2025-02-27 10:53 | XMS_ITS ---
Author Organization [facility] Care Team Providers Care Superintendent Ammunition Storage Name Role Phone Farzaneh Lay Unavailable Unavailable Ana Laura Wilburn Unavailable Unavailable Amisha Kerns Unavailable Unavailable Amber Solomon Unavailable Unavailable Alyssa Keenan Unavailable Unavailable Henry TOE FORMER, Dena Casiano Unavailable Unavailable Emily, Mary Unavailable Unavailable Maingi, Shadrack Unavailable Unavailable Allergies and adverse reactions No Known Allergies Care Team Name Role Address Phone Organization Dates Amisha Kerns PCP [address] [address], [place], [address], [facility] (Office): : [facility] 05/06/2022 - 05/16/2022 Farzaneh Lay [address] [address], [place], [address], [facility] (Office): : [phone] [facility] 05/06/2022 - 05/16/2022 [place], [address], [facility] (Office): : [facility] 05/06/2022 - 05/16/2022 Amber Soloomn [address], [address], [facility] (Office): : [facility] 05/06/2022 - 05/16/2022 Alyssa Keenan [address], [address], [facility] (Office): [facility] 05/06/2022 - 05/16/2022 Dena Figueroa NP [address] [facility] [address] (Office): [facility] 05/06/2022 - 05/16/2022 Mary Diaz [address] [facility] [address] (Office): : [phone] [facility] 05/06/2022 - 05/16/2022 Sin Amador [address] [facility] [address] (Office): : [facility] 05/06/2022 - 05/16/2022 Goals Section Description Status Target Date I hope that I can be success fully resuscitated in the event my heart stops. Active 08/04/2022 I will attend/participate in activities of choice 3-5 times weekly by next review date. Active 08/04/2022 I will participate in my discharge planning. Act maritza 08/04/2022 Risk for septicemia will be minimized/prevented via prompt recognition and treatment of symptoms of UTI through the review date. Active 08/04/2022 The resident will have no in dications of acute eye problems through the review date. Active 08/04/2022 Will be free of symptoms of dehydration and maintain moist mucous membranes, good skin turgor. Active 08/04/2022 Will have intact skin, free of redness, blisters or discoloration by/through review date. Active 08/04/2022 Will improve current level of function through t he review date. Active 08/04/2022 Will not sustain serious injury through the revi ew date. Active 08/04/2022 Will remain free from skin b reakdown due to incontinence and brief use through the review date. Active 08/04/2022 Mental Status Section Date Assessment Total Score Description 05/16/2022 BIMS 09 moderate cognit maritza impairment CAM 0 No delirium ind icated PHQ-9 02 minimal depress ion 05/11/2022 BIMS 05 severe cognitiv e impairment CAM 0 No delirium ind icated PHQ-9 02 minimal depress ion Problems Problem # Description Date of onset Resolved Date Code CodeSystem Concern Status 1 CALCULUS OF KIDNEY 05/05/[address] active 2 ESSENTIAL (PRIMARY) HYPERTENSION 05/05/[address] active 3 MUSCLE WEAKNESS (GENERALIZED) 05/05/[address] active 4 OTHER ABNORMALITIES OF GAIT AND MOBILITY 05/05/[address] active 5 SEPSIS DUE TO ESCHERICHIA COLI [E. COLI] 05/05/[address] active 6 SEPSIS, UNSPECIFIED ORGANISM 05/05/[address] active 7 SYNCOPE AND COLLAPSE 05/05/[address] active 8 TYPE 2 DIABETES MELLITUS WITHOUT COMPLICATIONS 05/05/[address] active 9 UNSPECIFIED GLAUCOMA 05/05/[address] active 10 UNSTEADINESS ON FEET 05/05/[address] active 11 URINARY TRACT INFECTION, SITE NOT SPECIFIED 05/05/[address] active Reason for Referral No Reasons for Referral Entered Social History Social History Observation Description Start Date End Date Code Code System Current Smoking Status Tobacco smoking consumption unknown 421700657 SNOMED CT Sex Assigned At Male 1950 66641-5 [facility] Gender Identity Vital Signs Code Code System Vitals Name Values and Units Timing Information 34632-0 [facility] Pain Level Value=0.0 05/16/2022 9279-1 LOINC Respiratory Rate Value=18.0 Units=/m in 05/16/2022 8462-4 LOINC Blood Pressure-Diastolic Value=70 Un its=mmHg 05/16/2022 8480-6 LOINC Blood Pressure-Systolic Auany=588 Un its=mmHg 05/16/2022 8310-5 LOINC Body Temperature Value=98.0 Units=?? F 05/16/2022 8867-4 LOINC Heart rate Value=70.0 Units=/min 02/2022 78281-2 [facility] O2 % BldC Oximetry Value=97.0 Units= % 05/16/2022 2339-0 [facility] Blood Sugar Value=1.0 Units=mg/dL 66708-2 [facility] Weight Itbjd=491.0 Units=Lbs 11/2021 8302-2 [facility] Height Value=69.0 Units=Inches 05/06/2022
--- OUTSIDE RECORDS SUMMARY | 2025-02-27 10:53 | XMS_ITS | Clinical Summary ---
Author Organization [employer] Address [address] [place] [address] Care Team Providers Care Product Support Specialist Name Role Phone Unavailable Primary Care Provider Unavailabl e Immunizations Immunization Administration Dates Next Due Influenza, IIV3, injectable [...] (2 of 2 - PPSV23) 07/19/2020 07/19/2019 COVID-19 Vaccine ( season) 2024 06/29/2024, 12/24/2023, 07/13/2023, Additional history exists RSV Patients and Patients Aged 60 years or older (1 - 1-dose 75+ series) 2025 Influenza Vaccine Completed 06/29/2024, 06/12/2020 HIB Vaccines [...] patient's age to complete this topic Meningococcal B Vaccine Aged Out No l onger eligible based on patient's age to complete [...]
== END 2025-02-27 10:56 | disposition home or self-care (01) ==
LOC: HO.HMCHD 10:17
PROVIDERS: PCP Internal Medicine; Visit Provider Internal Medicine
DX: E11.9 Type 2 diabetes mellitus without complications (principal); R39.15 Urgency of urination; Z00.00 Encounter for general adult medical examination without abnormal findings

== ENCOUNTER → 2025-02-27 10:17 | Outpatient (BNVA) | payer MEDICARE, SELFPAY | PROVIDERS: PCP Internal Medicine; Visit Provider Internal Medicine | DX: E11.9 Type 2 diabetes mellitus without complications (principal); R39.15 Urgency of urination | CPT/HCPCS: 96127; 99202 ==

== ENCOUNTER 2025-05-24 13:15 | Outpatient (AMB) | payer MEDICARE, SELFPAY ==
--- NOTE | 2025-05-24 13:26 | MHC.OFFVIS ---
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 . He is a patient of Dr Palacio. He is seen for the following urologic conditions. - nephrolithiasis - lower urinary tract symptoms - primarily bladder instability Six-month follow-up on Toviaz High residual today 160 cc Would cut back to 4 mg Current bladder stability therapy with Toviaz Cystoscopy with relatively open bladder neck Failed oxybutynin, tadalafil, terazosin Lower Urinary tract symptoms Had episode of urinary tract infection 04/18/2022 E coli pansensitive with recurrence May 2022 PSA 05/02 0.25 Background of diabetes at last HbA1c May 2022 6.5%, 07/04 6.1%, 01/02 5.7 Describes nocturia x2, weak stream, dribbling Cystoscopy - open bladder neck Prior therapy includes oxybutynin, tadalafil Has post UTI type syndrome Nephrolithiasis/Urolithiasis:? They are here for?discussed imaging results ?- continue good response to Urocit-K ? Urolithiasis was diagnosed?05/28 [facility] [place] with left-sided flank pain. Imaging suggested stone has passed..? The patient previously had kidney stones whose composition w?unknown.? Laboratory investigations include?07/28 , Normocalcemia (9.0), Normal PTH, Hyperuricemia.? 24 Hour urine evaluation?07/28 , Low Urine volume < 2.0 liters, Low calcium < 200, High oxalate > 30mg, Low citrate < 400, Low urine pH < 5.5 ?- advised to increase fluid, watch nuts and potates, add tums before main meal for binding. ? Prior treatment(s) include?07/29 medical management, with potassium citrate.? Prior imaging includes?05/28 , a CT (computed tomography) scan of the abdomen/pelvis (stone protocol) multiple 1-2 mm stones left kidney ?01/27 , a renal ultrasound L 3x4mm stones ?07/29 , a renal ultrasound, decreased left side stones ?01/28 , a renal ultrasound, left 5mm x 2 stones ?07/30 , a renal ultrasound, showing no evidence of stones ?10/31 CT with 4mm stones ?12/01 , a renal ultrasound, small left 2mm stone ?05/31 , a renal ultrasound, showing no evidence of stones.?, 06/01 renal US small right stone, left cyst - 06/02 ultrasound 3 mm stone right, 1.5 cm cyst left ? Current therapeutic plan will be?to continue with imaging surveillance and medical therapy. [facility] Medical History Bacteremia Vasovagal syncope Nocturia Hyperuricemia COVID-19 vaccine administered Hx of orthostatic hypotension Hx of glaucoma Arthritis Hx of renal calculi HTN (hypertension) Hypercholesteremia Diabetes mellitus, type 2 Surgical History Hx of lithotripsy H/O colonoscopy (~02/27/21) Family History Mother No problems noted. Father No problems noted. Social History Household Members: None Housing: House Are you a primary animal care taker to a significant other at home: No Do you presently have visiting nurse or other home services: No Alcohol intake: never Patient Tobacco Use Status: Never used Tobacco e-Cigarette/Vaping Use: Never Used Advance Directives Date on File: 05/03/22 service: No Current occupational status: retired Cognitive needs: No Hearing needs: No Vision needs: Yes (reading glasses) Review of Systems Const Denies chills and Denies fever(s) Card Reports no additional complaints and Denies syncope Resp Denies cough GI Denies abdominal pain and Denies heartburn Reports as per HPI and Denies change in libido Neuro Denies syncope Psych Denies change in libido Endo Denies change in libido Physical Exam Const General: cooperative, healthy appearing, comfortable and no acute distress Orientation/consciousness: patient oriented x3 HEENT Face and sinus: Yes normal facial exam Mouth: moist mucous membranes Neck Neck: Yes normal visual inspection, Yes full ROM and Yes trachea midline Chest Chest palpation & inspection: normal inspection of the chest Resp Effort & Inspection: normal respiratory effort, able to speak in complete sentences and no respiratory distress GI Inspection: Yes normal to inspection Back/Spine/Pelvis Cervical Spine: normal cervical lordosis Thoracic/Lumbar Spine: thoracic and lumbar spine normal to inspection Skin General skin exam: no rashes or lesions noted Neuro General: patient oriented x3, gait normal, tone normal and moves all extremities Extrem General: Yes normal to inspection and Yes capillary refill normal Office Procedures Post Void Residual Post Residual Void Post Void Residual (PVR): 160 10521-Aich Void Residual by ultrasound Assessment & Plan Assessment & Plan (1) Nephrolithiasis: Code(s): N20.0 - Calculus of kidney Category: Medical (2) Nocturia more than twice per night: Code(s): R35.1 - Nocturia Category: Medical Plan Six-month follow-up Orders: Orders AMB Post Void Residual by ultrasound Today R35.1 - Nocturia US renal BI 6 Months N20.0 - Calculus of kidney Medications: Changed From fesoterodine ER 8 mg PO DAILY 90 days 90 tabs 1RF N40.0 - Benign prostatic hyperplasia without lower urinary tract symptoms, R39.15 - Urgency of urination To fesoterodine ER 4 mg PO DAILY 90 tabs 1RF 90 days N40.0 - Benign prostatic hyperplasia without lower urinary tract symptoms, R39.15 - Urgency of urination Patient Instructions: This note is constructed using voice recognition software. While every effort has been made to ensure accuracy it sales consultant errors may have been included. Imaging studies, laboratory and physical exam results were discussed and reviewed in detail. No major barriers to patient understanding were identified. An opportunity to ask questions regarding the treatment plan was provided. All questions were answered. The patient expressed understanding and agreement with the above treatment plan. The patient is aware they should contact our office by phone for worsening of their current condition or the appearance of new urologic symptoms. Compliance is encouraged with any medications and followup testing that is ordered. It is a privilege to participate in the urologic care of your patient. If you have any questions or concerns regarding treatment for the above conditions, or other urologic issues, please do not hesitate to contact me. The office telephone contact is [phone]. Sincerely, Dr Fracisco Drake MD, [facility] - Urology Compassionate Specialist Care for the Genitourinary System Coding Level of Care Code Est Pt Level 3 (65776) Diagnoses Nephrolithiasis N20.0 Nocturia more than twice per night R35.1 CPT Codes Post Residual Void - PVR CPT Code: 04769-Vfqe Void Residual by ultrasound ([id number])
--- OUTSIDE RECORDS SUMMARY | 2025-05-24 13:45 | XMS_ITS | Clinical Summary ---
Author Organization [employer] Address [address] [place] [address] Care Team Providers Care Laborer [place] Name Role Phone Unavailable Primary Care Provider [...] 2024 06/29/2024, 12/24/2023, 07/13/2023, Additional history exists Influenza Vaccine (#1) 2025 06/29/2024, 2019 RSV Patients and Patients Aged 60 years or older (1 - 1-dose 75+ series) 2025 HIB Vaccines Aged Out No longer eligi [...]
== END 2025-05-24 14:01 | disposition home or self-care (01) ==
LOC: HO.HUSH 13:16
PROVIDERS: PCP Internal Medicine; Visit Provider Urology
DX: N20.0 Calculus of kidney (principal); R35.1 Nocturia
CPT/HCPCS: 99213

== ENCOUNTER → 2025-05-24 13:15 | Outpatient (BNVA) | payer MEDICARE, SELFPAY | PROVIDERS: PCP Internal Medicine; Visit Provider Urology | DX: N20.0 Calculus of kidney (principal); R35.1 Nocturia; N40.0 Benign prostatic hyperplasia without lower urinary tract symptoms | CPT/HCPCS: 51798; 99212 ==

== ENCOUNTER 2025-07-20 15:51 | Outpatient (AMB) | payer MEDICARE, SELFPAY ==
[2025-07-20 15:54] VITALS: BP 122/70; PULSE 86; O2SAT 97
--- NOTE | 2025-07-20 15:54 | AM.OFFWIN_ITS ---
Intake Vital Signs 3 07/20/25 15:54 Height 6 ft BMI Reason not done Patient refused/unable BP 122/70 Blood Pressure Location Lt brachial Position Sitting Pulse 86 Pulse Source Pulse Oximeter Pulse Oximetry (%) 97 Intake Visit Reasons: EP blister on the bottom of rt foot. Patient Tobacco Use Status: Never used Tobacco Allergies No Known Allergies Allergy (Verified 07/20/25 15:54) Do you need a note to return to daycare/school/sports/work: No HPI HPI Comments 2 History of Present Illness0 Details 74 y/o Male patient who presents to the walk in clinic with c/o Left Plantar Callus for few days. Reports pain with walking and standing. [facility] Medical History (Updated 07/20/25 @ 16:26 by Alyx Loo NP) Plantar callus Bacteremia Vasovagal syncope Nocturia Hyperuricemia COVID-19 vaccine administered Hx of orthostatic hypotension Hx of glaucoma Arthritis Hx of renal calculi HTN (hypertension) Hypercholesteremia Diabetes mellitus, type 2 Surgical History Hx of lithotripsy H/O colonoscopy (~02/27/21) Family History Mother No problems noted. Father No problems noted. Social History Household Members: None Housing: House Are you a primary child care coordinator to a significant other at home: No Do you presently have visiting nurse or other home services: No Alcohol intake: never Patient Tobacco Use Status: Never used Tobacco e-Cigarette/Vaping Use: Never Used Advance Directives Date on File: 05/03/22 service: No Current occupational status: retired Cognitive needs: No Hearing needs: No Vision needs: Yes (reading glasses) Review of Systems Const All systems reviewed & are unremarkable except as noted in HPI and below Physical Exam Vital Signs: Last Vital Signs Pulse 86 07/20/25 15:54 BP 122/70 07/20/25 15:54 Pulse Ox 97 07/20/25 15:54 Const General: no acute distress Nutritional Appearance: obese Orientation/consciousness: patient oriented x3 Neuro General: patient oriented x3 Extrem Other: Left lower extremity: foot (Left Foot Callus - see image attached.) Psych Speech and movement: Normal speech and movement present Assessment & Plan Assessment & Plan (1) Plantar callus: Code(s): L84 - Corns and callosities Plan: Will refer Patient to Podiatry Soak your feet in warm water for 10-15 minutes. Apply a moisturizer containing salicylic acid to soften the callus. Vincent pads or protectors can provide cushioning and reduce pain. Orders: Referrals 2 Podiatry Referral L84 - Corns and callosities Medications: New 2 salicylic acid 6% 1 appl topical BID 454 grams 0RF L84 - Corns and callosities Coding Level of Care Code Est Pt Level 4 (02213) Diagnoses Plantar callus L84 Time Spent (min) 20
== END 2025-07-20 16:26 | disposition home or self-care (01) ==
PROVIDERS: PCP Internal Medicine; Visit Provider Nurse Practitioner Family
DX: L84 Corns and callosities (principal)

== ENCOUNTER → 2025-07-20 15:51 | Outpatient (BNVA) | payer MEDICARE, SELFPAY | PROVIDERS: PCP Internal Medicine; Visit Provider Nurse Practitioner Family | DX: L84 Corns and callosities (principal) | CPT/HCPCS: 99212 ==

== ENCOUNTER 2025-08-14 13:27 | Outpatient (AMB) | payer MEDICARE, SELFPAY ==
--- NOTE | 2025-08-14 13:57 | A.OFFVIS_ITS ---
Vital Signs 08/14/25 13:58 Height 6 ft Weight 225 lb BMI 30.5 Intake Visit Reasons: plantar callus Intake Note: Alon is a 74 year old male who presents today as a new patient for an evaluation of his Plantar callous of his right foot. Pt states the callous has been going for about 2 weeks and he has not tried any treatment for his callous at this time. Pt has concerns that the callous is starting to become infected Allergies No Known Allergies Allergy (Verified 08/14/25 13:59) HPI HPI plantar callus: Details: 74-year-old male with past medical history of diabetes mellitus type 2, lumbar radiculopathy, urinary urgency, presents for right foot blister. The patient was seen at the [facility] and was recommended podiatry evaluation for a callus/blister. He denies any infections. Denies numbness, burning, tingling. Patient denies N/V/F/C/SOB/CP. [facility] Medical History (Updated 07/20/25 @ 16:26 by Alyx Loo NP) Plantar callus Bacteremia Vasovagal syncope Nocturia Hyperuricemia COVID-19 vaccine administered Hx of orthostatic hypotension Hx of glaucoma Arthritis Hx of renal calculi HTN (hypertension) Hypercholesteremia Diabetes mellitus, type 2 Surgical History Hx of lithotripsy H/O colonoscopy (~02/27/21) Family History Mother No problems noted. Father No problems noted. Social History Household Members: None Housing: House Are you a primary career technical education teacher to a significant other at home: No Do you presently have visiting nurse or other home services: No Alcohol intake: never Patient Tobacco Use Status: Never used Tobacco e-Cigarette/Vaping Use: Never Used Advance Directives Date on File: 05/03/22 service: No Current occupational status: retired Cognitive needs: No Hearing needs: No Vision needs: Yes (reading glasses) Review of Systems Const All systems reviewed & are unremarkable except as noted in HPI and below Physical Exam Vital Signs: BMI result Body Mass Index 30.5 Extrem Other: *Bilateral Lower Extremity Focused Diabetic Foot Exam Vascular: DP/PT 2/4, CFT<3s to digits, TG warm to cool, no pedal edema, pedal hair present Derm: Skin: Right foot submet 5th hyperkeratotic lesion with dry blister. no underlying wounds or ulcerations. Interdigital spaces: Clear, no maceration or fungal infection. Nails: No onychomycosis, paronychia, or ingrown nails. Neuro: Protective sensation grossly intact to bilateral extremities Msk: Deformities: No evidence of hammertoes, bunions, Charcot changes, or other structural abnormalities. Muscle strength: 5/5 in all muscle groups. Gait: Normal, no antalgic or steppage gait observed. Footwear Assessment: Shoes inspected; appropriate fit, no excessive wear, or foreign objects noted. Office Procedures AMB Debridement/Avulsion Podia Details: Procedure: Callus debridement Location: Right foot 5th metatarsal Anesthesia: N/A Description: The affected area was cleansed with an antiseptic solution. Using a sterile #15 blade, the hyperkeratotic tissue was radially debrided from the foot. All callused tissue was removed down to normal skin without causing bleeding or discomfort. The area was inspected for underlying ulceration or infection. Patient tolerated the procedure well. No complications noted. Tolerance: Patient tolerated procedure well, no immediate complications. 63866-Tnsllmzyiub of Callus (1) Procedure code (CPT) selection complete Assessment & Plan Assessment & Plan (1) Diabetes mellitus, type 2: Comment: taking metformin Code(s): E11.9 - Type 2 diabetes mellitus without complications Category: Medical Plan: Risk Stratification: Right foot pre-ulcerative lesion. Mild loss of protective sensation or peripheral arterial disease. No plans for further testing/referrals for non-invasive vascular studies. Patient is at moderate risk for diabetic foot complications at this time. Recommendations: Continue routine foot care and daily self-inspection. Recommend moisturizing daily. Recommend supportive proper fitting shoe-wear. Patient would benefit from custom diabetic shoes. This was brought up to the patient today He will consider it at the next visit. Reinforced diabetic foot education and risks from peripheral neuropathy. (2) Plantar callus: Code(s): L84 - Corns and callosities Category: Medical Plan: * Debrided right foot lesion using a 15. Blade. Dressed with antibiotic ointment and a Band-Aid. * Applied reverse dancer's pad * Follow up in 2 weeks Orders: Orders AMB Debridement/Avulsion Podiatry Today E11.9 - Type 2 diabetes mellitus without complications, L84 - Corns and callosities XR foot RT min 3V Today E11.9 - Type 2 diabetes mellitus without complications, L84 - Corns and callosities Coding Level of Care Code New Pt Level 4 (75156) Diagnoses Diabetes mellitus, type 2 E11.9 Plantar callus L84 CPT Codes Skin Debridement - CPT: 99062-Hxalmtyhpjy of Callus (1) ([id number]) Time Spent (min) 30
[2025-08-14 13:58] VITALS: BMI 30.5
== END 2025-08-14 14:35 | disposition home or self-care (01) ==
LOC: HO.HPODS 13:28
PROVIDERS: PCP Internal Medicine; Visit Provider Student in an Organized Health Care Education/Training Program
DX: E11.9 Type 2 diabetes mellitus without complications (principal); L84 Corns and callosities
CPT/HCPCS: 11055; 99204

== ENCOUNTER → 2025-08-14 13:27 | Outpatient (BNVA) | payer MEDICARE, SELFPAY | PROVIDERS: PCP Internal Medicine; Visit Provider Student in an Organized Health Care Education/Training Program | DX: E11.9 Type 2 diabetes mellitus without complications (principal); L84 Corns and callosities | CPT/HCPCS: 11055; 99202 ==

== ENCOUNTER 2025-08-21 10:36 | Outpatient (AMB) | payer MEDICARE, SELFPAY ==
[2025-08-21 10:18] VITALS: BP 124/65; PULSE 94; TEMP 36.6; O2SAT 96; BMI 32.8
--- NOTE | 2025-08-21 10:18 | A.OFFPC_ITS ---
Vital Signs 08/21/25 10:18 Height 6 ft Weight 242 lb BMI 32.8 BP 124/65 Blood Pressure Location Lt brachial Position Sitting Pulse 94 Pulse Source Pulse Oximeter Temp 98 F Temp Source Temporal Artery Scan Pulse Oximetry (%) 96 Oxygen Delivery Method Room Air Intake Visit Reasons: 6 Month F/U / Dr V - see comments Lettuce Cutter Required: No Accompanied by: Self / Same As Patient Allergies No Known Allergies Allergy (Verified 08/21/25 10:22) Medication List - Last Reconciled 08/21/25 by Mao Lopez MD aspirin (Shlomo Low Dose Aspirin) 81 mg PO DAILY atorvastatin 10 mg PO DAILY cholecalciferol (vitamin D3) 50 mcg PO DAILY lisinopril 5 mg PO DAILY metformin ER 500 mg PO BID omeprazole 40 mg PO DAILY 90 days potassium citrate ER 10 mEq PO BID 90 days pyridoxine (vitamin B6) 100 mg PO DAILY timolol maleate 0.5% 1 drp ophthalmic (eye) DAILY walker Folding Front wheeled walker duration 99 days Tobacco use date assessed: 08/21/25 Fall risk assessment: No Falls in past year Dental Screening Dental Screen Date: 08/21/25 Did you have a dental visit in the last 12 months?: Yes Did you have a dental problem in the last 6 months where you did not have access to dental care?: No HPI HPI Comments History of Present Illness Details The patient is a 74-year-old male presenting for a yearly physical examination. He reports a recent issue with a foot callus, which was treated by a tool crib manager a couple of weeks ago and is now much better. The patient's history is significant for type 2 diabetes mellitus, which is well-controlled with a last hemoglobin A1c of 6.2%, an improvement from a previous 6.6. His hyperlipidemia is managed on atorvastatin, and last year's labs showed a total cholesterol of 124 and an LDL of 67. Other chronic conditions include hypertension, gastroesophageal reflux disease, and glaucoma, all of which are managed with daily medications. The patient reports significant nocturia, waking frequently at night to urinate. He has been evaluated by a urologist for this symptom, who reportedly informed him it was normal for his age. 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 He has never smoked and denies any recent falls. Medical History: - Type 2 Diabetes Mellitus - Essential Hypertension - Hyperlipidemia - Gastroesophageal Reflux Disease (GERD) - Glaucoma - Nocturia - History of foot callus Medications: - Aspirin 81 mg daily for cardiovascular prevention - Atorvastatin 10 mg for hyperlipidemia - Lisinopril 5 mg for hypertension - Metformin 500 mg twice a day for diabe giacomo - Omeprazole 40 mg for acid reflux - Potassium supplement daily - Unspecified eye drops for glaucoma Diagnostic Results: - Hemoglobin A1c: 6.2%, previously 6.6% - Total Cholesterol (from last year): 12 4 - LDL Cholesterol (from last year): 67 - Colonoscopy: Patient had one last year . Social History; - Living Status: Lives independently. - Exercise: Reports working out at a [employer]. - Tobacco Use: Denies ever smoking. [facility] Medical History (Updated 08/21/25 @ 11:03 by Mao Lopez MD) Annual physical exam Plantar callus Bacteremia Vasovagal syncope Nocturia Hyperuricemia COVID-19 vaccine administered Hx of orthostatic hypotension Hx of glaucoma Arthritis Hx of renal calculi HTN (hypertension) Hypercholesteremia Diabetes mellitus, type 2 Surgical History Hx of lithotripsy H/O colonoscopy (~02/27/21) Family History (Updated 08/21/25 @ 10:45 by Oanh Newman MA) Mother No problems noted. Father No problems noted. Social History Household Members: None Housing: House Are you a primary campground caretaker to a significant other at home: No Do you presently have visiting nurse or other home services: No Alcohol intake: never Patient Tobacco Use Status: Never used Tobacco e-Cigarette/Vaping Use: Never Used Advance Directives Date on File: 05/03/22 service: No Current occupational status: retired Cognitive needs: No Hearing needs: No Vision needs: Yes (reading glasses) Questionnaire PHQ-9 Over the last 2 weeks, how often have you been bothered by any of the following problems? 1. Little interest or pleasure in doing things: not at all 2. Feeling down, depressed, or hopeless: not at all 3. Trouble falling or staying asleep, or sleeping too much: not at all 4. Feeling tired or having little energy: not at all 5. Poor appetite or overeating: not at all 6. Feeling bad about yourself - or that you are a failure or have let yourself or your family down: not at all 7. Trouble concentrating on things, such as reading the newspaper or watching television: not at all 8. Moving or speaking so slowly that other people could have noticed. Or the opposite - being so fidgety or restless that you have been moving around a lot more than usual: not at all 9. Thoughts that you would be better off or of hurting yourself in some way: not at all Total score: 0 Depression Screening Interpretation: Negative Depression Screening Done: Yes Source: Developed by Drs. Irvin Ag, Tennille Rico, Inder Crawford and colleagues, with an educational thomas from [employer]. Thrive Questionnaire Date Thrive assessed: 08/21/25 I am a: Patient What is your living situation today?: I have a steady place to live Within the past 12 months, did the food you bought not last and you didn't have the money to get more?: Never true Within the past 12 months, did you worry whether your food would run out before you got money to buy more?: Never true Do you have trouble paying for medicines?: No Do you have trouble getting transportation to medical appointments?: No Do you have trouble paying your heating and electricity bill?: No Do you have trouble taking care of your child, family member or friend?: No Do you have trouble with day-to-day activities such as bathing, preparing meals, shopping, managing finances, etc.?: No Are you currently unemployed and looking for a job?: No Are you interested in more education?: No THRIVE Score: 0 AUDIT C Alcohol Use Questionnaire (AUDIT-C) 1. How often do you have a drink containing alcohol?: Never 3. How often do you have six or more drinks on one occasion?: Never Total Score: 0 Score Reviewed/Action Taken: Yes SIL-7 AMB Questionnaire SIL-7 Date SIL - 7 assessed: 08/21/25 Feeling nervous, anxious, or on edge: 0 = Not at all Not being able to stop or control worryin = Not at all Worrying too much about different things: 0 = Not at all Trouble relaxin = Not at all Being so restless that it is hard to sit still: 0 = Not at all Becoming easily annoyed or irritable: 0 = Not at all Feeling afraid as if something awful might happen: 0 = Not at all Total SIL-7 score (0-4 normal; 5-9 mild; 10-14 moderate; 15-21 severe): 0 Source: Developed by Drs. Irvin Ag, Tennille Rico, Inder Crawford and colleagues, with an educational thomas from [employer]. SIL-7 Assessment Billing SIL-7 Assessment Tool: SIL-7 Assessment 48893 Review of Systems Narrative - Eyes: Reports some unspecified vision changes. - Cardiovascular: Denies chest pain. - Respiratory: Reports transient dyspnea on exertion, which resolves with rest. - Gastrointestinal: Reports intermittent, non-painful sensation in the upper abdomen. - Genitourinary: Reports significant nocturia. - Neurological: Denies headaches. - Musculoskeletal: Denies recent falls. - Psychiatric: Reports feeling good; denies anxiety or depression. All systems reviewed & are unremarkable except as reviewed in HPI and above Physical exam (Primary Care) Vital Signs: Last Vital Signs Temp 98 F 08/21/25 10:18 Pulse 94 08/21/25 10:18 BP 124/65 08/21/25 10:18 Pulse Ox 96 08/21/25 10:18 Oxygen Delivery Method Room Air 08/21/25 10:18 BMI result Body Mass Index 32.8 Tobacco/Smoking Status: Tobacco use Status Tobacco use date assessed 08/21/25 08/21/25 10:24 Patient Tobacco Use Status Never used Tobacco 08/21/25 10:20 e-Cigarette/Vaping Use Never Used 08/21/25 10:20 PHQ-9: PHQ-9 Score PHQ-9: Total score 0 08/21/25 10:47 Depression Screening Interpretation: Negative Thrive Assessment: Date of Thrive Assessment Date Thrive assessed 08/21/25 08/21/25 10:24 Narrative General: +Alert and oriented, Well nourished, No acute distress. Eye: Pupils are equal, round and reactive to light, Intact accommodation, Extraocular movements are intact, Normal conjunctiva, Vision unchanged. HENT: Normocephalic, Atraumatic, Tympanic membranes are clear, Normal hearing, Oral mucosa is moist, No pharyngeal erythema, Ear canals patent. Respiratory: Lungs CTA bilaterally, No wheeze, Respirations are non-labored, occasional shortness of breath with exertion. Cardiovascular: Regular rate, Regular rhythm, S1 auscultated, S2 auscultated, No murmur, Good pulses equal in all extremities, Normal peripheral perfusion, No edema. Gastrointestinal: Soft, Non-tender, Non-distended, Normal bowel sounds, No organomegaly. Musculoskeletal: Normal range of motion, Normal strength, No tenderness, No swelling, No deformity, Normal gait, recent callus on foot treated by herminio etienne. Integumentary: Warm, Dry, [place], Intact. Neurologic: Alert, Oriented, Normal sensory, Normal motor function, No focal defects, Cranial Nerves II-XII are grossly intact, Normal deep tendon reflexes. Psychiatric: Cooperative, Appropriate mood & affect, Normal judgment, reports feeling good. Coding Level of Care Code Est Pt Prev Care >65y(72598) Diagnoses Primary hypertension I10 Hypertension type: primary hypertension Hypercholesteremia E78.00 Type 2 diabetes mellitus without complication, without long-term current use of insulin E11.9 Diabetes mellitus terminal gauger supervisor insulin use: without terminal gauger supervisor use Diabetes mellitus complication status: without complication Nocturia R35.1 Plantar callus L84 Additional Codes SIL-7 Assessment Billing - SIL-7 Assessment Tool: SIL-7 Assessment 80120 ([id number]) Assessment & Plan Assessment & Plan (1) HTN (hypertension): Comment: Pressure is well controlled on lisinopril 5 and patient to continue the same Code(s): I10 - Essential (primary) hypertension Category: Medical Qualifiers: Hypertension type: primary hypertension Qualified Code(s): I10 - Essential (primary) hypertension (2) Hypercholesteremia: Comment: Currently being managed on atorvastatin 10 with most recent lipid panel completed 2023 demonstrating an LDL of under ED. We will repeat lipid panel today Code(s): E78.00 - Pure hypercholesterolemia, unspecified Category: Medical (3) Diabetes mellitus, type 2: Comment: - The condition is well-controlled with an A1c of 6.2 on metformin. - Will continue current management and monitor via labs. Code(s): E11.9 - Type 2 diabetes mellitus without complications Category: Medical Qualifiers: Diabetes mellitus long-term insulin use: without terminal gauger supervisor use Diabetes mellitus complication status: without complication Qualified Code(s): E11.9 - Type 2 diabetes mellitus without complications (4) Nocturia: Comment: - Patient reports significant symptoms and is being followed by a urologist. - Management is deferred to the specialist. Code(s): R35.1 - Nocturia Category: Medical (5) Plantar callus: Comment: Callus formed in the base of right foot few weeks prior and was evaluated by Podiatry and underwent debridement. Reports improvement in symptoms however some discomfort. Scheduled to follow up with podiatry next week Code(s): L84 - Corns and callosities Category: Medical Plan: Health Maintenance: - Annual Physical Exam: Performed during this visit. - Colon Cancer Screening: The patient had a colonoscopy last year and is not due for another until December 2028. - Lung Cancer Screening: Not indicated as the patient has never smoked. - Osteoporosis Screening: A bone scan will be ordered to assess bone health. - Immunizations: The patient was advised to get COVID-19 and influenza shots at his pharmacy. - Lifestyle: The patient was advised to continue his active lifestyle and to eat and drink healthy. Patient was informed and verbally consented to the use of an ambient scribe for clinic note documentation during this visit. Vital signs reviewed. Comprehensive history, review of systems, and physical exam completed. Medications, allergies, and problem list reviewed and updated. Counseling provided on nutrition, regular exercise, sleep hygiene, and moderation of alcohol use. Discussed age-appropriate screenings (mammogram, colonoscopy, Pap, bone density) and immunizations (flu, COVID, shingles, Tdap). Screened for depression, fall risk, and home safety; no current concerns. Discussed stress management, dental and vision care, and importance of ongoing preventive follow-up. Routine labs ordered for metabolic and lipid screening. Patient educated on healthy lifestyle and agrees with the plan. Plan I conducted the patient's yearly physical examination today. We reviewed his chronic conditions, including type 2 diabetes and hyperlipidemia, which are well-controlled based on recent and past lab results. I noted his ongoing concern with nocturia and confirmed he is under the care of a urologist for this issue, to whom I will defer management. Regarding health maintenance, I informed him that his next colonoscopy is not due until 2028 and that I am placing an order for a bone scan for osteoporosis screening. I advised him to obtain his COVID-19 and flu vaccinations at a local pharmacy, as we do not have them in stock. A follow-up visit was scheduled for 5 months from now. Orders: Orders Complete Blood Count Auto Diff Today Z00.00 - Encounter for general adult medical examination without abnormal findings Hemoglobin A1c Today Z00.00 - Encounter for general adult medical examination without abnormal findings Lipid Panel Today Z00.00 - Encounter for general adult medical examination without abnormal findings Vitamin D 25-OH Total Today Z00.00 - Encounter for general adult medical examination without abnormal findings Comprehensive Met. Panel Today Z00.00 - Encounter for general adult medical examination without abnormal findings TSH reflex Free T4 Today Z00.00 - Encounter for general adult medical examination without abnormal findings Microalbumin, Random (w Creat) Today Z00.00 - Encounter for general adult medical examination without abnormal findings XR DEXA axial skeleton Today M19.90 - Unspecified osteoarthritis, unspecified site Patient Instructions: - Please go to the lab across the [place] to have your blood drawn for routine tests. - A bone scan has been ordered to check your bone health. - Your next colonoscopy screening is not needed until 2028. - It is recommended you get your COVID-19 and flu shots at your local pharmacy. - Continue taking all your current medications as prescribed. - Continue to stay active and maintain a healthy diet. - Please schedule a follow-up appointment in our office in about 5 months. - Continue to follow up with your urology doctor for issues with urinating frequently at night.
--- OUTSIDE RECORDS SUMMARY | 2025-08-21 12:29 | XMS_ITS | Clinical Summary ---
Author Organization [employer] Address [address] [place] [address] Care Team Providers Care Label Tacker Name Role Phone Unavailable Primary Care Provider [...] PPSV23) 07/19/2020 07/19/2019 COVID-19 Vaccine ( season) 2025 06/29/2024, 12/24/2023, 07/13/2023, Additional history exists Influenza [...]
== END 2025-08-21 11:02 | disposition home or self-care (01) ==
PROVIDERS: PCP Student in an Organized Health Care Education/Training Program; Visit Provider Student in an Organized Health Care Education/Training Program
DX: Z00.00 Encounter for general adult medical examination without abnormal findings (principal); I10 Essential (primary) hypertension; E78.00 Pure hypercholesterolemia, unspecified; E11.9 Type 2 diabetes mellitus without complications; R35.1 Nocturia; L84 Corns and callosities

== ENCOUNTER 2025-08-21 11:10 | Outpatient (REF) | payer MEDICARE, SELFPAY ==
[2025-08-21 13:14] LABS: Hematocrit 43.7 % (42.0-52.0); Hemoglobin 14.8 g/dl (14.0-18.0); Imm Gran Abs Auto 0.03 X10*3/uL (0.00-0.03); Imm Gran Pct Auto 0.4 % (0.0-0.4); Lymphocytes Absolute Auto 1.2 X10*3/uL (1.2-4.9); MANUAL DIFF FLAG SCAN; Mean Corpuscular HGB Conc 33.9 g/dl (31.0-36.0); Mean Corpuscular Hemoglobin 31.2 pg (27.0-33.0); Mean Corpuscular Volume 92.2 fL (80.0-98.0); NRBC Abs Auto 0.000 X10*3/uL (0.0-0.012); NRBC Pct Auto 0.0 /100WBC (0.0-0.2); PLT CLUMP 1; Red Blood Count 4.74 X10*6/uL (4.60-5.80); SCAN SMEAR FLAG 1
[2025-08-21 13:34] LABS: White Blood Count 7.3 X10*3/uL (4.8-10.8)
[2025-08-21 13:35] LABS: Alanine Aminotransferase 34 U/L (0-40); Albumin Level 4.5 g/dL (3.5-5.0); Alkaline Phosphatase 98 U/L (39-117); Anion Gap 15 (12-20); Aspartate Amino Transferase 53 U/L (5-37); Blood Urea Nitrogen 26 mg/dL (9-16); Calcium 9.5 mg/dL (8.4-10.2); Carbon Dioxide 22 mmol/L (22-29); Chloride 108 mmol/L (96-108); Cholesterol 130 mg/dL (<200); Estimated Glomerular Filt Rate 53; HDL Cholesterol 26 mg/dL (>40); Potassium 5.0 mmol/L (3.3-5.1); Sodium 140 mmol/L (135-145); Total Protein 7.5 g/dL (6.5-8.0); Triglycerides 130 mg/dL (<150)
[2025-08-21 13:36] LABS: Microalbum/Creatinine Ratio Ur 5.8 ug/mg cr (<30)
[2025-08-21 14:49] LABS: Total Hemoglobin (HGBA1C) 2502.5252 umol/L
== END 2025-08-21 11:11 | disposition home or self-care (01) ==
LOC: HO.10HDL 11:10
PROVIDERS: Visit Provider Student in an Organized Health Care Education/Training Program
DX: Z00.00 Encounter for general adult medical examination without abnormal findings (principal); Z13.6 Encounter for screening for cardiovascular disorders; Z13.1 Encounter for screening for diabetes mellitus; Z13.29 Encounter for screening for other suspected endocrine disorder; Z13.0 Encounter for screening for diseases of the blood and blood-forming organs and certain disorders involving the immune mechanism
CPT/HCPCS: 36415; 80053; 80061; 82043; 82306; 82570; 83036; 84443; 85025; 96127; 99397

== ENCOUNTER 2025-08-30 12:52 | Outpatient (AMB) | payer MEDICARE, SELFPAY ==
--- NOTE | 2025-08-30 13:16 | A.OFFVIS_ITS ---
Vital Signs 08/30/25 14:41 Height 6 ft Weight 242 lb BMI 32.8 Intake Visit Reasons: fu plantar callus Intake Note: Alon cordero is a 74 year old male who presents today for a follow up on his right plantar callus. At his last visit his right foot lesion was debrided and a dancer pad was applied. Patient reports everything has gone well since his last visit and he has no questions or concerns at this time. Allergies No Known Allergies Allergy (Verified 08/30/25 14:42) HPI HPI fu plantar callus: Details: 74-year-old male with past medical history of diabetes mellitus type 2, lumbar radiculopathy, urinary urgency, returns for 2 week follow up of right foot blister. He notes he no longer has any pain to his foot, has not noticed any drainage or new blisters. History: The patient was seen at the [facility] and was recommended podiatry evaluation for a callus/blister. He denies any infections. Denies numbness, burning, tingling. Patient denies N/V/F/C/SOB/CP. [facility] Medical History (Updated 08/30/25 @ 14:22 by Hood Redd DPM) Annual physical exam Plantar callus Bacteremia Vasovagal syncope Nocturia Hyperuricemia COVID-19 vaccine administered Hx of orthostatic hypotension Hx of glaucoma Arthritis Hx of renal calculi HTN (hypertension) Hypercholesteremia Diabetes mellitus, type 2 Surgical History Hx of lithotripsy H/O colonoscopy (~02/27/21) Family History (Updated 08/21/25 @ 10:45 by Oanh Newman MA) Mother No problems noted. Father No problems noted. Social History Household Members: None Housing: House Are you a primary care asst to a significant other at home: No Do you presently have visiting nurse or other home services: No Alcohol intake: never Patient Tobacco Use Status: Never used Tobacco e-Cigarette/Vaping Use: Never Used Advance Directives Date on File: 05/03/22 service: No Current occupational status: retired Cognitive needs: No Hearing needs: No Vision needs: Yes (reading glasses) Review of Systems Const All systems reviewed & are unremarkable except as noted in HPI and below Physical Exam Vital Signs: BMI result Body Mass Index 32.8 Extrem Other: *Bilateral Lower Extremity Focused Diabetic Foot Exam Vascular: DP/PT 2/4, CFT<3s to digits, TG warm to cool, no pedal edema, pedal hair present Derm: Skin: Right foot submet 5th hyperkeratotic lesion 30% the size of last visit. No underlying wounds or infections. No new blisters. Interdigital spaces: Clear, no maceration or fungal infection. Nails: No onychomycosis, paronychia, or ingrown nails. Neuro: Protective sensation grossly intact to bilateral extremities Msk: Deformities: No evidence of hammertoes, bunions, Charcot changes, or other structural abnormalities. Muscle strength: 5/5 in all muscle groups. Gait: Normal, no antalgic or steppage gait observed. Footwear Assessment: Shoes inspected; appropriate fit, no excessive wear, or foreign objects noted. Office Procedures AMB Debridement/Avulsion Podia Details: Procedure: Callus debridement Location: Plantar right foot, 1 lesion Anesthesia: N/A Description: The affected area was cleansed with an antiseptic solution. Using a sterile #15 blade, the hyperkeratotic tissue was radially debrided from the foot. All callused tissue was removed down to normal skin without causing bleeding or discomfort. The area was inspected for underlying ulceration or infection. Patient tolerated the procedure well. No complications noted. Tolerance: Patient tolerated procedure well, no immediate complications. [id number] of Callus (1) Procedure code (CPT) selection complete Assessment & Plan Assessment & Plan (1) Plantar callus: Code(s): L84 - Corns and callosities Category: Medical Plan: * Debrided right foot lesion using a 15. Blade. * Continue reverse dancer's pad * Rx urea cream 20% * Follow up in 1 month (2) Diabetes mellitus, type 2: Comment: - The condition is well-controlled with an A1c of 6.2 on metformin. - Will continue current management and monitor via labs. Code(s): E11.9 - Type 2 diabetes mellitus without complications Category: Medical Qualifiers: Diabetes mellitus complication status: without complication Diabetes mellitus terminal carman insulin use: without detention use Qualified Code(s): E11.9 - Type 2 diabetes mellitus without complications Plan: Risk Stratification: Right foot pre-ulcerative lesion. Mild loss of protective sensation or peripheral arterial disease. No plans for further testing/referrals for non-invasive vascular studies. Patient is at moderate risk for diabetic foot complications at this time. Recommendations: Continue routine foot care and daily self-inspection. Recommend moisturizing daily. Recommend supportive proper fitting shoe-wear. Patient would benefit from custom diabetic shoes. This was brought up to the patient today He will consider it at the next visit. Reinforced diabetic foot education and risks from peripheral neuropathy. Medications: New urea 20% apply to right foot callus 1 appl topical BID 85 grams 5RF callus L84 - Corns and callosities Coding Level of Care Code Global (53647) Diagnoses Plantar callus L84 Type 2 diabetes mellitus without complication, without long-term current use of insulin E11.9 Diabetes mellitus complication status: without complication Diabetes mellitus terminal carman insulin use: without detention use CPT Codes Skin Debridement - CPT: 80162-Yklanljoorf of Callus (1) ([id number]) Time Spent (min) 20
[2025-08-30 14:41] VITALS: BMI 32.8
== END 2025-08-30 13:29 | disposition home or self-care (01) ==
LOC: HO.HPODS 12:53
PROVIDERS: PCP Student in an Organized Health Care Education/Training Program; Visit Provider Student in an Organized Health Care Education/Training Program
DX: E11.9 Type 2 diabetes mellitus without complications (principal); L84 Corns and callosities
CPT/HCPCS: 11055

== ENCOUNTER → 2025-08-30 12:52 | Outpatient (BNVA) | payer MEDICARE, SELFPAY | PROVIDERS: PCP Student in an Organized Health Care Education/Training Program; Visit Provider Student in an Organized Health Care Education/Training Program | DX: L84 Corns and callosities (principal); E11.9 Type 2 diabetes mellitus without complications | CPT/HCPCS: 11055 ==

== ENCOUNTER 2025-10-02 12:52 | Outpatient (AMB) | payer MEDICARE, SELFPAY ==
[2025-10-02 13:01] VITALS: BMI 32.8
--- NOTE | 2025-10-02 13:01 | A.OFFVIS_ITS ---
Vital Signs 10/02/25 13:01 Height 6 ft Weight 242 lb BMI 32.8 Intake Visit Reasons: fu plantar callus Intake Note: Alon is a 75 year old male who presents today for a follow up on his plantar callus. At his last visit his right foot lesion was debrided and he was advised to continue utilizing reverse dancers pad. He was prescribed Urea cream 20%. Patient reports he had used the medication and he has been utilizing the reverse dancer pads. He denies experiencing pain in his feet and patient has no further questions or concerns at this time. Allergies No Known Allergies Allergy (Verified 10/02/25 13:09) HPI HPI fu plantar callus: Details: 74-year-old male with past medical history of diabetes mellitus type 2, lumbar radiculopathy, urinary urgency, returns for 2 week follow up of right foot blister. He notes he no longer has any pain to his foot, has not noticed any drainage or new blisters. He has been applying urea cream daily. History: The patient was seen at the [facility] and was recommended podiatry evaluation for a callus/blister. He denies any infections. Denies numbness, burning, tingling. Patient denies N/V/F/C/SOB/CP. [facility] Medical History (Updated 10/02/25 @ 13:17 by Hood Redd DPM) Annual physical exam Plantar callus Bacteremia Vasovagal syncope Nocturia Hyperuricemia COVID-19 vaccine administered Hx of orthostatic hypotension Hx of glaucoma Arthritis Hx of renal calculi HTN (hypertension) Hypercholesteremia Diabetes mellitus, type 2 Surgical History Hx of lithotripsy H/O colonoscopy (~02/27/21) Family History (Updated 08/21/25 @ 10:45 by Oanh Newman MA) Mother No problems noted. Father No problems noted. Social History Household Members: None Housing: House Are you a primary career resource specialist to a significant other at home: No Do you presently have visiting nurse or other home services: No Alcohol intake: never Patient Tobacco Use Status: Never used Tobacco e-Cigarette/Vaping Use: Never Used Advance Directives Date on File: 05/03/22 service: No Current occupational status: retired Cognitive needs: No Hearing needs: No Vision needs: Yes (reading glasses) Review of Systems Const All systems reviewed & are unremarkable except as noted in HPI and below Physical Exam Vital Signs: BMI result Body Mass Index 32.8 Extrem Other: *Bilateral Lower Extremity Focused Diabetic Foot Exam Vascular: DP/PT 2/4, CFT<3s to digits, TG warm to cool, no pedal edema, pedal hair present Derm: Skin: Mild right foot submet 5th hyperkeratotic lesion. No underlying wounds or infections. No new blisters. Interdigital spaces: Clear, no maceration or fungal infection. Nails: No onychomycosis, paronychia, or ingrown nails. Neuro: Protective sensation grossly intact to bilateral extremities Msk: Deformities: No evidence of hammertoes, bunions, Charcot changes, or other structural abnormalities. Muscle strength: 5/5 in all muscle groups. Gait: Normal, no antalgic or steppage gait observed. Footwear Assessment: Shoes inspected; appropriate fit, no excessive wear, or foreign objects noted. Assessment & Plan Assessment & Plan (1) Diabetes mellitus, type 2: Comment: - The condition is well-controlled with an A1c of 6.2 on metformin. - Will continue current management and monitor via labs. Code(s): E11.9 - Type 2 diabetes mellitus without complications Category: Medical Qualifiers: Diabetes mellitus complication status: without complication Diabetes mellitus fdc insulin use: without termite treater use Qualified Code(s): E11.9 - Type 2 diabetes mellitus without complications Plan: * Discussed risks of infection due to his diabetes and neuropathy symptoms * He was referred for diabetic shoes * F/u in 1 month to assess new diabetic shoes (2) Plantar callus: Code(s): L84 - Corns and callosities Category: Medical Plan: * Continue reverse dancer's pad * Rx urea cream 20% * Follow up in 2 months Medications: New [diabetic shoes] Please dispense extra-depth diabetic shoes with 3 pairs of custom molded inserts. 1 ea 0RF E11.9 - Type 2 diabetes mellitus without complications, L84 - Corns and callosities, M77.41 - Metatarsalgia, right foot, M77.42 - Metatarsalgia, left foot Coding Level of Care Code Est Pt Level 3 (04162) Diagnoses Type 2 diabetes mellitus without complication, without long-term current use of insulin E11.9 Diabetes mellitus complication status: without complication Diabetes mellitus termite treater insulin use: without fdc use Plantar callus L84 Time Spent (min) 20
--- OUTSIDE RECORDS SUMMARY | 2025-10-02 16:04 | XMS_ITS | Clinical Summary ---
Author Organization [employer] Address [address] [place] [address] Care Team Providers Care Global Expansion Sales Director Name Role Phone Unavailable Primary Care [...] Vaccine: 50+ Years (2 of 2 - PCV20 or PCV21) 07/19/2020 07/19/2019 COVID-19 Vaccine (2024- season) 2025 06/29/2024, 12/24/2023, 07/13/2023, Additional history [...] patient's age to complete this topic Insurance [facility] MEDICARE
== END 2025-10-02 13:18 | disposition home or self-care (01) ==
LOC: HO.HPODS 12:53
PROVIDERS: PCP Student in an Organized Health Care Education/Training Program; Visit Provider Student in an Organized Health Care Education/Training Program
DX: E11.9 Type 2 diabetes mellitus without complications (principal); L84 Corns and callosities
CPT/HCPCS: 99213

== ENCOUNTER → 2025-10-02 12:52 | Outpatient (BNVA) | payer MEDICARE, SELFPAY | PROVIDERS: PCP Student in an Organized Health Care Education/Training Program; Visit Provider Student in an Organized Health Care Education/Training Program | DX: L84 Corns and callosities (principal); E11.9 Type 2 diabetes mellitus without complications | CPT/HCPCS: 99212 ==

== ENCOUNTER 2025-10-08 14:46 | Emergency (ER) | payer MEDICARE, SELFPAY ==
--- NOTE | ~2025-10-08 | XR_ITS ---
CLINICAL HISTORY: chest pain, SOB 2 view chest x-ray Comparison: CR - XR CHEST 2V - 12/05/24 18:26 EST Findings: Linear focus of scarring at the base of the left lung without change. No consolidation or pleural effusion. Normal size heart. No acute fracture. IMPRESSION: 1. No acute findings. This document has been electronically signed by: Rebeka De Paz MD on 10/08/2025 18:10:27
--- NOTE | 2025-10-08 14:47 | ECG_ITS ---
Test Reason : chest pain Blood Pressure : */* mmHG Vent. Rate : 85 BPM Atrial Rate : 85 BPM P-R Int : 168 ms QRS Dur : 76 ms QT Int : 358 ms P-R-T Axes : 14 -17 0 degrees QTcB Int : 426 ms Normal sinus rhythm Minimal voltage criteria for LVH, may be normal variant ( R in aVL ) Borderline ECG When compared with ECG of 05-Dec-2024 17:43, No significant change was found Referred By: Generic ED Physician Electronically Signed By: MANISHA MARTINEZ
[2025-10-08 14:58] VITALS: BP 143/73; PULSE 87; RESP 20; TEMP 36.2; O2SAT 93; BMI 34.9
--- NOTE | 2025-10-08 15:02 | ED_ITS ---
HPI - Chest Pain General Chief Complaint: Chest Pain Stated Complaint: chest pain possible heart attack Time Seen by Provider: 10/08/25 20:05 Source: patient Limitations: no limitations History of Present Illness ED Provider: Norma Lynch PA-C HPI narrative: 75-year-old male with a history of hypertension, hyperlipidemia, diabetes, obesity, kidney stones, GERD who presents with chest pain. Patient states he walks on a regular basis, he was exercising earlier today, and had an episode of substernal chest discomfort that resolved. Prior to arrival, he developed the same discomfort, it is resolved again. He denies it is consistent with reflux or GERD symptoms. It was nonradiating, denies associated diaphoresis or nausea. No shortness of breath, no recent cough or cold symptoms. No new activity where he could have strained his chest wall. No fevers. Related Data Home Medications ?Medication ?Instructions ?Recorded ?Confirmed aspirin 81 mg tablet,delayed 81 mg PO DAILY 02/21/21 1 10/21/24 release (Shlomo Low Dose Aspirin) timolol maleate 0.5 % eye drops 1 drp ophthalmic (eye) DAILY 05/02/22 08/21/25 cholecalciferol (vitamin D3) 50 50 mcg PO DAILY 08/21/25 mcg (2,000 unit) capsule pyridoxine (vitamin B6) 100 mg 100 mg PO DAILY 5 08/21/25 tablet Previous Rx's ?Medication ?Instructions ?Recorded potassium citrate 10 mEq (1,080 10 meq PO BID 90 days #180 tabs 08/19/24 mg) tablet,extended release walker #1 ea 12/04/24 lisinopril 5 mg tablet 5 mg PO DAILY #90 tabs 12/30 atorvastatin 10 mg tablet 10 mg PO DAILY #90 tabs 05/12 06/05 omeprazole 40 mg capsule,delayed 40 mg PO DAILY 90 day s #90 caps 07/13/25 release urea 20 % topical cream 1 appl topical BID callus #8 5 grams 08/30/25 metformin 500 mg tablet,extended 500 mg PO QPM 90 days #90 tabs 09/04/25 release 24 hr (Glucophage XR) diabetic shoes #1 ea 10/02/25 Allergies Allergy/AdvReac Type Severity Reaction Status Date / Time No Known Allergies Allergy Verified 10/08/25 14:59 Review of Systems 2 Review of Systems: Yes all other systems are reviewed and are negative Constitutional: Constitutional: Denies fatigue and Denies fever(s) Cardiovascular: Cardiovascular: Reports chest pain and Denies dyspnea Respiratory: Respiratory: Denies cough and Denies dyspnea Gastrointestinal: Gastrointestinal: Denies abdominal pain, Denies dyspepsia, Denies heartburn, Denies nausea and Denies vomiting Musculoskeletal: Musculoskeletal: Denies back pain Endocrine: Endocrine: Denies fatigue [facility] Past Medical History Attestation statement: The following information was validated with the patient. Medical History (Updated 10/09/25 @ 00:00 by [facility] Daemema) Annual physical exam Plantar callus Bacteremia Vasovagal syncope Nocturia Hyperuricemia COVID-19 vaccine administered Hx of orthostatic hypotension Hx of glaucoma Arthritis Hx of renal calculi HTN (hypertension) Hypercholesteremia Diabetes mellitus, type 2 Surgical History Hx of lithotripsy H/O colonoscopy (~02/27/21) Family History Family History (Updated 08/21/25 @ 10:45 by Oanh Newman MA) Mother No problems noted. Father No problems noted. Social History Social History Household Members: None Housing: House Are you a primary personal care aid to a significant other at home: No Do you presently have visiting nurse or other home services: No Alcohol intake: never Patient Tobacco Use Status: Never used Tobacco e-Cigarette/Vaping Use: Never Used Advance Directives Date on File: 05/03/22 service: No Current occupational status: retired Cognitive needs: No Hearing needs: No Vision needs: Yes (reading glasses) Physical Exam 2 Vital Signs: Vital Signs: Last Vital Signs Temp 98.0 F 10/08/25 21:02 Pulse 77 10/08/25 21:02 Resp 20 10/08/25 21:02 BP 139/80 10/08/25 21:02 Pulse Ox 96 10/08/25 21:02 O2 Del Method Room Air 10/08/25 21:02 BMI result Body Mass Index 34.9 Const: Other: Alert well-appearing Orientation/consciousness: patient oriented x3 Resp: Other: No wheezing, lungs clear Effort & Inspection: normal respiratory effort Cardio: Other: Normal peripheral perfusion Skin: Other: Warm dry no rash Neuro: General: patient oriented x3, gait normal, no focal motor deficits and CN's II-XI intact bilaterally Psych: Other: Cooperative Course Course Course Narrative: Rapid medical examination performed in triage by Nicole Rowan PA-C: Patient is a75 year old male presenting to the emergency department with chest pain and shortness of breath that has now resolved. Detailed physical exam and review of systems are deferred to the manager creative. EKG, labs, imaging, swabs ordered. Patient placed back in the waiting room pending room availability and results. Medical Decision Making Medical Decision Making MDM Narrative: 75-year-old male with a history of hypertension, hyperlipidemia, diabetes, obesity, kidney stones, GERD who presents with chest pain. Patient states he walks on a regular basis, he was exercising earlier today, and had an episode of substernal chest discomfort that resolved. Prior to arrival, he developed the same discomfort, it is resolved again. He denies it is consistent with reflux or GERD symptoms. It was nonradiating, denies associated diaphoresis or nausea. No shortness of breath, no recent cough or cold symptoms. No new activity where he could have strained his chest wall. No fevers. Problem: Numerous cardiac risk factors History: Per patient I have considered the following differential diagnoses: ACS, chest wall strain, costochondritis, GERD, viral syndrome, pneumonia, dissection Plan: ACS clearly considered, the patient has numerous risk factors for coronary artery disease, screening labs including troponin x2 EKG and chest x- ray obtained. Thus far his assessment is negative. Thought about costochondritis secondary to viral syndrome, however he is asymptomatic, viral panel negative. There was no pneumonia on chest x-ray. Thought about dissection, however he is not complaining of belly pain, back pain, he is hemodynamically stable, and there was no widened mediastinum on the chest x-ray. His symptoms do not seem consistent with a GERD either. I did explain to the patient that we have ruled out ACS at this time, that he needs to follow up with primary care for a likely outpatient stress test given his numerous risk factors. I have independently reviewed the following tests: Labs: No leukocytosis, not anemic, no electrolyte abnormality troponin x2 flat, viral panel negative EKG: Sinus rhythm, rate of 85, no ischemic changes no ectopy no change from prior study November of 2024 QTC 426 Chest x-ray:Findings: Linear focus of scarring at the base of the left lung without change. No consolidation or pleural effusion. Normal size heart. No acute fracture. IMPRESSION: 1. No acute findings. Differential Diagnosis Differential Diagnoses: The differential diagnosis associated with the presentation includes See [facility] Admission/Observation Consideration of admission/observation: Escalation of care including admission/observation considered Not applicable Lab Data [facility] Lab Attestation statement: I reviewed the patient's lab results. 10/08/25 15:15 10/08/25 15:15 Labs: Lab Results 10/08/25 10/08/25 Range/Units 15:15 16:43 WBC 7.7 (4.8-10.8) X10*3/uL RBC 4.50 L (4.60-5.80) X10*6/uL Hgb 14.1 (14.0-18.0) g/dl Hct 41.7 L (42.0-52.0) % MCV 92.7 (80.0-98.0) fL MCH 31.3 (27.0-33.0) pg MCHC 33.8 (31.0-36.0) g/dl RDW 13.6 (11.0-16.0) % Plt Count 256 (160-400) X10*3/uL MPV 9.2 L (9.4-12.4) fL Immature Gran % (Auto) 0.3 (0.0-0.4) % Neut % (Auto) 64.7 (45-73) % Lymph % (Auto) 22.5 (20-40) % Independence % (Auto) 8.7 (2-11) % Eos % (Auto) 2.6 (0-4) % Baso % (Auto) 1.2 (0-2) % Lymph # (Auto) 1.7 (1.2-4.9) X10*3/uL Independence # (Auto) 0.7 (0.1-1.2) X10*3/uL Eos # (Auto) 0.2 (0.0-0.4) X10*3/uL Baso # (Auto) 0.1 (0.0-0.2) X10*3/uL Abs Immat Gran (auto) 0.02 (0.00-0.03) X10*3/uL Absolute Neuts (auto) 5.0 (2.0-8.3) x10*3/uL Absolute Nucleated RBC 0.000 (0.0-0.012) X10*3/uL Nucleated RBC % (auto) 0.0 (0.0-0.2) /100WBC Sodium 143 (135-145) mmol/L Potassium 4.6 (3.3-5.1) mmol/L Chloride 112 H (96-108) mmol/L Carbon Dioxide 20 L (22-29) mmol/L Anion Gap 16 (12-20) BUN 24 H (9-16) mg/dL Creatinine 1.19 (0.5-1.4) mg/dL Estim Creat Clear Calc 66.6 Estimated GFR 60 Random Glucose 98 (60-115) mg/dL Calcium 9.3 (8.4-10.2) mg/dL Total Bilirubin 0.4 (0.0-1.0) mg/dL AST 31 (5-37) U/L ALT 30 (0-40) U/L Alkaline Phosphatase 93 (39-117) U/L Troponin I High Sens 31.1 D 28.8 (<3.5-35.0) ng/L NT-Pro-B Natriuret Pep 110.3 (<300) pg/mL Total Protein 7.2 (6.5-8.0) g/dL Albumin 4.4 (3.5-5.0) g/dL Lipase 22 (8-78) U/L Influenza Type A (PCR) NEGATIVE (Negative) Influenza Type B (PCR) NEGATIVE (Negative) RSV RNA Qual (PCR) NEGATIVE (Negative) SARS-CoV-2 RNA (RT-PCR) NEGATIVE (Negative) Independent Interpretation I performed an independent interpretation of an: EKG Radiology Impression Discussion of test interpretation with radiology: I have reviewed the radiologist's reading. Discharge Plan Discharge Clinical Impression: Chest pain Patient Disposition: Home, Self-Care Instructions: Chest Pain (ED) Additional Instructions: Today, the chest discomfort you were experiencing is not cardiac in nature. With your screening labs, 2 cardiac enzymes were obtained, they were not elevated. There were no concerning changes on the EKG in the chest x-ray was clear. You were also tested for influenza RSV and COVID, the viral panel was negative. Call your primary care provider for a follow up appointment, they will likely schedule an outpatient stress test and refer you to cardiology. Prescriptions: No Action potassium citrate 10 mEq (1,080 mg) tablet extended release 10 meq PO BID 90 Days Qty: 180 3RF (DME) walker [facility] See Rx Instructions .MEDSUPPLY Qty: 1 0RF Rx Instructions: Folding Front wheeled walker duration 99 days lisinopril 5 mg tablet 5 mg PO DAILY Qty: 90 3RF atorvastatin 10 mg tablet 10 mg PO DAILY Qty: 90 1RF omeprazole 40 mg capsule,delayed release(DR/EC) 40 mg PO DAILY 90 Days Qty: 90 0RF metformin [Glucophage XR] 500 mg tablet extended release 24 hr 500 mg PO QPM 90 Days Qty: 90 1RF aspirin [Shlomo Low Dose Aspirin] 81 mg Tablet,Delayed Release (Dr/Ec) 81 mg PO DAILY timolol maleate 0.5 % drops 1 drp ophthalmic (eye) DAILY urea 20 % cream 1 appl topical BID Qty: 85 5RF Rx Instructions: apply to right foot callus (DME) diabetic shoes See Rx Instructions .Route .MEDSUPPLY Qty: 1 0RF Rx Instructions: Please dispense extra-depth diabetic shoes with 3 pairs of custom molded inserts. pyridoxine (vitamin B6) 100 mg tablet 100 mg PO DAILY cholecalciferol (vitamin D3) 50 mcg (2,000 unit) capsule 50 mcg PO DAILY Interventions: ED Discharge Assessment Last Done: 10/08/25 21:02 Discharge Date/Time: 10/08/25 21:03 Print Language: Romansh
[2025-10-08 15:32] LABS: MANUAL DIFF FLAG NO
[2025-10-08 15:36] LABS: Hematocrit 41.7 % (42.0-52.0); Hemoglobin 14.1 g/dl (14.0-18.0); Imm Gran Abs Auto 0.02 X10*3/uL (0.00-0.03); Imm Gran Pct Auto 0.3 % (0.0-0.4); Lymphocytes Absolute Auto 1.7 X10*3/uL (1.2-4.9); Mean Corpuscular HGB Conc 33.8 g/dl (31.0-36.0); Mean Corpuscular Hemoglobin 31.3 pg (27.0-33.0); Mean Corpuscular Volume 92.7 fL (80.0-98.0); NRBC Abs Auto 0.000 X10*3/uL (0.0-0.012); NRBC Pct Auto 0.0 /100WBC (0.0-0.2); Platelet Count 256 X10*3/uL (160-400); Red Blood Count 4.50 X10*6/uL (4.60-5.80); White Blood Count 7.7 X10*3/uL (4.8-10.8)
[2025-10-08 15:46] LABS: Alanine Aminotransferase 30 U/L (0-40); Albumin Level 4.4 g/dL (3.5-5.0); Alkaline Phosphatase 93 U/L (39-117); Anion Gap 16 (12-20); Aspartate Amino Transferase 31 U/L (5-37); Blood Urea Nitrogen 24 mg/dL (9-16); Calcium 9.3 mg/dL (8.4-10.2); Carbon Dioxide 20 mmol/L (22-29); Chloride 112 mmol/L (96-108); Creatinine Clr Calc Pharmacy 66.6; Estimated Glomerular Filt Rate 60; Lipase 22 U/L (8-78); Potassium 4.6 mmol/L (3.3-5.1); Sodium 143 mmol/L (135-145); Total Protein 7.2 g/dL (6.5-8.0)
[2025-10-08 15:54] LABS: Troponin-I High Sensitivity 31.1 ng/L (<3.5-35.0)
[2025-10-08 15:58] LABS: NT Pro B Type Natriuretic Pept 110.3 pg/mL (<300)
[2025-10-08 16:08] LABS: Resp Syncy Virus RNA Qual PCR NEGATIVE (Negative); SARS COV2 PCR INHOUSE NEGATIVE (Negative)
--- OUTSIDE RECORDS SUMMARY | 2025-10-08 16:52 | XMS_ITS | Clinical Summary ---
Author Organization [employer] Address [address] [place] [address] Care Team Providers Care Boat Master Name Role Phone Unavailable Primary Care Provider [...] patient's age to complete this topic Insurance [facility] MEDICARE
[2025-10-08 17:09] LABS: Troponin-I High Sensitivity 28.8 ng/L (<3.5-35.0)
[2025-10-08 21:01] VITALS: BP 139/80; PULSE 77; RESP 20; TEMP 36.7; O2SAT 96
[2025-10-08 21:02] VITALS: BP 139/80; PULSE 77; RESP 20; TEMP 36.7; O2SAT 96
== END 2025-10-08 21:03 | disposition home or self-care (01) ==
PROVIDERS: Physician Assistant Medical; Emergency Provider Emergency Medicine; PCP Student in an Organized Health Care Education/Training Program
DX: R07.9 Chest pain, unspecified (principal); R06.02 Shortness of breath; Z03.818 Encounter for observation for suspected exposure to other biological agents ruled out; I10 Essential (primary) hypertension; E11.9 Type 2 diabetes mellitus without complications; E78.5 Hyperlipidemia, unspecified; K21.9 Gastro-esophageal reflux disease without esophagitis; E66.9 Obesity, unspecified; Z79.899 Other long term (current) drug therapy
CPT/HCPCS: 36415; 71046; 80053; 83690; 83880; 84484; 85025; 87637; 93005; 99283; 99284

== ENCOUNTER → 2025-10-08 14:47 | Outpatient (BNV) | payer MEDICARE, SELFPAY | PROVIDERS: Emergency Provider Emergency Medicine; PCP Student in an Organized Health Care Education/Training Program; Visit Provider Internal Medicine | DX: R07.9 Chest pain, unspecified (principal) | CPT/HCPCS: 93010 ==

== ENCOUNTER → 2025-10-08 15:03 | Outpatient (BNV) | payer MEDICARE, SELFPAY | PROVIDERS: PCP Student in an Organized Health Care Education/Training Program; Visit Provider Radiology Diagnostic Radiology | DX: R07.9 Chest pain, unspecified (principal); R06.02 Shortness of breath | CPT/HCPCS: 71046 ==